=== PATIENT | male | born 1940 | race Caucasian/White ===

== ENCOUNTER → 2023-08-28 13:14 | Outpatient (REF) | payer MEDICARE, BC, SELFPAY ==
[2023-08-28 15:33] LABS: % Basophils 0.3 % (0-2); % Immature Granulocytes 0.6 % (0-0.5); % Lymphocytes 9.2 % (20.5-51.1); % Monocytes 13.9 % (1.7-9.3); Absolute Immature Granulocytes 0.1 10^3/uL (0-0.05); Absolute Lymphocytes 0.9 10^3/uL (1.2-3.4); Absolute Monocytes 1.4 10^3/uL (0.1-0.6); Absolute Neutrophils 7.7 10^3/uL (1.4-6.5); Hematocrit 25.3 % (39.0-52.0); Hemoglobin 8.5 g/dL (13.0-18.0); Mean Corp Hgb Conc. 33.6 g/dL (33.0-37.0); Mean Corpuscular Volume 101.2 fL (80.0-94.0); Mean Platelet Volume 12.9 fL (7.4-10.4); Nucleated Red Blood Cells % 0 % (-); Platelet Count 260 10^3/uL (130-400); Red Cell Dist. Width 16.2 % (11.5-14.5); White Blood Cell Count 10.1 10^3/uL (4.8-10.8)
== END ==
LOC: HWLAB 13:14
PROVIDERS: ATTENDING PHYSICIAN Internal Medicine Hematology & Oncology; FAMILY PHYSICIAN Family Medicine
DX: D46.9 Myelodysplastic syndrome, unspecified (principal); D46.1 Refractory anemia with ring sideroblasts
CPT/HCPCS: 36415; 85025

== ENCOUNTER → 2023-09-15 13:26 | Outpatient (REF) | payer MEDICARE, BC, SELFPAY ==
[2023-09-15 15:24] LABS: Hematocrit 25.8 % (39.0-52.0); Hemoglobin 8.8 g/dL (13.0-18.0); Mean Corp Hgb Conc. 34.1 g/dL (33.0-37.0); Mean Corpuscular Hgb 33.6 pg (27.0-31.0); Mean Corpuscular Volume 98.5 fL (80.0-94.0); Mean Platelet Volume 12.2 fL (7.4-10.4); Platelet Count 275 10^3/uL (130-400); Red Blood Cell Count 2.62 10^6/uL (4.70-6.10); Red Cell Dist. Width 15.5 % (11.5-14.5); White Blood Cell Count 7.9 10^3/uL (4.8-10.8)
[2023-09-15 15:25] LABS: ALT (SGPT) 34 U/L (0-50); AST (SGOT) 39 U/L (17-59); Albumin 4.3 g/dl (3.5-5.0); Alkaline Phosphatase 81 U/L (38-126); Blood Urea Nitrogen 63 mg/dl (9-20); Calcium 9.6 mg/dl (8.4-10.2); Carbon Dioxide 23 mmol/L (22-30); Chloride 103 mmol/L (98-107); Glucose 124 mg/dl (70-99); Potassium 3.9 mmol/L (3.5-5.1); Sodium 138 mmol/L (135-145); Total Protein 7.1 g/dl (6.3-8.2); eGFR 46.19
[2023-09-16 09:31] LABS: Glycohemoglobin (HgbA1c) 7.3 % (4.0-5.6)
== END ==
LOC: HWLAB 13:26
PROVIDERS: ATTENDING PHYSICIAN Physician Assistant; FAMILY PHYSICIAN Family Medicine
DX: E11.65 Type 2 diabetes mellitus with hyperglycemia (principal); J44.9 Chronic obstructive pulmonary disease, unspecified
CPT/HCPCS: 36415; 80053; 83036; 85027

== ENCOUNTER → 2024-02-19 10:56 | Outpatient (REF) | payer MEDICARE, BC, SELFPAY | LOC: RAD 10:56 | PROVIDERS: ATTENDING PHYSICIAN Surgery Vascular Surgery | DX: I73.9 Peripheral vascular disease, unspecified (principal) | CPT/HCPCS: 93922; 93925 ==

== ENCOUNTER → 2024-04-15 10:52 | Outpatient (REF) | payer MEDICARE, BC, SELFPAY ==
[2024-04-15 15:49] LABS: ALT (SGPT) 29 U/L (0-50); AST (SGOT) 35 U/L (17-59); Albumin 4.3 g/dl (3.5-5.0); Alkaline Phosphatase 90 U/L (38-126); Blood Urea Nitrogen 53 mg/dl (9-20); Calcium 9.7 mg/dl (8.4-10.2); Carbon Dioxide 22 mmol/L (22-30); Chloride 101 mmol/L (98-107); Glucose 216 mg/dl (70-99); Hematocrit 24.6 % (39.0-52.0); Hemoglobin 8.2 g/dL (13.0-18.0); Mean Corp Hgb Conc. 33.3 g/dL (33.0-37.0); Mean Corpuscular Hgb 33.3 pg (27.0-31.0); Platelet Count 258 10^3/uL (130-400); Potassium 4.6 mmol/L (3.5-5.1); Red Blood Cell Count 2.46 10^6/uL (4.70-6.10); Red Cell Dist. Width 15.9 % (11.5-14.5); Sodium 139 mmol/L (135-145); Total Bilirubin 1.1 mg/dl (0.2-1.3); Total Protein 6.8 g/dl (6.3-8.2); White Blood Cell Count 7.9 10^3/uL (4.8-10.8); eGFR 42.75
[2024-04-15 16:02] LABS: NT-proBNP 1980 pg/ml
[2024-04-16 09:34] LABS: Glycohemoglobin (HgbA1c) 7.5 % (4.0-5.6)
== END ==
LOC: HWLAB 10:52
PROVIDERS: ATTENDING PHYSICIAN Physician Assistant Medical; FAMILY PHYSICIAN Family Medicine; REFERRING PHYSICIAN Physician Assistant
DX: I50.32 Chronic diastolic (congestive) heart failure (principal); I48.21 Permanent atrial fibrillation; E11.65 Type 2 diabetes mellitus with hyperglycemia
CPT/HCPCS: 36415; 80053; 83036; 83880; 84443; 85027

== ENCOUNTER → 2024-06-14 11:33 | Outpatient (REF) | payer MEDICARE, BC, SELFPAY ==
[2024-06-14 16:07] LABS: Digoxin 0.9 ng/ml (0.8-2.0)
[2024-06-14 16:27] LABS: INR 1.78; PT 20.9 Sec (11.4-14.6)
== END ==
LOC: HWLAB 11:33
PROVIDERS: ATTENDING PHYSICIAN Internal Medicine Cardiovascular Disease; FAMILY PHYSICIAN Family Medicine
DX: Z95.2 Presence of prosthetic heart valve (principal); Z79.01 Long term (current) use of anticoagulants; I50.32 Chronic diastolic (congestive) heart failure
CPT/HCPCS: 36415; 80162; 85610

== ENCOUNTER → 2025-02-17 13:28 | Outpatient (REF) | payer OTHER, SELFPAY | LOC: HWRCS 13:28 | PROVIDERS: ATTENDING PHYSICIAN Internal Medicine Cardiovascular Disease; FAMILY PHYSICIAN Family Medicine | DX: I50.32 Chronic diastolic (congestive) heart failure (principal); I48.21 Permanent atrial fibrillation | CPT/HCPCS: 93306 ==

== ENCOUNTER → 2025-02-21 12:58 | Outpatient (REF) | payer OTHER, SELFPAY | LOC: RAD 12:58 | PROVIDERS: ATTENDING PHYSICIAN Registered Nurse; FAMILY PHYSICIAN Family Medicine | DX: I73.9 Peripheral vascular disease, unspecified (principal) | CPT/HCPCS: 93922; 93925 ==

== ENCOUNTER 2025-03-04 19:23 | Inpatient (IN) | payer OTHER, SELFPAY ==
[2025-03-04] VITALS (12 sets, daily range): BP systolic 123–160; BP diastolic 46–97; BMI 25.2; BMI 28.0
--- NOTE | 2025-03-04 12:09 | ED.GENMED ---
History of Present Illness
General
Chief Complaint: Generalized Pain
Source: patient
Exam Limitations: none
Time Seen by Provider: 03/04/25 11:43
History of Present Illness
History of Present Illness:
84-year-old male presents with onset of rigors chills myalgias since yesterday and slightly the day before. He denies significant chest pain shortness of breath but does note a cough. He denies abdominal pain but does note difficulty urinating and
pain over his flanks where his kidneys live. He denies any hematuria. He is anticoagulated. He has a history of insulin-dependent diabetes, asthma. He also notes nausea with his symptoms
Past History
Past History
ED Past Medical History: Arrthythmia (afib), COPD, HTN, Hypercholesterolemia, IDDM and Other (, BPH, renal stones)
ED Past Surgical History: Cardiac (AVR)
Social History
Tobacco: Former smoker
Alcohol: None
Drug: None
Personal:
Living: with family
Employment: Retired
Phy Exam
Physical Exam
Physical Exam:
General: Well-appearing male no acute respiratory distress HEENT: Normocephalic atraumatic
Heart: Regular rate and rhythm
Lungs: Clear no wheeze
Abdomen is distended but soft and nontender
Extremities: Mild edema bilateral lower extremities
Skin: Warm to the touch no rash
Course
Orders/Labs/Results
Orders:
Orders
03/04/25 12:06
CR Chest - 2 Views Urgent
Comment:
Reason For Exam: rigors, cough
03/04/25 12:19
COVID-19 Antigen Urgent
Source: Nasal Swab
Complete Blood Count/With Diff Urgent
Comprehensive Metabolic Panel Urgent
Lactic Acid Q4H
Comment: CANCEL 2nd LACTIC ACID IF 1st LACTIC ACID IS LESS THAN 2
NT-proBNP Urgent
Comment: ADD ON
Prothrombin Time Urgent
Blood Culture Q30M
MICHELLE Source: Blood/Venous
Specimen Description:
Influenza A+B Rapid Molecular Urgent
MICHELLE Source: Nasal Swab
Specimen Description:
03/04/25 12:24
Acetaminophen [Tylenol] 650 mg .ROUTE .STK-MED ONE
03/04/25 12:27
Acetaminophen [Tylenol] 650 mg PO NOW STA
03/04/25 12:33
CT Abd/pelvis W Iv Cont Urgent
Comment:
Reason For Exam: vomiting, fever, distention
Ondansetron Injectable [Zofran] 4 mg IV NOW STA
03/04/25 12:59
Blood Culture Q30M
MICHELLE Source: Blood/Venous
Specimen Description:
03/04/25 13:00
Dextrose 5%/0.45%Sodchl 500 ml [D5/0.45%NaCl] 500 ml IV 200 mls/hr
03/04/25 13:52
Add On- LAB Urgent
Tests Added?: bnp
03/04/25 15:50
Urinalysis Reflex To Culture Urgent
Date Specimen was Collected: 03/04/25
Time Specimen was Collected: 15:44
Urine Microscopic Reflex Cult Urgent
03/04/25 16:06
0.9% Sodium Chloride 1000 ml [Nss] 1,000 ml IV BOLUS
Piperacillin/Tazo 3.375 Gram [Zosyn] 3.375 gram in 50 ml IV NOW
03/04/25 16:15
Lactic Acid Q4H
Comment: CANCEL 2nd LACTIC ACID IF 1st LACTIC ACID IS LESS THAN 2
03/04/25 16:17
Vancomycin [Vancocin] 2,000 mg 0.9% Sodium Chloride 500 ml [Nss] 500 ml IV NOW
Abnormal Lab Results
03/04/25 03/04/25
12:19 15:50
WBC 30.6 H 10^3/uL
(4.8-10.8)
RBC 2.99 L 10^6/uL
(4.70-6.10)
Hgb 10.1 L g/dL
(13.0-18.0)
Hct 29.5 L %
(39.0-52.0)
MCV 98.7 H fL
(80.0-94.0)
MCH 33.8 H pg
(27.0-31.0)
RDW 17.2 H %
(11.5-14.5)
MPV 12.0 H fL
(7.4-10.4)
Abs Immat Gran (auto) 0.3 H 10^3/uL
(0-0.05)
Absolute Neuts (auto) 27.0 H 10^3/uL
(1.4-6.5)
Absolute Lymphs (auto) 0.5 L 10^3/uL
(1.2-3.4)
Absolute Monos (auto) 2.7 H 10^3/uL
(0.1-0.6)
Immature Gran % 1.1 H %
(0-0.5)
Neutrophils % 88.2 H %
(42.2-75.2)
Lymphocytes % 1.7 L %
(20.5-51.1)
PT 27.4 H Sec
(11.4-14.6)
BUN 49 H mg/dl
(9-20)
Creatinine 1.4 H mg/dL
(0.7-1.3)
Glucose 128 H mg/dl
(70-99)
Lactic Acid 2.3 H mmol/L
(0.7-2.0)
Total Bilirubin 2.1 H mg/dl
(0.2-1.3)
Urine Bacteria (Reflex) Few A
(Negative)
Urine Albumin (Reflex) 3+ A
(Neg - Trace)
09/02/25 12:19
03/04/25 12:19
Vital Signs
Initial and Last Documented VS:
Initial Vital Signs
Temp Pulse Resp BP Pulse Ox
98.3 F 66 18 123/72 96
03/04/25 10:54 03/04/25 10:54 03/04/25 10:54 03/04/25 10:54 03/04/25 10:54
Last Documented Vital Signs
Temp Pulse Resp BP Pulse Ox
98.3 F 61 15 137/53 98
03/04/25 10:54 03/04/25 15:30 03/04/25 15:30 03/04/25 15:03 03/04/25 15:30
MDM/Problems Addressed
Differential Diagnosis Includes:
Patient presents with shaking chills fatigue myalgias. Consider underlying infectious source. Will check for COVID flu pneumonia ordered blood cultures lactic acid and urinalysis. Bedside bladder scan demonstrated about 150 mL of urine in his
bladder. If he cannot provide a urine sample on his own we will consider straight cath.
Vital signs are stable
*Pulse Oximetry
SaO2: 96
Oxygen Mode of Delivery: Room air
Patient hypoxic: yes
*Critical Care Note
Total Time (30-74mins, 75-104mins- exclusive of procedures): Not Applicable
Update Note
Update Note:
Chest x-ray shows consolidation right upper lobe consistent with pneumonia. White blood cell count 30,000. CT of abdomen without acute findings. Patient now on 2 L of nasal cannula oxygen. Fluids ordered vancomycin Zosyn ordered. Will admit for
pneumonia
ED Attending Note
-
Portions of this chart may have been created with voice recognition software.� Occasional wrong word or��sound alike� substitutions may have occurred due to the inherent limitations of voice recognition software.
Discharge Plan
Departure
Patient Disposition: Admit
Date of Disposition: 03/04/25
Time of Disposition: 16:41
Presentation/result/management discussed w/ accepting /DO: Hospitalist
Discharge Problem:
Pneumonia
Prescriptions:
No Action
montelukast 10 MG tablet
10 mg PO QPM
cholecalciferol (vitamin D3) [Vitamin D3] 1,000 UNIT tablet
1,000 unit PO QPM
mynmzclx-pfdvm-ief 149-hyal ac 1 EACH tablet
1 ea PO BID
atorvastatin 80 MG tablet
80 mg PO QPM
finasteride 5 MG tablet
5 mg PO DAILY
tamsulosin 0.4 MG capsule
0.4 mg PO QPM
ypfrauvu-pfh-ymzn fum-folic ac 1 EACH tablet
1 ea PO DAILY
levalbuterol tartrate [Xopenex HFA] 45 mcg/actuation Hfa Aerosol Inhaler
2 inh INHALATION R Q4HPRN PRN (Reason: sob/wheezing) Qty: 0
Trelegy Ellipta 1 EACH blister with device
1 puff inhalation R DAILY
insulin lispro [Humalog KwikPen Insulin] 100 unit/mL Insulin Pen
0 - 26 unit SC AC
omeprazole 40 mg Capsule,Delayed Release(Dr/Ec)
40 mg PO DAILY
Fasenra 30 mg/mL Syringe
30 mg SC Q4W
hydralazine 50 mg tablet
50 mg PO BID Qty: 60 5RF
diltiazem HCl 360 mg capsule,extended release 24hr
360 mg PO DAILY Qty: 1 0RF
furosemide 80 mg tablet
60 mg PO DAILY
warfarin 1 mg tablet
3.5 mg PO QPM
insulin glargine [Lantus U-100 Insulin] 100 UNIT/ML solution
13 unit SC HS Qty: 0 0RF
Referrals:
Martine Duron DO [Family Provider, Family Practice]
Interventions
Interventions:
*Risk Screen - Suicide Last Done: 03/04/25 10:54
*General Assessment Last Done: 03/04/25 13:40
*Neglect/Abuse Screening Last Done: 03/04/25 10:54
*ED- Fall Risk Assessment Last Done: 03/04/25 13:40
*ED COVID-19 Vaccine History Last Done: 03/04/25 13:40
Discharge Date and Time
Print Language: BOTSWANAN
[2025-03-04] MEDS: TYLENOL 650 MG PO ×3 (12:27→22:40)
[2025-03-04] MEDS: ZOFRAN 4 MG IV ×2 (12:35→18:15)
[2025-03-04 12:42] LABS: Hematocrit 29.5 % (39.0-52.0); Hemoglobin 10.1 g/dL (13.0-18.0); Mean Corp Hgb Conc. 34.2 g/dL (33.0-37.0); Mean Corpuscular Volume 98.7 fL (80.0-94.0); Platelet Count 308 10^3/uL (130-400); Red Cell Dist. Width 17.2 % (11.5-14.5)
[2025-03-04 12:46] LABS: INR 2.54; PT 27.4 Sec (11.4-14.6)
[2025-03-04 12:53] LABS: ALT (SGPT) 25 U/L (0-50); AST (SGOT) 37 U/L (17-59); Albumin 4.3 g/dl (3.5-5.0); Alkaline Phosphatase 76 U/L (38-126); Blood Urea Nitrogen 49 mg/dl (9-20); COVID-19 Antigen Negative (Negative); Calcium 9.6 mg/dl (8.4-10.2); Carbon Dioxide 23 mmol/L (22-30); Chloride 104 mmol/L (98-107); Glucose 128 mg/dl (70-99); Potassium 4.8 mmol/L (3.5-5.1); Sodium 136 mmol/L (135-145); Total Protein 6.9 g/dl (6.3-8.2); eGFR 49.87
[2025-03-04] MEDS: D5/0.45%NACL 500 IV ×2 (12:54→15:41)
[2025-03-04 12:59] LABS: Nucleated Red Blood Cells % 0.1 % (-)
[2025-03-04 15:57] LABS: Urine Character Clear (Clear)
[2025-03-04 16:05] LABS: Urine Red Blood Cell 0-2 /HPF (0-2); Urine White Cell 0-2 /HPF (0-5)
[2025-03-04] MEDS: NSS 1000 IV (16:10)
[2025-03-04] MEDS: ZOSYN 50 IV (16:13)
[2025-03-04] MEDS: VANCOCIN 540 MG IV (17:11)
--- NOTE | 2025-03-04 18:08 | HPS.HSE ---
Family Physician
-
Family Physician: Martine Duron
Chief Complaint
-
general myalgias
History of Present Illness
Patient 84-year-old male with past medical history of paroxysmal atrial fibrillation, hypertension, hyperlipidemia, ASCVD, chronic kidney disease III, HFpEF, BPH, MDS, PAD and DM - II who presented to [facility] ED for evaluation of general myalgias.
Patient states that for last 24-hours he has had significant body aches and nausea. He denies any cough although observed cough in assessment that he states he got some mucus up earlier. Patient denies home O2 use and currently requiring 2 L vis NC
to maintain SpO2 >93%. He denies any fever, chills, cough, shortness of breath, chest pain, nausea, vomiting, consitpation or diarrhea. He does admit he feels he has not been emptying his bladder completely when urinating.
Medical History
Past Medical History
Past Medical History: Reports Other
Additional Past Medical History:
paroxysmal atrial fibrillation
hypertension
hyperlipidemia
ASCVD
chronic kidney disease III
HFpEF
BPH
MDS
PAD
DM - II
Past Surgical History: Reports Other
Additional Past Surgical History:
Aortic valve replacement with revision(x2)
Retinal Repair
R Knee Surgery
Deviated Septum Repair
Appendectomy
09/04/2017 right lower extremity arteriogram
03/23/2018 RLE arteriogram
LT LE arteriogram with third order catheterization (Dr Kaur) 10/22/2018
bone marrow biopsy 07/[address] Dickson Faye 2020
Social History
Tobacco: Non-smoker
Alcohol: None
Drug: None
Personal:
Living: With Family
Family History
Family History: Not pertinent
Allergies / Home Medications
Allergies reflects when Allergies were last updated in [employer].
Home Medications with original date entered in [employer]
Allergy/Medication List:
Allergies
Allergy/AdvReac Type Severity Reaction Status Date / Time
gabapentin Allergy hallucinati Verified 03/04/25 10:56
ons
mold Allergy wheezing Verified 03/04/25 10:56
oxycodone Allergy hallucinati Verified 03/04/25 10:56
ons
pantoprazole Allergy Itching Verified 03/04/25 10:56
Penicillins Allergy Hives Verified 03/04/25 10:56
Home Medications
cholecalciferol (vitamin D3) 25 mcg (1,000 unit) tablet (Vitamin D3) 1,000 unit PO QPM Supplement 02/23/11
jvoqingnmsr-ofbpyphwq-ynqr853-hyal 750 mg-100 mg-125 mg-1.65 mg tablet 1 ea PO BID Supplement 02/23/11
montelukast 10 mg tablet 10 mg PO QPM Allergies 02/23/11
atorvastatin 80 mg tablet 80 mg PO QPM High cholesterol 05/04/15
finasteride 5 mg tablet 5 mg PO DAILY Urinary issue 05/04/15
zjslhqiohtgq-vjpqzsgl-zazr fumarate 7.5 mg-folic acid 400 mcg tablet 1 ea PO DAILY Supplement 06/05/15
tamsulosin 0.4 mg capsule 0.4 mg PO BID Urinary issue 06/05/15
insulin lispro 100 unit/mL subcutaneous pen (Humalog KwikPen (U-100) Insulin) 17 - 32 unit SC AC Diabetes 04/18/22
benralizumab 30 mg/mL subcutaneous syringe (Fasenra) 30 mg SC Q8W Lung/breathing issues 05/23/22
omeprazole 40 mg capsule,delayed release 40 mg PO DAILY Gastrointestinal issue 05/23/22
warfarin 1 mg tablet 3.5 mg PO QPM Blood clot prevention/tx 05/26/23
aspirin 81 mg chewable tablet 81 mg PO DAILY 03/04/25
digoxin 125 mcg (0.125 mg) tablet 125 mcg PO MOWEFR 03/04/25
diltiazem HCl 240 mg capsule,extended release 24 hr 240 mg PO DAILY 03/04/25
fluticasone fur. 100 mcg-umeclid 62.5 mcg-vilant 25 mcg inhalat.powder (Trelegy Ellipta) 1 ea inhalation DAILY 03/04/25
furosemide 20 mg tablet 20 mg PO MOWEFR 03/04/25
furosemide 80 mg tablet 80 mg PO DAILY 03/04/25
hydralazine 25 mg tablet 25 mg PO BID 03/04/25
insulin glargine 100 unit/mL subcutaneous solution (Lantus U-100 Insulin) 0 - 11 unit SC HS Diabetes 03/04/25
levalbuterol tartrate 45 mcg/actuation aerosol inhaler 2 puff inhalation Q6HPRN PRN sob 03/04/25
sitagliptin phosphate 25 mg tablet (Januvia) 25 mg PO DAILY 03/04/25
Review of Systems
-
History Source: Patient
Constitutional: Denies Fever or Chills
EENT: Denies Sore Throat
Respiratory: Denies Cough or Trouble Breathing
Cardiac: Denies Chest Pain, Diaphoresis, Palpitations or Syncope
Abdomen/GI: Reports Nausea and Constipated; Denies Abdominal Pain, Vomiting or Diarrhea
: Reports Difficulty Voiding; Denies Dysuria, Frequency, Flank Pain or Urgency
Musculoskeletal: Reports No Symptoms
Skin: Denies Rash
Neurological: Denies Dizzy, Headache, Weakness or Numbness
Endocrine: Denies Polyuria or Polydipsia
Hematologic/Lymphatic: Reports No Symptoms
Psych: Reports Calm
Physical Exam
Vital Signs
Vital Signs
Temp Pulse Resp BP Pulse Ox
98.3 F 61 15 137/53 98
03/04/25 10:54 03/04/25 15:30 03/04/25 15:30 03/04/25 15:03 03/04/25 15:30
Physical Exam
General: Comfortable and Conversant
HEENT: NormoCephalic and Atraumatic
Respiratory: Clear; No Wheezes, Rales, Rhonchi or Crackles
Cardiac: S1/S2 and Regular Rhythm; No Murmur, Rub or Gallop
Breast: Deferred by me
GI: Soft, Non Tender, Non Distended and Normal Bowel Sounds; No Organomegaly
Rectal: Deferred by Provider
Genito-urinary: Deferred by me
Musculoskeletal: No Clubbing, No Cyanosis and No Edema
Skin: Warm and IV/Catheter Site; No Rash
Neuro: Awake, AO x 3 and Nonfocal/grossly intact
Hematologic/Lymphatic: No Lymphadenopathy
Psych: Calm and Intact Judgment/Insight
Laboratory Results
-
03/04/25 12:19
03/04/25 12:19
Laboratory Results
PT 27.4 Sec (11.4-14.6) H 03/04/25 12:19
INR 2.54 03/04/25 12:19
Lactic Acid 2.3 mmol/L (0.7-2.0) H 03/04/25 12:19
Total Bilirubin 2.1 mg/dl (0.2-1.3) H 03/04/25 12:19
AST 37 U/L (17-59) 03/04/25 12:19
ALT 25 U/L (0-50) 03/04/25 12:19
Alkaline Phosphatase 76 U/L (38-126) 03/04/25 12:19
Data Reviewed
-
Diagnostic Radiology: Report Reviewed by me (CXR: Focal opacity in the posterior aspect of the right upper midlung, best seen on the lateral view. See above discussion. Cardiomegaly. Diffusely increased reticulonodular markings. Correlating with
prior examinations, this could represent chronic changes of congestive heart failure. No evidence )
Lab Data: Labs Reviewed by me (WBC 30.6, Neut 88.2, BUN 49, Creat 1.4, eGFR 49.87, Lactic 2.3, pBNP 2580)
Impression/Plan
-
IMPRESSION/PLAN:
#pneumonia
WBC 30.6, Neut 88.2, Lactic 2.3
Blood cx: pending
CXR: Focal opacity in the posterior aspect of the right upper midlung, best seen on the lateral view. See above discussion.
Cardiomegaly. Diffusely increased reticulonodular markings. Correlating with prior examinations, this could represent chronic changes of congestive heart failure. No evidence for significant pleural
effusion on today's exam.
Abd/Pel CT: Colonic diverticula with no CT evidence for diverticulitis.
History of appendectomy. No evidence for bowel obstruction or free intraperitoneal air.
Moderate to severe vascular calcification. No evidence for abdominal aortic aneurysm.
Small umbilical hernia containing fat, with no evidence for significant inflammation.
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 Bony degenerative changes as described.
- Admit to telemetry
- IV Cefepime
- supportive care
#acute on chronic HFpEF
pBNP 2580
- daily weights
- I & Os
- Consult Cardiology
- IV Lasix daily
#chronic kidney disease III
BUN 49, Creat 1.4, eGFR 49.87
appears to be baseline
- monitor BMP
#paroxysmal atrial fibrillation
- continue Coumadin 3mg daily
- daily INR
- continue diltiazem
#hypertension
- hold PO furosemide
- IV furosemide for acute CHF
- continue hydralazine
#hyperlipidemia
#ASCVD
- continue aspirin and atorvastatin
#BPH
- continue tamsulosin
#DM - II
- AccuCheck AC & HS
- SSI
- continue Lantus
#Pulmonary HTN
- continue Coumadin
- daily INR
#MDS
#PAD
Code status: Full code
DVT prophylaxis: Coumadin
[2025-03-04] MEDS: D5/0.45%NACL IV ×2 (18:14→21:41)
--- NOTE | 2025-03-04 18:28 | W.PN.UPDATE ---
Update Note
Progress Note Update
This note serves as an addendum to the H&P by group sales manager MARINE�
Kira Morris
HPI�
84M pw onset of rigors chills myalgias since yesterday and slightly the day before.
- denies significant CO oe SoB
- does note a cough.
ROS
denies abdominal pain but does note difficulty urinating and pain over his flanks where his kidneys live.
denies any hematuria.
anticoagulated. He has a history of insulin-dependent diabetes, asthma. He also notes nausea with his symptoms
PHX
HTN, permanent A-fib, chronic anemia with GI bleed in 2021, chronic systolic CHF with preserved EF 65%, PVCs, COPD,
CKD 3B, BPH, mechanical AVR 2010 revision of leak on 07/22/2014, CAD/CABG DUNCAN to LAD 2010, pulmonary HTN, HLD, DM 2, PVD S/P right posterior tibial angioplasty 2018, BPH
Reviewed VS:
PE
GENERAL: mild resp distress, SOB with pursed lip breathing
HEENT: NC/AT--no O2 +JVD
HEART: regular rate and rhythm, +S1, +S2 murmur
LUNGS: rales bilaterally
ABDOM: soft, nontender, nondistended, + bowel sounds
EXT: 3+ LE edema pitting bilaterally
NEUROLOGIC: grossly intact
Relevant Data�
06/16/22 03/04/25
15:48 12:19
Fix-V-Kjfayadovlw Pept 1450 2580
04/15/24 03/04/25
11:05 12:19
BUN 53 H 49 H
Creatinine 1.6 H 1.4 H
eGFR 42.75 49.87
Xfn-O-Bbarmzxzssx Pept 1979
BCx sent
LA pending
CXR
Focal opacity in the posterior aspect of the right upper midlung, best seen on the lateral view. See above discussion.
Cardiomegaly. Diffusely increased reticulonodular markings. Correlating with prior examinations, this could represent chronic changes of congestive heart failure. No evidence for significant pleural effusion on today's exam.
CT Abd/pelvis W Iv Cont
Colonic diverticula with no CT evidence for diverticulitis.
History of appendectomy. No evidence for bowel obstruction or free intraperitoneal air.
Moderate to severe vascular calcification. No evidence for abdominal aortic aneurysm.
Small umbilical hernia containing fat, with no evidence for significant inflammation.
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 Bony degenerative changes as described.
03/31/2023 TTE
LVEF 65%.
Normal RV
Mild to moderate MS with mean gradient 3 mmHg.
Moderate to severe MR with 2 jets noted.
Mechanical [place] valve is in place. Leaflets appear to be opening appropriately with mild thickening. Turbulent flow going through the LVOT. Mild paravalvular leak.
Last hospitalist admission: Date of Admission: 05/26/23 - Date of Discharge: 06/02/23
Principal Diagnosis:
Acute on chronic diastolic heart failure
Acute kidney injury on chronic kidney disease stage III, due to cardiorenal syndrome
Watery diarrhea due to C. difficile colitis, first episode
Hypoglycemia in setting of insulin-dependent diabetes on insulin
ASSESSMENT & PLAN
Pending Rx reconciliation
Presumed multi focal PNA
Cough
Leucocytosis but afebrile
- NEG MRSA screen before - Hold off further
- IV Cefepime in place of Zosyn
- f/u BCx
- Trend T Curve , WCC
HX chr HFpEF with suspect acute component
- Transition to IV Lasix [address] of PO asix
- Daily Wt
- DCA card consult
JULIAN ? cardio renal syndrome
HX CKD 3b/4
- follow BMP, if not improved with diuresis, consult renal
Anemia of chronic diseas
HGB 1.1 and stable
Permanent AF
PPM implant
- rate controlled with Cardizem
- on chr Coumadin
- follow INR daily
Mechanical AVR 2010 with valve leak repair 2014--Continue Coumadin--Follow INR
HX CAD/CABG DUNCAN to LAD 2010/Type II AK due to demand ischemia 2021
chronic troponin elevation
- No active chest pain
- on chr Coumadin
- follow INR daily
- c/w statin
T2DM
- low SSI,
- c/w Lantus HS
Essential HTN
- on hydralazine and Cardizem daily
Pul HTN with severe persistent asthma
- on Trelegy, Xopenex, Fasenra
BPH
- on finasteride 5 mg daily
PVD
S/P right posterior tibial angioplasty 2018
- on chr Warfarin
- daily INR
DVT Px: on Coumadin
Full code
IP TLM
[2025-03-04] MEDS: LASIX 60 MG IV (20:03)
[2025-03-04] MEDS: APRESOLINE 25 MG PO (20:55)
[2025-03-04] MEDS: FLOMAX 0.4 MG PO (20:56)
[2025-03-04 21:16] LABS: Glucose - Point of Care 206 mg/dl (70-99)
[2025-03-04] MEDS: D5/0.45%NACL 1000 IV (21:33)
[2025-03-04] MEDS: LANTUS 0.05 UNITS SC (21:34)
[2025-03-05] VITALS (7 sets, daily range): BP systolic 104–143; BP diastolic 35–88; BMI 28.0
[2025-03-05] MEDS: STERILE WATER FOR INJECTION 10 ML IV ×3 (00:17→20:42)
[2025-03-05] MEDS: MAXIPIME 1000 MG IV ×3 (00:17→20:42)
[2025-03-05] MEDS: D5/0.45%NACL IV ×2 (03:50→04:20)
--- NOTE | 2025-03-05 04:30 | PTCARENOTE ---
Patient received 1000mls of IV fluid with 150mls output. He does report decreased bladder emptying. Bladder scans have been 215 or less. Most recently 120mls at 0345. Patient complaining of more difficulty breathing. He thinks it's bc the
'breathright' nose strip came off. He's sating at 98% on 2L. Lungs are diminished on R with coarse crackles on L base. Messaged [employer] via TT. IVF dc'd. Repositioned patient in bed. He reported feeling a bit more comfortable.
--- NOTE | 2025-03-05 05:12 | W.PN.UPDATE ---
Update Note
Progress Note Update
Per RN, updated patient's med list. Patient no longer takes aspirin, vitamin D and Digoxin. Also, patient's stated that Warfarin was not working, so medication changed to Jantoven 3 mg. RN updated home medication list. Medications to be
reviewed by primary provider.
--- NOTE | 2025-03-05 07:23 | CON.CAR ---
Addendum entered and electronically signed by Campbell Hurd, 03/05/25 14:48:
.
Hold further lasix today with rising cr.
Addendum entered and electronically signed by Campbell Hurd, DO 03/05/25 13:44:
I saw and examined the patient.
The [facility] Worker's note was reviewed and I agree with the note.
Comment:
Plan:
Patient with multifactorial dyspnea including community-acquired pneumonia.
Continue IV antibiotics as per primary service.
Evidence of volume overload. His weight is up 10 pounds from last office visit and over 20 pounds from last heart failure admission May 2023.
Continue IV diuresis.
He had been taking Lasix 80 mg in the a.m. with additional 20 mg Monday evenings.
Follow creatinine closely. He has a history of chronic renal insufficiency.
Recent echo reviewed from January 2025. No need to repeat at this time.
Primary dev technical mgr was evaluating him for potential cardiac amyloid, blood work ordered.
GDMT limited by his renal insufficiency.
History of atrial flutter. Continue Cardizem for rate control and Coumadin for stroke prophylaxis.
INR 3.2 on March 05, 2025.
HPI:-Patient came to the ER yesterday for acute on chronic cough and new chills and was admitted with PNA and cardiology is consulted for acute HF in addition. He has a complicated history.� Patient had mechanical AVR in 2010 followed by revision of
the pre-existing mechanical aortic valve for perivalvular leak leak and that was performed on 07/22/2014 with stitch repair. Then during admission in 2022 there was concern for worsening aortic valve insufficiency so he underwent full assessment of
mechanical aortic valve; TIAN with�LVOT increased gradient, valve itself looked stable, mitral valve with moderate to severe MR noted. Fluoroscopy was also stable without obvious abnormality in valve leaflets.�Plan was for conservative management and
overall his valves look stable by the most recent TTE 02/17/2025.� He is being followed by hematology (Dr. Jeffery) for anemia and MDS with intermittent treatment using luspatercept. Patient says that he feels he has the same cough he has have for the
last year, but within the last 2 days he started with arthralgias and chills prompting him to go to the ER where CXR revealed multifocal PNA. He also had leukocytosis and elevated lactic acid level. Patient admitted and started on IV antibiotics.
Cardiology is consulted due to elevation in his proBNP level, the last proBNP was 1800 and it is now almost 2600. Patient denies any increase in LE edema. His weight is up 26 lbs compared to last admission which is almost 2 years ago.
-Patient is s/p CABG with DUNCAN to LAD in 2010 and he had stable CAD by cath in 2014 prior to stitch repair. No complaints of chest pain at this time
-INR 3.21 on 03/05/2025. INR goal is 2.5-3. INRs managed by [facility] office using home monitor. Patient was switched from generic warfarin to Jantoven in the last year and takes 3 mg daily as an outpatient.
-Patient is s/p mechanical AVR in 2010 and then he had redo sternotomy with stitch repair in 2014 to help with paravalvular leak. By echo 03/23/23 he had mild paravalvular aortic regurgitation and then on TIAN 03/31/23 he had turbulent flow through the
LVOT and mild paravalvular leak. Then he had valve fluoroscopy 03/31/23 that was not optimal for opening and closing angles, but the leaflets appeared to be mobile and free of significant obstruction.
-Patient also with known moderate to severe MR and mild to mod MS.
-Known permanent Afib and HRs controlled with Cardizem CD 240 mg daily. Of note the patient was previously on digoxin as well, but this was stopped at office visit 04/18/23 due to bradycardia and then eventually he had left bundle pacer placed
05/11/23
Original Note:
Consultation
Consultation Request
Date/Time Consultation Requested: 03/04/25 at 2010
Date/Time Consultation Performed: 03/05/25 at 0738
Requesting Provider: Dr. Hussein
Performing Provider: Dr. Hurd
Reason for Consultation: Acute HF, PNA
Medical History
-
History of Present Illness:
Patient came to the ER yesterday for acute on chronic cough and new chills and was admitted with PNA and cardiology is consulted for acute HF in addition. He has a complicated history.� Patient had mechanical AVR in 2010 followed by revision of the
pre-existing mechanical aortic valve for perivalvular leak leak and that was performed on 07/22/2014 with stitch repair. Then during admission in 2022 there was concern for worsening aortic valve insufficiency so he underwent full assessment of
mechanical aortic valve; TIAN with�LVOT increased gradient, valve itself looked stable, mitral valve with moderate to severe MR noted. Fluoroscopy was also stable without obvious abnormality in valve leaflets.�Plan was for conservative management and
overall his valves look stable by the most recent TTE 02/17/2025.� He is being followed by hematology (Dr. Jeffery) for anemia and MDS with intermittent treatment using luspatercept. Patient says that he feels he has the same cough he has have for the
last year, but within the last 2 days he started with arthralgias and chills prompting him to go to the ER where CXR revealed multifocal PNA. He also had leukocytosis and elevated lactic acid level. Patient admitted and started on IV antibiotics.
Cardiology is consulted due to elevation in his proBNP level, the last proBNP was 1800 and it is now almost 2600. Patient denies any increase in LE edema. His weight is up 26 lbs compared to last admission which is almost 2 years ago.
PMH:
Chronic HFpEF
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
MR, moderate to severe by TIAN 03/31/23, moderate by TTE 02/17/25
Mild MR with mean gradient 4 mmHg by TTE 02/17/25
Mechanical aortic valve replacement in 2010, followed by revision of pre-existing mechanical aortic valve for perivalvular leak 07/22/2014
LVOT gradient turbulence with mild paravalvular aortic leak by TIAN 03/31/2023 and mild paravalvular regurgitation by TIAN 02/17/25
CAD s/p CABG with DUNCAN to LAD in 2010
HTN
Moderate to severe concentric LVH by echo 02/17/25
Permanent atrial fibrillation
Chronic Jantoven (brand name warfarin) OAC managed by [facility]
Asymptomatic PVCs
Anemia with h/o GI bleed in 2021.
Anemia and MDS
Secondary pulmonary hypertension.
Hyperlipidemia.
Diabetes mellitus type 2
Peripheral vascular disease, status post right posterior tibial angioplasty in 2019.
Premature ventricular contractions.
Asthma.
CKD 3b
Chronic obstructive pulmonary disease.
Nail-patella syndrome
Past Medical History
Past Medical History: Arrhythmias (Permanent atrial fibrillation, asymptomatic PVCs), Asthma, CAD (Coronary artery bypass surgery), CHF (Heart failure with preserved ejection fraction), COPD, HTN, Hypercholesterolemia, NIDDM, Renal Failure (Renal
insufficiency), Valvular Disease (Mechanical aortic valve replacement and redo surgery for paravalvular leak ) and Other (Peripheral vascular disease status post intervention)
Past Surgical History: Appendectomy, Cardiac (CABG), Orthopedic (Right knee surgery) and Other (Retinal repair)
Social History
Tobacco: Non-Smoker
Alcohol: None
Personal:
Living: With Family
Family History
Family History: Other (Father with heart failure)
Allergies / Home Medications
Allergy/AdvReac Type Severity Reaction Status Date / Time
gabapentin Allergy hallucinati Verified 03/04/25 10:56
ons
mold Allergy wheezing Verified 03/04/25 10:56
oxycodone Allergy hallucinati Verified 03/04/25 10:56
ons
pantoprazole Allergy itching Verified 03/04/25 20:29
but
patient
tolerates
omeprazole
Penicillins Allergy Hives Verified 03/04/25 10:56
�Medication �Instructions �Recorded �Confirmed �Type
cholecalciferol (vitamin D3) 25 1,000 unit PO QPM Supplement 02/23/11 03/04/25 History
mcg (1,000 unit) tablet (Vitamin
D3)
swnwfabophb-ubbxkftkw-[id number]-hyal 1 ea PO BID Supplement 02/23/11 03/04/25 History
750 mg-100 mg-125 mg-1.65 mg tablet
montelukast 10 mg tablet 10 mg PO QPM Allergies 02/23/11 03/04/25 History
atorvastatin 80 mg tablet 80 mg PO QPM High cholesterol 05/04/15 03/04/25 History
finasteride 5 mg tablet 5 mg PO DAILY Urinary issue 05/04/15 03/04/25 History
vmdcyncjptko-aszsigzr-ofhr 1 ea PO DAILY Supplement 06/05/15 03/04/25 History
fumarate 7.5 mg-folic acid 400 mcg
tablet
tamsulosin 0.4 mg capsule 0.4 mg PO BID Urinary issue 06/05/15 03/04/25 History
insulin lispro 100 unit/mL 17 - 32 unit SC AC Diabetes 04/18/22 03/04/25 History
subcutaneous pen (Humalog KwikPen
(U-100) Insulin)
benralizumab 30 mg/mL subcutaneous 30 mg SC Q8W Lung/breathing issues 05/23/22 03/04/25 History
syringe (Fasenra)
omeprazole 40 mg capsule,delayed 40 mg PO DAILY Gastrointestinal 05/23/22 03/04/25 History
release issue
diltiazem HCl 240 mg 240 mg PO DAILY 03/04/25 03/04/25 History
capsule,extended release 24 hr
fluticasone fur. 100 mcg-umeclid 1 ea inhalation DAILY 03/04/25 03/04/25 History
62.5 mcg-vilant 25 mcg
inhalat.powder (Trelegy Ellipta)
furosemide 20 mg tablet 20 mg PO MOWEFR 03/04/25 03/04/25 History
furosemide 80 mg tablet 80 mg PO DAILY 03/04/25 03/04/25 History
hydralazine 25 mg tablet 25 mg PO BID 03/04/25 03/04/25 History
insulin glargine 100 unit/mL 0 - 11 unit SC HS Diabetes 03/04/25 03/04/25 History
subcutaneous solution (Lantus
U-100 Insulin)
levalbuterol tartrate 45 2 puff inhalation Q6HPRN PRN sob 03/04/25 03/04/25 History
mcg/actuation aerosol inhaler
sitagliptin phosphate 25 mg tablet 25 mg PO DAILY 03/04/25 03/04/25 History
(Januvia)
Jantoven 3 mg PO QPM 03/05/25 03/05/25 History
latanoprost 0.005 RIGHT EYE QPM 03/05/25 History
Review of Systems
-
History Source: Patient
All other systems: Negative unless noted
Physical Exam
Vital Signs
Temp Pulse Resp BP Pulse Ox
97.7 F 66 18 127/61 97
03/05/25 03:35 03/05/25 03:49 03/05/25 03:35 03/05/25 03:49 03/05/25 03:35
General: NAD, AAO x3
HEENT: EOMI, MMM
Skin: Warm, dry and pink. No rash
CV: V paced with underlying atrial flutter. Reg, 2/6 ASM
Lungs: RA. Productive cough. Coarse with rhonchi. No wheeze
Abdomen: +BS, soft
Extremities: No clubbing, cyanosis, lesions or edema B/L
Neuro: Grossly nonfocal
Lab Results
Kat-X-Lnpbafxnlsn Pept 2580 pg/ml 03/04/25 12:19
Impression / Plan
-
PCP: Dr. Duron
[facility] [employer] Staff: Dr. Molly Faye
Impression:
Admitted with multifactorial SOB 03/04/25
CAP
Acute on chronic HFpEF
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
MR, moderate to severe by TIAN 03/31/23, moderate by TTE 02/17/25
Mild MR with mean gradient 4 mmHg by TTE 02/17/25
Mechanical aortic valve replacement in 2010, followed by revision of pre-existing mechanical aortic valve for perivalvular leak 07/22/2014
LVOT gradient turbulence with mild paravalvular aortic leak by TIAN 03/31/2023 and mild paravalvular regurgitation by TIAN 02/17/25
CAD s/p CABG with DUNCAN to LAD in 2010
HTN
Moderate to severe concentric LVH by echo 02/17/25
Permanent atrial fibrillation
Chronic Jantoven (brand name warfarin) OAC managed by [facility]
Asymptomatic PVCs
Anemia with h/o GI bleed in 2021.
Anemia and MDS
Secondary pulmonary hypertension.
Hyperlipidemia.
Diabetes mellitus type 2
Peripheral vascular disease, status post right posterior tibial angioplasty in 2018.
Premature ventricular contractions.
Asthma.
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
Chronic obstructive pulmonary disease.
Nail-patella syndrome
Echo 03/23/23: Moderate LVH. Normal LV size with EF 73%. Normal right ventricular size and function. Mild to moderate mitral stenosis with peak/mean gradients of 25/7 mmHg. Moderate to severe eccentric mitral regurgitation. #23 [facility] mechanical
aortic valve replacement with peak/mean gradients of 81/42 mmHg. Mild paravalvular aortic regurgitation. Moderate tricuspid regurgitation. Estimated PA pressure of 72 mmHg assuming a right atrial pressure of 15.
TIAN 03/31/23: Normal LV size and function with ejection fraction 65%. Moderate LVH. Blood pressure was 179/80. Normal right ventricle. Mild to moderate mitral stenosis with mean gradient 3 mmHg. Moderate to severe mitral regurgitation with 2 jets
noted. Mechanical [place] valve is in place. Leaflets appear to be opening appropriately with mild thickening. Turbulent flow going through the LVOT. Mild paravalvular leak.
Valve fluoroscopy 03/31/23: Study was not optimal for opening and closing angles however leaflets appear to be mobile and free of significant obstruction.
Echo 02/17/2025: EF 60 to 65%, moderate to severe concentric LVH, mechanical [place] AVR peak/mean 36/15 mmHg with mild perivalvular regurgitation, mild MS with mean gradient 4 mmHg, moderate MR, moderate TR with PAP 38 mmHg
Plan:
-Patient came to the ER yesterday for acute on chronic cough and new chills and was admitted with PNA and cardiology is consulted for acute HF in addition. He has a complicated history.� Patient had mechanical AVR in 2010 followed by revision of the
pre-existing mechanical aortic valve for perivalvular leak leak and that was performed on 07/22/2014 with stitch repair. Then during admission in 2022 there was concern for worsening aortic valve insufficiency so he underwent full assessment of
mechanical aortic valve; TIAN with�LVOT increased gradient, valve itself looked stable, mitral valve with moderate to severe MR noted. Fluoroscopy was also stable without obvious abnormality in valve leaflets.�Plan was for conservative management and
overall his valves look stable by the most recent TTE 02/17/2025.� He is being followed by hematology (Dr. Jeffery) for anemia and MDS with intermittent treatment using luspatercept. Patient says that he feels he has the same cough he has have for the
last year, but within the last 2 days he started with arthralgias and chills prompting him to go to the ER where CXR revealed multifocal PNA. He also had leukocytosis and elevated lactic acid level. Patient admitted and started on IV antibiotics.
Cardiology is consulted due to elevation in his proBNP level, the last proBNP was 1800 and it is now almost 2600. Patient denies any increase in LE edema. His weight is up 26 lbs compared to last admission which is almost 2 years ago.
-ECG reviewed by me is V paced with underlying atrial fibrillation
-Community-acquired pneumonia being managed with cefepime 1 g IV every 8 hours
-Suspect the bulk of the patient's symptoms including chills, arthralgias and abnormal labs are due to PNA, but his proBNP is elevated and weight is up so we will also manage as acute HFpEF.
-Weight is up 26 lbs compared to last HF admission 05/2023. Patient was given Lasix 60 mg IV x 1 last night. Patient was taking Lasix 80 mg every morning plus additional 20 mg MWF evenings only.
-Cre was 1.4 on admission which seems falsely low for him and is increased to 2.3 on my review of labs 03/05/2025. This was after the dose of Lasix 60 mg IV on 03/04/2025 PM. Patient was ordered Lasix 60 mg PO daily to start on 03/05/2025 AM, but I have
placed this order on hold and will reassess Cre in AM.
-EF was 60 to 65% by echo 02/17/2025, no need to repeat.
-Patient is not chronically on BB, but instead is on Cardizem CD with history of atrial flutter
-Patient is not chronically on DEREK/ARB/ARNI/aldosterone antagonist due to CKD 3B
-Patient is not chronically on SGLT2 inhibitor with GFR 27 on my review of labs 03/05/2025
-Patient is s/p CABG with DUNCAN to LAD in 2010 and he had stable CAD by cath in 2014 prior to stitch repair. No complaints of chest pain at this time
-INR 3.21 on 03/05/2025. INR goal is 2.5-3. INRs managed by [facility] office using home monitor. Patient was switched from generic warfarin to Jantoven in the last year and takes 3 mg daily as an outpatient.
-Patient is s/p mechanical AVR in 2010 and then he had redo sternotomy with stitch repair in 2014 to help with paravalvular leak. By echo 03/23/23 he had mild paravalvular aortic regurgitation and then on TIAN 03/31/23 he had turbulent flow through the
LVOT and mild paravalvular leak. Then he had valve fluoroscopy 03/31/23 that was not optimal for opening and closing angles, but the leaflets appeared to be mobile and free of significant obstruction.
-Patient also with known moderate to severe MR and mild to mod MS.
-Known permanent Afib and HRs controlled with Cardizem CD 240 mg daily. Of note the patient was previously on digoxin as well, but this was stopped at office visit 04/18/23 due to bradycardia and then eventually he had left bundle pacer placed
05/11/23
[2025-03-05] MEDS: SYMBICORT 80/4.5 MCG INHALER 2 PUFF INH ×2 (08:02→19:27)
[2025-03-05] MEDS: SPIRIVA RESPIMAT 2.5 MCG 2 PUFF INH (08:02)
[2025-03-05 08:04] LABS: Glucose - Point of Care 184 mg/dl (70-99)
[2025-03-05] MEDS: NOVOLOG FLEXPEN-LOW RESISTANCE 1 UNITS SC ×2 (08:09→16:16)
[2025-03-05] MEDS: CARDIZEM CD 240 MG PO (08:10)
[2025-03-05] MEDS: PROSCAR 5 MG PO (08:11)
[2025-03-05] MEDS: JANUVIA 25 MG PO (08:11)
[2025-03-05] MEDS: APRESOLINE 25 MG PO ×2 (08:11→20:40)
[2025-03-05] MEDS: THERAGRAN 1 TABLET PO (08:11)
[2025-03-05] MEDS: FLOMAX 0.4 MG PO ×2 (08:11→20:40)
[2025-03-05] MEDS: LASIX 60 MG PO (08:12)
[2025-03-05 08:14] LABS: Hematocrit 26.8 % (39.0-52.0); Hemoglobin 8.9 g/dL (13.0-18.0); Mean Corp Hgb Conc. 33.2 g/dL (33.0-37.0); Mean Corpuscular Volume 101.1 fL (80.0-94.0); Platelet Count 248 10^3/uL (130-400); Red Cell Dist. Width 17.4 % (11.5-14.5)
[2025-03-05 08:22] LABS: INR 3.21; PT 33.1 Sec (11.4-14.6)
[2025-03-05 08:32] LABS: Blood Urea Nitrogen 54 mg/dl (9-20); Calcium 8.1 mg/dl (8.4-10.2); Carbon Dioxide 21 mmol/L (22-30); Chloride 104 mmol/L (98-107); Estimated Creatinine Clearance 20 ml/min; Glucose 167 mg/dl (70-99); Potassium 4.6 mmol/L (3.5-5.1); Sodium 133 mmol/L (135-145); eGFR 27.49
--- NOTE | 2025-03-05 10:17 | W.PN.HOSP.TC ---
Addendum entered and electronically signed by Yoshi Parrish MD, Resident 03/06/25 10:49:
No pressure ulcers noted. Preventative padding placed on both heels.
Original Note:
Today's Communication/Plan
-
Consult oncology
Hold IV lasix
CT chest w/o contrast
Add Doxycycline
HbA1C
Assessment / Plan
Assessment / Plan
#Community Aquired Pneumonia
-Elevated WBC- 41.8
Blood cx: No growth in 24hrs- pending
CXR: Focal opacity in the posterior aspect of the right upper midlung
Cardiomegaly. Diffusely increased reticulonodular markings. Correlating with prior examinations, this could represent chronic changes of congestive heart failure.
Abd/Pel CT: Colonic diverticula with no CT evidence for diverticulitis.
No evidence for bowel obstruction or free intraperitoneal air.
Moderate to severe vascular calcification. No evidence for abdominal aortic aneurysm.
Small umbilical hernia containing fat, with no evidence for significant inflammation.
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 Bony degenerative changes as described.
- Admit to telemetry
- IV Cefepime 1000mg Q12h + Doxycycline 100mg PO Q12h
- supportive care
#acute on chronic HFpEF
pBNP- 2580
- daily weights
- I/Os
- Consult Cardiology
- Hold IV lasix
Primary mainframe developer eval for- potential cardiac Amyloid?
#chronic kidney disease III
BUN 54, Creat 2.3, eGFR 27.49
- monitor BMP
#paroxysmal atrial fibrillation
- continue Coumadin 3mg daily- for stroke prophylaxis
- daily INR
- PT 33.1
- continue Cardizem for rate control
##MDS
-elevated WBC, chest xray- pneumonia/ neoplasia?
-Chest CT w/o contrast
-consult oncology
#hypertension
- hold PO furosemide
- IV furosemide for acute CHF
- continue hydralazine 25mg PO BID
#hyperlipidemia
#ASCVD
- continue atorvastatin
- Creatinine kinase- 130
#DM - II
- AccuCheck AC & HS
- Insulin aspart per protocol
- continue Insulin Glargine 5U SQ
#Pulmonary HTN
- continue Coumadin
- daily INR
#BPH
- continue tamsulosin
#PAD
Anticipated Discharge: > 48 hours
Subjective/Interval History
-
Date of Service: March 05, 2025
He has nausea and dry cough. Denies abd pain, SOB, chills. He has bm every 5 days. Last one was 2 days ago. Difficulty voiding without any pain pain. Myalgia improved.
Objective Data
-
Labs:
Laboratory Results
03/05/25
06:46
WBC 41.1 H*
Hgb 8.9 L
Hct 26.8 L
Plt Count 248
PT 33.1 H
INR 3.21
Sodium 133 L
Potassium 4.6
Chloride 104
Carbon Dioxide 21 L
BUN 54 H
Creatinine 2.3 H
Glucose 167 H
Calcium 8.1 L D
Vital Signs:
Vital Signs
Temp Pulse Resp BP Pulse Ox
98.6 F 85 18 131/88 98
03/05/25 07:50 03/05/25 08:00 03/05/25 08:00 03/05/25 07:50 03/05/25 08:00
I&O
03/04/25 03/05/25 03/06/25
06:59 06:59 06:59
Intake Total 1480 / 1480
Output Total 400 / 400
Balance 1080 / 1080
Review of Systems
-
History Source: Patient
Constitutional: Reports No Symptoms
EENT: Reports No Symptoms Reported
Respiratory: Reports Cough
Cardiac: Reports No Symptoms
Abdomen/GI: Reports Constipated
Breast: Reports No Symptoms
Genitourinary: Reports Difficulty Voiding
Musculoskeletal: Reports No Symptoms
Skin: Reports No Symptoms
Neuro: Reports No Symptoms
Endocrine: Reports No Symptoms
Physical Exam
-
General: Well Developed and Well Nourished
HEENT: Normocephalic, Atraumatic and Oxygen
Respiratory: Clear to Auscultation
Cardiac: Regular Rhythm and S1/S2
Breast: Deferred by me
GI: Soft, Nontender and Nondistended
Rectal: Deferred by Provider
Genito-urinary: No Costovertebral Tender
Musculoskeletal: No Edema
Skin: Warm
Neuro: AO x 3
Psych: Calm
[2025-03-05 10:25] LABS: Glycohemoglobin (HgbA1c) 7.9 % (4.0-5.6)
[2025-03-05 11:04] LABS: Glucose - Point of Care 200 mg/dl (70-99)
[2025-03-05] MEDS: NOVOLOG FLEXPEN-LOW RESISTANCE 2 UNITS SC (11:55)
[2025-03-05 12:44] LABS: CKMB 3.2 ng/ml (0.0-3.4)
--- NOTE | 2025-03-05 12:50 | CM ---
CM reviewed chart, patient seen bedside, initial assessment completed. Patient resides with his in a ranch style home, 2-3 steps to enter. Patient reports having a walker at home, currently on O2, does not wear home O2. Patient reports VN in
past, reports typically gets set up with VN once he discharges from hospital. Patient may benefit from PT/OT evals. PCP Martine Duron, [facility], confirms prescription coverage. Patient denies insecurities at home. CM will continue to
follow for all discharge planning needs.
Plan; home with , watch for O2 needs, may benefit from PT/OT evals
[2025-03-05] MEDS: PREVACID 30 MG PO (14:06)
[2025-03-05] MEDS: VIBRAMYCIN 100 MG PO ×2 (14:06→22:16)
[2025-03-05 16:06] LABS: Glucose - Point of Care 198 mg/dl (70-99)
[2025-03-05] MEDS: SINGULAIR 10 MG PO (16:17)
[2025-03-05] MEDS: LIPITOR 80 MG PO (16:17)
[2025-03-05] MEDS: ZOFRAN 4 MG IV (18:23)
[2025-03-05] MEDS: COLACE 100 MG PO (20:40)
[2025-03-05 21:18] LABS: Glucose - Point of Care 146 mg/dl (70-99)
[2025-03-05] MEDS: LANTUS 0.05 UNITS SC (22:17)
[2025-03-06 03:48] VITALS: BP 132/50
[2025-03-06 06:00] VITALS: BMI 29.6
--- NOTE | 2025-03-06 07:18 | W.PN.HOSP.TC ---
Today's Communication/Plan
-
60mg IV Lasix
tomorrow right heart cath
Increased Lantus 10 U
Check postvoidal bladder scan, accurate I's and O's and daily weight
Assessment / Plan
Assessment / Plan
#Community Aquired Pneumonia
-Elevated WBC- 41.8
Blood cx: No growth in 24hrs- pending
CXR: Focal opacity in the posterior aspect of the right upper midlung
Cardiomegaly. Diffusely increased reticulonodular markings. Correlating with prior examinations, this could represent chronic changes of congestive heart failure.
Abd/Pel CT: Colonic diverticula with no CT evidence for diverticulitis.
No evidence for bowel obstruction or free intraperitoneal air.
Moderate to severe vascular calcification. No evidence for abdominal aortic aneurysm.
Small umbilical hernia containing fat, with no evidence for significant inflammation.
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 Bony degenerative changes as described.
- Admit to telemetry
- IV Cefepime 1000mg Q12h + Doxycycline 100mg PO Q12h
- supportive care
#acute on chronic HFpEF
pBNP- 2580
- daily weights
- I/Os
- Consult Cardiology
- Continue IV lasix--follow Cr closely
Primary living manager eval for- potential cardiac Amyloid? - immunology work-up pending
#JULIAN on chronic kidney disease III
BUN 71, Creat 4.2, eGFR 13.34
- monitor BMP
-JULIAN likely from due to contrast mediated nephropathy from CT scan of abdomen and pelvis with IV contrast
-60 mg IV Lasix with follow-up right heart cath
-Bladder scan
#paroxysmal atrial fibrillation
- continue Coumadin 3mg daily- for stroke prophylaxis
- daily INR
- PT 33.1
- continue Cardizem for rate control
##MDS
-elevated WBC, chest xray- pneumonia/ neoplasia?
-Chest CT w/o contrast:
---The right upper lobe airspace opacity is favored to represent lobar pneumonia. Imaging follow-up to resolution is recommended after treatment as an underlying pulmonary neoplasm would be difficult to completely exclude
---Trace right pleural effusion.
---Partially imaged right upper pole renal cyst measuring 3.7 cm.
-consult oncology
-immunology work-up pending
#hypertension
- hold PO furosemide
- IV furosemide for acute CHF
- continue hydralazine 25mg PO BID
#hyperlipidemia
#ASCVD
- continue atorvastatin
- myalgia secondary to statin?--Creatinine kinase- 130 N
#DM - II
- AccuCheck AC & HS
- Insulin aspart per protocol
- continue Insulin Glargine 10U SQ
#Pulmonary HTN
- continue Coumadin
- daily INR
#BPH
- continue tamsulosin
#PAD
Anticipated Discharge: > 48 hours
Subjective/Interval History
-
Date of Service: March 06, 2025
Overnight he had SOB, now he feels better. Coughing improved, no chills, no myalgia. Feels lightheaded, dizzy when ge gets up. He urinated 3 times since yesterday. He feels like he can't empty his bladder. No bm yet.
Objective Data
-
Labs:
Laboratory Results
03/06/25
06:00
WBC Pending
Hgb Pending
Hct Pending
Plt Count Pending
PT Pending
INR Pending
Sodium Pending
Potassium Pending
Chloride Pending
Carbon Dioxide Pending
BUN Pending
Creatinine Pending
Glucose Pending
Calcium Pending
Vital Signs:
Vital Signs
Temp Pulse Resp BP Pulse Ox
98.2 F 67 18 132/50 94
03/06/25 03:48 03/06/25 04:40 03/06/25 04:40 03/06/25 03:48 03/06/25 04:40
I&O
03/05/25 03/06/25 03/07/25
06:59 06:59 06:59
Intake Total 1480 / 1480 800 / 800
Output Total 400 / 400 1100 / 1100
Balance 1080 / 1080 -300 / -300
Review of Systems
-
History Source: Patient
Constitutional: Reports Weight Gain
EENT: Reports No Symptoms Reported
Respiratory: Reports Cough and Trouble Breathing
Cardiac: Reports No Symptoms
Abdomen/GI: Reports Constipated
Breast: Reports No Symptoms
Genitourinary: Reports Difficulty Voiding
Musculoskeletal: Reports No Symptoms
Skin: Reports No Symptoms
Neuro: Reports No Symptoms
Endocrine: Reports No Symptoms
Physical Exam
-
General: Well Developed and Well Nourished
HEENT: Normocephalic, Atraumatic and Oxygen
Respiratory: Clear to Auscultation
Cardiac: Regular Rhythm and S1/S2
Breast: Deferred by me
GI: Soft, Nontender and Nondistended
Rectal: Deferred by Provider
Genito-urinary: No Costovertebral Tender
Musculoskeletal: No Edema
Skin: Warm and Dry
Neuro: AO x 3
Psych: Calm
[2025-03-06] MEDS: SYMBICORT 80/4.5 MCG INHALER 2 PUFF INH ×2 (08:09→19:54)
[2025-03-06] MEDS: SPIRIVA RESPIMAT 2.5 MCG 2 PUFF INH (08:09)
[2025-03-06 08:13] LABS: Glucose - Point of Care 229 mg/dl (70-99)
--- NOTE | 2025-03-06 08:34 | PN.CDI ---
CDI
- -
CDI:
Physician Documentation Request
Admit Date: 03/04/25 19:23
Dear Doctor Shivani,
Patient admitted for heart failure.
Nursing documentation clinical panel wound care
03/04/25
22:00
Pressure injury appearance (Stage 1) [Present on admission Bilateral Heel] Soft on
palpation (
boggy)
Pressure injury stage [Present on admission Bilateral Heel] Stage 1
Surrounding Skin - [Present on admission Bilateral Heel] Dry and intact
Local erythema
Wound treatment comments [Present on admission Bilateral Heel] B/L heel foams
applied
Physician documentation of the type and location of wounds is required for compliant documentation. Based on the above clinical findings and your assessment, please provide the following in your progress note:
1. Location of the ulcer/wound, including laterality.
2. Type (etiology) of ulcer/wound:
- Diabetic ulcer
- Arterial (ischemic) ulcer
- Traumatic wound
- Venous stasis ulcer
- Pressure (decubitus) ulcer
- Non-healing surgical wound
- Other
- Unable to determine
3. For a non-pressure ulcer, please indicate the depth/severity:
- Limited to the breakdown of skin
- With fat layer exposed
- With necrosis of muscle
- With necrosis of bone
- Other
- Unable to determine
4. If a pressure ulcer, please also include the stage* of the ulcer:
- Stage 1 - Skin intact, non-blanchable redness
- Stage 2 - Partial thickness loss of dermis, includes intact or open blister
- Stage 3 - Full thickness tissue not including bone, tendon or muscle
- Stage 4 - Full thickness tissue loss, including exposed bone, tendon or muscle
- Unstageable - Full thickness loss in which the base of the ulcer is covered by slough (yellow, gan, lewis, green or brown) and/or eschar (gan, brown or black) in the wound bed.
- Unable to determine
Use of terms such as suspected, likely, concern for, or probable (associated with a specific diagnosis that is being evaluated, monitored, or treated as if it exists) are acceptable and can be coded in the inpatient setting, when documented at the
time of discharge.
Thank you,
Tanya Reynolds RN, BSN
CDI Specialist
Available via [place] text
Please use your independent medical judgment in providing your response.
*Source: National Pressure Ulcer Advisory Panel (NPUAP)
[2025-03-06] MEDS: NOVOLOG FLEXPEN-LOW RESISTANCE 2 UNITS SC ×2 (08:39→17:28)
[2025-03-06] MEDS: STERILE WATER FOR INJECTION 10 ML IV ×2 (08:40→21:20)
[2025-03-06] MEDS: COLACE 100 MG PO ×2 (08:41→21:19)
[2025-03-06] MEDS: VIBRAMYCIN 100 MG PO ×2 (08:41→21:19)
[2025-03-06] MEDS: CARDIZEM CD 240 MG PO (08:41)
[2025-03-06] MEDS: MAXIPIME 1000 MG IV ×2 (08:41→21:20)
[2025-03-06] MEDS: PREVACID 30 MG PO (08:41)
[2025-03-06] MEDS: MIRALAX 17 GRAMS PO (08:41)
[2025-03-06] MEDS: PROSCAR 5 MG PO (08:41)
[2025-03-06] MEDS: THERAGRAN 1 TABLET PO (08:42)
[2025-03-06] MEDS: FLOMAX 0.4 MG PO ×2 (08:42→21:19)
[2025-03-06] MEDS: APRESOLINE 25 MG PO ×2 (08:42→21:19)
[2025-03-06 08:45] VITALS: BP 148/58
[2025-03-06 08:47] LABS: Hematocrit 24.6 % (39.0-52.0); Hemoglobin 8.4 g/dL (13.0-18.0); Mean Corp Hgb Conc. 34.1 g/dL (33.0-37.0); Mean Corpuscular Volume 99.6 fL (80.0-94.0); Platelet Count 248 10^3/uL (130-400); Red Cell Dist. Width 17.1 % (11.5-14.5)
[2025-03-06 08:50] LABS: INR 2.89; PT 30.6 Sec (11.4-14.6)
--- NOTE | 2025-03-06 09:15 | CON.ONC ---
Documented by User: Gladis Jensen DO, Resident 03/06/25 11:03
Consultation
-
Date Consultation Requested: 03/05/25
Date Consultation Performed: 03/06/25
Requesting Provider: Yoshi Parrish MD, Resident
Performing Provider: Dr. Mina
Reason for Consultation: MDS
Impression
Impression
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
Lobar Pneumonia
Chronic diastolic CHF
COPD
Essential Hypertension
Plan
Plan
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
-WBC peaked at 41.8, now 17.0
-Hemoglobin 8.4 today
-Continue to follow CBC
-Continue treatment for pneumonia per primary care team
-Continue to follow up outpatient for MDS
Thank you for the consult. Patient will need continued outpatient management with his outpatient product designer/oncologist. No further inpatient hematology recommendations at this time. If any questions arise, please contact the hematology/oncology
team. Signing off.
Patient History
History of Present Illness
This is an 84 y/o male with pmhx of myelodysplastic syndrome diagnosed in 2021 after a hospitalization for rectal bleeding, dark stools hemoglobin of 4.7. He was found to have telangiectasis and AVM on colonoscopy at that time. His anemia
persisted, and on he had a bone marrow biopsy which revealed myelodysplastic syndrome with 50-60% cellularity, increased ample iron with increased ring sideroblasts, no increase in blasts and a SF3B1 mutation. He was previously treated
with Aranesp without improvement. He was started on Luspatercept on 06/11/2024 with improvement in hemoglobin and overall goal to keep hemoglobin >11.
He presented to the ED on 03/04/2025 with general myalgias ongoing for the last 24 hours along with nausea. His WBCs on admission were 30.6 with neutrophils of 88.2 and a lactic acid of 2.3. His hemoglobin was 10.1 with a RDW of 17.2. Chest X-ray
revealed a focal opacity int he posterior aspect of the right upper midlung, cardiomegaly, diffusely increased reticulonodular markings. He was started on cefepime and admitted to the hospital for further evaluation.
On 03/05/2025, he was started on doxycycline as well. His WBCs increased to 41.8, and his hemoglobin decreased to 8.9. CT of the chest showed a right upper lobe airspace opacity that is favored to represent lobar pneumonia with recommendation to
follow up with repeated imaging after treatment.
Patient reports he is doing well today. He feels much better than he did when he first came to the hospital, and is free from fevers, chills, and night sweats that brought him in. He does still have shortness of breath and a nonproductive cough at
baseline. He reports he was supposed to have a follow up appointment with his outpatient product designer/oncologist today. He has no concerns at this time.
Past-Medical/Surgical History
Permanent atrial fibrillation
CAD status post CABG 2010
Chronic diastolic CHF
COPD
GERD
Essential Hypertension
Hypercholesterolemia
Mechanical aortic valve replacement in 2010 with redo in 2014 for paravalvular leak
Peripheral Vascular Disease
PVCs
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
Patient Medication
�Medication �Instructions �Recorded �Confirmed �Last Taken �Type
cholecalciferol (vitamin D3) 25 1,000 unit PO QPM Supplement 02/23/11 03/04/25 06/28/23 History
mcg (1,000 unit) tablet (Vitamin
D3)
[id number] 1 ea PO BID Supplement 02/23/11 03/04/25 06/28/23 History
750 mg-100 mg-125 mg-1.65 mg tablet
montelukast 10 mg tablet 10 mg PO QPM Allergies 02/23/11 03/04/2523 History
atorvastatin 80 mg tablet 80 mg PO QPM High cholesterol 05/04/15 03/04/25 06/28/23 History
finasteride 5 mg tablet 5 mg PO DAILY Urinary issue 05/04/15 03/04/25 06/29/23 History
vdetwliibhuj-khbnghvx-ekul 1 ea PO DAILY Supplement 06/05/15 03/04/25 06/29/23 History
fumarate 7.5 mg-folic acid 400 mcg
tablet
tamsulosin 0.4 mg capsule 0.4 mg PO BID Urinary issue 06/05/15 03/04/25 05/26/23 History
insulin lispro 100 unit/mL 17 - 32 unit SC AC Diabetes 04/18/22 03/04/25 06/29/23 History
subcutaneous pen (Humalog KwikPen
(U-100) Insulin)
benralizumab 30 mg/mL subcutaneous 30 mg SC Q8W Lung/breathing issues 05/23/22 03/04/25 2 Weeks Ago History
syringe (Fasenra) ~03/17/23
omeprazole 40 mg capsule,delayed 40 mg PO DAILY Gastrointestinal 05/23/22 03/04/25 06/29/23 History
release issue
diltiazem HCl 240 mg 240 mg PO DAILY Blood Pressure 03/04/25 03/04/25 Unknown History
capsule,extended release 24 hr
fluticasone fur. 100 mcg-umeclid 1 ea inhalation DAILY 03/04/25 03/04/25 Unknown History
62.5 mcg-vilant 25 mcg Lung/Breathing Issues
inhalat.powder (Trelegy Ellipta)
furosemide 20 mg tablet 20 mg PO MOWEFR Fluid 03/04/25 03/04/25 Unknown History
Retention/Swelling
furosemide 80 mg tablet 80 mg PO DAILY Fluid 03/04/25 03/04/25 Unknown History
Retention/Swelling
hydralazine 25 mg tablet 25 mg PO BID Heart 03/04/25 03/04/25 Unknown History
Disease/Condition
insulin glargine 100 unit/mL 0 - 11 unit SC HS Diabetes 03/04/25 03/04/25 Unknown History
subcutaneous solution (Lantus
U-100 Insulin)
levalbuterol tartrate 45 2 puff inhalation Q6HPRN PRN sob 03/04/25 03/04/25 Unknown History
mcg/actuation aerosol inhaler
sitagliptin phosphate 25 mg tablet 25 mg PO DAILY Diabetes 03/04/25 03/04/25 Unknown History
(Januvia)
Jantoven 3 mg PO QPM Blood Clot 03/05/25 03/05/25 Unknown History
Prevention/Tx
latanoprost 0.005 RIGHT EYE QPM Eye Condition 03/05/25 Unknown History
Active Medications
Generic Name Dose Route Start Last Admin
Trade Name Freq PRN Reason Stop Dose Admin
Acetaminophen 650 mg 03/04/25 20:11 03/04/25 22:40
Acetaminophen 325 Mg Tablet PO 04/01/25 20:10 650 mg
Q4HPRN PRN Administration
mild pain/STOUT/temp> 100.4F
Albuterol 2 puff 03/04/25 20:44 03/06/25 04:37
Albuterol Hfa [90 Mcg/Dose] Inhaler INH 2 puff
R Q6HPRN PRN Administration
sob
Protocol
Atorvastatin Calcium 80 mg 03/05/25 18:00 03/05/25 16:17
Atorvastatin (Lipitor) 80 Mg Tablet PO 04/02/25 17:59 80 mg
QPM ALINE Administration
Bisacodyl 10 mg 03/05/25 18:19
Bisacodyl 10 Mg Rectal Suppository RECTAL 04/02/25 18:18
DAILYPRN PRN
constipation
Budesonide/Formoterol Fumarate 2 puff 03/05/25 08:00 03/06/25 08:09
Symbicort Inhaler 80/4.5 INH 04/02/25 07:59 2 puff
R BID ALINE Administration
Protocol
Cefepime HCl 1,000 mg 03/05/25 20:00 03/06/25 08:41
Cefepime Hcl 1,000 Mg/11.3 Ml Vial IV 1,000 mg
Q12H ALINE Administration
Dextrose 12.5 grams 03/04/25 20:11
Dextrose 50% (0.5 Grams/Ml) 50 Ml Syringe IV 04/01/25 20:10
[id number] PRN
hypoglycemia
Protocol
Diltiazem HCl 240 mg 03/05/25 08:00 03/06/25 08:41
Diltiazem 240 Mg Extended Release (24 H) Capsule PO 04/02/25 07:59 240 mg
DAILY ALINE Administration
Docusate Sodium 100 mg 03/05/25 20:00 03/06/25 08:41
Docusate Sodium 100 Mg Capsule PO 04/02/25 19:59 100 mg
BID ALINE Administration
Doxycycline Hyclate 100 mg 03/05/25 13:00 03/06/25 08:41
Doxycycline 100 Mg Capsule PO 100 mg
Q12 ALINE Administration
Finasteride 5 mg 03/05/25 08:00 03/06/25 08:41
Finasteride 5 Mg Tablet PO 04/02/25 07:59 5 mg
DAILY ALINE Administration
Glucagon 1 mg 03/04/25 20:11
Glucagon 1 Mg Vial IM 04/01/25 20:10
PRN PRN
hypoglycemia
Protocol
Hydralazine HCl 25 mg 03/04/25 20:11 03/06/25 08:42
Hydralazine 25 Mg Tablet PO 04/01/25 20:10 25 mg
BID ALINE Administration
Insulin Glargine 5 units/ 0.05 mls @ 0 mls/hr 03/04/25 22:00 03/05/25 22:17
Device SC 04/01/25 21:59 0.05 mls
HS ALINE Administration
As Directed
Insulin Aspart 0 units 03/05/25 07:30 03/06/25 08:39
Insulin Aspart Low Resistance 300 Units/3 Ml Pen.Injctr SC 04/02/25 07:29 2 units
AC ALINE Administration
Protocol
Lansoprazole 30 mg 03/05/25 14:00 03/06/25 08:41
Lansoprazole 30 Mg Solutab PO 04/02/25 13:59 30 mg
DAILY ALINE Administration
Montelukast Sodium 10 mg 03/05/25 18:00 03/05/25 16:17
Montelukast Sodium 10 Mg Tablet PO 04/02/25 17:59 10 mg
QPM ALINE Administration
Multivitamins Therapeutic 1 tablet 03/05/25 08:00 03/06/25 08:42
Multivitamin Tablet PO 04/02/25 07:59 1 tablet
DAILY ALINE Administration
Ondansetron HCl 4 mg 03/05/25 18:00 03/05/25 18:23
Ondansetron 4 Mg/2 Ml Vial IV 04/02/25 17:59 4 mg
Q6HPRN PRN Administration
NAUSEA/VOMITING
Polyethylene Glycol 17 grams 03/06/25 08:00 03/06/25 08:41
Polyethylene Glycol Powder 17 Grams Packet PO 04/03/25 07:59 17 grams
DAILY ALINE Administration
Sodium Chloride 0 flush 03/04/25 21:00
Sodium Chloride 0.9% (Flush) Syringe IV 04/01/25 20:59
PER PROTOCOL ALINE
Sterile Water 10 ml 03/05/25 20:00 03/06/25 08:40
Sterile Water For Injection 10 Ml Vial IV 04/02/25 19:59 10 ml
Q12H ALINE Administration
Tamsulosin HCl 0.4 mg 03/04/25 20:11 03/06/25 08:42
Tamsulosin 0.4 Mg Capsule PO 04/01/25 20:10 0.4 mg
BID ALINE Administration
Tiotropium [place] 2 puff 03/05/25 08:00 03/06/25 08:09
Tiotropium (Spiriva Respimat) 2.5 Mcg Inhaler INH 04/02/25 07:59 2 puff
R DAILY ALINE Administration
Protocol
Review of Systems
-
History Source: Patient
Constitutional: Reports Weight Gain; Denies Fever, Fatigue, Night Sweats or Chills
Respiratory: Reports Cough and Trouble Breathing
Cardiac: Denies Chest Pain or Palpitations
GI: Reports Constipated; Denies Abdominal Pain, Nausea, Vomiting or Diarrhea
: Reports Difficulty Voiding and Hesitancy
Physical Exam
-
General: Well Developed, Well Nourished, No Apparent Distress and Comfortable
Cardiology: Normal Sinus Rhythm, S1 and S2
Pulmonary: Clear
Musculoskeletal: No Edema
Skin: Warm and Dry
Psych: Calm
Labs
Lab Results
WBC 17.0 10^3/uL (4.8-10.8) H 03/06/25 08:
RBC 2.47 10^6/uL (4.70-6.10) L 03/06/25 08:
Hgb 8.4 g/dL (13.0-18.0) L 03/06/25 08:
Hct 24.6 % (39.0-52.0) L 03/06/25 08:
MCV 99.6 fL (80.0-94.0) H 03/06/25 08:
MCH 34.0 pg (27.0-31.0) H 03/06/25 08:26
MCHC 34.1 g/dL (33.0-37.0) 03/06/25 08:
RDW 17.1 % (11.5-14.5) H 03/06/25 08:
Plt Count 248 10^3/uL (130-400) 03/06/25 08:26
MPV 12.1 fL (7.4-10.4) H 03/06/25 08:
Abs Immat Gran (auto) 0.3 10^3/uL (0-0.05) H 03/04/25 12:19
Absolute Neuts (auto) 27.0 10^3/uL (1.4-6.5) H 03/04/25 12:19
Absolute Lymphs (auto) 0.5 10^3/uL (1.2-3.4) L 03/04/25 12:19
Absolute Monos (auto) 2.7 10^3/uL (0.1-0.6) H 03/04/25 12:19
Absolute Eos (auto) 0.0 10^3/uL (0-0.7) 03/04/25 12:19
Absolute Basos (auto) 0.1 10^3/uL (0-0.2) 03/04/25 12:19
Immature Gran % 1.1 % (0-0.5) H 03/04/25 12:19
Neutrophils % 88.2 % (42.2-75.2) H 03/04/25 12:19
Lymphocytes % 1.7 % (20.5-51.1) L 03/04/25 12:19
Monocytes % 8.7 % (1.7-9.3) 03/04/25 12:19
Eosinophils % 0.0 % (0-6) 03/04/25 12:19
Basophils % 0.3 % (0-2) 03/04/25 12:19
Creatinine 2.3 mg/dL (0.7-1.3) H 03/05/25 06:46
Vital Signs
Vital Signs
Temp Pulse Resp BP Pulse Ox
98.2 F 69 18 148/58 95
03/06/25 08:45 03/06/25 08:45 03/06/25 08:45 03/06/25 08:45 03/06/25 08:45

Documented by User: Tomas Mina MD 03/06/25 12:04
Impression
Impression
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
Lobar Pneumonia
Chronic diastolic CHF
COPD
Essential Hypertension
Plan
Plan
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
-WBC peaked at 41.8, now 17.0
-Hemoglobin 8.4 today
-Continue to follow CBC
-Continue treatment for pneumonia per primary care team
-Continue to follow up outpatient for MDS
Thank you for the consult. Patient will need continued outpatient management with his outpatient product designer/oncologist. No further inpatient hematology recommendations at this time. If any questions arise, please contact the hematology/oncology
team. Signing off.
Hematology Addendum:
Patient seen and evaluated w/ resident and agree w/ note and plan as outlined.
-MDS w/ ringed sideroblasts on reblozyl as an outpt under the care of Dr. Sanchez at [facility]
-now admit w/ pneumonia
-WBC improved
-hemoglobin holding 8.4g/dl
-follow CBC
-f/u Dr. Sanchez on d/c
[2025-03-06 09:39] LABS: Blood Urea Nitrogen 71 mg/dl (9-20); Calcium 8.3 mg/dl (8.4-10.2); Carbon Dioxide 18 mmol/L (22-30); Chloride 103 mmol/L (98-107); Estimated Creatinine Clearance 13 ml/min; Glucose 171 mg/dl (70-99); Magnesium 1.9 mg/dl (1.6-2.3); Potassium 4.8 mmol/L (3.5-5.1); Sodium 130 mmol/L (135-145); eGFR 13.34
--- NOTE | 2025-03-06 09:52 | W.CON.NEPH ---
Consultation
-
Date/Time Consultation Requested: 03/06/2025 945 AM
Date/Time Consultation Performed: 03/06/2025 9:45 AM
Requesting Provider: Dr. Hussein
Performing Provider: Dr. Bassett
Reason for Consultation: Acute kidney injury
Medical History
-
Chief Complaint: Acute kidney injury
History of Present Illness:
Patient is an 84-year-old male with a past medical history of hypertension maintained on diltiazem. He has a history of diabetes and is maintained on insulin therapy. Per review of his records he has a history of chronic kidney disease stage III
contains a baseline creatinine of 1.4 he presented to the emergency room on 03/04/2025 with general myalgias. He had also reported some nausea. He was suspected to have acute on chronic congestive heart failure and/or pneumonia on presentation to
the emergency room and was diuresed. Over the course of his admission he is now in acute renal failure with his creatinine rising from 1.4-4.2 and nephrology was consulted for acute kidney injury.
Past Medical History
paroxysmal atrial fibrillation
hypertension
hyperlipidemia
ASCVD
chronic kidney disease III (1.4)
HFpEF
BPH
MDS
PAD
DM - II
Past Surgical History: Reports Other
Additional Past Surgical History:
Aortic valve replacement with revision(x2)
Retinal Repair
R Knee Surgery
Deviated Septum Repair
Appendectomy
09/04/2017 right lower extremity arteriogram
03/23/2018 RLE arteriogram
LT LE arteriogram with third order catheterization (Dr Kaur) 10/22/2018
bone marrow biopsy 07/[address] Dickson Faye 2020
Social History
Tobacco: Non-Smoker
Alcohol: None
Drug: None
Family History
Family History: Not Pertinent
Allergies / Home Medications
Allergy/AdvReac Type Severity Reaction Status Date / Time
gabapentin Allergy hallucinati Verified 03/04/25 10:56
ons
mold Allergy wheezing Verified 03/04/25 10:56
oxycodone Allergy hallucinati Verified 03/04/25 10:56
ons
pantoprazole Allergy itching Verified 03/04/25 20:29
but
patient
tolerates
omeprazole
Penicillins Allergy Hives Verified 03/04/25 10:56
�Medication �Instructions �Recorded �Confirmed �Type
cholecalciferol (vitamin D3) 25 1,000 unit PO QPM Supplement 02/23/11 03/04/25 History
mcg (1,000 unit) tablet (Vitamin
D3)
rqxxzlzfmpf-ogdhhynts-fomf271-hyal 1 ea PO BID Supplement 02/23/11 03/04/25 History
750 mg-100 mg-125 mg-1.65 mg tablet
montelukast 10 mg tablet 10 mg PO QPM Allergies 02/23/11 03/04/25 History
atorvastatin 80 mg tablet 80 mg PO QPM High cholesterol 05/04/15 03/04/25 History
finasteride 5 mg tablet 5 mg PO DAILY Urinary issue 05/04/15 03/04/25 History
tvmcjebxrysp-cqcmqdqv-ezxc 1 ea PO DAILY Supplement 06/05/15 03/04/25 History
fumarate 7.5 mg-folic acid 400 mcg
tablet
tamsulosin 0.4 mg capsule 0.4 mg PO BID Urinary issue 06/05/15 03/04/25 History
insulin lispro 100 unit/mL 17 - 32 unit SC AC Diabetes 04/18/22 03/04/25 History
subcutaneous pen (Humalog KwikPen
(U-100) Insulin)
benralizumab 30 mg/mL subcutaneous 30 mg SC Q8W Lung/breathing issues 05/23/22 03/04/25 History
syringe (Fasenra)
omeprazole 40 mg capsule,delayed 40 mg PO DAILY Gastrointestinal 05/23/22 03/04/25 History
release issue
diltiazem HCl 240 mg 240 mg PO DAILY Blood Pressure 03/04/25 03/04/25 History
capsule,extended release 24 hr
fluticasone fur. 100 mcg-umeclid 1 ea inhalation DAILY 03/04/25 03/04/25 History
62.5 mcg-vilant 25 mcg Lung/Breathing Issues
inhalat.powder (Trelegy Ellipta)
furosemide 20 mg tablet 20 mg PO MOWEFR Fluid 03/04/25 03/04/25 History
Retention/Swelling
furosemide 80 mg tablet 80 mg PO DAILY Fluid 03/04/25 03/04/25 History
Retention/Swelling
hydralazine 25 mg tablet 25 mg PO BID Heart 03/04/25 03/04/25 History
Disease/Condition
insulin glargine 100 unit/mL 0 - 11 unit SC HS Diabetes 03/04/25 03/04/25 History
subcutaneous solution (Lantus
U-100 Insulin)
levalbuterol tartrate 45 2 puff inhalation Q6HPRN PRN sob 03/04/25 03/04/25 History
mcg/actuation aerosol inhaler
sitagliptin phosphate 25 mg tablet 25 mg PO DAILY Diabetes 03/04/25 03/04/25 History
(Januvia)
Jantoven 3 mg PO QPM Blood Clot 03/05/25 03/05/25 History
Prevention/Tx
latanoprost 0.005 RIGHT EYE QPM Eye Condition 03/05/25 History
Review of Systems
-
History Source: Patient
All other systems: Negative unless noted
Constitutional: Weight Gain
Respiratory: Trouble Breathing
Cardiac: No Symptoms
Abdomen/GI: Constipated
: Other (Decreased urine output)
Musculoskeletal: Muscle Pain
Physical Exam
Vital Signs
Vital Signs
Temp Pulse Resp BP Pulse Ox
98.2 F 69 18 148/58 95
03/06/25 08:45 03/06/25 08:45 03/06/25 08:45 03/06/25 08:45 03/06/25 08:45
Lab Results
03/06/25 08:26
03/06/25 08:
WBC 17.0 10^3/uL (4.8-10.8) H 03/06/25 08:26
RBC 2.47 10^6/uL (4.70-6.10) L 03/06/25 08:26
Hgb 8.4 g/dL (13.0-18.0) L 03/06/25 08:
Hct 24.6 % (39.0-52.0) L 03/06/25 08:
Plt Count 248 10^3/uL (130-400) 03/06/25 08:26
Sodium 130 mmol/L (135-145) L 03/06/25 08:
Potassium 4.8 mmol/L (3.5-5.1) 03/06/25 08:
Chloride 103 mmol/L (98-107) 03/06/25 08:
Carbon Dioxide 18 mmol/L (22-30) L 03/06/25 08:
BUN 71 mg/dl (9-20) H 03/06/25 08:26
Creatinine 4.2 mg/dL (0.7-1.3) H* 03/06/25 08:26
eGFR 13.34 03/06/25 08:
Glucose 171 mg/dl (70-99) H 03/06/25 08:26
Calcium 8.3 mg/dl (8.4-10.2) L 03/06/25 08:26
Aov-Y-Zsntgztehwz Pept 2580 pg/ml 03/04/25 12:19
Albumin 4.3 g/dl (3.5-5.0) 03/04/25 12:19
Physical Exam
General: AOx3, Nontoxic , NAD
HEENT: PERRL, EOMI, Anicteric, Conjunctivae Clear, Ear/Nose Intact, Hearing Normal, Oropharynx Clear/Moist, Dentition Intact, Facial Symmetry, Neck Supple, Neck: Trachea Midline, No JVD and No Thyromegaly, no Bruits
Respiratory: Crackles bilaterally with normal lung excursion
Cardiac: S1/S2 and Regular Rate/Rhythm
Breast: Deferred by me
Abdomen: Soft, Nontender, distended, Normal Bowel Sounds and No Hepatosplenomegaly
Rectal: Deferred by Provider
Genito-urinary: No Costovertebral Tenderness
Extremities: No Clubbing, No Cyanosis and No Edema
Skin: No Rash or open lesions
Neuro: Nonfocal/Grossly Intact, CN II-XII (Intact) and Strength (Musculoskeletal exam 5 out of 5 both upper and lower extremities)
Hematologic/Lymphatic: No Cervical Lymphadenopathy, No Submandibular Lymphadenopathy and No Supraclavicular Lymphadenopathy
Psych: Mood/afflect pleasant, Insight/judgement good and Appropriate
Vascular: plus 1 pedal and radial pulses
Data Reviewed
-
Radiology: Image Personally Visualized and interpreted (Chest x-ray personally reviewed by myself shows the presence of an aortic valve replacement cardiac device in the left anterior chest wall and bilateral interstitial changes)
CT Scan: Report Reviewed by me (Chest CT without IV contrast noted mild mediastinal lymphadenopathy dense airspace consolidation in posterior right upper lobe with air bronchogram consistent with pneumonia)
Labs: Labs Reviewed by me (BMP CBC, UA (3plus albumin))
Old Records: Reviewed (Creatinine reviewed from 04/15/2024 1.6 per review of EMR record)
Assessment/Plan
-
Impression:
PNA
Suspected CHF decompensation
Valvular heart disease with history of mechanical aortic valve replacement
History of coronary artery disease with CABG
Hypertension
Anemia with history of MDS
Secondary pulmonary hypertension
Peripheral vascular disease
COPD
Acute kidney injury (4.2)
CKD stage III (1.4)
History of congestive heart Failure
Diabetes
Plan:
JULIAN:
- Urinalysis notes 3+ albuminuria likely consistent with diabetic nephropathy
-Holding diuretic, check postvoid bladder scan, accurate I's and O's and daily weight
-Patient has remained hemodynamically stable
-CT of abdomen and pelvis with IV contrast reviewed from 03/04/2025 (no hydronephrosis)
- Acute kidney injury likely due to contrast mediated nephropathy from CT scan of abdomen and pelvis with IV contrast
-Discussed with cardiology and I agree he is likely hypervolemic and 60 mg IV Lasix to be provided with follow-up right heart cath
--- NOTE | 2025-03-06 09:54 | PTCARENOTE ---
Critical lab was called for this pt of a creat of 4.2. The resident and MD were in his room and told them the results in person.
[2025-03-06] MEDS: DULCOLAX 10 MG RECTAL (10:31)
[2025-03-06] MEDS: LR 1000 IV (10:31)
[2025-03-06] MEDS: LASIX 40 MG IV (11:20)
[2025-03-06 11:54] VITALS: BP 141/62
[2025-03-06 12:14] LABS: Glucose - Point of Care 285 mg/dl (70-99)
[2025-03-06] MEDS: NOVOLOG FLEXPEN-LOW RESISTANCE 3 UNITS SC (12:28)
[2025-03-06] MEDS: LASIX 20 MG IV (12:57)
--- NOTE | 2025-03-06 14:27 | W.PN.CARDCBS ---
Addendum entered and electronically signed by Bello Nick MD 03/06/25 15:52:
I saw and examined the patient.
The Warehouse Shipping Supervisor's note was reviewed and I agree with the note.
Comment: Briefly, 84-year-old man past medical history of heart failure with preserved ejection fraction, mechanical aortic valve, permanent atrial fibrillation and permanent pacemaker who presents with fatigue and malaise and diagnosed with hypoxia
secondary to pneumonia as well as acute decompensated heart failure.
With concern for acute heart failure patient was given IV diuretics earlier this admission but with rising creatinine subsequent doses were placed on hold
Creatinine up to 4.2 today from baseline 1.4�appreciate nephrology input
At this point would continue to monitor renal function and consider resuming IV diuretics if creatinine is improved
In the event that creatinine worsens we can consider right heart catheterization
Continue warfarin, INR today of 2.9 is at goal range 2.5�3.0
IV antibiotics and treatment of pneumonia per primary service
Original Note:
Today's Communication / Plan
-
Called and talked to his for 13:01 min
If Cre is worse tomorrow then planning on RHC and if Cre is better then cont to IV diurese
Impression / Plan
-
PCP: Dr. Duron
Asbestos Abatement Worker: Dr. Molly Faye
Impression:
Admitted with multifactorial SOB 03/04/25
CAP
Acute on chronic HFpEF
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
MR, moderate to severe by TIAN 03/31/23, moderate by TTE 02/17/25
Mild MR with mean gradient 4 mmHg by TTE 02/17/25
Mechanical aortic valve replacement in 2010, followed by revision of pre-existing mechanical aortic valve for perivalvular leak 07/22/2014
LVOT gradient turbulence with mild paravalvular aortic leak by TIAN 03/31/2023 and mild paravalvular regurgitation by TIAN 02/17/25
CAD s/p CABG with DUNCAN to LAD in 2010
HTN
Moderate to severe concentric LVH by echo 02/17/25
Permanent atrial fibrillation
Chronic Jantoven (brand name warfarin) OAC managed by [facility]
Asymptomatic PVCs
Anemia with h/o GI bleed in 2021.
Anemia and MDS
Secondary pulmonary hypertension.
Hyperlipidemia.
Diabetes mellitus type 2
Peripheral vascular disease, status post right posterior tibial angioplasty in 2019.
Premature ventricular contractions.
Asthma.
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
Chronic obstructive pulmonary disease.
Nail-patella syndrome
Echo 03/23/23: Moderate LVH. Normal LV size with EF 73%. Normal right ventricular size and function. Mild to moderate mitral stenosis with peak/mean gradients of 25/7 mmHg. Moderate to severe eccentric mitral regurgitation. #[address] [facility] [place] mechanical
aortic valve replacement with peak/mean gradients of 81/42 mmHg. Mild paravalvular aortic regurgitation. Moderate tricuspid regurgitation. Estimated PA pressure of 72 mmHg assuming a right atrial pressure of 15.
TIAN 03/31/23: Normal LV size and function with ejection fraction 65%. Moderate LVH. Blood pressure was 179/80. Normal right ventricle. Mild to moderate mitral stenosis with mean gradient 3 mmHg. Moderate to severe mitral regurgitation with 2 jets
noted. Mechanical [place] valve is in place. Leaflets appear to be opening appropriately with mild thickening. Turbulent flow going through the LVOT. Mild paravalvular leak.
Valve fluoroscopy 03/31/23: Study was not optimal for opening and closing angles however leaflets appear to be mobile and free of significant obstruction.
Echo 02/17/2025: EF 60 to 65%, moderate to severe concentric LVH, mechanical [place] AVR peak/mean 36/15 mmHg with mild perivalvular regurgitation, mild MS with mean gradient 4 mmHg, moderate MR, moderate TR with PAP 38 mmHg
Plan:
-Weight on bed scale was 163 lbs on 03/05/2025 and increase to 172 lbs on standing scale 03/06/2025, VS reviewed by me. I called and talked to the patient's and she pulled up his log of daily weights at home and says that in January his dry weight
was 150 lbs.
-Patient remains hypoxic despite antibiotic IV treatment for presumed PNA. Suspect acute HFpEF is also contributing.
-Patient was given Lasix 60 mg IV x 1 on 03/04/2025 and Cre increased from 1.4 up to 2.3. Labs reviewed by me 03/06/2025 and Cre is up again to 4.2.
-Nephrology consulted for JULIAN and they suspect contrast-induced nephropathy following CT scan of chest abdomen and pelvis on admission.
-Lasix 60 mg IV x 1 on 03/06/2025, ordered by me. I talked with patient and then with by phone for 13 minutes and 1 second on 03/06/2025 and made a plan that if renal function is improved then we will continue with IV diuresis, but if Cre is worse
then we will proceed with RHC.
-Telemetry reviewed by me is V-paced with underlying A-fib
-EF was 60 to 65% by echo 02/17/2025, no need to repeat.
-Patient is not chronically on BB, but instead is on Cardizem CD with history of atrial flutter
-Patient is not chronically on DEREK/ARB/ARNI/aldosterone antagonist due to CKD 3B
-Patient is not chronically on SGLT2 inhibitor with GFR 13 on my review of labs 03/06/2025
-Patient is s/p CABG with DUNCAN to LAD in 2010 and he had stable CAD by cath in 2014 prior to stitch repair. No complaints of chest pain at this time
-INR 3.21 on 03/05/2025. INR goal is 2.5-3. INRs managed by [facility] office using home monitor. Patient was switched from generic warfarin to Jantoven in the last year and takes 3 mg daily as an outpatient.
-Patient is s/p mechanical AVR in 2010 and then he had redo sternotomy with stitch repair in 2014 to help with paravalvular leak. By echo 03/23/23 he had mild paravalvular aortic regurgitation and then on TIAN 03/31/23 he had turbulent flow through the
LVOT and mild paravalvular leak. Then he had valve fluoroscopy 03/31/23 that was not optimal for opening and closing angles, but the leaflets appeared to be mobile and free of significant obstruction.
-Patient also with known moderate to severe MR and mild to mod MS.
-Known permanent Afib and HRs controlled with Cardizem CD 240 mg daily. Of note the patient was previously on digoxin as well, but this was stopped at office visit 04/18/23 due to bradycardia and then eventually he had left bundle pacer placed
05/11/23
-Community-acquired pneumonia being managed with cefepime 1 g IV every 8 hours
HPI: Patient came to the ER yesterday for acute on chronic cough and new chills and was admitted with PNA and cardiology is consulted for acute HF in addition. He has a complicated history.� Patient had mechanical AVR in 2010 followed by revision of
the pre-existing mechanical aortic valve for perivalvular leak leak and that was performed on 07/22/2014 with stitch repair. Then during admission in 2022 there was concern for worsening aortic valve insufficiency so he underwent full assessment of
mechanical aortic valve; TIAN with�LVOT increased gradient, valve itself looked stable, mitral valve with moderate to severe MR noted. Fluoroscopy was also stable without obvious abnormality in valve leaflets.�Plan was for conservative management and
overall his valves look stable by the most recent TTE 02/17/2025.� He is being followed by hematology (Dr. Jeffery) for anemia and MDS with intermittent treatment using luspatercept. Patient says that he feels he has the same cough he has have for the
last year, but within the last 2 days he started with arthralgias and chills prompting him to go to the ER where CXR revealed multifocal PNA. He also had leukocytosis and elevated lactic acid level. Patient admitted and started on IV antibiotics.
Cardiology is consulted due to elevation in his proBNP level, the last proBNP was 1800 and it is now almost 2600. Patient denies any increase in LE edema. His weight is up 26 lbs compared to last admission which is almost 2 years ago.
Progress Note - Asbestos Abatement Worker
Subjective
Date of Service: March 06, 2025
He is more SOB, but arthralgias better
Objective
Labs:
03/06/25 08:26
03/06/25 08:26
Labs
Hgb 8.4 g/dL (13.0-18.0) L 03/06/25 08:26
Hct 24.6 % (39.0-52.0) L 03/06/25 08:26
Plt Count 248 10^3/uL (130-400) 03/06/25 08:26
PT 30.6 Sec (11.4-14.6) H 03/06/25 08:26
INR 2.89 03/06/25 08:26
Sodium 130 mmol/L (135-145) L 03/06/25 08:26
Potassium 4.8 mmol/L (3.5-5.1) 03/06/25 08:
BUN 71 mg/dl (9-20) H 03/06/25 08:26
Creatinine 4.2 mg/dL (0.7-1.3) H* 03/06/25 08:26
Glucose 171 mg/dl (70-99) H 03/06/25 08:26
Vital Signs and I&O:
Vital Signs
Temp Pulse Resp BP Pulse Ox
97.8 F 61 18 141/62 96
03/06/25 11:54 03/06/25 11:54 03/06/25 11:54 03/06/25 12:57 03/06/25 11:54
Vital Signs
Temp Pulse Resp BP Pulse Ox
97.8 F 61 18 141/62 96
03/06/25 11:54 03/06/25 11:54 03/06/25 11:54 03/06/25 12:57 03/06/25 11:54
Intake & Output
03/04/25 03/05/25 03/06/25 03/07/25
06:59 06:59 06:59 06:59
Intake Total 1480 / 1480 800 / 800
Output Total 400 / 400 1100 / 1100
Balance 1080 / 1080 -300 / -300
Physical Exam
Physical Exam
General: NAD, AAO x3
CV: V paced with underlying atrial flutter. Reg, 08/08 ASM
Lungs: 2 L NC. Coarse with rhonchi. No wheeze
Abdomen: +BS, soft
Extremities: No edema B/L
Neuro: Grossly nonfocal
[2025-03-06 16:14] VITALS: BP 158/67
[2025-03-06 17:08] LABS: Glucose - Point of Care 236 mg/dl (70-99)
[2025-03-06] MEDS: LIPITOR 80 MG PO (17:28)
[2025-03-06] MEDS: COUMADIN 3 MG PO (17:29)
[2025-03-06] MEDS: SINGULAIR 10 MG PO (17:29)
[2025-03-06 19:00] VITALS: BP 156/69
[2025-03-06 22:53] LABS: Glucose - Point of Care 217 mg/dl (70-99)
[2025-03-06 23:00] VITALS: BP 169/59
[2025-03-06] MEDS: LANTUS 0.1 UNITS SC (23:15)
[2025-03-07 03:00] VITALS: BP 162/96
[2025-03-07 05:55] VITALS: BMI 27.9
--- NOTE | 2025-03-07 07:18 | W.PN.HOSP.TC ---
Addendum entered and electronically signed by Yoshi Parrish MD, Resident 03/07/25 16:02:
#Hyponatremia
-likely from hypervolemia
#Pressure injury
-stage 1
-new heel foams applied bl
Original Note:
Today's Communication/Plan
-
Follow O2 sat- if worse move IMU
Continue IV lasix 80mg-- if no improvement dialysis?
Assessment / Plan
Assessment / Plan
#Community Aquired Pneumonia
Elevated WBC-- improving
Blood cx: No growth in 24hrs- pending
CXR: Focal opacity in the posterior aspect of the right upper midlung
Cardiomegaly. Diffusely increased reticulonodular markings. Correlating with prior examinations, this could represent chronic changes of congestive heart failure.
Abd/Pel CT: Colonic diverticula with no CT evidence for diverticulitis.
No evidence for bowel obstruction or free intraperitoneal air.
Moderate to severe vascular calcification. No evidence for abdominal aortic aneurysm.
Small umbilical hernia containing fat, with no evidence for significant inflammation.
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 Bony degenerative changes as described.
- Admit to telemetry
- IV Cefepime 1000mg Q12h #D4 + Doxycycline 100mg PO Q12h #D4
- supportive care
#acute on chronic HFpEF
pBNP- 2580
- daily weights
- I/Os
- Consult Cardiology
- Continue IV lasix--follow Cr closely
Primary drafter automotive design eval for- potential cardiac Amyloid? - immunology work-up pending
#JULIAN on chronic kidney disease III
BUN 71, Creat 4.2 (baseline 1.4), eGFR 13.34
- monitor BMP
-JULIAN likely from due to contrast mediated nephropathy from CT scan of abdomen and pelvis with IV contrast from 03/04/2025
-80 mg IV Lasix with follow-up right heart cath-- pt unable to lie flat for heart cath
-Bladder scan- PVR low
-may need dialysis?
#paroxysmal atrial fibrillation
- continue Coumadin 3mg daily- for stroke prophylaxis
- daily INR
- continue Cardizem for rate control
##MDS
-elevated WBC, chest xray- pneumonia/ neoplasia?
-Chest CT w/o contrast:
---The right upper lobe airspace opacity is favored to represent lobar pneumonia. Imaging follow-up to resolution is recommended after treatment as an underlying pulmonary neoplasm would be difficult to completely exclude
---Trace right pleural effusion.
---Partially imaged right upper pole renal cyst measuring 3.7 cm.
-consult oncology
-immunology work-up pending
#Constipation
- continue aggressive bowel regimen
#hypertension
- hold PO furosemide
- IV furosemide for acute CHF
- continue hydralazine 25mg PO BID
#hyperlipidemia
#ASCVD
- continue atorvastatin
- myalgia secondary to statin?--Creatinine kinase- 130 N--resolved
#DM - II
- AccuCheck AC & HS
- Insulin aspart per protocol
- continue Insulin Glargine 10U SQ
#Pulmonary HTN
- continue Coumadin
- daily INR
#BPH
- continue tamsulosin
#PAD
Anticipated Discharge: > 48 hours
Subjective/Interval History
-
Date of Service: March 07, 2025
He looks in apparent distress. He has SOB on 3L O2 NC. He reports not being able to catch his breath. He was not able to urinate since yesterday only small amount of dribbling. He was not able to pass any bm for 4 days.
Objective Data
-
Labs:
Laboratory Results
03/07/25
06:00
WBC Pending
Hgb Pending
Hct Pending
Plt Count Pending
PT Pending
INR Pending
Sodium Pending
Potassium Pending
Chloride Pending
Carbon Dioxide Pending
BUN Pending
Creatinine Pending
Glucose Pending
Calcium Pending
Vital Signs:
Vital Signs
Temp Pulse Resp BP Pulse Ox
97.6 F 71 22 162/96 97
03/07/25 03:00 03/07/25 03:00 03/07/25 03:00 03/07/25 03:00 03/07/25 03:00
I&O
03/06/25 03/07/25 03/08/25
06:59 06:59 06:59
Intake Total 800 / 800 440 / 440
Output Total 1100 / 1100 90 / 90
Balance -300 / -300 350 / 350
Review of Systems
-
History Source: Patient
Constitutional: Reports Weight Gain
EENT: Reports No Symptoms Reported
Respiratory: Reports Cough and Trouble Breathing
Cardiac: Reports No Symptoms
Abdomen/GI: Reports Constipated
Breast: Reports No Symptoms
Genitourinary: Reports Difficulty Voiding
Musculoskeletal: Reports No Symptoms
Skin: Reports No Symptoms
Neuro: Reports No Symptoms
Endocrine: Reports No Symptoms
Physical Exam
-
General: Well Developed, Well Nourished, Respiratory Distress and Appears in Distress
HEENT: Normocephalic, Atraumatic and Oxygen
Respiratory: Clear to Auscultation
Cardiac: Regular Rhythm and S1/S2
Breast: Deferred by me
GI: Soft, Nontender and Nondistended
Rectal: Deferred by Provider
Genito-urinary: No Costovertebral Tender
Musculoskeletal: No Edema
Skin: Warm and Dry
Neuro: AO x 3
Psych: Agitated
--- NOTE | 2025-03-07 07:24 | PTCARENOTE ---
Pt voided 90mls during the night. Oral intake approx 240mls. Patient's abdomen is large and round, appearing more full and distended. Patient complaining of more SOB at times, but has improvement with repositioning. He is on 2L O2 and sating between
94-97%. Occasional moist non-productive cough. He attempted to have a BM twice, but only had a few small pebble sized BMs. Offered Dulcolax rectal suppository, but he declined. Post voide bladder scan performed at 2200. Bladder scan at 0630, 88mls.
[2025-03-07 07:33] VITALS: BP 139/49
[2025-03-07 08:12] LABS: Glucose - Point of Care 197 mg/dl (70-99)
[2025-03-07] MEDS: SYMBICORT 80/4.5 MCG INHALER 2 PUFF INH ×2 (08:12→19:29)
[2025-03-07] MEDS: SPIRIVA RESPIMAT 2.5 MCG 2 PUFF INH (08:12)
[2025-03-07 08:17] LABS: Hematocrit 24.1 % (39.0-52.0); Hemoglobin 8.4 g/dL (13.0-18.0); Mean Corp Hgb Conc. 34.9 g/dL (33.0-37.0); Mean Corpuscular Volume 98.8 fL (80.0-94.0); Platelet Count 253 10^3/uL (130-400); Red Cell Dist. Width 16.9 % (11.5-14.5)
[2025-03-07 08:36] LABS: INR 2.84; PT 29.8 Sec (11.4-14.6)
[2025-03-07 09:09] LABS: Blood Urea Nitrogen 82 mg/dl (9-20); Calcium 7.9 mg/dl (8.4-10.2); Carbon Dioxide 16 mmol/L (22-30); Chloride 102 mmol/L (98-107); Estimated Creatinine Clearance 8 ml/min; Glucose 158 mg/dl (70-99); Potassium 5.4 mmol/L (3.5-5.1); Sodium 130 mmol/L (135-145); eGFR 9.06
[2025-03-07] MEDS: NOVOLOG FLEXPEN-LOW RESISTANCE 1 UNITS SC ×2 (10:32→12:49)
[2025-03-07] MEDS: FLOMAX 0.4 MG PO ×2 (10:33→19:35)
[2025-03-07] MEDS: COLACE 100 MG PO ×2 (10:33→19:34)
[2025-03-07] MEDS: VIBRAMYCIN 100 MG PO ×2 (10:33→19:35)
[2025-03-07] MEDS: PREVACID 30 MG PO (10:33)
[2025-03-07] MEDS: APRESOLINE 25 MG PO ×2 (10:34→19:36)
[2025-03-07] MEDS: CARDIZEM CD 240 MG PO (10:34)
[2025-03-07] MEDS: PROSCAR 5 MG PO (10:34)
[2025-03-07] MEDS: THERAGRAN 1 TABLET PO (10:34)
[2025-03-07] MEDS: STERILE WATER FOR INJECTION 10 ML IV (10:35)
[2025-03-07] MEDS: MIRALAX 17 GRAMS PO (10:38)
[2025-03-07] MEDS: MAXIPIME 1000 MG IV (10:39)
[2025-03-07] MEDS: LOKELMA 5 GRAM PO (10:39)
--- NOTE | 2025-03-07 10:39 | W.PN.NEPH.PH ---
Today's Communication / Plan
-
see plan
Assessment/Plan
-
Impression:
PNA
Suspected CHF decompensation
Valvular heart disease with history of mechanical aortic valve replacement
History of coronary artery disease with CABG
Hypertension
Anemia with history of MDS
Secondary pulmonary hypertension
Peripheral vascular disease
COPD
Acute kidney injury (4.2)
CKD stage III (1.4)
History of congestive heart Failure
Diabetes
Plan:
JULIAN: cr cont to increase to 5.8 and decreasing UOP -oliguric
likely this is ATN from contrast with underlying cardiorenal
Urinalysis notes 3+ albuminuria likely consistent with diabetic nephropathy, no hydro on CT
PVR only 88cc, given resp symp will try lasix
repeat labs ater and if worsening renal function likely need HD iin 24hrs
Lokelma prn
strict renal diet and FR
no need RHC today
BP stable on meds
avoid nephrotoxins, adjust meds renally
follow h/h, check fe panel
treat constipation
long d/w pt and staff
-
-
Date of Service: March 07, 2025
CC / HPI / ROS
-
Chief Complaint:
JULIAN with CKD
History of Present Illness:
cr up at 5.8, k 5.4, bicarb 16
sodium low 130-no cahnge
uop decreased
Bp stable
hb stable at 8.4
WBC improving to 11.3
Review of Systems:
mild sob at rest on O2-NC 3lit
no fever
Labs
-
Labs:
WBC 11.3 10^3/uL (4.8-10.8) H 03/07/25 07:19
RBC 2.44 10^6/uL (4.70-6.10) L 03/07/25 07:19
Hgb 8.4 g/dL (13.0-18.0) L 03/07/25 07:19
Hct 24.1 % (39.0-52.0) L 03/07/25 07:19
Plt Count 253 10^3/uL (130-400) 03/07/25 07:19
Sodium 130 mmol/L (135-145) L 03/07/25 07:19
Potassium 5.4 mmol/L (3.5-5.1) H 03/07/25 07:19
Chloride 102 mmol/L (98-107) 03/07/25 07:19
Carbon Dioxide 16 mmol/L (22-30) L 03/07/25 07:19
BUN 82 mg/dl (9-20) H 03/07/25 07:19
Creatinine 5.8 mg/dL (0.7-1.3) H* 03/07/25 07:19
eGFR 9.06 03/07/25 07:19
Glucose 158 mg/dl (70-99) H 03/07/25 07:19
Calcium 7.9 mg/dl (8.4-10.2) L 03/07/25 07:19
Cqr-P-Ztkfcgsxsbw Pept 2580 pg/ml 03/04/25 12:19
Albumin 4.3 g/dl (3.5-5.0) 03/04/25 12:19
Physical Exam
-
Vital Signs:
Vital Signs
Temp Pulse Resp BP Pulse Ox
97.6 F 75 16 139/49 93
03/07/25 07:33 03/07/25 08:17 03/07/25 08:17 03/07/25 07:33 03/07/25 08:17
Cardiovascular:: Regular rate and rhythm
Respiratory:: Left: CTA (decreased) and Right: Rales (?chronic)
Lung Excursion:: Normal
Abdomen:: Nontender and Soft
Extremity Edema:: +1: Bilateral: (trace)
Little Catheter: No
--- NOTE | 2025-03-07 10:56 | W.PN.CARDCBS ---
Addendum entered and electronically signed by Sabra Black DO 03/07/25 16:28:
The Clerical Coordinator's note was reviewed and I agree with the note.
Comment: Patient down having dialysis catheter placed for dialysis later today�2 attempts to see patient unsuccessful
Heart failure with preserved ejection fraction and valvular heart disease with worsening renal insufficiency and poor urine output and minimal response to Lasix. Agree with nephrology's plan for placement of HD cath and dialysis. Will defer
diuretics to nephrology. No plan for right heart catheterization today. Will follow with you.
Original Note:
Today's Communication / Plan
-
JULIAN with nephrology following and managing diuresis; ongoing discussion may need dialysis if creat does not improve
Continue antibiotics per primary service
Patient unable to lie flat for right heart catheterization
Impression / Plan
-
PCP: Dr. Duron
Slug Press Operator: Dr. Molly Faye
Impression:
Admitted with multifactorial SOB 03/04/25
CAP
Acute on chronic HFpEF, probnp 1800
JULIAN
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
MR, moderate to severe by TIAN 03/31/23, moderate by TTE 02/17/25
Mild MR with mean gradient 4 mmHg by TTE 02/17/25
Mechanical aortic valve replacement in 2010, followed by revision of pre-existing mechanical aortic valve for perivalvular leak 07/22/2014
LVOT gradient turbulence with mild paravalvular aortic leak by TIAN 03/31/2023 and mild paravalvular regurgitation by TIAN 02/17/25
CAD s/p CABG with DUNCAN to LAD in 2010
HTN
Moderate to severe concentric LVH by echo 02/17/25
Permanent atrial fibrillation
Chronic Jantoven (brand name warfarin) OAC managed by [facility]
Asymptomatic PVCs
Anemia with h/o GI bleed in 2021.
Anemia and MDS
Secondary pulmonary hypertension.
Hyperlipidemia.
Diabetes mellitus type 2
Peripheral vascular disease, status post right posterior tibial angioplasty in 2019.
Premature ventricular contractions.
Asthma.
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
Chronic obstructive pulmonary disease.
Nail-patella syndrome
Echo 03/23/23: Moderate LVH. Normal LV size with EF 73%. Normal right ventricular size and function. Mild to moderate mitral stenosis with peak/mean gradients of 25/7 mmHg. Moderate to severe eccentric mitral regurgitation. #23 [facility] [place] mechanical
aortic valve replacement with peak/mean gradients of 81/42 mmHg. Mild paravalvular aortic regurgitation. Moderate tricuspid regurgitation. Estimated PA pressure of 72 mmHg assuming a right atrial pressure of 15.
TIAN 03/31/23: Normal LV size and function with ejection fraction 65%. Moderate LVH. Blood pressure was 179/80. Normal right ventricle. Mild to moderate mitral stenosis with mean gradient 3 mmHg. Moderate to severe mitral regurgitation with 2 jets
noted. Mechanical [place] valve is in place. Leaflets appear to be opening appropriately with mild thickening. Turbulent flow going through the LVOT. Mild paravalvular leak.
Valve fluoroscopy 03/31/23: Study was not optimal for opening and closing angles however leaflets appear to be mobile and free of significant obstruction.
Echo 02/17/2025: EF 60 to 65%, moderate to severe concentric LVH, mechanical [place] AVR peak/mean 36/15 mmHg with mild perivalvular regurgitation, mild MS with mean gradient 4 mmHg, moderate MR, moderate TR with PAP 38 mmHg
Plan:
-Presented 03/04/2025 with multifactorial dyspnea including community-acquired pneumonia and heart failure with preserved ejection fraction.
- Ongoing treatment for pneumonia currently getting doxycycline and Cefepime. Still has very coarse breath sounds. Remains on oxygen 2-3 L oxygen via nasal cannula
-Heart failure with preserved ejection fraction. proBNP 1800 on admission. Patient was given Lasix 60 mg IV daily except Nephrology gave 80 mg IV 03/07.
-JULIAN with Cre increased from 1.4 up to 2.3, Cre 4.2 (03/06) now 5.8 (03/07). Being followed by nephrology. There is concern for contrast mediated nephropathy after patient had CT of abdomen and pelvis (03/04) and CT chest 03/05.
-Patient making little urine. If does not improve may require dialysis
-Ongoing discussion regarding RHC to assess volume status. However patient unable to lay flat at this time.
-EF was 60 to 65% by echo 02/17/2025, no need to repeat.
-Patient is not chronically on BB, but instead is on Cardizem CD with history of atrial flutter
-Patient is not chronically on DEREK/ARB/ARNI/aldosterone antagonist due to CKD 3B
-Patient is not chronically on SGLT2 inhibitor due to CKD, decreased GFR
-Known CAD s/p CABG with DUNCAN to LAD in 2010 and he had stable CAD by cath in 2014 prior to stitch repair. No complaints of chest pain at this time
-Patient is s/p mechanical AVR in 2010 and then he had redo sternotomy with stitch repair in 2014 to help with paravalvular leak. By echo 03/23/23 he had mild paravalvular aortic regurgitation and then on TIAN 03/31/23 he had turbulent flow through the
LVOT and mild paravalvular leak. Then he had valve fluoroscopy 03/31/23 that was not optimal for opening and closing angles, but the leaflets appeared to be mobile and free of significant obstruction.
-INR 2.84 on 03/07/2025. INR goal is 2.5-3. INRs managed by [facility] office using home monitor. Patient was switched from generic warfarin to Jantoven in the last year and takes 3 mg daily as an outpatient.
-Patient also with known moderate to severe MR and mild to mod MS. Continue conservative management
-Known permanent Afib and HRs controlled with Cardizem CD 240 mg daily. Of note the patient was previously on digoxin as well, but this was stopped at office visit 04/18/23 due to bradycardia and then eventually he had left bundle pacer placed
05/11/23
HPI: Patient came to the ER yesterday for acute on chronic cough and new chills and was admitted with PNA and cardiology is consulted for acute HF in addition. He has a complicated history.� Patient had mechanical AVR in 2010 followed by revision of
the pre-existing mechanical aortic valve for perivalvular leak leak and that was performed on 07/22/2014 with stitch repair. Then during admission in 2022 there was concern for worsening aortic valve insufficiency so he underwent full assessment of
mechanical aortic valve; TIAN with�LVOT increased gradient, valve itself looked stable, mitral valve with moderate to severe MR noted. Fluoroscopy was also stable without obvious abnormality in valve leaflets.�Plan was for conservative management and
overall his valves look stable by the most recent TTE 02/17/2025.� He is being followed by hematology (Dr. Jeffery) for anemia and MDS with intermittent treatment using luspatercept. Patient says that he feels he has the same cough he has have for the
last year, but within the last 2 days he started with arthralgias and chills prompting him to go to the ER where CXR revealed multifocal PNA. He also had leukocytosis and elevated lactic acid level. Patient admitted and started on IV antibiotics.
Cardiology is consulted due to elevation in his proBNP level, the last proBNP was 1800 and it is now almost 2600. Patient denies any increase in LE edema. His weight is up 26 lbs compared to last admission which is almost 2 years ago.
Progress Note - Slug Press Operator
Subjective
Date of Service: March 07, 2025
Patient seen and examined patient sitting on edge of bed reporting he still feels short of breath and has some mild nausea.
Objective
Labs:
03/07/25 07:19
Labs
Hgb 8.4 g/dL (13.0-18.0) L 03/07/25 07:19
Hct 24.1 % (39.0-52.0) L 03/07/25 07:19
Plt Count 253 10^3/uL (130-400) 03/07/25 07:19
PT 29.8 Sec (11.4-14.6) H 03/07/25 07:19
INR 2.84 03/07/25 07:19
Sodium 130 mmol/L (135-145) L 03/07/25 07:19
Potassium 5.4 mmol/L (3.5-5.1) H 03/07/25 07:19
BUN 82 mg/dl (9-20) H 03/07/25 07:19
Creatinine 5.8 mg/dL (0.7-1.3) H* 03/07/25 07:19
Glucose 158 mg/dl (70-99) H 03/07/25 07:19
Vital Signs and I&O:
Vital Signs
Temp Pulse Resp BP Pulse Ox
97.6 F 67 16 139/49 93
03/07/25 07:33 03/07/25 10:34 03/07/25 08:17 03/07/25 10:34 03/07/25 08:17
Vital Signs
Temp Pulse Resp BP Pulse Ox
97.6 F 67 16 139/49 93
03/07/25 07:33 03/07/25 10:34 03/07/25 08:17 03/07/25 10:34 03/07/25 08:17
Intake & Output
03/05/25 03/06/25 03/07/25 03/08/25
06:59 06:59 06:59 06:59
Intake Total 1480 / 1480 800 / 800 440 / 440
Output Total 400 / 400 1100 / 1100 90 / 90
Balance 1080 / 1080 -300 / -300 350 / 350
Physical Exam
Physical Exam
GEN: Sitting on edge of bed leaning on bedside table, awake, Ox3
HEENT: supple, anicteric, mmm
LUNGS: Coarse breath sounds with rhonchi bilaterally; on 3 L of oxygen via nasal cannula
CV: Reg, S1/S2, 2/6 sys murmur, audible click of mechanical valve
ABD: soft, BS+, NT/ND
EXT: No edema, clubbing or cyanosis
NEURO: Gross non-focal
SKIN: No rash, warm, dry, pink
[2025-03-07] MEDS: LASIX 80 MG IV (10:59)
[2025-03-07 11:30] VITALS: BP 143/55
[2025-03-07 12:23] LABS: Glucose - Point of Care 180 mg/dl (70-99)
[2025-03-07] MEDS: FLEET MINERAL OIL ENEMA 133 ML RECTAL (14:23)
--- NOTE | 2025-03-07 14:46 | CM ---
CM reviewed chart, patient remains on IV lasix, may require dialysis if no improvement. Remains on IV antibiotics, 3L O2. CM will continue to follow for discharge plans pending medical workup.
Plan; TBD, follow for needs closer to d/c
[2025-03-07 14:50] VITALS: BP 162/76; BP_SYST 69
--- NOTE | 2025-03-07 15:14 | W.PN.UPDATE ---
Update Note
Progress Note Update
Pt has no urine out put since lasix
awaiting repeat labs
remains SOB, orthopnea per family
HD catheter to be palced by IR
likely plan HD today
long d/w family-daughter and
d/w nursing
[2025-03-07 15:22] LABS: Blood Urea Nitrogen 86 mg/dl (9-20); Calcium 8.6 mg/dl (8.4-10.2); Carbon Dioxide 16 mmol/L (22-30); Chloride 102 mmol/L (98-107); Estimated Creatinine Clearance 8 ml/min; Glucose 144 mg/dl (70-99); Potassium 5.2 mmol/L (3.5-5.1); Sodium 129 mmol/L (135-145); eGFR 8.53
--- NOTE | 2025-03-07 15:42 | PN.CDI ---
CDI
- -
CDI:
Physician Documentation Request
Admit Date: 03/04/25 19:23
Dear Doctor Shivani,
Patient admitted for pneumonia.
Laboratory Tests
03/05/25 03/06/25 03/07/25
06:46 08:26 07:19
Sodium 133 L 130 L 130 L
03/07/25
13:43
Sodium 129 L
Based on the above, could you clarify in the progress notes, the appropriate diagnosis, if significant, that supports the above abnormalities and additional evaluation, monitoring and/or treatment rendered:
Hyponatremia
Abnormal lab value insignificant
Other
Use of terms such as suspected, likely, concern for, or probable (associated with a specific diagnosis that is being evaluated, monitored, or treated as if it exists) are acceptable and can be coded in the inpatient setting, when documented at the
time of discharge.
Thank you,
Tanya Reynolds RN, BSN
CDI Specialist
Available via [place] text
Please use your independent medical judgment in providing your response.
[2025-03-07 15:45] VITALS: BP 150/65; BP_SYST 67
[2025-03-07 16:13] LABS: Hepatitis B Surface Antigen Negative (Negative)
[2025-03-07 16:32] LABS: Hepatitis C Antibody Negative (Negative)
[2025-03-07] MEDS: ZOFRAN 4 MG IV ×2 (16:36→22:36)
[2025-03-07 17:00] LABS: Glucose - Point of Care 151 mg/dl (70-99)
[2025-03-07] MEDS: MANNITOL 25% 12.5 GRAMS IV ×2 (17:42→18:39)
--- NOTE | 2025-03-07 17:54 | W.PN.NEPH.HD ---
Assessment
-
pt evaluated during HD
vitals stable
Temp catheter placed by IR-appt help
UF as tolerated
family at bedside , discussed case again
HD tomorrow
Progress Note - Hemodialysis
-
Date of Service: March 07, 2025
Duration: 2 hours
Potassium Bath: 2
Calcium Bath: 2.5
Opti-Dialyzer: 160
Ultrafiltration: Other (1-1.5kg)
Blood Flow: 200
Dialysate Flow: Other (500)
Heparin: no
EPO: [id number]
[2025-03-07] MEDS: RETACRIT 10000 UNITS IV (18:14)
[2025-03-07] MEDS: HEPARIN 2200 UNITS INTRACATH (18:36)
[2025-03-07 19:31] LABS: Glucose - Point of Care 112 mg/dl (70-99)
[2025-03-07] MEDS: NOVOLOG FLEXPEN-LOW RESISTANCE SC (19:31)
[2025-03-07] MEDS: COUMADIN 3 MG PO (19:33)
[2025-03-07] MEDS: SINGULAIR 10 MG PO (19:34)
[2025-03-07] MEDS: LIPITOR 80 MG PO (19:34)
[2025-03-07 19:51] VITALS: BP 137/108
[2025-03-07 21:17] LABS: Glucose - Point of Care 118 mg/dl (70-99)
[2025-03-07] MEDS: LANTUS 0.1 UNITS SC (21:20)
[2025-03-08] VITALS: BP 146/83
--- NOTE | 2025-03-08 02:35 | PTCARENOTE ---
Pt. received prn breathing treatment and zofran for c/o SOB and nausea. Later Pt. c/o of SOB stating 'I can't breathe' VSS PO 95 @3L. BALANCE WHEEL FACER notified. BALANCE WHEEL FACER came to the floor to see pt. Educated pt on excess fluid and needing dialysis. no new orders
at this time. pt. care ongoing.
[2025-03-08 02:45] VITALS: BP 149/54
[2025-03-08] MEDS: ZOFRAN 4 MG IV ×3 (04:36→20:24)
[2025-03-08 07:00] VITALS: BP 116/82
--- NOTE | 2025-03-08 07:08 | PTCARENOTE ---
Pt. refused weight despite many attempts. Day shift made aware and will attempt.
[2025-03-08 07:24] LABS: Glucose - Point of Care 65 mg/dl (70-99)
[2025-03-08] MEDS: NOVOLOG FLEXPEN-LOW RESISTANCE SC ×3 (07:29→15:37)
[2025-03-08 07:48] LABS: Glucose - Point of Care 136 mg/dl (70-99)
[2025-03-08] MEDS: SYMBICORT 80/4.5 MCG INHALER 2 PUFF INH ×2 (07:56→20:11)
[2025-03-08] MEDS: SPIRIVA RESPIMAT 2.5 MCG 2 PUFF INH (07:56)
[2025-03-08] MEDS: VIBRAMYCIN PO ×2 (08:16→09:42)
[2025-03-08] MEDS: THERAGRAN PO ×2 (08:16→09:42)
[2025-03-08] MEDS: CARDIZEM CD PO ×2 (08:16→09:39)
[2025-03-08] MEDS: FLOMAX PO ×2 (08:16→09:40)
[2025-03-08] MEDS: MIRALAX PO ×2 (08:17→09:40)
[2025-03-08] MEDS: MAXIPIME IV ×2 (08:17→09:40)
[2025-03-08] MEDS: APRESOLINE PO ×2 (08:17→09:37)
[2025-03-08] MEDS: PREVACID PO ×2 (08:17→09:40)
[2025-03-08] MEDS: PROSCAR PO ×2 (08:17→09:41)
[2025-03-08] MEDS: COLACE PO ×2 (08:17→09:39)
--- NOTE | 2025-03-08 08:30 | PTCARENOTE ---
Pt refused lab work this morning. The Audio Visual Project Manager came around a second time to obtain his blood work and he stated, 'get out of my room.' He had stated that he didn't want anything done to him until his came.
[2025-03-08 09:30] LABS: Glucose - Point of Care 104 mg/dl (70-99)
--- NOTE | 2025-03-08 09:30 | PTCARENOTE ---
While preparing the pt's medication this morning, the pt refused to take his morning medication. The pt was also stating that, 'The nurses are not nice to me,' and that when he was getting his dialysis cath down stairs, that the nurse down there was
upset because he had touched [contaminated] the field and that they would have to start over. I did give his a call to explain what was going on to her and that he is refusing to take his morning medications. The was concerned with his
confusion and asked if he was getting dialysis this morning. I told her that he was most likely going to receive his dialysis in the afternoon.
[2025-03-08] MEDS: STERILE WATER FOR INJECTION IV (09:36)
--- NOTE | 2025-03-08 09:55 | W.PN.HOSP.TC ---
Today's Communication/Plan
-
Hemodialysis today
Continue antibiotics
Continue monitoring oxygen status
Assessment / Plan
Assessment / Plan
Assessment:
84-year-old male with a past medical history of paroxysmal A-fib, hypertension, hyperlipidemia, ASCVD, chronic kidney disease 3, HFpEF, BPH, MDS, peripheral artery disease and diabetes mellitus type 2 came to the ED due to evaluation of general
myalgias. He was found to have possible pneumonia versus mass seen on chest x-ray and CT scan. His breathing worsened, and was found to be volume overloaded and started on diuretic therapy. However he developed worsening kidney function possibly
due to contrast nephropathy. Underwent hemodialysis yesterday, and plan for further hemodialysis today to improve his kidney function for possible right heart cath in the future.
Plan:
# Multifocal pneumonia
- Leukocytosis, chest x-ray showed consolidation, evidence of possible pneumonia versus mass
- CXR: Focal opacity in the posterior aspect of the right upper midlung
Cardiomegaly. Diffusely increased reticulonodular markings. Correlating with prior examinations, this could represent chronic changes of congestive heart failure.
- Chest CT w/o contrast: The right upper lobe airspace opacity is favored to represent lobar pneumonia. Imaging follow-up to resolution is recommended after treatment as an underlying pulmonary neoplasm would be difficult to completely exclude.
- Blood cx have showed no growth
- IV Cefepime 1000mg Q24h #D5 (Renal dosing) + Doxycycline 100mg PO Q12h #D5
- Continue respiratory supportive care
- Trend CBC and temperature curve, continue oxygen levels above 90%
#JULIAN on chronic kidney disease III
- monitor BMP
- Suspect it might be due to contrast mediated nephropathy from CT scan of abdomen and pelvis with IV contrast from 03/04/2025
- nephrology on board, input appreciated
- Patient underwent hemodialysis yesterday, scheduled to go through hemodialysis today as well
- Right heart cath once kidneys are stable
#acute on chronic HFpEF
- pBNP- 2580
- daily weights
- I/Os
- Consult Cardiology, input appreciated
- Hemodialysis yesterday and, today
- Currently discussing possible right heart cath
- Primary court operations clerk eval for- potential cardiac Amyloid? - immunology work-up pending
#paroxysmal atrial fibrillation
- continue Coumadin 3mg daily- for stroke prophylaxis
- daily INR
- continue Cardizem for rate control
#MDS
- consult oncology, input appreciated
- Leukocytosis is resolving, patient would follow-up with outpatient setting
- immunology work-up pending
#Constipation
- Enema ordered yesterday, disimpaction if needed
#hypertension
- Holding Lasix, blood pressure has been stable
- Hydralazine as needed
#hyperlipidemia
#ASCVD
- continue atorvastatin
- myalgia secondary to statin?--Creatinine kinase- 130 N--resolved
#DM - II
- AccuCheck AC & HS
- Insulin aspart per protocol
- continue Insulin Glargine 10U SQ
#Pulmonary HTN
- continue Coumadin
- daily INR
#BPH
- continue tamsulosin
#Pressure injury
- stage 1
- new heel foams applied bl
#Hyponatremia
- likely from hypervolemia
#PAD
DVT prophylaxis: Warfarin
Full code
Anticipated Discharge: > 48 hours
Subjective/Interval History
-
Date of Service: March 08, 2025
Spoke with patient this morning, was not happy. Had some trouble breathing but had respiratory support at that time. Was on 3 L of oxygen when seen. Belly was a bit distended. Reported no chest pain, nausea or vomiting at this time.
Objective Data
-
Labs:
Laboratory Results
03/08/25
06:00
WBC Pending
Hgb Pending
Hct Pending
Plt Count Pending
Sodium Pending
Potassium Pending
Chloride Pending
Carbon Dioxide Pending
BUN Pending
Creatinine Pending
Glucose Pending
Calcium Pending
Total Bilirubin Pending
AST Pending
ALT Pending
Alkaline Phosphatase Pending
Vital Signs:
Vital Signs
Temp Pulse Resp BP Pulse Ox
97.6 F 82 14 116/82 96
03/08/25 07:00 03/08/25 07:58 03/08/25 07:58 03/08/25 07:00 03/08/25 07:00
I&O
03/07/25 03/08/25 03/09/25
06:59 06:59 06:59
Intake Total 440 / 440
Output Total 90 / 90 150 / 150
Balance 350 / 350 -150 / -150
Review of Systems
-
History Source: Patient
Constitutional: Reports Weight Gain
EENT: Reports No Symptoms Reported
Respiratory: Reports Cough and Trouble Breathing
Cardiac: Reports No Symptoms
Abdomen/GI: Reports Constipated
Breast: Reports No Symptoms
Genitourinary: Reports Difficulty Voiding
Musculoskeletal: Reports No Symptoms
Skin: Reports No Symptoms
Neuro: Reports No Symptoms
Endocrine: Reports No Symptoms
Physical Exam
-
General: Respiratory Distress, Appears in Distress, Conversant, Appears Chronically Ill and Other (Hemodialysis port on the right)
HEENT: Normocephalic, Atraumatic and Oxygen (3 L)
Respiratory: Rhonchi, Crackles and Decreased Breath Sounds
Cardiac: Regular Rhythm and S1/S2
Breast: Deferred by me
GI: Nontender and Distended (Markedly distended)
Rectal: Deferred by Provider
Genito-urinary: No Costovertebral Tender
Musculoskeletal: No Clubbing, No Cyanosis and No Edema
Skin: Warm and Dry
Neuro: AO x 3
Psych: Agitated and Anxious
Data Reviewed
-
Labs: Labs Reviewed by me, Discussed with Physician and Discussed with Patient
--- NOTE | 2025-03-08 11:38 | PTCARENOTE ---
Pt is refusing to have vital signs taken, his blood sugar checked, and his telemetry on. I notified the resident and he stated that it was okay to DC the telemetry at this time. Will try again to take his blood sugar since he was low this morning.
Call placed to , but no answer.
--- NOTE | 2025-03-08 12:04 | W.PN.CARDCBS ---
Today's Communication / Plan
-
Dialysis if agreeable
Currently refusing his IV and oral medications
? Goals of care
Prognosis guarded
Impression / Plan
-
PCP: Dr. Duron
Chainstitch Hemmer: Dr. Molly Faye
Impression:
Admitted with multifactorial SOB 03/04/25
CAP
Acute on chronic HFpEF, probnp 1800
JULIAN
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
MR, moderate to severe by TIAN 03/31/23, moderate by TTE 02/17/25
Mild MR with mean gradient 4 mmHg by TTE 02/17/25
Mechanical aortic valve replacement in 2010, followed by revision of pre-existing mechanical aortic valve for perivalvular leak 07/22/2014
LVOT gradient turbulence with mild paravalvular aortic leak by TIAN 03/31/2023 and mild paravalvular regurgitation by TIAN 02/17/25
CAD s/p CABG with DUNCAN to LAD in 2010
HTN
Moderate to severe concentric LVH by echo 02/17/25
Permanent atrial fibrillation
Chronic Jantoven (brand name warfarin) OAC managed by [facility]
Asymptomatic PVCs
Anemia with h/o GI bleed in 2021.
Anemia and MDS
Secondary pulmonary hypertension.
Hyperlipidemia.
Diabetes mellitus type 2
Peripheral vascular disease, status post right posterior tibial angioplasty in 2019.
Premature ventricular contractions.
Asthma.
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
Chronic obstructive pulmonary disease.
Nail-patella syndrome
Echo 03/23/23: Moderate LVH. Normal LV size with EF 73%. Normal right ventricular size and function. Mild to moderate mitral stenosis with peak/mean gradients of 25/7 mmHg. Moderate to severe eccentric mitral regurgitation. #23 [facility] mechanical
aortic valve replacement with peak/mean gradients of 81/42 mmHg. Mild paravalvular aortic regurgitation. Moderate tricuspid regurgitation. Estimated PA pressure of 72 mmHg assuming a right atrial pressure of 15.
TIAN 03/31/23: Normal LV size and function with ejection fraction 65%. Moderate LVH. Blood pressure was 179/80. Normal right ventricle. Mild to moderate mitral stenosis with mean gradient 3 mmHg. Moderate to severe mitral regurgitation with 2 jets
noted. Mechanical [place] valve is in place. Leaflets appear to be opening appropriately with mild thickening. Turbulent flow going through the LVOT. Mild paravalvular leak.
Valve fluoroscopy 03/31/23: Study was not optimal for opening and closing angles however leaflets appear to be mobile and free of significant obstruction.
Echo 02/17/2025: EF 60 to 65%, moderate to severe concentric LVH, mechanical [place] AVR peak/mean 36/15 mmHg with mild perivalvular regurgitation, mild MS with mean gradient 4 mmHg, moderate MR, moderate TR with PAP 38 mmHg
Plan:
-Presented 03/04/2025 with multifactorial dyspnea including community-acquired pneumonia and heart failure with preserved ejection fraction.
- Ongoing treatment for pneumonia currently getting doxycycline and Cefepime. Still has very coarse breath sounds. Remains on oxygen 2-3 L oxygen via nasal cannula
-Heart failure with preserved ejection fraction. proBNP 1800 on admission. Patient was given Lasix 60 mg IV daily except Nephrology gave 80 mg IV 03/07.
-JULIAN with Cre increased from 1.4 up to 2.3, Cre 4.2 (03/06) now 5.8 (03/07). Being followed by nephrology. There is concern for contrast mediated nephropathy after patient had CT of abdomen and pelvis (03/04) and CT chest 03/05.
-Patient making little urine. Now status post temporary dialysis catheter. As he has a rising BUN/creatinine and evidence for uremia I have no objection to initiating dialysis but would defer to our nephrology colleagues. He is making little
urine and will be difficult to manage his volume status with Lasix. He is also refusing IV�oral medications
-Ongoing discussion regarding RHC to assess volume status. However patient unable to lay flat at this time. He would have to be able to lie flat for right heart catheterization
-EF was 60 to 65% by echo 02/17/2025, no need to repeat.
-Patient is not chronically on BB, but instead is on Cardizem CD with history of atrial flutter
-Patient is not chronically on DEREK/ARB/ARNI/aldosterone antagonist due to CKD 3B
-Patient is not chronically on SGLT2 inhibitor due to CKD, decreased GFR
-Known CAD s/p CABG with DUNCAN to LAD in 2010 and he had stable CAD by cath in 2014 prior to stitch repair. No complaints of chest pain at this time
-Patient is s/p mechanical AVR in 2010 and then he had redo sternotomy with stitch repair in 2014 to help with paravalvular leak. By echo 03/23/23 he had mild paravalvular aortic regurgitation and then on TIAN 03/31/23 he had turbulent flow through the
LVOT and mild paravalvular leak. Then he had valve fluoroscopy 03/31/23 that was not optimal for opening and closing angles, but the leaflets appeared to be mobile and free of significant obstruction.
- INR goal is 2.5-3. INRs managed by [facility] office using home monitor. Patient was switched from generic warfarin to Jantoven in the last year and takes 3 mg daily as an outpatient.
-Patient also with known moderate to severe MR and mild to mod MS. Continue conservative management
-Known permanent Afib and HRs controlled with Cardizem CD 240 mg daily. Of note the patient was previously on digoxin as well, but this was stopped at office visit 04/18/23 due to bradycardia and then eventually he had left bundle pacer placed
05/11/23
- His prognosis is guarded
HPI: Patient came to the ER yesterday for acute on chronic cough and new chills and was admitted with PNA and cardiology is consulted for acute HF in addition. He has a complicated history.� Patient had mechanical AVR in 2010 followed by revision of
the pre-existing mechanical aortic valve for perivalvular leak leak and that was performed on 07/22/2014 with stitch repair. Then during admission in 2022 there was concern for worsening aortic valve insufficiency so he underwent full assessment of
mechanical aortic valve; TIAN with�LVOT increased gradient, valve itself looked stable, mitral valve with moderate to severe MR noted. Fluoroscopy was also stable without obvious abnormality in valve leaflets.�Plan was for conservative management and
overall his valves look stable by the most recent TTE 02/17/2025.� He is being followed by hematology (Dr. Jeffery) for anemia and MDS with intermittent treatment using luspatercept. Patient says that he feels he has the same cough he has have for the
last year, but within the last 2 days he started with arthralgias and chills prompting him to go to the ER where CXR revealed multifocal PNA. He also had leukocytosis and elevated lactic acid level. Patient admitted and started on IV antibiotics.
Cardiology is consulted due to elevation in his proBNP level, the last proBNP was 1800 and it is now almost 2600. Patient denies any increase in LE edema. His weight is up 26 lbs compared to last admission which is almost 2 years ago.
Progress Note - Chainstitch Hemmer
Subjective
Date of Service: March 08, 2025
Upright and nauseous
Objective
Labs:
Labs
Hgb 8.4 g/dL (13.0-18.0) L 03/07/25 07:19
Hct 24.1 % (39.0-52.0) L 03/07/25 07:19
Plt Count 253 10^3/uL (130-400) 03/07/25 07:19
PT 29.8 Sec (11.4-14.6) H 03/07/25 07:19
INR 2.84 03/07/25 07:19
Sodium 129 mmol/L (135-145) L 03/07/25 13:43
Potassium 5.2 mmol/L (3.5-5.1) H 03/07/25 13:43
BUN 86 mg/dl (9-20) H 03/07/25 13:43
Creatinine 6.1 mg/dL (0.7-1.3) H* 03/07/25 13:43
Glucose 144 mg/dl (70-99) H 03/07/25 13:43
Vital Signs and I&O:
Vital Signs
Temp Pulse Resp BP Pulse Ox
97.6 F 82 14 116/82 96
09/06/25 07:00 03/08/25 07:58 03/08/25 07:58 03/08/25 07:00 03/08/25 07:00
Vital Signs
Temp Pulse Resp BP Pulse Ox
97.6 F 82 14 116/82 96
03/08/25 07:00 03/08/25 07:58 03/08/25 07:58 03/08/25 07:00 03/08/25 07:00
Intake & Output
03/06/25 03/07/25 03/08/25 03/09/25
06:59 06:59 06:59 06:59
Intake Total 800 / 800 440 / 440
Output Total 1100 / 1100 90 / 90 150 / 150
Balance -300 / -300 350 / 350 -150 / -150
Physical Exam
Physical Exam
����Physical Exam
���������������������General:��no apparent distress, not acutely ill
Right sided temporary dialysis catheter
���������������������������Neck:��supple. no meningeal signs. normal psoterior pharynx
������������������������
���������������������������Heart:��s1/s2 regular rate and rhythm, no murmur. equal radial pulses. He is paced
��������������������������Lungs: ��no acute respiratory distress. clear bilaterally
����������������������Abdomen:�normal bowel sounds. not tender. no CVAT
��������������������������Neuro:��alert and oriented. no focal neurological deficits
������������������������������Skin: ��no rash
�����������������������Psychiatric:�well kept. interactive and cooperative
�����������������������Extremities:��no edema. no calf tenderness. negative homans. good distal pulses
��
�
[2025-03-08] MEDS: MANNITOL 25% 12.5 GRAMS IV ×2 (14:14→15:33)
--- NOTE | 2025-03-08 14:16 | W.PN.NEPH.HD ---
Assessment
-
pt evaluated during HD
vitals stable
more confused today, delusional
refusing meds and lab checks
finally agreed to be on HD-aixa labs, pending report
d/w at bedside in detail
monitor for renal recovery if any
Progress Note - Hemodialysis
-
Date of Service: March 08, 2025
Duration: 45 minutes and 2 hours
Potassium Bath: 2
Calcium Bath: 2.5
Opti-Dialyzer: 160
Ultrafiltration: Other (1-1.5kg)
Blood Flow: 300
Dialysate Flow: 600
Heparin: no
EPO: 4000
[2025-03-08 14:27] LABS: Hematocrit 23.5 % (39.0-52.0); Hemoglobin 8.2 g/dL (13.0-18.0); Mean Corp Hgb Conc. 34.9 g/dL (33.0-37.0); Mean Corpuscular Volume 97.1 fL (80.0-94.0); Nucleated Red Blood Cells % 0.2 % (-); Platelet Count 290 10^3/uL (130-400); Red Cell Dist. Width 16.8 % (11.5-14.5)
[2025-03-08 14:56] LABS: ALT (SGPT) 34 U/L (0-50); AST (SGOT) 68 U/L (17-59); Albumin 3.8 g/dl (3.5-5.0); Alkaline Phosphatase 87 U/L (38-126); Blood Urea Nitrogen 61 mg/dl (9-20); Calcium 8.4 mg/dl (8.4-10.2); Carbon Dioxide 21 mmol/L (22-30); Chloride 103 mmol/L (98-107); Estimated Creatinine Clearance 9 ml/min; Glucose 53 mg/dl (70-99); Magnesium 2.0 mg/dl (1.6-2.3); Potassium 4.3 mmol/L (3.5-5.1); Sodium 136 mmol/L (135-145); Total Protein 6.8 g/dl (6.3-8.2); eGFR 10.83
[2025-03-08 15:00] VITALS: BP 125/71
[2025-03-08 15:26] LABS: Glucose - Point of Care 103 mg/dl (70-99)
[2025-03-08] MEDS: RETACRIT 4000 UNITS IV (15:33)
[2025-03-08] MEDS: HEPARIN 2200 UNITS INTRACATH (16:52)
[2025-03-08] MEDS: FLEET MINERAL OIL ENEMA 133 ML RECTAL (17:11)
[2025-03-08] MEDS: COUMADIN 3 MG PO (17:11)
[2025-03-08] MEDS: SINGULAIR 10 MG PO (17:12)
[2025-03-08] MEDS: LIPITOR 80 MG PO (17:12)
[2025-03-08 17:27] LABS: Glucose - Point of Care 115 mg/dl (70-99)
--- NOTE | 2025-03-08 18:20 | PTCARENOTE ---
'So this pt's daughter, Antonette Payne, would like to talk to a janitorial services supervisor about a situation that happened in the ER. I guess that she had told multiple people that this pt should not have contrast because the pt's kidneys can't tolerate it, but the pt
was given it anyway. She is very upset and would like to talk to someone about it. She is not very happy about the situation, especially because the pt's creatinine and BUN are dangerously high, thus the pt needing dialysis. '
This message was sent to the nursing janitorial services supervisor
[2025-03-08 19:51] VITALS: BP 160/61
[2025-03-08] MEDS: VIBRAMYCIN 100 MG PO (20:23)
[2025-03-08] MEDS: APRESOLINE 25 MG PO (20:23)
[2025-03-08] MEDS: COLACE 100 MG PO (20:23)
[2025-03-08] MEDS: FLOMAX 0.4 MG PO (20:24)
[2025-03-08] MEDS: ATIVAN 0.5 MG PO (20:24)
[2025-03-08 21:41] LABS: Glucose - Point of Care 103 mg/dl (70-99)
[2025-03-08] MEDS: LANTUS SC (23:10)
[2025-03-08 23:41] VITALS: BP 148/53
--- NOTE | 2025-03-09 05:26 | PTCARENOTE ---
late entry 03/08 2300 BG 103 at 2140. pt ordered 10units of Lantus. discussed with [employer] d/t pt being hypoglycemic during the day. [employer] placed Lantus 10units insulin on hold.
[2025-03-09 05:33] VITALS: BMI 27.2
[2025-03-09 05:53] LABS: Hematocrit 27.4 % (39.0-52.0); Hemoglobin 9.2 g/dL (13.0-18.0); Mean Corp Hgb Conc. 33.6 g/dL (33.0-37.0); Mean Corpuscular Volume 98.6 fL (80.0-94.0); Nucleated Red Blood Cells % 0.2 % (-); Platelet Count 304 10^3/uL (130-400); Red Cell Dist. Width 16.6 % (11.5-14.5)
[2025-03-09 06:02] LABS: INR 4.57; PT 42.7 Sec (11.4-14.6)
[2025-03-09 06:26] LABS: ALT (SGPT) 40 U/L (0-50); AST (SGOT) 73 U/L (17-59); Albumin 3.8 g/dl (3.5-5.0); Alkaline Phosphatase 95 U/L (38-126); Blood Urea Nitrogen 34 mg/dl (9-20); Calcium 8.8 mg/dl (8.4-10.2); Carbon Dioxide 22 mmol/L (22-30); Chloride 101 mmol/L (98-107); Estimated Creatinine Clearance 15 ml/min; Glucose 87 mg/dl (70-99); Magnesium 2.1 mg/dl (1.6-2.3); Potassium 4.3 mmol/L (3.5-5.1); Sodium 137 mmol/L (135-145); Total Protein 6.3 g/dl (6.3-8.2); eGFR 18.49
[2025-03-09] MEDS: SYMBICORT 80/4.5 MCG INHALER 2 PUFF INH (07:24)
[2025-03-09] MEDS: SPIRIVA RESPIMAT 2.5 MCG 2 PUFF INH (07:24)
[2025-03-09 07:58] VITALS: BP 158/67
[2025-03-09 08:20] LABS: Glucose - Point of Care 100 mg/dl (70-99)
--- NOTE | 2025-03-09 08:49 | W.PN.HOSP.TC ---
Addendum entered and electronically signed by Tomas Hussein DO 03/09/25 13:32:
INR back at 4.57. Will hold warfarin and continue to trend daily INR, goal 2.5-3
Original Note:
Today's Communication/Plan
-
Fecal disimpaction today
Hemodialysis
Follow-up for any improvement in breathing status
Continue antibiotics
Assessment / Plan
Assessment / Plan
Assessment:
84-year-old male with a past medical history of paroxysmal A-fib, hypertension, hyperlipidemia, ASCVD, chronic kidney disease 3, HFpEF, BPH, MDS, peripheral artery disease and diabetes mellitus type 2 came to the ED due to evaluation of general
myalgias. He was found to have possible pneumonia versus mass seen on chest x-ray and CT scan. His breathing worsened, and was found to be volume overloaded and started on diuretic therapy. However he developed worsening kidney function possibly
due to contrast nephropathy. Underwent hemodialysis yesterday, and plan for further hemodialysis today to improve his kidney function for possible right heart cath in the future.
Plan:
# Multifocal pneumonia
- Leukocytosis, chest x-ray showed consolidation, evidence of possible pneumonia versus mass
- CXR: Focal opacity in the posterior aspect of the right upper midlung. Cardiomegaly. Diffusely increased reticulonodular markings. Correlating with prior examinations, this could represent chronic changes of congestive heart failure.
- Chest CT w/o contrast: The right upper lobe airspace opacity is favored to represent lobar pneumonia. Imaging follow-up to resolution is recommended after treatment as an underlying pulmonary neoplasm would be difficult to completely exclude.
- Blood cx have showed no growth
- IV Cefepime 1000mg Q24h Day 6 (Renal dosing) + Doxycycline 100mg PO Q12h #Day 6
- Continue respiratory supportive care
- Trend CBC and temperature curve, continue oxygen levels above 90%
#JULIAN on chronic kidney disease III
- monitor BMP
- Suspect it might be due to contrast mediated nephropathy from CT scan of abdomen and pelvis with IV contrast from 03/04/2025
- nephrology on board, input appreciated
- Patient undergoing day 3 of hemodialysis today, creatinine is much improving from before following dialysis
- Right heart cath once kidneys are stable
# Acute hypoxemic respiratory failure due to decompensated HFpEF, type III cardiorenal state
- pBNP- 2580
- daily weights
- I/Os
- Consult Cardiology, input appreciated
- Undergoing hemodialysis
- Currently discussing possible right heart cath
- Primary home performance laborer eval for- potential cardiac Amyloid? - immunology work-up pending
- Follow-up plasma cell workup, can consider technetium scan if negative
# Altered mental status
- Had a conversation with patient's yesterday, regarding goals of care
- She said that patient is usually much better at his baseline and he is very different from what he usually is at at home
- She states that patient would still want all treatments available for him
- Patient was started on Ativan as needed for his agitation
#paroxysmal atrial fibrillation
- continue Coumadin 3mg daily- for stroke prophylaxis
- daily INR
- continue Cardizem for rate control
#MDS
- consulted oncology, input appreciated
- Leukocytosis is resolving, patient would follow-up with outpatient setting
- immunology work-up pending
#Constipation
- Received second enema yesterday, most likely will require disimpaction
#hypertension
- Holding Lasix, blood pressure has been stable
- Hydralazine as needed
#hyperlipidemia
#ASCVD
- continue atorvastatin
- myalgia secondary to statin?--Creatinine kinase- 130 N--resolved
#DM - II
- AccuCheck AC & HS
- Insulin aspart per protocol
- continue Insulin Glargine 10U SQ
#Pulmonary HTN
- continue Coumadin
- daily INR
#BPH
- continue tamsulosin
#Pressure injury
- stage 1
- new heel foams applied bl
#Hyponatremia
- likely from hypervolemia
#PAD
DVT prophylaxis: Warfarin
Full code
Anticipated Discharge: 24 - 48 hours
Subjective/Interval History
-
Date of Service: March 09, 2025
Patient seen this morning, was undergoing dialysis treatment at that time. Was calling for his again. Seemed a little bit more aware of what was going on however was still little bit mentally altered. Still having some difficulty breathing
had required respiratory support this morning and was still on supplemental oxygen, 2 L.
Objective Data
-
Labs:
Laboratory Results
03/09/25
04:25
WBC 8.8
Hgb 9.2 L
Hct 27.4 L
Plt Count 304
PT 42.7 H
INR 4.57
Sodium 137
Potassium 4.3
Chloride 101
Carbon Dioxide 22
BUN 34 H
Creatinine 3.2 H
Glucose 87
Calcium 8.8
Total Bilirubin 1.1
AST 73 H
ALT 40
Alkaline Phosphatase 95
Vital Signs:
Vital Signs
Temp Pulse Resp BP Pulse Ox
98.7 F 61 20 158/67 100
03/09/25 07:58 03/09/25 07:58 03/09/25 07:58 03/09/25 07:58 03/09/25 07:58
I&O
03/08/25 03/09/25 03/10/25
06:59 06:59 06:59
Intake Total 270 / 270
Output Total 150 / 150 400 / 400 150 / 150
Balance -150 / -150 -130 / -130 -150 / -150
Review of Systems
-
History Source: Patient
Constitutional: Reports Fatigue and Weakness
EENT: Reports No Symptoms Reported
Respiratory: Reports Cough and Trouble Breathing
Cardiac: Reports No Symptoms
Abdomen/GI: Reports Constipated
Breast: Reports No Symptoms
Genitourinary: Reports Difficulty Voiding
Musculoskeletal: Reports No Symptoms
Skin: Reports No Symptoms
Neuro: Reports No Symptoms
Endocrine: Reports No Symptoms
Physical Exam
-
General: Respiratory Distress, Appears in Distress, Conversant, Appears Chronically Ill and Other (Undergoing hemodialysis)
HEENT: Normocephalic, Atraumatic and Oxygen (2 L)
Respiratory: Rhonchi, Crackles and Decreased Breath Sounds
Cardiac: Regular Rhythm and S1/S2
Breast: Deferred by me
GI: Nontender and Distended (Markedly distended)
Rectal: Deferred by Provider
Genito-urinary: No Costovertebral Tender
Musculoskeletal: No Clubbing, No Cyanosis and No Edema
Skin: Warm and Dry
Neuro: Awake and Alert
Psych: Agitated and Anxious
Data Reviewed
-
Labs: Labs Reviewed by me, Discussed with Physician, Discussed with Nurse and Discussed with Patient
[2025-03-09] MEDS: NOVOLOG FLEXPEN-LOW RESISTANCE SC ×2 (09:30→12:35)
[2025-03-09] MEDS: MAXIPIME 1000 MG IV (09:31)
[2025-03-09] MEDS: STERILE WATER FOR INJECTION 10 ML IV (09:33)
[2025-03-09] MEDS: HEPARIN 500 UNITS IV (09:41)
[2025-03-09] MEDS: RETACRIT 4000 UNITS IV (09:42)
[2025-03-09] MEDS: HEPARIN 4000 UNITS INTRACATH (11:16)
--- NOTE | 2025-03-09 11:29 | W.PN.NEPH.HD ---
Assessment
-
pt seen during HD
vitals stable
UF as tolerates
SOB this morning better with inhalers
with losing wt suspect vol status has stabilized-unlikely vol is contributing to his resp symp
He is now making urine-monitor for renal recovery
d/w pt
temp HD catheter function well
Progress Note - Hemodialysis
-
Date of Service: March 09, 2025
Duration: 30 minutes and 3 hours
Potassium Bath: 3
Calcium Bath: 2.5
Opti-Dialyzer: 160
Ultrafiltration: Other (1-1.5kg)
Blood Flow: 400
Dialysate Flow: 600
Heparin: no
EPO: 4000
--- NOTE | 2025-03-09 11:35 | W.PN.CARDCBS ---
Today's Communication / Plan
-
HD
Goals of care
Impression / Plan
-
PCP: Dr. Duron
Footwear Sales Leader: Dr. Molly Faye
Impression:
Admitted with multifactorial SOB 03/04/25
CAP
Acute on chronic HFpEF, probnp 1800
JULIAN
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
MR, moderate to severe by TIAN 03/31/23, moderate by TTE 02/17/25
Mild MR with mean gradient 4 mmHg by TTE 02/17/25
Mechanical aortic valve replacement in 2010, followed by revision of pre-existing mechanical aortic valve for perivalvular leak 07/22/2014
LVOT gradient turbulence with mild paravalvular aortic leak by ITAN 03/31/2023 and mild paravalvular regurgitation by TIAN 02/17/25
CAD s/p CABG with DUNCAN to LAD in 2010
HTN
Moderate to severe concentric LVH by echo 02/17/25
Permanent atrial fibrillation
Chronic Jantoven (brand name warfarin) OAC managed by [facility]
Asymptomatic PVCs
Anemia with h/o GI bleed in 2021.
Anemia and MDS
Secondary pulmonary hypertension.
Hyperlipidemia.
Diabetes mellitus type 2
Peripheral vascular disease, status post right posterior tibial angioplasty in 2019.
Premature ventricular contractions.
Asthma.
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
Chronic obstructive pulmonary disease.
Nail-patella syndrome
Echo 03/23/23: Moderate LVH. Normal LV size with EF 73%. Normal right ventricular size and function. Mild to moderate mitral stenosis with peak/mean gradients of 25/7 mmHg. Moderate to severe eccentric mitral regurgitation. #23 [facility] [place] mechanical
aortic valve replacement with peak/mean gradients of 81/42 mmHg. Mild paravalvular aortic regurgitation. Moderate tricuspid regurgitation. Estimated PA pressure of 72 mmHg assuming a right atrial pressure of 15.
TIAN 03/31/23: Normal LV size and function with ejection fraction 65%. Moderate LVH. Blood pressure was 179/80. Normal right ventricle. Mild to moderate mitral stenosis with mean gradient 3 mmHg. Moderate to severe mitral regurgitation with 2 jets
noted. Mechanical [place] valve is in place. Leaflets appear to be opening appropriately with mild thickening. Turbulent flow going through the LVOT. Mild paravalvular leak.
Valve fluoroscopy 03/31/23: Study was not optimal for opening and closing angles however leaflets appear to be mobile and free of significant obstruction.
Echo 02/17/2025: EF 60 to 65%, moderate to severe concentric LVH, mechanical [place] AVR peak/mean 36/15 mmHg with mild perivalvular regurgitation, mild MS with mean gradient 4 mmHg, moderate MR, moderate TR with PAP 38 mmHg
Plan:
-Presented 03/04/2025 with multifactorial dyspnea including community-acquired pneumonia and heart failure with preserved ejection fraction.
- Ongoing treatment for pneumonia currently getting doxycycline and Cefepime. Still has very coarse breath sounds. Remains on oxygen 2-3 L oxygen via nasal cannula
-Heart failure with preserved ejection fraction. proBNP 1800 on admission. Patient was given Lasix 60 mg IV daily except Nephrology gave 80 mg IV 03/07.
-JULIAN with Cre increased from 1.4 up to 2.3, Cre 4.2 (03/06) now 5.8 (03/07). Being followed by nephrology. There is concern for contrast mediated nephropathy after patient had CT of abdomen and pelvis (03/04) and CT chest 03/05.
-Patient making little urine. Now status post temporary dialysis catheter. As he has a rising BUN/creatinine and evidence for uremia I have no objection to initiating dialysis but would defer to our nephrology colleagues. He is making little
urine and will be difficult to manage his volume status with Lasix. He is also refusing IV�oral medications. Thankfully he was agreeable to dialysis and appears better this morning without active nausea and near vomiting
-Ongoing discussion regarding RHC to assess volume status. However patient unable to lay flat at this time. He would have to be able to lie flat for right heart catheterization. Would continue with hemodialysis and we can readdress this this week
-EF was 60 to 65% by echo 02/17/2025, no need to repeat.
-Patient is not chronically on BB, but instead is on Cardizem CD with history of atrial flutter
-Patient is not chronically on DEREK/ARB/ARNI/aldosterone antagonist due to CKD 3B
-Patient is not chronically on SGLT2 inhibitor due to CKD, decreased GFR
-Known CAD s/p CABG with DUNCAN to LAD in 2010 and he had stable CAD by cath in 2014 prior to stitch repair. No complaints of chest pain at this time
-Patient is s/p mechanical AVR in 2010 and then he had redo sternotomy with stitch repair in 2014 to help with paravalvular leak. By echo 03/23/23 he had mild paravalvular aortic regurgitation and then on TIAN 03/31/23 he had turbulent flow through the
LVOT and mild paravalvular leak. Then he had valve fluoroscopy 03/31/23 that was not optimal for opening and closing angles, but the leaflets appeared to be mobile and free of significant obstruction.
- INR goal is 2.5-3. INRs managed by [facility] office using home monitor. Patient was switched from generic warfarin to Jantoven in the last year and takes 3 mg daily as an outpatient.
-Patient also with known moderate to severe MR and mild to mod MS. Continue conservative management
-Known permanent Afib and HRs controlled with Cardizem CD 240 mg daily. Of note the patient was previously on digoxin as well, but this was stopped at office visit 04/18/23 due to bradycardia and then eventually he had left bundle pacer placed
05/11/23
- His prognosis is guarded
HPI: Patient came to the ER yesterday for acute on chronic cough and new chills and was admitted with PNA and cardiology is consulted for acute HF in addition. He has a complicated history.� Patient had mechanical AVR in 2010 followed by revision of
the pre-existing mechanical aortic valve for perivalvular leak leak and that was performed on 07/22/2014 with stitch repair. Then during admission in 2022 there was concern for worsening aortic valve insufficiency so he underwent full assessment of
mechanical aortic valve; TIAN with�LVOT increased gradient, valve itself looked stable, mitral valve with moderate to severe MR noted. Fluoroscopy was also stable without obvious abnormality in valve leaflets.�Plan was for conservative management and
overall his valves look stable by the most recent TTE 02/17/2025.� He is being followed by hematology (Dr. Jeffery) for anemia and MDS with intermittent treatment using luspatercept. Patient says that he feels he has the same cough he has have for the
last year, but within the last 2 days he started with arthralgias and chills prompting him to go to the ER where CXR revealed multifocal PNA. He also had leukocytosis and elevated lactic acid level. Patient admitted and started on IV antibiotics.
Cardiology is consulted due to elevation in his proBNP level, the last proBNP was 1800 and it is now almost 2600. Patient denies any increase in LE edema. His weight is up 26 lbs compared to last admission which is almost 2 years ago.
Progress Note - Footwear Sales Leader
Subjective
Date of Service: March 09, 2025
Agreed to HD yesterday
Appears better today
Objective
Labs:
03/09/25 04:25
03/09/25 04:25
Labs
Hgb 9.2 g/dL (13.0-18.0) L 03/09/25 04:25
Hct 27.4 % (39.0-52.0) L 03/09/25 04:25
Plt Count 304 10^3/uL (130-400) 03/09/25 04:25
PT 42.7 Sec (11.4-14.6) H 03/09/25 04:25
INR 4.57 03/09/25 04:25
Sodium 137 mmol/L (135-145) 03/09/25 04:25
Potassium 4.3 mmol/L (3.5-5.1) 03/09/25 04:25
BUN 34 mg/dl (9-20) H 03/09/25 04:25
Creatinine 3.2 mg/dL (0.7-1.3) H 03/09/25 04:25
Glucose 87 mg/dl (70-99) 03/09/25 04:25
Vital Signs and I&O:
Vital Signs
Temp Pulse Resp BP Pulse Ox
98.7 F 61 20 158/67 100
03/09/25 07:58 03/09/25 07:58 03/09/25 07:58 03/09/25 07:58 03/09/25 07:58
Vital Signs
Temp Pulse Resp BP Pulse Ox
98.7 F 61 20 158/67 100
03/09/25 07:58 03/09/25 07:58 03/09/25 07:58 03/09/25 07:58 03/09/25 07:58
Intake & Output
03/07/25 03/08/25 03/09/25 03/10/25
06:59 06:59 06:59 06:59
Intake Total 440 / 440 270 / 270
Output Total 90 / 90 150 / 150 400 / 400 150 / 150
Balance 350 / 350 -150 / -150 -130 / -130 -150 / -150
Physical Exam
Physical Exam
����Physical Exam
Temporary hemodialysis catheter noted
���������������������General:��no apparent distress, not acutely ill
���������������������������Neck:��supple. no meningeal signs. normal psoterior pharynx
������������������������
���������������������������Heart:��s1/s2 regular rate and rhythm, no murmur. equal radial pulses.
��������������������������Lungs: ��no acute respiratory distress. clear bilaterally
����������������������Abdomen:�normal bowel sounds. not tender. no CVAT
��������������������������Neuro:��alert and oriented. no focal neurological deficits
������������������������������Skin: ��no rash
�����������������������Psychiatric:�well kept. interactive and cooperative
�����������������������Extremities:��no edema. no calf tenderness. negative homans. good distal pulses
��
�
[2025-03-09 11:42] LABS: Glucose - Point of Care 86 mg/dl (70-99)
[2025-03-09 11:50] VITALS: BP 136/61
[2025-03-09] MEDS: VIBRAMYCIN 100 MG PO ×2 (12:05→20:00)
[2025-03-09] MEDS: APRESOLINE 25 MG PO ×2 (12:08→20:00)
[2025-03-09] MEDS: PROSCAR 5 MG PO (12:09)
[2025-03-09] MEDS: THERAGRAN 1 TABLET PO (12:09)
[2025-03-09] MEDS: CARDIZEM CD 240 MG PO (12:09)
[2025-03-09] MEDS: FLOMAX 0.4 MG PO ×2 (12:09→20:00)
[2025-03-09] MEDS: PREVACID 30 MG PO (12:10)
[2025-03-09] MEDS: COLACE 100 MG PO ×2 (12:10→20:00)
[2025-03-09] MEDS: MIRALAX 17 GRAMS PO (12:19)
[2025-03-09 15:50] VITALS: BP 113/50
[2025-03-09 16:58] LABS: Glucose - Point of Care 267 mg/dl (70-99)
[2025-03-09] MEDS: LIPITOR 80 MG PO (17:57)
[2025-03-09] MEDS: NOVOLOG FLEXPEN-LOW RESISTANCE 3 UNITS SC (17:57)
[2025-03-09] MEDS: SINGULAIR 10 MG PO (17:57)
[2025-03-09] MEDS: ROBITUSSIN DM 10 ML PO (18:04)
[2025-03-09] MEDS: DULCOLAX 10 MG RECTAL (20:00)
[2025-03-09] MEDS: SYMBICORT 80/4.5 MCG INHALER INH (20:21)
[2025-03-09 21:23] LABS: Glucose - Point of Care 177 mg/dl (70-99)
[2025-03-09 23:54] VITALS: BP 149/60
[2025-03-10 01:41] LABS: Albumin 2.93 g/dL (3.75-5.01); Free Kappa Light Chains,Quant 83.58 mg/L (3.30-19.40); Free Lambda Light Chains,Quant 68.36 mg/L (5.71-26.30); Immunofixation Electrophoresis IFE Done; Kappa/Lambda Fr Light Ratio 1.22 (0.26-1.65); Total Protein-Electrophoresis 5.7 g/dL (6.3-8.2)
[2025-03-10] MEDS: ANESTHETIC LOZENGE 1 LOZENGE PO ×2 (04:53→21:20)
[2025-03-10 05:49] VITALS: BMI 25.8
--- NOTE | 2025-03-10 07:16 | W.PN.HOSP.TC ---
Addendum entered and electronically signed by Stephen Rogers MD 03/12/25 17:12:
hold coumaidn
ent consult
soeech eval
throat lozengers/chlorseptic spray
continue hd per neph
will need to eventually transition temp line to perm cath
Original Note:
Today's Communication/Plan
-
Benzocaine spray
ENT consult
Daily INR
Hold warfarin
Assessment / Plan
Assessment / Plan
Assessment:
84-year-old male with a past medical history of paroxysmal A-fib, hypertension, hyperlipidemia, ASCVD, chronic kidney disease 3, HFpEF, BPH, MDS, peripheral artery disease and diabetes mellitus type 2 came to the ED due to evaluation of general
myalgias. He was found to have possible pneumonia versus mass seen on chest x-ray and CT scan. His breathing worsened, and was found to be volume overloaded and started on diuretic therapy. However he developed worsening kidney function possibly
due to contrast nephropathy. Underwent hemodialysis yesterday, and plan for further hemodialysis tomorrow to improve his kidney function for possible right heart cath in the future.
Plan:
# Multifocal pneumonia
- Leukocytosis, chest x-ray showed consolidation, evidence of possible pneumonia versus mass
- CXR: Focal opacity in the posterior aspect of the right upper midlung. Cardiomegaly. Diffusely increased reticulonodular markings. Correlating with prior examinations, this could represent chronic changes of congestive heart failure.
- Chest CT w/o contrast: The right upper lobe airspace opacity is favored to represent lobar pneumonia. Imaging follow-up to resolution is recommended after treatment as an underlying pulmonary neoplasm would be difficult to completely exclude.
- Blood cx have showed no growth
- IV Cefepime 1000mg Q24h Day 7 (Renal dosing) + Doxycycline 100mg PO Q12h #Day 7
- Continue respiratory supportive care
- Trend CBC and temperature curve, continue oxygen levels above 90%
#JULIAN on chronic kidney disease III
- monitor BMP
- Suspect it might be due to contrast mediated nephropathy from CT scan of abdomen and pelvis with IV contrast from 03/04/2025
- nephrology on board, input appreciated
- Patient underwent D3 HD yesterday- another one tomorrow
- Creatinine is improving
- Right heart cath once kidneys are stable
- Follow UOP
- IF no indication of renal recovery in next 48-72 hrs, will need OP HD unit and tunnelled CVC
# Acute hypoxemic respiratory failure due to decompensated HFpEF, type III cardiorenal state
- pBNP- 2580
- daily weights
- I/Os
- Consult Cardiology, input appreciated
- No RHC until he can lay flat
- Undergoing hemodialysis
- Primary computer tester eval for- potential cardiac Amyloid? - immunology work-up pending
- Follow-up plasma cell workup, can consider technetium scan if negative
#Dyshagia
-Difficulty with swallowing, constantly spitting
-He is on Doxycycline 100mg PO Q12- pill induced esophagitis?
-Consult ENT
-Benzocaine 20% [place]
# Altered mental status
- conversation with patient's on 03/08/2025, regarding GOC- patient's baseline is usually much better, he is very different from what he usually is at at home
- She stated that patient would still want all treatments available for him
- Patient was started on Ativan as needed for his agitation
- Today he is improved, Ax3
#paroxysmal atrial fibrillation
- Discontinue Coumadin 3mg INR 6.49
- Follow daily INR
- continue Cardizem for rate control
#MDS
- consulted oncology, input appreciated
- Leukocytosis, patient would follow-up with outpatient setting
- immunology work-up pending
#Constipation
- Received second enema yesterday, most likely will require disimpaction
#hypertension
- Holding Lasix, blood pressure has been stable
- Hydralazine as needed
#hyperlipidemia
#ASCVD
- continue atorvastatin
- myalgia secondary to statin?--Creatinine kinase- 130 N--resolved
#DM - II
- AccuCheck AC & HS
- Insulin aspart per protocol
- continue Insulin Glargine 10U SQ
#Pulmonary HTN
- hold Coumadin
- daily INR
#BPH
- continue tamsulosin
#Pressure injury
- stage 1
- new heel foams applied bl
#Hyponatremia
- likely from hypervolemia
#PAD
DVT prophylaxis: Warfarin on hold
Full code
Anticipated Discharge: > 48 hours
Subjective/Interval History
-
Date of Service: March 10, 2025
He is lying in his bed and looks uncomfortable. He complains about sore throat from swallowing pill to wrong direction. He is spitting because he can not swallow. No vomiting. He has SOB especially starting at night 3 am. He can not have bm and he
urinated very small amount. Denies heartburn, chest pain.
Objective Data
-
Labs:
Laboratory Results
03/10/25
06:00
WBC Pending
Hgb Pending
Hct Pending
Plt Count Pending
PT Pending
INR Pending
Sodium Pending
Potassium Pending
Chloride Pending
Carbon Dioxide Pending
BUN Pending
Creatinine Pending
Glucose Pending
Calcium Pending
Total Bilirubin Pending
AST Pending
ALT Pending
Alkaline Phosphatase Pending
Vital Signs:
Vital Signs
Temp Pulse Resp BP Pulse Ox
98.2 F 62 18 149/60 98
03/09/25 23:54 03/09/25 23:54 03/09/25 23:54 03/09/25 23:54 03/09/25 23:54
I&O
03/09/25 03/10/25 03/11/25
06:59 06:59 06:59
Intake Total 270 / 270 850 / 850
Output Total 400 / 400 150 / 150
Balance -130 / -130 700 / 700
Review of Systems
-
History Source: Patient
Constitutional: Reports No Symptoms
EENT: Reports No Symptoms Reported
Respiratory: Reports Trouble Breathing
Cardiac: Reports No Symptoms
Abdomen/GI: Reports Constipated
Breast: Reports No Symptoms
Genitourinary: Reports Difficulty Voiding
Musculoskeletal: Reports No Symptoms
Skin: Reports No Symptoms
Neuro: Reports No Symptoms
Endocrine: Reports No Symptoms
Psych: Reports Anxious
Physical Exam
-
General: Respiratory Distress, Conversant, Appears Chronically Ill and Other (Undergoing hemodialysis)
HEENT: Normocephalic, Atraumatic and Oxygen (2 L)
Respiratory: Clear to Auscultation and Decreased Breath Sounds
Cardiac: Regular Rhythm and S1/S2
Breast: Deferred by me
GI: Nontender and Distended (Markedly distended)
Rectal: Deferred by Provider
Genito-urinary: No Costovertebral Tender
Musculoskeletal: No Clubbing, No Cyanosis and No Edema
Skin: Warm and Dry
Neuro: Awake and Alert
Psych: Agitated and Anxious
[2025-03-10 07:57] VITALS: BP 173/67
[2025-03-10 08:03] LABS: Hematocrit 26.3 % (39.0-52.0); Hemoglobin 8.8 g/dL (13.0-18.0); Mean Corp Hgb Conc. 33.5 g/dL (33.0-37.0); Mean Corpuscular Volume 98.1 fL (80.0-94.0); Nucleated Red Blood Cells % 0.3 % (-); Platelet Count 323 10^3/uL (130-400); Red Cell Dist. Width 16.4 % (11.5-14.5)
[2025-03-10 08:05] LABS: Glucose - Point of Care 157 mg/dl (70-99)
[2025-03-10 08:08] LABS: PT 55.7 Sec (11.4-14.6)
[2025-03-10 08:16] LABS: INR 6.49
[2025-03-10 08:19] LABS: ALT (SGPT) 40 U/L (0-50); AST (SGOT) 58 U/L (17-59); Albumin 3.6 g/dl (3.5-5.0); Alkaline Phosphatase 93 U/L (38-126); Blood Urea Nitrogen 30 mg/dl (9-20); Calcium 8.6 mg/dl (8.4-10.2); Carbon Dioxide 24 mmol/L (22-30); Chloride 99 mmol/L (98-107); Estimated Creatinine Clearance 16 ml/min; Glucose 153 mg/dl (70-99); Potassium 3.7 mmol/L (3.5-5.1); Sodium 135 mmol/L (135-145); Total Protein 6.2 g/dl (6.3-8.2); eGFR 19.98
[2025-03-10] MEDS: SPIRIVA RESPIMAT 2.5 MCG 2 PUFF INH (08:23)
[2025-03-10] MEDS: SYMBICORT 80/4.5 MCG INHALER 2 PUFF INH ×2 (08:23→19:44)
[2025-03-10] MEDS: FLOMAX 0.4 MG PO ×2 (08:37→21:05)
[2025-03-10] MEDS: THERAGRAN 1 TABLET PO (08:38)
[2025-03-10] MEDS: PREVACID 30 MG PO (08:40)
[2025-03-10] MEDS: APRESOLINE 25 MG PO ×2 (08:40→21:05)
[2025-03-10] MEDS: PROSCAR 5 MG PO (08:41)
[2025-03-10] MEDS: CARDIZEM CD 240 MG PO (08:42)
[2025-03-10] MEDS: COLACE 100 MG PO ×2 (08:42→21:04)
[2025-03-10] MEDS: VIBRAMYCIN 100 MG PO ×2 (08:43→21:05)
[2025-03-10] MEDS: MAXIPIME 1000 MG IV (08:45)
[2025-03-10] MEDS: STERILE WATER FOR INJECTION 10 ML IV (08:45)
[2025-03-10] MEDS: MIRALAX 17 GRAMS PO (08:46)
[2025-03-10] MEDS: NOVOLOG FLEXPEN-LOW RESISTANCE 1 UNITS SC (10:05)
[2025-03-10 11:37] LABS: Glucose - Point of Care 319 mg/dl (70-99)
--- NOTE | 2025-03-10 12:02 | W.PN.CARDCBS ---
Addendum entered and electronically signed by Campbell Hurd DO 03/10/25 14:09:
I saw and examined the patient.
The Orchestrator's note was reviewed and I agree with the note.
Comment:
Plan:
Cr continues to improve with HD
Cont HD for volume control
RHC deferred for now
Coumadin held, INR continues to rise, 6.4
Continue Cardizem for rate control for permanent atrial fibrillation.
Cont pulm toilet including antibiotics.
Wean O2 as able.
Discussed with nephrology.
Original Note:
Today's Communication / Plan
-
Improving creat with dialysis, continue per nephrology
Continue to hold Coumadin (last dose 03/08)
Wean O2 as able
Impression / Plan
-
PCP: Dr. Duron
Logistical Engineer: Dr. Molly Faye
Impression:
Admitted with multifactorial SOB 03/04/25
CAP
Acute on chronic HFpEF, probnp 1800
JULIAN
Temporary dialysis catheter 03/07/2025, initiated on dialysis 03/07/2025
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
MR, moderate to severe by TIAN 03/31/23, moderate by TTE 02/17/25
Mild MR with mean gradient 4 mmHg by TTE 02/17/25
Mechanical aortic valve replacement in 2010, followed by revision of pre-existing mechanical aortic valve for perivalvular leak 07/22/2014
LVOT gradient turbulence with mild paravalvular aortic leak by TIAN 03/31/2023 and mild paravalvular regurgitation by TIAN 02/17/25
CAD s/p CABG with DUNCAN to LAD in 2010
HTN
Moderate to severe concentric LVH by echo 02/17/25
Permanent atrial fibrillation
Chronic Jantoven (brand name warfarin) OAC managed by [facility] for CAF and mechanical AVR
Asymptomatic PVCs
Anemia with h/o GI bleed in 2021.
Anemia and MDS
Secondary pulmonary hypertension.
Hyperlipidemia.
Diabetes mellitus type 2
Peripheral vascular disease, status post right posterior tibial angioplasty in 2019.
Premature ventricular contractions.
Asthma.
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
Chronic obstructive pulmonary disease.
Nail-patella syndrome
Echo 03/23/23: Moderate LVH. Normal LV size with EF 73%. Normal right ventricular size and function. Mild to moderate mitral stenosis with peak/mean gradients of 25/7 mmHg. Moderate to severe eccentric mitral regurgitation. #23 [facility] [place] mechanical
aortic valve replacement with peak/mean gradients of 81/42 mmHg. Mild paravalvular aortic regurgitation. Moderate tricuspid regurgitation. Estimated PA pressure of 72 mmHg assuming a right atrial pressure of 15.
TIAN 03/31/23: Normal LV size and function with ejection fraction 65%. Moderate LVH. Blood pressure was 179/80. Normal right ventricle. Mild to moderate mitral stenosis with mean gradient 3 mmHg. Moderate to severe mitral regurgitation with 2 jets
noted. Mechanical [place] valve is in place. Leaflets appear to be opening appropriately with mild thickening. Turbulent flow going through the LVOT. Mild paravalvular leak.
Valve fluoroscopy 03/31/23: Study was not optimal for opening and closing angles however leaflets appear to be mobile and free of significant obstruction.
Echo 02/17/2025: EF 60 to 65%, moderate to severe concentric LVH, mechanical [place] AVR peak/mean 36/15 mmHg with mild perivalvular regurgitation, mild MS with mean gradient 4 mmHg, moderate MR, moderate TR with PAP 38 mmHg
Plan:
-Presented 03/04/2025 with multifactorial dyspnea including community-acquired pneumonia and heart failure with preserved ejection fraction.
- Ongoing treatment for pneumonia currently getting doxycycline and Cefepime. Still has very coarse breath sounds. Remains on oxygen 2-3 L oxygen via nasal cannula
-Heart failure with preserved ejection fraction. proBNP 1800 on admission. Weight down 10 pounds since admission with initiation of dialysis.
-JULIAN with baseline Cre 1.4-1.6 on prior admissions. Peaked at 6.1 (03/07) with poor response to IV diuresis. There was concern for contrast mediated nephropathy after patient had CT of abdomen and pelvis (03/04) and CT chest 03/05.
-Now status post temporary dialysis catheter 03/07/2025 and dialysis initiated 03/07. Has gotten sessions 03/07, 03/08, 03/09 with improving creat (3.0) and making some urine 'making a little more each day'
-Hold on RHC at this time. Continue with hemodialysis and we can readdress this later week
-EF was 60 to 65% by echo 02/17/2025, no need to repeat.
-Wean O2 as able
-Patient is not chronically on BB, but instead is on Cardizem CD with history of atrial flutter
-Patient is not chronically on DEREK/ARB/ARNI/aldosterone antagonist due to CKD 3B/JULIAN
-Patient is not chronically on SGLT2 inhibitor due to CKD, decreased GFR
-Known CAD s/p CABG with DUNCAN to LAD in 2010 and he had stable CAD by cath in 2014 prior to stitch repair. No complaints of chest pain at this time
-Patient is s/p mechanical AVR in 2010 and then he had redo sternotomy with stitch repair in 2014 to help with paravalvular leak. By echo 03/23/23 he had mild paravalvular aortic regurgitation and then on TIAN 03/31/23 he had turbulent flow through the
LVOT and mild paravalvular leak. Then he had valve fluoroscopy 03/31/23 that was not optimal for opening and closing angles, but the leaflets appeared to be mobile and free of significant obstruction.
-INR trending upwards (2.84->4.57->6.49) despite not having Coumadin since 03/08. Continue to hold. Would not give vitamin K+ unless there are bleeding issues. INR goal is 2.5-3. INRs managed by [facility] office using home monitor. Patient was switched
from generic warfarin to Jantoven in the last year and takes 3 mg daily as an outpatient.
-Patient also with known moderate to severe MR and mild to mod MS. Continue conservative management
-Known permanent Afib and HRs controlled with Cardizem CD 240 mg daily. Of note the patient was previously on digoxin as well, but this was stopped at office visit 04/18/23 due to bradycardia and then eventually he had left bundle pacer placed
05/11/23
- His prognosis is guarded
HPI: Patient came to the ER yesterday for acute on chronic cough and new chills and was admitted with PNA and cardiology is consulted for acute HF in addition. He has a complicated history.� Patient had mechanical AVR in 2010 followed by revision of
the pre-existing mechanical aortic valve for perivalvular leak leak and that was performed on 07/22/2014 with stitch repair. Then during admission in 2022 there was concern for worsening aortic valve insufficiency so he underwent full assessment of
mechanical aortic valve; TIAN with�LVOT increased gradient, valve itself looked stable, mitral valve with moderate to severe MR noted. Fluoroscopy was also stable without obvious abnormality in valve leaflets.�Plan was for conservative management and
overall his valves look stable by the most recent TTE 02/17/2025.� He is being followed by hematology (Dr. Jeffery) for anemia and MDS with intermittent treatment using luspatercept. Patient says that he feels he has the same cough he has have for the
last year, but within the last 2 days he started with arthralgias and chills prompting him to go to the ER where CXR revealed multifocal PNA. He also had leukocytosis and elevated lactic acid level. Patient admitted and started on IV antibiotics.
Cardiology is consulted due to elevation in his proBNP level, the last proBNP was 1800 and it is now almost 2600. Patient denies any increase in LE edema. His weight is up 26 lbs compared to last admission which is almost 2 years ago.
Progress Note - Logistical Engineer
Subjective
Date of Service: March 10, 2025
Patient seen and examined. Patient sitting up in bed on oxygen. Reports making 'a little more urine each day'. Still feels short of breath and has abdominal bloating with poor appetite and nausea
Objective
Labs:
03/10/25 07:28
03/10/25 07:28
Labs
Hgb 8.8 g/dL (13.0-18.0) L 03/10/25 07:28
Hct 26.3 % (39.0-52.0) L 03/10/25 07:28
Plt Count 323 10^3/uL (130-400) 03/10/25 07:28
PT 55.7 Sec (11.4-14.6) H 03/10/25 07:27
INR 6.49 H* 03/10/25 07:27
Sodium 135 mmol/L (135-145) 03/10/25 07:28
Potassium 3.7 mmol/L (3.5-5.1) 03/10/25 07:28
BUN 30 mg/dl (9-20) H 03/10/25 07:28
Creatinine 3.0 mg/dL (0.7-1.3) H 03/10/25 07:28
Glucose 153 mg/dl (70-99) H 03/10/25 07:28
Vital Signs and I&O:
Vital Signs
Temp Pulse Resp BP Pulse Ox
99.4 F 62 18 173/67 98
03/10/25 07:57 03/10/25 08:42 03/10/25 08:33 03/10/25 08:42 03/10/25 08:33
Vital Signs
Temp Pulse Resp BP Pulse Ox
99.4 F 62 18 173/67 98
03/10/25 07:57 03/10/25 08:42 03/10/25 08:33 03/10/25 08:42 03/10/25 08:33
Intake & Output
03/08/25 03/09/25 03/10/25 03/11/25
06:59 06:59 06:59 06:59
Intake Total 270 / 270 850 / 850
Output Total 150 / 150 400 / 400 150 / 150
Balance -150 / -150 -130 / -130 700 / 700
Physical Exam
Physical Exam
GEN: Alert, awake, Ox3, sitting in bed on oxygen
HEENT: supple, anicteric, mmm
LUNGS: Coarse breath sounds with rhonchi bilaterally; on 3 L of oxygen via nasal cannula
CV: Reg, S1/S2, 2/6 sys murmur, audible click of mechanical valve
ABD: Mild distention, BS+, NT
EXT: No edema, clubbing or cyanosis
NEURO: Gross non-focal
SKIN: No rash, warm, dry, pink
--- NOTE | 2025-03-10 12:26 | W.PN.NEPH.PH ---
Today's Communication / Plan
-
HD tomorrow
Assessment/Plan
-
Impression:
PNA
Suspected CHF decompensation
Valvular heart disease with history of mechanical aortic valve replacement
History of coronary artery disease with CABG
Hypertension
Anemia with history of MDS
Secondary pulmonary hypertension
Peripheral vascular disease
COPD
Acute kidney injury (4.2)
CKD stage III (1.4)
History of congestive heart Failure
Diabetes
Plan:
follow BMP, cr trend
HD tomorrow
follow UOP
IF no indication of renal recovery in next 48-72 hrs, will need OP HD unit and tunnelled CVC
no RHC until he can lay flat
-
-
Date of Service: March 10, 2025
CC / HPI / ROS
-
Chief Complaint:
JULIAN with CKD
History of Present Illness:
tolerated HD yesterday
BP stable
Hgb low stable 8.8
Review of Systems:
no CP/OB
some UOP
Labs
-
Labs:
WBC 11.5 10^3/uL (4.8-10.8) H 03/10/25 07:28
RBC 2.68 10^6/uL (4.70-6.10) L 03/10/25 07:28
Hgb 8.8 g/dL (13.0-18.0) L 03/10/25 07:28
Hct 26.3 % (39.0-52.0) L 03/10/25 07:28
Plt Count 323 10^3/uL (130-400) 03/10/25 07:28
Sodium 135 mmol/L (135-145) 03/10/25 07:28
Potassium 3.7 mmol/L (3.5-5.1) 03/10/25 07:28
Chloride 99 mmol/L (98-107) 03/10/25 07:28
Carbon Dioxide 24 mmol/L (22-30) 03/10/25 07:28
BUN 30 mg/dl (9-20) H 03/10/25 07:28
Creatinine 3.0 mg/dL (0.7-1.3) H 03/10/25 07:28
eGFR 19.98 03/10/25 07:28
Glucose 153 mg/dl (70-99) H 03/10/25 07:28
Calcium 8.6 mg/dl (8.4-10.2) 03/10/25 07:28
Phosphorus 4.6 mg/dl (2.5-4.5) H 03/09/25 04:25
Rdd-U-Yrqaedtfpof Pept 2580 pg/ml 03/04/25 12:19
Albumin 3.6 g/dl (3.5-5.0) 03/10/25 07:28
Physical Exam
-
Vital Signs:
Vital Signs
Temp Pulse Resp BP Pulse Ox
99.4 F 62 18 173/67 98
03/10/25 07:57 03/10/25 08:42 03/10/25 08:33 03/10/25 08:42 03/10/25 08:33
Cardiovascular:: Regular rate and rhythm
Respiratory:: Bilateral: Coarse
Lung Excursion:: Normal
Abdomen:: Nontender and Soft
Bowel Sounds:: Normal
Extremity Edema:: None: Bilateral:
[2025-03-10] MEDS: NOVOLOG FLEXPEN-LOW RESISTANCE 4 UNITS SC (13:10)
--- NOTE | 2025-03-10 13:28 | CM ---
Pt on new oxygen 3 liters NC Pox 98%.
Spoke with patient in room
Pt schedules for HD tomorrow . HD is as needed depending on his labs.
Requested PT OT evals from .
PLAN On going dc planning. Will need PT OT eval to assist with dc plan
[2025-03-10 15:10] VITALS: BP 137/57
[2025-03-10 16:56] LABS: Glucose - Point of Care 227 mg/dl (70-99)
[2025-03-10] MEDS: SINGULAIR 10 MG PO (17:22)
[2025-03-10] MEDS: LIPITOR 80 MG PO (17:22)
[2025-03-10] MEDS: NOVOLOG FLEXPEN-LOW RESISTANCE 2 UNITS SC (17:25)
--- NOTE | 2025-03-10 17:59 | PTCARENOTE ---
Assumed care of pt from previous nurse. Pt with some discomfort to throat, soothed with ice chips. Pt call rosa is within reach, pt rings lindsay. will cont to monitor
--- NOTE | 2025-03-10 18:00 | W.CON.OTO ---
Otolaryngology Consult
Chief Complaint
Dysphagia
History of Present Illness
Patient is an 84-year-old male who was admitted to the [facility] on March 04, 2025 with a diagnosis of pneumonia. Yesterday, while taking oral doxycycline he felt the pill get stuck in his throat. Since that time he has had some
burning and discomfort in his throat. He also has some coughing with phlegm, though this is believed to be due to the pneumonia. The patient states that he has had some difficulty swallowing prior to this incident and occasionally things would get
stuck. The problem has been getting worse as he gets older. He is currently tolerating his secretions without any difficulty. He is able to tolerate some p.o. intake, though it is uncomfortable at times. He denies any acute shortness of breath.
He does have some mild hoarseness and raspiness.
Medical History
Additional Past Medical History:
Arrhythmias (Permanent atrial fibrillation, asymptomatic PVCs), Asthma, CAD (Coronary artery bypass surgery), CHF (Heart failure with preserved ejection fraction), COPD, HTN, Hypercholesterolemia, NIDDM, Renal Failure (Renal insufficiency), Valvular
Disease and Other (Peripheral vascular disease status post intervention)
Additional Past Surgical History:
Appendectomy, aortic valve replacement with revision, septoplasty, bone marrow biopsy,Pacemaker, Orthopedic (Right knee surgery) and Other (Retinal repair)
Patient Allergies:
Allergies
Allergy/AdvReac Type Severity Reaction Status Date / Time
Iodinated Contrast Media Allergy Severe Unknown Verified 03/10/25 07:11
gabapentin Allergy hallucinati Verified 03/04/25 10:56
ons
mold Allergy wheezing Verified 03/04/25 10:56
oxycodone Allergy hallucinati Verified 03/04/25 10:56
ons
pantoprazole Allergy itching Verified 03/04/25 20:29
but
patient
tolerates
omeprazole
Penicillins Allergy Hives Verified 03/04/25 10:56
Home Medications / Current Medications:
�Medication �Instructions �Recorded
diltiazem HCl 240 mg 240 mg PO DAILY Blood Pressure 03/04/25
capsule,extended release 24 hr
fluticasone fur. 100 mcg-umeclid 1 ea inhalation DAILY 03/04/25
62.5 mcg-vilant 25 mcg Lung/Breathing Issues
inhalat.powder (Trelegy Ellipta)
furosemide 20 mg tablet 20 mg PO MOWEFR Fluid 03/04/25
Retention/Swelling
furosemide 80 mg tablet 80 mg PO DAILY Fluid 03/04/25
Retention/Swelling
hydralazine 25 mg tablet 25 mg PO BID Heart 03/04/25
Disease/Condition
insulin glargine 100 unit/mL 0 - 11 unit SC HS Diabetes 03/04/25
subcutaneous solution (Lantus
U-100 Insulin)
levalbuterol tartrate 45 2 puff inhalation Q6HPRN PRN sob 03/04/25
mcg/actuation aerosol inhaler
sitagliptin phosphate 25 mg tablet 25 mg PO DAILY Diabetes 03/04/25
(Januvia)
Jantoven 3 mg PO QPM Blood Clot 03/05/25
Prevention/Tx
latanoprost 0.005 RIGHT EYE QPM Eye Condition 03/05/25
Physical Exam
Vitals / Labs:
Vital Signs
Temp 98.4 F 03/10/25 15:10
Temp route: Oral 03/10/25 15:10
Pulse 63 03/10/25 15:10
Rhythm: V paced (venticular) 03/08/25 08:00
With- Atrial fibrillation 03/08/25 08:00
Resp Rate 20 03/10/25 15:10
Blood pressure 137/57 03/10/25 15:10
Blood pressure extremity used: Left upper arm 03/10/25 15:10
Position: Lying 03/10/25 15:10
MAP (cuff-Tony Monitor) 72 03/04/25 20:00
SaO2 97 03/10/25 15:10
Nasal Cannula flow liters per minute 2 03/10/25 15:10
Oxygen Mode of Delivery Room air 03/10/25 15:08
Can the patient verbally communicate their pain? Yes 03/09/25 20:00
Pain scale rating: Asleep 03/04/25 23:40
Actual Weight 68.22 kg 03/10/25 05:49
Body Mass Index (BMI) 25.8 03/10/25 05:49
Lab Results
03/10/25 07:28
03/10/25 07:28
PT 55.7 Sec (11.4-14.6) H 03/10/25 07:27
INR 6.49 H* 03/10/25 07:27
Exam:
Patient is awake, alert, oriented, in no acute distress.
Head normocephalic and atraumatic.
Ears clear bilaterally.
Nasal cavity with deviated septum to the left side anteriorly, mucosa dry with mild crusting present anteriorly.
Oral cavity and oropharynx unremarkable. No mass or neoplasm noted. No exudate or erythema present. Mucosal surfaces pink and moist.
Neck soft and supple, no mass palpable, no crepitus.
Flexible fiberoptic laryngoscopy was performed at the bedside. Topical lidocaine jelly was used. The scope was easily passed to the right side of the nasal cavity. The nasopharynx was unremarkable. The oropharynx was also unremarkable. The base
of tongue, vallecula, epiglottis, aryepiglottic folds, arytenoid, piriform sinuses, and postcricoid area were clear bilaterally. There was no evidence of any mucosal injury. No mass or neoplasm was visualized. Examination of the true and false
vocal folds did reveal some mild erythema with some thick mucus present. The vocal folds were within normal limits and mobile bilaterally. There did appear to be some thick mucus within the subglottis. The patient tolerated the procedure well and
there were no complications.
Assessment / Plan
Mr. Mercer is an 84-year-old male with dysphagia, exacerbated by a pill getting stuck yesterday, doxycycline. He has some throat discomfort now. There is no evidence of obstruction or acute injury. I would recommend increasing oral fluids,
including ice water. The patient can start on Maalox 30 milliliters twice daily to help coat his throat and esophagus and allow any mucosal injuries to heal. He may benefit from speech and swallow evaluation of his overall swallowing function
while he is an inpatient. If his symptoms persist and he has increased difficulty he may require Barium swallow or GI evaluation to scope his esophagus.
Data Reviewed
CT Scan: Image Personally Visualized and interpreted
Lab Data: Labs Reviewed by me
[2025-03-10] MEDS: ROBITUSSIN DM 10 ML PO (18:31)
[2025-03-10] MEDS: TYLENOL 650 MG PO (21:04)
[2025-03-10] MEDS: ANESTHETIC LOZENGE PO (21:05)
[2025-03-10] MEDS: MAALOX PO (21:07)
[2025-03-10 21:39] LABS: Glucose - Point of Care 257 mg/dl (70-99)
[2025-03-10 23:38] VITALS: BP 138/58
[2025-03-10] MEDS: TYLENOL 325 MG PO (23:38)
[2025-03-10] MEDS: LIDOCAINE 4% PATCH 1 PATCH TOPICAL (23:39)
[2025-03-11] MEDS: TYLENOL 650 MG PO ×2 (05:06→21:10)
[2025-03-11 06:00] VITALS: BMI 25.9
--- NOTE | 2025-03-11 07:18 | W.PN.HOSP.TC ---
Addendum entered and electronically signed by Stephen Rogers MD 03/12/25 17:13:
hold coumadin
repeat inr in the AM
consult IR once inr close to 3 for temp line to perm line
conitnue hd per neph recs
Original Note:
Today's Communication/Plan
-
Discontinue Doxycycline, cefepime
Start Metronidazole and Cefdinir
Nasal Saline spray for nasal irritation
Speech eval
Assessment / Plan
Assessment / Plan
Assessment:
84-year-old male with a past medical history of paroxysmal A-fib, hypertension, hyperlipidemia, ASCVD, chronic kidney disease 3, HFpEF, BPH, MDS, peripheral artery disease and diabetes mellitus type 2 came to the ED due to evaluation of general
myalgias. He was found to have possible pneumonia versus mass seen on chest x-ray and CT scan. His breathing worsened, and was found to be volume overloaded and started on diuretic therapy. However he developed worsening kidney function possibly
due to contrast nephropathy. Underwent hemodialysis yesterday, and plan for further hemodialysis tomorrow to improve his kidney function for possible right heart cath in the future.
Plan:
# Multifocal pneumonia
- Leukocytosis, chest x-ray showed consolidation, evidence of possible pneumonia versus mass
- CXR: Focal opacity in the posterior aspect of the right upper midlung. Cardiomegaly. Diffusely increased reticulonodular markings. Correlating with prior examinations, this could represent chronic changes of congestive heart failure.
- Chest CT w/o contrast: The right upper lobe airspace opacity is favored to represent lobar pneumonia. Imaging follow-up to resolution is recommended after treatment as an underlying pulmonary neoplasm would be difficult to completely exclude.
- Blood cx have showed no growth
- Discontinue Cefepime/ doxycycline
- For possible aspiration Pneumonia- start Cefdinir 300mg QD for 5days + Metronidazole 500mg PO Q8h for 7days
- Continue respiratory supportive care
- Trend CBC and temperature curve, continue oxygen levels above 90%
#JULIAN on chronic kidney disease III
- monitor BMP
- Suspect it might be due to contrast mediated nephropathy from CT scan of abdomen and pelvis with IV contrast from 03/04/2025
- nephrology on board, input appreciated
- Patient underwent #D3 HD on monday and will have another HD today
- Creatinine trending
- Right heart cath once kidneys are stable
- Follow UOP
- IF no indication of renal recovery in next 48-72 hrs, will need OP HD unit and tunnelled CVC
# Acute hypoxemic respiratory failure due to decompensated HFpEF, type III cardiorenal state
- pBNP- 2580
- daily weights
- I/Os
- Consult Cardiology, input appreciated
- No RHC until he can lay flat
- Undergoing hemodialysis
- Primary ergonomics technician eval for- potential cardiac Amyloid? - immunology work-up pending
- Follow-up plasma cell workup, can consider technetium scan if negative
#Dyshagia
Difficulty with swallowing- improving
He is on Doxycycline 100mg PO Q12- pill induced esophagitis?
Consult ENT, input appreciated
---recs increasing oral fluids, including ice water
---Start Maalox 30ml Q12h- helps coating his throat and esophagus. Allows any mucosal injuries to heal.
Benzocaine 20% Sarona
Speech and swallow eval- pending
Start Saline Sarona for nasal irritation
If symptoms persist with increased difficulty swallowing-- Barium swallow or GI evaluation for endoscopy?
# Altered mental status unable to determine
- could be from toxic metabolic encephalopathy or hospital acquired delirium
- conversation with patient's on 03/08/2025, regarding GOC- patient's baseline is usually much better, he is very different from what he usually is at at home
- Patient was started on Ativan as needed for his agitation
- Today he is improved, Ax3
#paroxysmal atrial fibrillation
- Discontinue Coumadin 3mg INR 6.29
- Follow daily INR
- continue Cardizem for rate control
#MDS
- consulted oncology, input appreciated
- Leukocytosis, patient would follow-up with outpatient setting
- immunology work-up:
#Constipation
- Received second enema yesterday, most likely will require disimpaction
#hypertension
- Holding Lasix, blood pressure has been stable
- Hydralazine as needed
#hypokalemia
- Replete K prn
#hyperlipidemia
#ASCVD
- continue atorvastatin
- myalgia secondary to statin?--Creatinine kinase- 130 N--resolved
#DM - II
- AccuCheck AC & HS
- Insulin aspart per protocol
- continue Insulin Glargine 10U SQ
#Pulmonary HTN
- hold Coumadin
- daily INR
#BPH
- continue tamsulosin
#Pressure injury
- stage 1
- new heel foams applied bl
#Hyponatremia
- likely from hypervolemia
#PAD
DVT prophylaxis: Warfarin on hold
Full code
Anticipated Discharge: > 48 hours
Subjective/Interval History
-
Date of Service: March 11, 2025
He is on HD lying in his bed. His mental status improved. He reports feeling better overall. He was able to sleep last night. He had 2 bm.
Objective Data
-
Labs:
Laboratory Results
03/11/25 03/11/25
06:00 07:00
WBC Pending
Hgb Pending
Hct Pending
Plt Count Pending
PT Pending
INR Pending
Sodium Cancelled Pending
Potassium Cancelled Pending
Chloride Cancelled Pending
Carbon Dioxide Cancelled Pending
BUN Cancelled Pending
Creatinine Cancelled Pending
Glucose Cancelled Pending
Calcium Cancelled Pending
Vital Signs:
Vital Signs
Temp Pulse Resp BP Pulse Ox
98.0 F 62 18 138/58 100
03/10/25 23:38 03/10/25 23:38 03/10/25 23:38 03/10/25 23:38 03/10/25 23:38
I&O
03/10/25 03/11/25 03/12/25
06:59 06:59 06:59
Intake Total 850 / 850 750 / 750
Output Total 150 / 150
Balance 700 / 700 750 / 750
Review of Systems
-
History Source: Patient
Constitutional: Reports No Symptoms
EENT: Reports No Symptoms Reported
Respiratory: Reports No Symptoms
Cardiac: Reports No Symptoms
Abdomen/GI: Reports No Symptoms
Breast: Reports No Symptoms
Genitourinary: Reports Difficulty Voiding
Musculoskeletal: Reports No Symptoms
Skin: Reports No Symptoms
Neuro: Reports No Symptoms
Endocrine: Reports No Symptoms
Physical Exam
-
General: Well Developed, Well Nourished, Conversant and Other (Undergoing hemodialysis)
HEENT: Normocephalic, Atraumatic and Oxygen (2 L)
Respiratory: Clear to Auscultation and Decreased Breath Sounds
Cardiac: Regular Rhythm and S1/S2
Breast: Deferred by me
GI: Soft, Nontender and Nondistended
Rectal: Deferred by Provider
Genito-urinary: No Costovertebral Tender
Musculoskeletal: No Clubbing, No Cyanosis and No Edema
Skin: Warm
Neuro: AO x 3 and No Motor Deficits
Psych: Calm
[2025-03-11] MEDS: SYMBICORT 80/4.5 MCG INHALER 2 PUFF INH ×2 (07:40→19:25)
[2025-03-11] MEDS: SPIRIVA RESPIMAT 2.5 MCG 2 PUFF INH (07:40)
[2025-03-11 07:58] VITALS: BP 158/71
[2025-03-11 08:00] LABS: Glucose - Point of Care 200 mg/dl (70-99)
[2025-03-11] MEDS: NOVOLOG FLEXPEN-LOW RESISTANCE 2 UNITS SC (08:32)
[2025-03-11] MEDS: HEPARIN 500 UNITS IV ×2 (08:35→09:35)
[2025-03-11 08:54] LABS: Hematocrit 25.0 % (39.0-52.0); Hemoglobin 8.3 g/dL (13.0-18.0); Mean Corp Hgb Conc. 33.2 g/dL (33.0-37.0); Mean Corpuscular Volume 99.2 fL (80.0-94.0); Platelet Count 305 10^3/uL (130-400); Red Cell Dist. Width 16.3 % (11.5-14.5)
[2025-03-11 09:13] LABS: PT 54.4 Sec (11.4-14.6)
[2025-03-11 09:23] LABS: INR 6.29
[2025-03-11] MEDS: RETACRIT 4000 UNITS IV (09:30)
[2025-03-11 10:12] LABS: Blood Urea Nitrogen 40 mg/dl (9-20); Calcium 8.5 mg/dl (8.4-10.2); Carbon Dioxide 27 mmol/L (22-30); Chloride 98 mmol/L (98-107); Estimated Creatinine Clearance 13 ml/min; Glucose 273 mg/dl (70-99); Potassium 3.4 mmol/L (3.5-5.1); Sodium 134 mmol/L (135-145); eGFR 16.06
[2025-03-11] MEDS: STERILE WATER FOR INJECTION IV (10:27)
[2025-03-11] MEDS: MAXIPIME IV (10:28)
[2025-03-11] MEDS: MANNITOL 25% 12.5 GRAMS IV (11:11)
--- NOTE | 2025-03-11 11:51 | W.PN.CARDCBS ---
Addendum entered and electronically signed by Tomas Boss MD 03/11/25 12:30:
I saw and examined the patient.
The CLINICAL APPEALS RN or PA's note was reviewed and I agree with the note.
Comment: General: Well developed, well nourished in NAD.
Neck: Supple, no JVD, HJR, carotids +2 B/L, no bruits bilaterally.
Heart: Non displaced PMI, RRR, no murmurs, No S3, S4, no rubs.
Lungs: Scattered rhonchi
Extremities: No clubbing, cyanosis or edema bilaterally.
Neuro: Grossly nonfocal, awake, alert and oriented x3.
Stable cardiology status. Nephrology determining volume status with dialysis. Continue to hold Coumadin. No indication for right heart catheterization
Original Note:
Today's Communication / Plan
-
Hemodialysis today with ongoing assessment of renal function and need for dialysis long-term by nephrology
Continue to hold Coumadin, repeat INR in a.m.
Wean oxygen as able
Impression / Plan
-
PCP: Dr. Duron
French Drawer: Dr. Molly Faye
Impression:
Admitted with multifactorial SOB 03/04/25
CAP
Acute on chronic HFpEF, probnp 1800
JULIAN
Temporary dialysis catheter 03/07/2025, initiated on dialysis 03/07/2025
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
MR, moderate to severe by TIAN 03/31/23, moderate by TTE 02/17/25
Mild MR with mean gradient 4 mmHg by TTE 02/17/25
Mechanical aortic valve replacement in 2010, followed by revision of pre-existing mechanical aortic valve for perivalvular leak 07/22/2014
LVOT gradient turbulence with mild paravalvular aortic leak by TIAN 03/31/2023 and mild paravalvular regurgitation by TIAN 02/17/25
CAD s/p CABG with DUNCAN to LAD in 2010
HTN
Moderate to severe concentric LVH by echo 02/17/25
Permanent atrial fibrillation
Chronic Jantoven (brand name warfarin) OAC managed by [facility] for CAF and mechanical AVR
Asymptomatic PVCs
Anemia with h/o GI bleed in 2021.
Anemia and MDS
Secondary pulmonary hypertension.
Hyperlipidemia.
Diabetes mellitus type 2
Peripheral vascular disease, status post right posterior tibial angioplasty in 2019.
Premature ventricular contractions.
Asthma.
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
Chronic obstructive pulmonary disease.
Nail-patella syndrome
Echo 03/23/23: Moderate LVH. Normal LV size with EF 73%. Normal right ventricular size and function. Mild to moderate mitral stenosis with peak/mean gradients of 25/7 mmHg. Moderate to severe eccentric mitral regurgitation. #23 [facility] mechanical
aortic valve replacement with peak/mean gradients of 81/42 mmHg. Mild paravalvular aortic regurgitation. Moderate tricuspid regurgitation. Estimated PA pressure of 72 mmHg assuming a right atrial pressure of 15.
TIAN 03/31/23: Normal LV size and function with ejection fraction 65%. Moderate LVH. Blood pressure was 179/80. Normal right ventricle. Mild to moderate mitral stenosis with mean gradient 3 mmHg. Moderate to severe mitral regurgitation with 2 jets
noted. Mechanical [place] valve is in place. Leaflets appear to be opening appropriately with mild thickening. Turbulent flow going through the LVOT. Mild paravalvular leak.
Valve fluoroscopy 03/31/23: Study was not optimal for opening and closing angles however leaflets appear to be mobile and free of significant obstruction.
Echo 02/17/2025: EF 60 to 65%, moderate to severe concentric LVH, mechanical [place] AVR peak/mean 36/15 mmHg with mild perivalvular regurgitation, mild MS with mean gradient 4 mmHg, moderate MR, moderate TR with PAP 38 mmHg
Plan:
-Presented 03/04/2025 with multifactorial dyspnea including community-acquired pneumonia and heart failure with preserved ejection fraction.
- Ongoing treatment for pneumonia currently getting doxycycline and Cefepime. Still has very coarse breath sounds. Remains on oxygen 2-3 L oxygen via nasal cannula
-Heart failure with preserved ejection fraction. proBNP 1800 on admission. Weight down 10 pounds since admission with initiation of dialysis.
-JULIAN with baseline Cre 1.4-1.6 on prior admissions. Peaked at 6.1 (03/07) with poor response to IV diuresis. Initially there was concern for contrast mediated nephropathy after patient had CT of abdomen and pelvis (03/04) and CT chest 03/05.
-Status post temporary dialysis catheter 03/07/2025 and dialysis initiated 03/07. Has gotten sessions 03/07, 03/08, 03/09, 03/11 with improving creat (3.0-3.6) and making some urine 'making a little more each day'. Per notation from nephrology if renal
function does not improve within the next 48 to 72 hours will need outpatient dialysis and tunneled CVC
-Hold on RHC at this time. Continue with hemodialysis and we can readdress this later week
-EF was 60 to 65% by echo 02/17/2025, no need to repeat.
-Wean O2 as able
-Patient is not chronically on BB, but instead is on Cardizem CD with history of atrial flutter
-Patient is not chronically on DEREK/ARB/ARNI/aldosterone antagonist due to CKD 3B/JULIAN
-Patient is not chronically on SGLT2 inhibitor due to CKD, decreased GFR
-Known CAD s/p CABG with DUNCAN to LAD in 2010 and he had stable CAD by cath in 2014 prior to stitch repair. No complaints of chest pain at this time
-Patient is s/p mechanical AVR in 2010 and then he had redo sternotomy with stitch repair in 2014 to help with paravalvular leak. By echo 03/23/23 he had mild paravalvular aortic regurgitation and then on TIAN 03/31/23 he had turbulent flow through the
LVOT and mild paravalvular leak. Then he had valve fluoroscopy 03/31/23 that was not optimal for opening and closing angles, but the leaflets appeared to be mobile and free of significant obstruction.
-INR trending upwards (2.84->4.57->6.49). Currently 6.29. Last dose of Coumadin 03/08. Continue to hold. Would not give vitamin K+ unless there are bleeding issues. INR goal is 2.5-3. INRs managed by [facility] office using home monitor. Patient was
switched from generic warfarin to Jantoven in the last year and takes 3 mg daily as an outpatient.
-Patient also with known moderate to severe MR and mild to mod MS. Continue conservative management
-Known permanent Afib and HRs controlled with Cardizem CD 240 mg daily. Of note the patient was previously on digoxin as well, but this was stopped at office visit 04/18/23 due to bradycardia and then eventually he had left bundle pacer placed
05/11/23
- His prognosis is guarded
HPI: Patient came to the ER yesterday for acute on chronic cough and new chills and was admitted with PNA and cardiology is consulted for acute HF in addition. He has a complicated history.� Patient had mechanical AVR in 2010 followed by revision of
the pre-existing mechanical aortic valve for perivalvular leak leak and that was performed on 07/22/2014 with stitch repair. Then during admission in 2022 there was concern for worsening aortic valve insufficiency so he underwent full assessment of
mechanical aortic valve; TIAN with�LVOT increased gradient, valve itself looked stable, mitral valve with moderate to severe MR noted. Fluoroscopy was also stable without obvious abnormality in valve leaflets.�Plan was for conservative management and
overall his valves look stable by the most recent TTE 02/17/2025.� He is being followed by hematology (Dr. Jeffery) for anemia and MDS with intermittent treatment using luspatercept. Patient says that he feels he has the same cough he has have for the
last year, but within the last 2 days he started with arthralgias and chills prompting him to go to the ER where CXR revealed multifocal PNA. He also had leukocytosis and elevated lactic acid level. Patient admitted and started on IV antibiotics.
Cardiology is consulted due to elevation in his proBNP level, the last proBNP was 1800 and it is now almost 2600. Patient denies any increase in LE edema. His weight is up 26 lbs compared to last admission which is almost 2 years ago.
Progress Note - French Drawer
Subjective
Date of Service: March 11, 2025
Patient seen and examined. Patient currently on dialysis. Symptomatically reports he is feeling better, less short of breath
Objective
Labs:
03/11/25 08:35
03/11/25 08:35
Labs
Hgb 8.3 g/dL (13.0-18.0) L 03/11/25 08:35
Hct 25.0 % (39.0-52.0) L 03/11/25 08:35
Plt Count 305 10^3/uL (130-400) 03/11/25 08:35
PT 54.4 Sec (11.4-14.6) H 03/11/25 08:35
INR 6.29 H* 03/11/25 08:35
Sodium 134 mmol/L (135-145) L 03/11/25 08:35
Potassium 3.4 mmol/L (3.5-5.1) L 03/11/25 08:35
BUN 40 mg/dl (9-20) H 03/11/25 08:35
Creatinine 3.6 mg/dL (0.7-1.3) H 03/11/25 08:35
Glucose 273 mg/dl (70-99) H 03/11/25 08:35
Vital Signs and I&O:
Vital Signs
Temp Pulse Resp BP Pulse Ox
98.6 F 59 16 158/71 96
03/11/25 07:58 03/11/25 07:58 03/11/25 07:58 03/11/25 07:58 03/11/25 08:00
Vital Signs
Temp Pulse Resp BP Pulse Ox
98.6 F 59 16 158/71 96
03/11/25 07:58 03/11/25 07:58 03/11/25 07:58 03/11/25 07:58 03/11/25 08:00
Intake & Output
03/09/25 03/10/25 03/11/25 03/12/25
06:59 06:59 06:59 06:59
Intake Total 270 / 270 850 / 850 750 / 750
Output Total 400 / 400 150 / 150
Balance -130 / -130 700 / 700 750 / 750
Physical Exam
Physical Exam
GEN: Alert, awake, Ox3, lying in bed on dialysis
HEENT: supple, anicteric, mmm
LUNGS: Coarse breath sounds with rhonchi bilaterally; on 2 L of oxygen via nasal cannula
CV: Reg, S1/S2, 2/6 sys murmur, audible click of mechanical valve
ABD: Mild distention, BS+, NT
EXT: No edema, clubbing or cyanosis
NEURO: Gross non-focal
SKIN: No rash, warm, dry, pink
[2025-03-11] MEDS: HEPARIN 1500 UNITS INTRACATH (11:56)
--- NOTE | 2025-03-11 12:00 | W.PN.NEPH.HD ---
Assessment
-
Seen on HD. no complaints. VSS, access temp HD CVC
oliguric. Cr up to 3.6 off HD 1 day
INR high 6.29
will likely need tunnelled HD CVC as no sign of recovery yet
Progress Note - Hemodialysis
-
Date of Service: March 11, 2025
Duration: 30 minutes and 3 hours
Potassium Bath: 3
Calcium Bath: 2.5
Opti-Dialyzer: 160
Ultrafiltration: Other (2kg)
Blood Flow: 350
Dialysate Flow: 600
Heparin: 500x2
EPO: 4000 units
[2025-03-11 12:07] LABS: Glucose - Point of Care 113 mg/dl (70-99)
[2025-03-11] MEDS: NOVOLOG FLEXPEN-LOW RESISTANCE SC (12:14)
[2025-03-11] MEDS: MIRALAX 17 GRAMS PO (12:16)
[2025-03-11] MEDS: PREVACID 30 MG PO (12:17)
[2025-03-11] MEDS: KCL ELIXIR 40 MEQ PO (12:17)
[2025-03-11] MEDS: MAALOX 30 ML PO (12:17)
[2025-03-11] MEDS: CARDIZEM CD 240 MG PO (12:17)
[2025-03-11] MEDS: VIBRAMYCIN 100 MG PO (12:17)
[2025-03-11] MEDS: OMNICEF 300 MG PO (12:18)
[2025-03-11] MEDS: COLACE 100 MG PO ×2 (12:19→21:09)
[2025-03-11] MEDS: FLOMAX 0.4 MG PO ×2 (12:19→21:10)
[2025-03-11] MEDS: THERAGRAN 1 TABLET PO (12:19)
[2025-03-11] MEDS: PROSCAR 5 MG PO (12:19)
[2025-03-11] MEDS: APRESOLINE 25 MG PO ×2 (12:20→21:10)
--- NOTE | 2025-03-11 14:23 | PN.CDI ---
CDI
- -
CDI:
Physician Documentation Request
Admit Date: 03/04/25 19:23
Dear Doctor Shivani,
Patient admitted for pneumonia.
03/09 Hospitalist PN: 'Altered mental status. Some confusion today, possibly hospital delirium versus acute metabolic encephalopathy.'
03/11 Hospitalist PN: '- conversation with patient's on 03/08/2025, regarding GOC- patient's baseline is usually much better, he is very different from what he usually is at at home - Patient was started on Ativan as needed for his agitation'
Based on the above, could you clarify in the progress notes, the appropriate diagnosis, if significant, that supports the above abnormalities and additional evaluation, monitoring and/or treatment rendered:
Hospital acquired delirium
Toxic metabolic encephalopathy
Other
Unable to determine
Use of terms such as suspected, likely, concern for, or probable (associated with a specific diagnosis that is being evaluated, monitored, or treated as if it exists) are acceptable and can be coded in the inpatient setting, when documented at the
time of discharge.
Thank you,
Tanya Reynolds RN, BSN
CDI Specialist
Available via [place] text
Please use your independent medical judgment in providing your response.
[2025-03-11 15:56] VITALS: BP 141/60
[2025-03-11 17:05] LABS: Glucose - Point of Care 285 mg/dl (70-99)
[2025-03-11] MEDS: FLAGYL 500 MG PO ×2 (17:05→23:27)
[2025-03-11] MEDS: LIPITOR 80 MG PO (17:05)
[2025-03-11] MEDS: SINGULAIR 10 MG PO (17:05)
[2025-03-11] MEDS: NOVOLOG FLEXPEN-LOW RESISTANCE 3 UNITS SC (17:06)
[2025-03-11] MEDS: ATIVAN 0.5 MG PO (21:11)
[2025-03-11 21:12] LABS: Glucose - Point of Care 224 mg/dl (70-99)
[2025-03-11] MEDS: MAALOX PO (21:19)
[2025-03-11] MEDS: LIDOCAINE 4% PATCH 1 PATCH TOPICAL (22:04)
[2025-03-11 23:00] VITALS: BP 141/60
[2025-03-12] MEDS: TYLENOL 650 MG PO ×2 (02:10→19:54)
[2025-03-12 06:00] VITALS: BMI 25.5
--- NOTE | 2025-03-12 07:23 | W.PN.HOSP.TC ---
Addendum entered and electronically signed by Stephen Rogers MD 03/12/25 17:16:
inr remains high
coumadin remains held
repeat inr in the AM
IR consult
cards following
neph continues to follow
today stating does not want perm HD line, does not want residential HD. he states 'F*!$ that.
GoC discussions to commence
Original Note:
Today's Communication/Plan
-
Consult nephrology- pt doesnt want to have HD
Discuss GOC with pt and
Monitor Glucose
Watch INR daily
Assessment / Plan
Assessment / Plan
Assessment:
84-year-old male with a past medical history of paroxysmal A-fib, hypertension, hyperlipidemia, ASCVD, chronic kidney disease 3, HFpEF, BPH, MDS, peripheral artery disease and diabetes mellitus type 2 came to the ED due to evaluation of general
myalgias. He was found to have possible pneumonia versus mass seen on chest x-ray and CT scan. His breathing worsened, and was found to be volume overloaded and started on diuretic therapy. However he developed worsening kidney function possibly
due to contrast nephropathy. Underwent hemodialysis yesterday to improve his kidney function for possible right heart cath in the future.
Plan:
# Multifocal pneumonia
- Leukocytosis, chest x-ray showed consolidation, evidence of possible pneumonia versus mass
- CXR: Focal opacity in the posterior aspect of the right upper midlung. Cardiomegaly. Diffusely increased reticulonodular markings. Correlating with prior examinations, this could represent chronic changes of congestive heart failure.
- Chest CT w/o contrast: The right upper lobe airspace opacity is favored to represent lobar pneumonia. Imaging follow-up to resolution is recommended after treatment as an underlying pulmonary neoplasm would be difficult to completely exclude.
- Blood cx have showed no growth
- Discontinue Cefepime/ doxycycline
- For possible aspiration Pneumonia- start Cefdinir 300mg QD for 5days #D2 + Metronidazole 500mg PO Q8h for 7days #D2
- On 1 L O2- Wean Oxygen as able
- Trend CBC and temperature curve
#JULIAN on chronic kidney disease III
- monitor BMP
- Suspect it might be due to contrast mediated nephropathy from CT scan of abdomen and pelvis with IV contrast from 03/04/2025
- nephrology on board, input appreciated
- Patient underwent HD yesterday
- Creatinine 2.8 improving
- Right heart cath once kidneys are stable
- Follow UOP- oliguric
- Once INR< 3 likely need tunnelled HD CVC
# Acute hypoxemic respiratory failure due to decompensated HFpEF, type III cardiorenal state
- pBNP- 2580
- daily weights
- I/Os
- Consult Cardiology, input appreciated
- No RHC until he can lay flat
- Undergoing hemodialysis
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
#Dyshagia
Difficulty with swallowing- improving
Discontinued Doxycycline
Consult ENT, input appreciated
---recs increasing oral fluids, including ice water
---Start Maalox 30ml Q12h- helps coating his throat and esophagus. Allows any mucosal injuries to heal.
Benzocaine 20% [place]
Speech and swallow eval- continue regular solids, thin liquids and pills whole
Start Saline [place] for nasal irritation
# Altered mental status unable to determine
- could be from toxic metabolic encephalopathy or hospital acquired delirium
- conversation with patient's on 03/08/2025, regarding GOC- patient's baseline is usually much better, he is very different from what he usually is at at home
- Patient was started on Ativan as needed for his agitation
- Resolved- He is improved, Ax3
#Goals of Care
- Pt does not want to go though HD, looks for other options at home
- Consult Nephrology
- Will discuss further with regarding GOC
#paroxysmal atrial fibrillation
- Discontinue Coumadin 3mg
- INR 4.41- improving
- Follow daily INR
- continue Cardizem for rate control
#MDS
- consulted oncology, input appreciated
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
- immunology work-up
#Constipation
- Received second enema yesterday, most likely will require disimpaction
#hypertension
- Holding Lasix, blood pressure has been stable
- Hydralazine as needed
#hyperlipidemia
#ASCVD
- continue atorvastatin
- myalgia secondary to statin?--Creatinine kinase- 130 N--resolved
#DM - II
- AccuCheck AC & HS
- Insulin aspart per protocol
- Insulin Aspart 1U SQ AC
- continue Insulin Glargine 5U SQ
#Pulmonary HTN
- hold Coumadin
- daily INR
#BPH
- continue tamsulosin
#Pressure injury
- stage 1
- new heel foams applied bl
#Hyponatremia
- likely from hypervolemia
#PAD
DVT prophylaxis: Warfarin on hold
Full code
Anticipated Discharge: > 48 hours
Subjective/Interval History
-
Date of Service: March 12, 2025
He was eating his food. His difficulty with swallowing improved. He had 2 bms, still not urinating. He denies SOB, chest pain. He looks for other options than Hemodialysis and wants to discontinue it.
Objective Data
-
Labs:
Laboratory Results
03/12/25
06:00
WBC Pending
Hgb Pending
Hct Pending
Plt Count Pending
PT Pending
INR Pending
Sodium Pending
Potassium Pending
Chloride Pending
Carbon Dioxide Pending
BUN Pending
Creatinine Pending
Glucose Pending
Calcium Pending
Vital Signs:
Vital Signs
Temp Pulse Resp BP Pulse Ox
98.1 F 63 22 141/60 93
03/11/25 23:00 03/11/25 23:00 03/11/25 23:00 03/11/25 23:00 03/11/25 23:00
I&O
03/11/25 03/12/25 03/13/25
06:59 06:59 06:59
Intake Total 750 / 750 500 / 500
Output Total 200 / 200
Balance 750 / 750 300 / 300
Review of Systems
-
History Source: Patient
Constitutional: Reports No Symptoms
EENT: Reports No Symptoms Reported
Respiratory: Reports No Symptoms
Cardiac: Reports No Symptoms
Abdomen/GI: Reports No Symptoms and Other (Difficulty swallowing)
Breast: Reports No Symptoms
Genitourinary: Reports Difficulty Voiding
Musculoskeletal: Reports No Symptoms
Skin: Reports No Symptoms
Neuro: Reports No Symptoms
Endocrine: Reports No Symptoms
Physical Exam
-
General: Well Developed, Well Nourished and Conversant
HEENT: Normocephalic, Atraumatic and Oxygen (1 L)
Respiratory: Clear to Auscultation, Crackles and Decreased Breath Sounds
Cardiac: Regular Rhythm and S1/S2
Breast: Deferred by me
GI: Soft, Nontender and Nondistended
Rectal: Deferred by Provider
Genito-urinary: Deferred by me
Musculoskeletal: No Clubbing, No Cyanosis and No Edema
Skin: Warm
Neuro: AO x 3 and No Motor Deficits
Psych: Calm
[2025-03-12 07:24] LABS: Glucose - Point of Care 221 mg/dl (70-99)
[2025-03-12 07:25] VITALS: BP 152/66
[2025-03-12] MEDS: FLOMAX 0.4 MG PO ×2 (07:57→19:55)
[2025-03-12] MEDS: NOVOLOG FLEXPEN-LOW RESISTANCE 2 UNITS SC (07:57)
[2025-03-12] MEDS: PREVACID 30 MG PO (07:57)
[2025-03-12] MEDS: FLAGYL 500 MG PO ×2 (07:57→16:57)
[2025-03-12] MEDS: MIRALAX 17 GRAMS PO (07:57)
[2025-03-12] MEDS: MAALOX 30 ML PO ×2 (07:57→19:54)
[2025-03-12] MEDS: PROSCAR 5 MG PO (07:58)
[2025-03-12] MEDS: CARDIZEM CD 240 MG PO (07:58)
[2025-03-12] MEDS: COLACE 100 MG PO ×2 (07:58→19:55)
[2025-03-12] MEDS: THERAGRAN 1 TABLET PO (07:58)
[2025-03-12] MEDS: APRESOLINE 25 MG PO ×2 (07:58→19:55)
[2025-03-12] MEDS: SYMBICORT 80/4.5 MCG INHALER 2 PUFF INH ×2 (08:04→19:13)
[2025-03-12] MEDS: SPIRIVA RESPIMAT 2.5 MCG 2 PUFF INH (08:05)
[2025-03-12 09:06] LABS: Hematocrit 24.6 % (39.0-52.0); Hemoglobin 8.5 g/dL (13.0-18.0); Mean Corp Hgb Conc. 34.6 g/dL (33.0-37.0); Mean Corpuscular Volume 98.0 fL (80.0-94.0); Platelet Count 336 10^3/uL (130-400); Red Cell Dist. Width 16.5 % (11.5-14.5)
--- NOTE | 2025-03-12 09:07 | W.PN.CARDCBS ---
Today's Communication / Plan
-
HD as per nephrology
Hold coumadin and resume once INR improved
Will follow peripherally
Impression / Plan
-
.
PCP: Dr. Duron
Centrifuge Operator: Dr. Molly Faye
Impression:
Admitted with multifactorial SOB 03/04/25
CAP
Acute on chronic HFpEF, probnp 1800
JULIAN on CKD
Temporary dialysis catheter 03/07/2025, initiated on dialysis 03/07/2025
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
MR, moderate to severe by TIAN 03/31/23, moderate by TTE 02/17/25
Mechanical AVR in 2010, followed by revision of pre-existing mechanical aortic valve for perivalvular leak 07/22/2014
LVOT gradient turbulence with mild paravalvular aortic leak by TIAN 03/31/2023 and mild paravalvular regurgitation by TIAN 02/17/25
CAD s/p CABG with DUNCAN to LAD in 2010
HTN with Moderate to severe concentric LVH by echo 02/17/25
Permanent atrial fibrillation on chronic Jantoven (brand name warfarin) OAC managed by [facility] for CAF and mechanical AVR
Anemia with h/o GI bleed in 2021 and MDS
Secondary pulmonary hypertension.
Hyperlipidemia.
Diabetes mellitus type 2
Peripheral vascular disease, status post right posterior tibial angioplasty in 2019.
Chronic obstructive pulmonary disease/ asthma
Nail-patella syndrome
Echo 03/23/23: Moderate LVH. Normal LV size with EF 73%. Normal right ventricular size and function. Mild to moderate mitral stenosis with peak/mean gradients of 25/7 mmHg. Moderate to severe eccentric mitral regurgitation. #23 [facility] mechanical
aortic valve replacement with peak/mean gradients of 81/42 mmHg. Mild paravalvular aortic regurgitation. Moderate tricuspid regurgitation. Estimated PA pressure of 72 mmHg assuming a right atrial pressure of 15.
TIAN 03/31/23: Normal LV size and function with ejection fraction 65%. Moderate LVH. Blood pressure was 179/80. Normal right ventricle. Mild to moderate mitral stenosis with mean gradient 3 mmHg. Moderate to severe mitral regurgitation with 2 jets
noted. Mechanical [place] valve is in place. Leaflets appear to be opening appropriately with mild thickening. Turbulent flow going through the LVOT. Mild paravalvular leak.
Valve fluoroscopy 03/31/23: Study was not optimal for opening and closing angles however leaflets appear to be mobile and free of significant obstruction.
Echo 02/17/2025: EF 60 to 65%, moderate to severe concentric LVH, mechanical [place] AVR peak/mean 36/15 mmHg with mild perivalvular regurgitation, mild MS with mean gradient 4 mmHg, moderate MR, moderate TR with PAP 38 mmHg
Plan:
-Presented 03/04/2025 with multifactorial dyspnea including community-acquired pneumonia and heart failure with preserved ejection fraction.
Continue pulm toilet including abx.
Cont HD for volume control.
Cr worse Mar 11. Pending on Mar 12.
Volume control as per nephrology.
Coumadin held, INR remains elevated.
Resume Coumadin once INR improved.
-INR goal is 2.5-3. INRs managed by [facility] office using home monitor. Patient was switched from generic warfarin to Jantoven in the last year and takes 3 mg daily as an outpatient.
Continue Cardizem for rate control for permanent atrial fibrillation.
EF was 60 to 65% by echo 02/17/2025, no need to repeat.
-Patient is not chronically on BB, but instead is on Cardizem CD with history of atrial flutter
-Patient is not chronically on DEREK/ARB/ARNI/aldosterone antagonist due to CKD 3B/JULIAN
-Patient is not chronically on SGLT2 inhibitor due to CKD, decreased GFR
-Known CAD s/p CABG with DUNCAN to LAD in 2010 and he had stable CAD by cath in 2014 prior to stitch repair.
-Patient is s/p mechanical AVR in 2010 and then he had redo sternotomy with stitch repair in 2014 to help with paravalvular leak. By echo 03/23/23 he had mild paravalvular aortic regurgitation and then on TIAN 03/31/23 he had turbulent flow through the
LVOT and mild paravalvular leak. Then he had valve fluoroscopy 03/31/23 that was not optimal for opening and closing angles, but the leaflets appeared to be mobile and free of significant obstruction.
Will follow peripherally
HPI: Patient came to the ER yesterday for acute on chronic cough and new chills and was admitted with PNA and cardiology is consulted for acute HF in addition. He has a complicated history.� Patient had mechanical AVR in 2010 followed by revision of
the pre-existing mechanical aortic valve for perivalvular leak leak and that was performed on 07/22/2014 with stitch repair. Then during admission in 2022 there was concern for worsening aortic valve insufficiency so he underwent full assessment of
mechanical aortic valve; TIAN with�LVOT increased gradient, valve itself looked stable, mitral valve with moderate to severe MR noted. Fluoroscopy was also stable without obvious abnormality in valve leaflets.�Plan was for conservative management and
overall his valves look stable by the most recent TTE 02/17/2025.� He is being followed by hematology (Dr. Jeffery) for anemia and MDS with intermittent treatment using luspatercept. Patient says that he feels he has the same cough he has have for the
last year, but within the last 2 days he started with arthralgias and chills prompting him to go to the ER where CXR revealed multifocal PNA. He also had leukocytosis and elevated lactic acid level. Patient admitted and started on IV antibiotics.
Cardiology is consulted due to elevation in his proBNP level, the last proBNP was 1800 and it is now almost 2600. Patient denies any increase in LE edema. His weight is up 26 lbs compared to last admission which is almost 2 years ago.
Progress Note - Centrifuge Operator
Subjective
Date of Service: March 12, 2025
Pt seen and examined. No complaints. No chest pain or shortness of breath.
Objective
Labs:
03/12/25 08:15
Labs
Hgb 8.5 g/dL (13.0-18.0) L 03/12/25 08:15
Hct 24.6 % (39.0-52.0) L 03/12/25 08:15
Plt Count 336 10^3/uL (130-400) 03/12/25 08:15
PT 54.4 Sec (11.4-14.6) H 03/11/25 08:35
INR 6.29 H* 03/11/25 08:35
Sodium 134 mmol/L (135-145) L 03/11/25 08:35
Potassium 3.4 mmol/L (3.5-5.1) L 03/11/25 08:35
BUN 40 mg/dl (9-20) H 03/11/25 08:35
Creatinine 3.6 mg/dL (0.7-1.3) H 03/11/25 08:35
Glucose 273 mg/dl (70-99) H 03/11/25 08:35
Vital Signs and I&O:
Vital Signs
Temp Pulse Resp BP Pulse Ox
99.1 F 63 18 152/66 97
03/12/25 07:25 03/12/25 07:25 03/12/25 08:10 03/12/25 07:25 03/12/25 08:10
Vital Signs
Temp Pulse Resp BP Pulse Ox
99.1 F 63 18 152/66 97
03/12/25 07:25 03/12/25 07:25 03/12/25 08:10 03/12/25 07:25 03/12/25 08:10
Intake & Output
03/10/25 03/11/25 03/12/25 03/13/25
06:59 06:59 06:59 06:59
Intake Total 850 / 850 750 / 750 500 / 500
Output Total 150 / 150 200 / 200
Balance 700 / 700 750 / 750 300 / 300
Physical Exam
Physical Exam
General: No acute distress, AAOX3
Neck: Negative JVD
Heart: Irregularly irregular, Negative S3 positive S1/S2, Negative S4, No murmur
Lungs: CTA b/l, negative wheezes/rales/rhonchi
Abd: Positive BS, NT/ND, neg rebound/rigidity/guarding
Ext: Negative cyanosis/clubbing/edema
Neuro: nonfocal
[2025-03-12 09:11] LABS: INR 4.41; PT 42.2 Sec (11.4-14.6)
--- NOTE | 2025-03-12 09:21 | PTOTSP ---
Speech Therapy Swallowing Assessment
Oral pharyngeal swallow deemed within functional limits, however, risk factors for dysphagia present and include COPD, CHF, current pna/deconditioning.
Recommend
1. Continue current diet of regular solids and thin liquids.
2. Meds one at a time, whole in applesauce.
3. Aspiration precautions.
4. Diligent oral care.
ST will follow briefly to ensure diet tolerance.
[2025-03-12 10:15] VITALS: BP 133/56; PULSE 69; O2SAT 97
[2025-03-12 10:18] LABS: Blood Urea Nitrogen 25 mg/dl (9-20); Calcium 8.5 mg/dl (8.4-10.2); Carbon Dioxide 28 mmol/L (22-30); Chloride 100 mmol/L (98-107); Estimated Creatinine Clearance 17 ml/min; Glucose 205 mg/dl (70-99); Potassium 4.3 mmol/L (3.5-5.1); Sodium 133 mmol/L (135-145); eGFR 21.71
[2025-03-12 10:52] VITALS: BP 133/56; PULSE 69; O2SAT 97
[2025-03-12 11:20] LABS: Glucose - Point of Care 328 mg/dl (70-99)
[2025-03-12] MEDS: NOVOLOG FLEXPEN-LOW RESISTANCE 4 UNITS SC (11:56)
[2025-03-12] MEDS: NOVOLOG FLEXPEN 1 UNITS SC ×2 (12:05→16:58)
--- NOTE | 2025-03-12 14:05 | PN.CDI ---
CDI
- -
CDI:
Physician Documentation Request
Admit Date: 03/04/25 19:23
Dear Doctor Shivani,
Patient admitted with pneumonia.
03/11 Potassium level: 3.4
03/11 Potassium chloride 40 meq PO administered
Based on the above, could you clarify in the progress notes, the appropriate diagnosis, if significant, that supports the above abnormalities and additional evaluation, monitoring and/or treatment rendered:
Hypokalemia
Abnormal lab value insignificant
Other
Use of terms such as suspected, likely, concern for, or probable (associated with a specific diagnosis that is being evaluated, monitored, or treated as if it exists) are acceptable and can be coded in the inpatient setting, when documented at the
time of discharge.
Thank you,
Tanya Reynolds RN, BSN
CDI Specialist
Available via [place] text
Please use your independent medical judgment in providing your response.
[2025-03-12 15:00] VITALS: BP 138/57
--- NOTE | 2025-03-12 15:14 | CM ---
CM following re: discharge planning.
Reviewed pt's chart.
Per Nephrology, pt does not want HD treatment, GOC discussion with the family, continue supportive care.
D/c plan: uncertain at this time and will depend on pt's plan of care, goals of care discussion.
CM will follow with discharge plan updates as hospitalization progresses
[2025-03-12 16:41] LABS: Glucose - Point of Care 177 mg/dl (70-99)
[2025-03-12] MEDS: NOVOLOG FLEXPEN-LOW RESISTANCE 1 UNITS SC (16:57)
[2025-03-12] MEDS: LIPITOR 80 MG PO (16:57)
[2025-03-12] MEDS: SINGULAIR 10 MG PO (16:57)
--- NOTE | 2025-03-12 17:32 | W.PN.UPDATE ---
Update Note
Progress Note Update
Visited patient, he seems depressed and hopeless about his condition. He was not able to sleep at night because he was worried. He wants to see a psychiatrist.
We discussed about goals of care and he wanted to continue with HD as long as there is a small chance of being off HD in the future. Shoe Lining Fitter is aware about continuing HD.
--- NOTE | 2025-03-12 17:41 | W.PN.NEPH.PH ---
Today's Communication / Plan
-
follow labs, likely HD tomorrow
Assessment/Plan
-
Impression:
PNA
Suspected CHF decompensation
Valvular heart disease with history of mechanical aortic valve replacement
History of coronary artery disease with CABG
Hypertension
Anemia with history of MDS
Secondary pulmonary hypertension
Peripheral vascular disease
COPD
Acute kidney injury (4.2)
CKD stage III (1.4)
History of congestive heart Failure
Diabetes
Plan:
cr is low but post HD on 03/11
reports improving UOP, measure accurately
I am hoping for renal recovery, follow BMP, cr trend
HD tomorrow based on labs
IF no indication of renal recovery in next 48 hrs, will need OP HD unit and tunnelled CVC
d/w pt and he is agreeable
abx for multifocal PNA, WBC increasing
-
-
Date of Service: March 12, 2025
CC / HPI / ROS
-
Chief Complaint:
JULIAN with CKD
History of Present Illness:
tolerated HD yesterday, cr down to 2.8
BP stable
Hgb low stable 8.5
Review of Systems:
no CP/sOB at rest, on 1lit O2
cough+
some UOP, not measured
Labs
-
Labs:
WBC 19.3 10^3/uL (4.8-10.8) H 03/12/25 08:15
RBC 2.51 10^6/uL (4.70-6.10) L 03/12/25 08:15
Hgb 8.5 g/dL (13.0-18.0) L 03/12/25 08:15
Hct 24.6 % (39.0-52.0) L 03/12/25 08:15
Plt Count 336 10^3/uL (130-400) 03/12/25 08:15
Sodium 133 mmol/L (135-145) L 03/12/25 08:15
Potassium 4.3 mmol/L (3.5-5.1) D 03/12/25 08:15
Chloride 100 mmol/L (98-107) 03/12/25 08:15
Carbon Dioxide 28 mmol/L (22-30) 03/12/25 08:15
BUN 25 mg/dl (9-20) H 03/12/25 08:15
Creatinine 2.8 mg/dL (0.7-1.3) H 03/12/25 08:15
eGFR 21.71 03/12/25 08:15
Glucose 205 mg/dl (70-99) H 03/12/25 08:15
Calcium 8.5 mg/dl (8.4-10.2) 03/12/25 08:15
Phosphorus 4.6 mg/dl (2.5-4.5) H 03/09/25 04:25
Ryf-X-Ewkdvlismdu Pept 2580 pg/ml 03/04/25 12:19
Albumin 3.6 g/dl (3.5-5.0) 03/10/25 07:28
Physical Exam
-
Vital Signs:
Vital Signs
Temp Pulse Resp BP Pulse Ox
98.8 F 61 18 138/57 97
03/12/25 15:00 03/12/25 15:00 03/12/25 15:00 03/12/25 15:00 03/12/25 15:00
Cardiovascular:: Regular rate and rhythm
Respiratory:: Bilateral: Coarse
Lung Excursion:: Normal
Abdomen:: Nontender and Soft
Bowel Sounds:: Normal
Extremity Edema:: None: Bilateral:
Little Catheter: No
[2025-03-12 19:54] VITALS: BP 139/60
[2025-03-12 21:10] LABS: Glucose - Point of Care 314 mg/dl (70-99)
[2025-03-12] MEDS: LIDOCAINE 4% PATCH TOPICAL ×2 (21:50→21:57)
[2025-03-12] MEDS: NOVOLOG FLEXPEN 4 UNITS SC (21:51)
[2025-03-12] MEDS: LANTUS 0.05 UNITS SC (21:51)
[2025-03-12 23:07] VITALS: BP 140/48
[2025-03-13 00:14] LABS: Glucose - Point of Care 237 mg/dl (70-99)
[2025-03-13] MEDS: FLAGYL 500 MG PO ×3 (00:26→15:06)
[2025-03-13] MEDS: TYLENOL 650 MG PO ×2 (00:28→17:59)
[2025-03-13 03:41] VITALS: BMI 25.9
[2025-03-13 07:00] VITALS: BP 164/67
--- NOTE | 2025-03-13 07:10 | W.PN.HOSP.TC ---
Addendum entered and electronically signed by Stephen Rogers MD 03/13/25 12:53:
In better spirits
INR slightly improved to 3 point
Nephrology has some hope that he may be in renal recovery and may not require prolonged/long-term dialysis
Continue temp line for now
May require reinitiation of Coumadin in the next 48 hours
Original Note:
Today's Communication/Plan
-
Hemodialysis today
Daily INR
Assessment / Plan
Assessment / Plan
Assessment:
84-year-old male with a past medical history of paroxysmal A-fib, hypertension, hyperlipidemia, ASCVD, chronic kidney disease 3, HFpEF, BPH, MDS, peripheral artery disease and diabetes mellitus type 2 came to the ED due to evaluation of general
myalgias. He was found to have possible pneumonia versus mass seen on chest x-ray and CT scan. His breathing worsened, and was found to be volume overloaded and started on diuretic therapy. However he developed worsening kidney function possibly
due to contrast nephropathy. Underwent hemodialysis yesterday, and plan for further hemodialysis tomorrow to improve his kidney function for possible right heart cath in the future.
Plan:
# Multifocal pneumonia
- Leukocytosis, chest x-ray showed consolidation, evidence of possible pneumonia versus mass
- CXR: Focal opacity in the posterior aspect of the right upper midlung. Cardiomegaly. Diffusely increased reticulonodular markings. Correlating with prior examinations, this could represent chronic changes of congestive heart failure.
- Chest CT w/o contrast: The right upper lobe airspace opacity is favored to represent lobar pneumonia. Imaging follow-up to resolution is recommended after treatment as an underlying pulmonary neoplasm would be difficult to completely exclude.
- Blood cx have showed no growth
- Discontinue Cefepime/ doxycycline
- For possible aspiration Pneumonia- start Cefdinir 300mg QD for 5days + Metronidazole 500mg PO Q8h for 7days
- Continue respiratory supportive care
- Trend CBC and temperature curve, continue oxygen levels above 90%
- HD today
#JULIAN on chronic kidney disease III
- monitor BMP
- Suspect it might be due to contrast mediated nephropathy from CT scan of abdomen and pelvis with IV contrast from 03/04/2025
- nephrology on board, input appreciated
- Patient underwent #D3 HD on monday and will have another HD today
- Creatinine trending
- Right heart cath once kidneys are stable
- Follow UOP
- INR improving 3.04- INR goal <3-- IR HD unit and tunnelled CVC
# Acute hypoxemic respiratory failure due to decompensated HFpEF, type III cardiorenal state
- pBNP- 2580
- daily weights
- I/Os
- Consult Cardiology, input appreciated
- No RHC until he can lay flat
- Undergoing hemodialysis
- Primary colleter eval for- potential cardiac Amyloid? - immunology work-up pending
#Dyshagia
Difficulty with swallowing- improving
He is on Doxycycline 100mg PO Q12- pill induced esophagitis?
Consult ENT, input appreciated
---recs increasing oral fluids, including ice water
---Start Maalox 30ml Q12h- helps coating his throat and esophagus. Allows any mucosal injuries to heal.
Benzocaine 20% [place]
Speech and swallow eval
Start Saline [place] for nasal irritation
Swallows pills- improved
# Altered mental status unable to determine
- could be from toxic metabolic encephalopathy or hospital acquired delirium
- conversation with patient's on 03/08/2025, regarding GOC- patient's baseline is usually much better, he is very different from what he usually is at at home
- Patient was started on Ativan as needed for his agitation
- Today he is improved, Ax3
#paroxysmal atrial fibrillation
- Discontinue Coumadin 3mg INR 6.29
- Follow daily INR
- continue Cardizem for rate control
#MDS
- consulted oncology, input appreciated
- Leukocytosis, patient would follow-up with outpatient setting
- immunology work-up
#Constipation
- Received second enema yesterday, most likely will require disimpaction
#hypertension
- Holding Lasix, blood pressure has been stable
- Hydralazine as needed
#hypokalemia
- Replete K prn
#hyperlipidemia
#ASCVD
- continue atorvastatin
- myalgia secondary to statin?--Creatinine kinase- 130 N--resolved
#DM - II
- AccuCheck AC & HS
- Insulin aspart per protocol
- continue Insulin Glargine 10U SQ
#Pulmonary HTN
- hold Coumadin
- daily INR
#BPH
- continue tamsulosin
#Pressure injury
- stage 1
- new heel foams applied bl
#Hyponatremia
- likely from hypervolemia
#PAD
DVT prophylaxis: Warfarin on hold
Full code
Anticipated Discharge: > 48 hours
Subjective/Interval History
-
Date of Service: March 13, 2025
He is sitting on his bed on room air. Overnight he had difficulty falling a sleep. He woke up 4 times all sweaty. He has been urinating a full cup, reports being so much better than his usual. He has a new RLQ pain only with deep pressure since
yesterday. He says it might be gas related.
Objective Data
-
Labs:
Laboratory Results
03/13/25 03/13/25
06:00 06:10
WBC Pending
Hgb Pending
Hct Pending
Plt Count Pending
PT Pending
INR Pending
Sodium Pending
Potassium Pending
Chloride Pending
Carbon Dioxide Pending
BUN Pending
Creatinine Pending
Glucose Pending
Calcium Pending
Vital Signs:
Vital Signs
Temp Pulse Resp BP Pulse Ox
99.2 F 61 18 140/48 97
03/12/25 23:07 03/12/25 23:07 03/12/25 23:07 03/12/25 23:07 03/12/25 23:07
I&O
03/12/25 03/13/25 03/14/25
06:59 06:59 06:59
Intake Total 500 / 500 960 / 960
Output Total 200 / 200
Balance 300 / 300 960 / 960
Review of Systems
-
History Source: Patient
Constitutional: Reports No Symptoms
EENT: Reports No Symptoms Reported
Respiratory: Reports Other (Feeling fluid in his lungs, says crackles)
Cardiac: Reports No Symptoms
Abdomen/GI: Reports Abdominal Pain (RLQ pain with deep pressure)
Breast: Reports No Symptoms
Genitourinary: Reports Difficulty Voiding (improving)
Musculoskeletal: Reports No Symptoms
Skin: Reports No Symptoms
Neuro: Reports No Symptoms
Endocrine: Reports No Symptoms
Physical Exam
-
General: Well Developed, Well Nourished and Conversant
HEENT: Normocephalic and Atraumatic
Respiratory: Crackles and Decreased Breath Sounds
Cardiac: Regular Rhythm and S1/S2
Breast: Deferred by me
GI: Soft, Nontender and Distended
Rectal: Deferred by Provider
Genito-urinary: Deferred by me
Musculoskeletal: No Clubbing, No Cyanosis and No Edema
Skin: Warm
Neuro: AO x 3 and No Motor Deficits
Psych: Calm
[2025-03-13 07:18] LABS: Glucose - Point of Care 175 mg/dl (70-99)
[2025-03-13] MEDS: SPIRIVA RESPIMAT 2.5 MCG 2 PUFF INH (07:30)
[2025-03-13] MEDS: SYMBICORT 80/4.5 MCG INHALER 2 PUFF INH ×2 (07:30→20:38)
[2025-03-13] MEDS: NOVOLOG FLEXPEN-LOW RESISTANCE 1 UNITS SC (07:54)
[2025-03-13] MEDS: CARDIZEM CD 240 MG PO (07:55)
[2025-03-13] MEDS: NOVOLOG FLEXPEN 1 UNITS SC ×2 (07:55→11:30)
[2025-03-13] MEDS: APRESOLINE 25 MG PO ×2 (07:55→20:58)
[2025-03-13] MEDS: COLACE 100 MG PO ×2 (07:55→20:58)
[2025-03-13] MEDS: MAALOX 30 ML PO ×2 (07:56→20:58)
[2025-03-13] MEDS: PROSCAR 5 MG PO (07:56)
[2025-03-13] MEDS: THERAGRAN 1 TABLET PO (07:56)
[2025-03-13] MEDS: FLOMAX 0.4 MG PO ×2 (07:56→20:58)
[2025-03-13] MEDS: MIRALAX 17 GRAMS PO (07:56)
[2025-03-13] MEDS: PREVACID 30 MG PO (07:56)
[2025-03-13 08:42] VITALS: BP 164/67
[2025-03-13 08:54] LABS: INR 3.04; PT 31.8 Sec (11.4-14.6)
[2025-03-13 08:57] LABS: Hematocrit 25.3 % (39.0-52.0); Hemoglobin 8.8 g/dL (13.0-18.0); Mean Corp Hgb Conc. 34.8 g/dL (33.0-37.0); Mean Corpuscular Volume 98.4 fL (80.0-94.0); Platelet Count 352 10^3/uL (130-400); Red Cell Dist. Width 16.5 % (11.5-14.5)
[2025-03-13 09:58] LABS: Blood Urea Nitrogen 38 mg/dl (9-20); Calcium 8.5 mg/dl (8.4-10.2); Carbon Dioxide 25 mmol/L (22-30); Chloride 99 mmol/L (98-107); Estimated Creatinine Clearance 15 ml/min; Glucose 203 mg/dl (70-99); Potassium 4.5 mmol/L (3.5-5.1); Sodium 133 mmol/L (135-145); eGFR 19.21
[2025-03-13 10:46] LABS: Nucleated Red Blood Cells % 0.2 % (-)
[2025-03-13 11:28] LABS: Glucose - Point of Care 309 mg/dl (70-99)
[2025-03-13] MEDS: NOVOLOG FLEXPEN-LOW RESISTANCE 4 UNITS SC (11:30)
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
--- NOTE | 2025-03-13 12:57 | CM ---
CM following re: discharge planning.
Reviewed pt's chart, met with pt and had a long conversation/discussion including and not limited to philosophy of life, health, treatment plan especially needs for HD. pt went back and fourth in a very polite manner stating 'I am 84 and how long I
have to live. HD 3 times per week will change my life completely.. I do not feel I will like it but my who is my boss feels i should do it and because y wants me to be around her a little bit longer... I will do HD if that a plan'.
Emotional support and reassurance and support to pt's plan offered and provided. Again, pt did not express any frustration or depressive feelings, just honestly described his feelings regarding life routine situation.
Per nephrology, iF no indication of renal recovery in next 48 hrs, will need OP HD unit and tunnelled CVC
PT and OT evaluations noted - SNF level of care recommended. Pt is aware and he stated he will discuss it with his .
D/C plan: SNF with possible HD treatment onsite vs home with VN and possible outpatient HD treatment. Awaiting confirmation from nephrology
CM will follow with discharge plan updates as hospitalization progresses
[2025-03-13] MEDS: RETACRIT 10000 UNITS IV (13:15)
[2025-03-13] MEDS: ROBITUSSIN DM 10 ML PO (15:07)
--- NOTE | 2025-03-13 15:10 | W.PN.NEPH.HD ---
Assessment
-
pt seen during HD
vitals stable
Cr slow increase and also wt gain suggesting no sig renal recovery yet
would cont HD and likely change to tunneled catheter
need HD unit placement
d/w pt
Progress Note - Hemodialysis
-
Date of Service: March 13, 2025
Duration: 30 minutes and 3 hours
Potassium Bath: 3
Calcium Bath: 2.5
Opti-Dialyzer: 160
Ultrafiltration: Other (1-1.5kg)
Blood Flow: 400
Dialysate Flow: 600
Heparin: no
EPO: [id number]
[2025-03-13 15:55] VITALS: BP 136/54
[2025-03-13 16:03] LABS: Glucose - Point of Care 227 mg/dl (70-99)
[2025-03-13] MEDS: NOVOLOG FLEXPEN-LOW RESISTANCE 2 UNITS SC (16:25)
[2025-03-13] MEDS: NOVOLOG FLEXPEN 3 UNITS SC (16:27)
[2025-03-13] MEDS: LIPITOR 80 MG PO (16:28)
[2025-03-13] MEDS: SINGULAIR 10 MG PO (16:28)
[2025-03-13] MEDS: OMNICEF 300 MG PO (16:28)
[2025-03-13] MEDS: ZOFRAN 4 MG IV (16:56)
[2025-03-13 20:52] VITALS: BP 117/53
[2025-03-13 21:31] LABS: Glucose - Point of Care 327 mg/dl (70-99)
[2025-03-13] MEDS: LIDOCAINE 4% PATCH TOPICAL (21:36)
[2025-03-13] MEDS: LANTUS 0.08 UNITS SC (21:40)
[2025-03-13 23:00] VITALS: BP 122/46
[2025-03-14] VITALS (8 sets, daily range): BP systolic 58–165; BP diastolic 49–65; PULSE 56; O2SAT 93; BMI 25.6
[2025-03-14] MEDS: FLAGYL 500 MG PO ×2 (00:59→15:36)
[2025-03-14] MEDS: TYLENOL 650 MG PO ×2 (03:00→21:19)
[2025-03-14 05:27] LABS: Glucose - Point of Care 175 mg/dl (70-99)
[2025-03-14] MEDS: NOVOLOG FLEXPEN-LOW RESISTANCE 1 UNITS SC ×3 (05:33→17:46)
--- NOTE | 2025-03-14 07:20 | W.PN.HOSP.TC ---
Addendum entered and electronically signed by Stephen Rogers MD 03/14/25 14:14:
n better spirits
INR slightly improved to 3 point
Nephrology has some hope that he may be in renal recovery and may not require prolonged/long-term dialysis
IR to place tunneled catheter today
Resume Coumadin 1.5 mg daily
Original Note:
Today's Communication/Plan
-
Tunelled CVC will be placed today
Start Coumadin 1.5mg at 6pm
INR daily
Assessment / Plan
Assessment / Plan
Assessment:
84-year-old male with a past medical history of paroxysmal A-fib, hypertension, hyperlipidemia, ASCVD, chronic kidney disease 3, HFpEF, BPH, MDS, peripheral artery disease and diabetes mellitus type 2 came to the ED due to evaluation of general
myalgias. He was found to have possible pneumonia versus mass seen on chest x-ray and CT scan. His breathing worsened, and was found to be volume overloaded and started on diuretic therapy. However he developed worsening kidney function possibly
due to contrast nephropathy. Underwent hemodialysis yesterday, and plan for further hemodialysis tomorrow to improve his kidney function for possible right heart cath in the future.
Plan:
# Multifocal pneumonia
- Leukocytosis, chest x-ray showed consolidation, evidence of possible pneumonia versus mass
- CXR: Focal opacity in the posterior aspect of the right upper midlung. Cardiomegaly. Diffusely increased reticulonodular markings. Correlating with prior examinations, this could represent chronic changes of congestive heart failure.
- Chest CT w/o contrast: The right upper lobe airspace opacity is favored to represent lobar pneumonia. Imaging follow-up to resolution is recommended after treatment as an underlying pulmonary neoplasm would be difficult to completely exclude.
- Blood cx have showed no growth
- Discontinue Cefepime/ doxycycline
- For possible aspiration Pneumonia- start Cefdinir 300mg QD for 5days + Metronidazole 500mg PO Q8h for 7days
- Continue respiratory supportive care
- Trend CBC and temperature curve, continue oxygen levels above 90%
#JULIAN on chronic kidney disease III
- monitor BMP
- Suspect it might be due to contrast mediated nephropathy from CT scan of abdomen and pelvis with IV contrast from 03/04/2025
- nephrology on board, input appreciated
- Patient underwent #D3 HD on monday and will have another HD today
- Creatinine trending
- Right heart cath once kidneys are stable
- Follow UOP
- INR 2.4-INR goal <3
- IR will place tunnelled CVC today
# Acute hypoxemic respiratory failure due to decompensated HFpEF, type III cardiorenal state
- pBNP- 2580
- daily weights
- I/Os
- Consult Cardiology, input appreciated
- No RHC until he can lay flat
- Undergoing hemodialysis
- Primary construction equipment technician eval for- potential cardiac Amyloid? - immunology work-up pending
#Abdominal Pain
-Pain with deep pressure on RLQ
-Wants to wait on Abd Xray for today
-will follow
#Dyshagia
Difficulty with swallowing- improving
He is on Doxycycline 100mg PO Q12- pill induced esophagitis?
Consult ENT, input appreciated
---recs increasing oral fluids, including ice water
---Start Maalox 30ml Q12h- helps coating his throat and esophagus. Allows any mucosal injuries to heal.
Benzocaine 20% [place]
Speech and swallow eval
Start Saline [place] for nasal irritation
Swallows pills- resolved
# Altered mental status unable to determine
- could be from toxic metabolic encephalopathy or hospital acquired delirium
- conversation with patient's on 03/08/2025, regarding GOC- patient's baseline is usually much better, he is very different from what he usually is at at home
- Patient was started on Ativan as needed for his agitation
- Today he is improved, Ax3
#paroxysmal atrial fibrillation
- Discontinue Coumadin 3mg INR 6.29
- Follow daily INR
- continue Cardizem for rate control
#MDS
- consulted oncology, input appreciated
- Leukocytosis, patient would follow-up with outpatient setting
- immunology work-up
#Constipation
- Received second enema yesterday, most likely will require disimpaction
#hypertension
- Holding Lasix, blood pressure has been stable
- Hydralazine as needed
#hypokalemia
- Replete K prn
#hyperlipidemia
#ASCVD
- continue atorvastatin
- myalgia secondary to statin?--Creatinine kinase- 130 N--resolved
#DM - II
- AccuCheck AC & HS
- Insulin aspart per protocol
- continue Insulin Glargine 10U SQ
#Pulmonary HTN
- Will resume Coumadin 1.5 mg at 6pm
- daily INR
#BPH
- continue tamsulosin
#Pressure injury
- stage 1
- new heel foams applied bl
#Hyponatremia
- likely from hypervolemia
#PAD
DVT prophylaxis: Warfarin on hold
Full code
Anticipated Discharge: > 48 hours
Subjective/Interval History
-
Date of Service: March 14, 2025
He is comfortable on room air. Overnight he was able to sleep better. He woke up because of sweating and he had a feeling of being chocked at night. He denies PRANAV history. He did not urinate since last night. He still has right lower abdominal pain
with pressure but he is not worried about it for now. He wants to get catheter placed today.
Objective Data
-
Labs:
Laboratory Results
03/14/25 03/14/25
06:00 06:10
WBC Pending
Hgb Pending
Hct Pending
Plt Count Pending
PT Pending
INR Pending
Sodium Pending
Potassium Pending
Chloride Pending
Carbon Dioxide Pending
BUN Pending
Creatinine Pending
Glucose Pending
Calcium Pending
Vital Signs:
Vital Signs
Temp Pulse Resp BP Pulse Ox
98.7 F 61 16 122/46 91
03/13/25 23:00 03/13/25 23:00 03/13/25 23:00 03/13/25 23:00 03/13/25 23:00
I&O
03/13/25 03/14/25 03/15/25
06:59 06:59 06:59
Intake Total 960 / 960 850 / 850
Output Total 200 / 200
Balance 960 / 960 650 / 650
Review of Systems
-
History Source: Patient
Constitutional: Reports Sleep Disturbance and Night Sweats
EENT: Reports No Symptoms Reported
Respiratory: Reports No Symptoms
Cardiac: Reports No Symptoms
Abdomen/GI: Reports Abdominal Pain (RLQ pain with deep pressure)
Breast: Reports No Symptoms
Genitourinary: Reports Difficulty Voiding (improving)
Musculoskeletal: Reports No Symptoms
Skin: Reports No Symptoms
Neuro: Reports No Symptoms
Endocrine: Reports No Symptoms
Physical Exam
-
General: Well Developed, Well Nourished, Comfortable and Conversant
HEENT: Normocephalic and Atraumatic
Respiratory: Clear to Auscultation
Cardiac: Regular Rhythm and S1/S2
Breast: Deferred by me
GI: Soft, Nontender and Nondistended
Rectal: Deferred by Provider
Genito-urinary: Deferred by me
Musculoskeletal: No Clubbing, No Cyanosis and No Edema
Skin: Warm
Neuro: AO x 3, No Motor Deficits and No Sensory Deficits
Psych: Calm
[2025-03-14 07:23] LABS: Glucose - Point of Care 194 mg/dl (70-99)
[2025-03-14] MEDS: PREVACID 30 MG PO (07:28)
[2025-03-14] MEDS: ZOFRAN 4 MG IV (07:28)
[2025-03-14] MEDS: SPIRIVA RESPIMAT 2.5 MCG 2 PUFF INH (07:47)
[2025-03-14] MEDS: SYMBICORT 80/4.5 MCG INHALER 2 PUFF INH ×2 (07:47→19:49)
[2025-03-14] MEDS: NOVOLOG FLEXPEN SC (07:51)
[2025-03-14] MEDS: FLAGYL PO (08:00)
[2025-03-14] MEDS: FLOMAX PO (08:00)
[2025-03-14] MEDS: APRESOLINE PO (08:00)
[2025-03-14] MEDS: COLACE PO (08:00)
[2025-03-14 08:51] LABS: Hematocrit 24.2 % (39.0-52.0); Hemoglobin 8.2 g/dL (13.0-18.0); Mean Corp Hgb Conc. 33.9 g/dL (33.0-37.0); Mean Corpuscular Volume 97.2 fL (80.0-94.0); Platelet Count 358 10^3/uL (130-400); Red Cell Dist. Width 16.8 % (11.5-14.5)
[2025-03-14 09:01] LABS: INR 2.40; PT 26.2 Sec (11.4-14.6)
[2025-03-14 09:24] LABS: Blood Urea Nitrogen 21 mg/dl (9-20); Calcium 8.1 mg/dl (8.4-10.2); Carbon Dioxide 30 mmol/L (22-30); Chloride 99 mmol/L (98-107); Estimated Creatinine Clearance 22 ml/min; Glucose 177 mg/dl (70-99); Potassium 4.2 mmol/L (3.5-5.1); Sodium 132 mmol/L (135-145); eGFR 30.66
--- NOTE | 2025-03-14 12:27 | PTCARENOTE ---
No pre-procedure antibiotic per Dr. Leonardo; patient currently on Flagyl.
[2025-03-14 13:25] LABS: Glucose - Point of Care 188 mg/dl (70-99)
[2025-03-14] MEDS: MIRALAX PO (13:50)
[2025-03-14] MEDS: CARDIZEM CD 240 MG PO (13:51)
[2025-03-14] MEDS: THERAGRAN 1 TABLET PO (13:51)
[2025-03-14] MEDS: MAALOX 30 ML PO ×2 (13:51→19:49)
[2025-03-14] MEDS: PROSCAR 5 MG PO (13:51)
[2025-03-14] MEDS: NOVOLOG FLEXPEN 3 UNITS SC ×2 (14:34→17:47)
--- NOTE | 2025-03-14 14:59 | W.PN.UPDATE ---
Update Note
Progress Note Update
patient seen chart reviewed. discussed with nursing at bedside. mr paniagua was much better today. his spirits seemed buoyed by the presence of his . both were lively conversationalists as they watched the news. he barely mentioned the trauma
of his kidney failure until i brought it up. was encouraging him to take each day as it comes and realize that there is still a lot he can do in his life. i did support the fact that it is very natural to feel angry, sad, scared given this new
challenge to his health. he does seem to benefit from talking even if it is just chatting. will have psych look in on him tomorrow.
--- NOTE | 2025-03-14 15:35 | CM ---
CM reviewed chart, care ongoing. 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 If outpatient HD needed, will need SNF with HD. Patient seen bedside, did not want to discuss SNF at this time. Patient wants to speak with
, reports his is as sick as he is. Patient reports his life is over if he needs dialysis, will have time for nothing else. CM acknowledged patients feelings, discussed patients family and support with patient who shared he has two
grandchildren. Patient reports his daughter is hopefully coming to visit him today. Patient will consider SNF, CM discussed patient would receive dialysis while in rehab. CM will continue to follow for all discharge planning needs.
Plan; SNF recommendation, watch for dialysis needs
--- NOTE | 2025-03-14 15:42 | PTCARENOTE ---
Pt's RT HD cath site noted to have drainage covering the folded 4x4 and also some oozing noted as well. IR notified and will be up to see pt.
[2025-03-14 16:29] LABS: Glucose - Point of Care 186 mg/dl (70-99)
--- NOTE | 2025-03-14 17:27 | W.PN.NEPH.PH ---
Today's Communication / Plan
-
HD tomorrow
Assessment/Plan
-
Impression:
PNA
Suspected CHF decompensation
Valvular heart disease with history of mechanical aortic valve replacement
History of coronary artery disease with CABG
Hypertension
Anemia with history of MDS
Secondary pulmonary hypertension
Peripheral vascular disease
COPD
Acute kidney injury (4.2)
CKD stage III (1.4)
History of congestive heart Failure
Diabetes
Plan:
HD tomorrow
has tunnelled HD CVC
OP HD arrangements for JULIAN/HD
I still he will recover in the fpc
-
-
Date of Service: March 14, 2025
CC / HPI / ROS
-
Chief Complaint:
JULIAN with CKD
History of Present Illness:
tolerated HD yesterday, cr down to 2.1
BP stable
Hgb low stable
Review of Systems:
no CP/SOB at rest, on 1lit O2
some UOP, not measured
Labs
-
Labs:
WBC 13.2 10^3/uL (4.8-10.8) H 03/14/25 08:
RBC 2.49 10^6/uL (4.70-6.10) L 03/14/25 08:29
Hgb 8.2 g/dL (13.0-18.0) L 03/14/25 08:29
Hct 24.2 % (39.0-52.0) L 03/14/25 08:29
Plt Count 358 10^3/uL (130-400) 03/14/25 08:29
Sodium 132 mmol/L (135-145) L 03/14/25 08:
Potassium 4.2 mmol/L (3.5-5.1) 03/14/25 08:29
Chloride 99 mmol/L (98-107) 03/14/25 08:29
Carbon Dioxide 30 mmol/L (22-30) 03/14/25 08:29
BUN 21 mg/dl (9-20) H 03/14/25 08:29
Creatinine 2.1 mg/dL (0.7-1.3) H 03/14/25 08:29
eGFR 30.66 03/14/25 08:29
Glucose 177 mg/dl (70-99) H 03/14/25 08:29
Calcium 8.1 mg/dl (8.4-10.2) L 03/14/25 08:29
Phosphorus 4.6 mg/dl (2.5-4.5) H 03/09/25 04:25
Jfa-Y-Oltivvavrmn Pept 2580 pg/ml 03/04/25 12:19
Albumin 3.6 g/dl (3.5-5.0) 03/10/25 07:28
Physical Exam
-
Vital Signs:
Vital Signs
Temp Pulse Resp BP Pulse Ox
98.0 F 67 20 124/51 93
03/14/25 15:00 03/14/25 15:00 03/14/25 15:00 03/14/25 15:00 03/14/25 15:00
Cardiovascular:: Regular rate and rhythm
Respiratory:: Bilateral: Coarse
Lung Excursion:: Normal
Abdomen:: Nontender and Soft
Bowel Sounds:: Normal
Extremity Edema:: None: Bilateral:
[2025-03-14] MEDS: COUMADIN 1 MG PO (18:23)
[2025-03-14] MEDS: LIPITOR 80 MG PO (18:23)
[2025-03-14] MEDS: COUMADIN 0.5 MG PO (18:23)
[2025-03-14] MEDS: SINGULAIR 10 MG PO (18:23)
[2025-03-14] MEDS: FLOMAX 0.4 MG PO (19:45)
[2025-03-14] MEDS: COLACE 100 MG PO (19:45)
[2025-03-14] MEDS: APRESOLINE 25 MG PO (19:50)
[2025-03-14 20:54] LABS: Glucose - Point of Care 263 mg/dl (70-99)
[2025-03-14] MEDS: LIDOCAINE 4% PATCH TOPICAL (21:08)
[2025-03-14] MEDS: LANTUS 0.08 UNITS SC (21:19)
[2025-03-15 06:00] VITALS: BMI 25.8
[2025-03-15] MEDS: SYMBICORT 80/4.5 MCG INHALER 2 PUFF INH ×2 (07:24→20:02)
[2025-03-15] MEDS: SPIRIVA RESPIMAT 2.5 MCG 2 PUFF INH (07:24)
[2025-03-15 07:45] VITALS: BP 146/56
[2025-03-15 07:58] LABS: Glucose - Point of Care 190 mg/dl (70-99)
[2025-03-15] MEDS: MIRALAX 17 GRAMS PO (08:20)
[2025-03-15] MEDS: MAALOX 30 ML PO ×2 (08:20→20:13)
[2025-03-15] MEDS: PREVACID 30 MG PO (08:20)
[2025-03-15] MEDS: FLOMAX 0.4 MG PO ×2 (08:20→20:13)
[2025-03-15] MEDS: COLACE 100 MG PO ×2 (08:21→20:12)
[2025-03-15] MEDS: THERAGRAN 1 TABLET PO (08:21)
[2025-03-15] MEDS: PROSCAR 5 MG PO (08:21)
[2025-03-15] MEDS: FLAGYL 500 MG PO ×4 (08:21→23:40)
[2025-03-15] MEDS: NOVOLOG FLEXPEN 3 UNITS SC ×3 (08:22→17:43)
[2025-03-15] MEDS: NOVOLOG FLEXPEN-LOW RESISTANCE 1 UNITS SC (08:22)
[2025-03-15 08:38] LABS: Hematocrit 25.8 % (39.0-52.0); Hemoglobin 8.7 g/dL (13.0-18.0); Mean Corp Hgb Conc. 33.7 g/dL (33.0-37.0); Mean Corpuscular Volume 98.5 fL (80.0-94.0); Platelet Count 397 10^3/uL (130-400); Red Cell Dist. Width 16.8 % (11.5-14.5)
[2025-03-15 08:53] LABS: INR 2.08; PT 23.5 Sec (11.4-14.6)
[2025-03-15 09:02] LABS: Blood Urea Nitrogen 30 mg/dl (9-20); Calcium 8.5 mg/dl (8.4-10.2); Carbon Dioxide 29 mmol/L (22-30); Chloride 99 mmol/L (98-107); Estimated Creatinine Clearance 19 ml/min; Glucose 171 mg/dl (70-99); Potassium 4.5 mmol/L (3.5-5.1); Sodium 133 mmol/L (135-145); eGFR 24.87
[2025-03-15] MEDS: APRESOLINE 25 MG PO ×2 (09:16→20:13)
[2025-03-15] MEDS: CARDIZEM CD 240 MG PO (09:16)
--- NOTE | 2025-03-15 09:51 | W.PN.HOSP.TC ---
Addendum entered and electronically signed by Stephen Rogers MD 03/15/25 12:14:
INR 2.0
Continue coumadin 1.5mg daily
Nephrology has some hope that he may be in renal recovery and may not require prolonged/long-term dialysis
Now with tunneled catheter
-Urinating same amout as previous
Dysphagia improving, enjoying food again
Dispo planning
Original Note:
Today's Communication/Plan
-
Hemodialysis today
Continue 1.5mg Coumadine
Follow INR
Assessment / Plan
Assessment / Plan
Assessment:
84-year-old male with a past medical history of paroxysmal A-fib, hypertension, hyperlipidemia, ASCVD, chronic kidney disease 3, HFpEF, BPH, MDS, peripheral artery disease and diabetes mellitus type 2 came to the ED due to evaluation of general
myalgias. He was found to have possible pneumonia versus mass seen on chest x-ray and CT scan. His breathing worsened, and was found to be volume overloaded and started on diuretic therapy. However he developed worsening kidney function possibly
due to contrast nephropathy. Underwent 3 hemodialysis , and plan for further hemodialysis today to improve his kidney function for possible right heart cath in the future.
Plan:
# Multifocal pneumonia
- Leukocytosis, chest x-ray showed consolidation, evidence of possible pneumonia versus mass
- CXR: Focal opacity in the posterior aspect of the right upper midlung. Cardiomegaly. Diffusely increased reticulonodular markings. Correlating with prior examinations, this could represent chronic changes of congestive heart failure.
- Chest CT w/o contrast: The right upper lobe airspace opacity is favored to represent lobar pneumonia. Imaging follow-up to resolution is recommended after treatment as an underlying pulmonary neoplasm would be difficult to completely exclude.
- Blood cx have showed no growth
- Discontinue Cefepime/ doxycycline
- For possible aspiration Pneumonia- start Cefdinir 300mg QD for 5days + Metronidazole 500mg PO Q8h for 7days
- Wean off from Oxygen support-- comfortable on room air
- Trend CBC and temperature curve
#JULIAN on chronic kidney disease III
- monitor BMP
- Suspect it might be due to contrast mediated nephropathy from CT scan of abdomen and pelvis with IV contrast from 03/04/2025
- nephrology on board, input appreciated
- Patient underwent #D3 HD on monday and will have another HD today
- Creatinine trending
- Right heart cath once kidneys are stable
- Follow UOP
- INR 2.08-INR goal 2-3
- IR placed tunnelled CVC 03/14/2025
- Continue receiving HD
-follow nephrology recs
# Acute hypoxemic respiratory failure due to decompensated HFpEF, type III cardiorenal state
- pBNP- 2580
- daily weights
- I/Os
- Consult Cardiology, input appreciated
- No RHC until he can lay flat
- Undergoing hemodialysis
- Primary elevator repairer apprentice eval for- potential cardiac Amyloid? - immunology work-up pending
#Abdominal Pain
-Pain with deep pressure on RLQ
-Does not want any work up regarding it
-It is improving
#Dyshagia
Difficulty with swallowing- improved
He is on Doxycycline 100mg PO Q12- pill induced esophagitis?-- discontinued
Consult ENT, input appreciated
---recs increasing oral fluids, including ice water
---Start Maalox 30ml Q12h- helps coating his throat and esophagus. Allows any mucosal injuries to heal.
Benzocaine 20% [place]
Speech and swallow eval
Start Saline [place] for nasal irritation
Swallows pills- resolved
# Altered mental status unable to determine
- could be from toxic metabolic encephalopathy or hospital acquired delirium
- conversation with patient's on 03/08/2025, regarding GOC- patient's baseline is usually much better, he is very different from what he usually is at at home
- Patient was started on Ativan as needed for his agitation
- Ax3 normal mental status
#paroxysmal atrial fibrillation
- Continue Coumadin 1.5 mg
- Follow daily INR
- continue Cardizem for rate control
#MDS
- consulted oncology, input appreciated
- Leukocytosis, patient would follow-up with outpatient setting
- immunology work-up
#Constipation
- continue bowel regimen
- Improved
#hypertension
- Holding Lasix, blood pressure has been stable
- Hydralazine as needed
#hypokalemia
- Replete K prn
#hyperlipidemia
#ASCVD
- continue atorvastatin
- myalgia secondary to statin?--Creatinine kinase- 130 N--resolved
#DM - II
- AccuCheck AC & HS
- Insulin aspart per protocol
- continue Insulin Glargine 10U SQ
#Pulmonary HTN
- Continue Coumadin 1.5 mg
- daily INR
#BPH
- continue tamsulosin
#Pressure injury
- stage 1
- new heel foams applied bl
#Hyponatremia
- likely from hypervolemia
#PAD
DVT prophylaxis: Warfarin
Full code
Anticipated Discharge: 24 - 48 hours
Subjective/Interval History
-
Date of Service: March 15, 2025
He was eating his breakfast. He had some pain on his new catheter area last night now improved. He reports his swallowing is almost 100%. He had some bm and he was able to urinate. His abdominal pain is improving he believes it might have been a
bruise. He does not want any work up regarding it.
Objective Data
-
Labs:
Laboratory Results
03/15/25
07:50
WBC 12.8 H
Hgb 8.7 L
Hct 25.8 L
Plt Count 397
PT 23.5 H
INR 2.08
Sodium 133 L
Potassium 4.5
Chloride 99
Carbon Dioxide 29
BUN 30 H
Creatinine 2.5 H
Glucose 171 H
Calcium 8.5
Vital Signs:
Vital Signs
Temp Pulse Resp BP Pulse Ox
98.2 F 61 16 146/56 92
03/15/25 07:45 03/15/25 09:16 03/15/25 07:45 03/15/25 09:16 03/15/25 07:45
I&O
03/14/25 03/15/25 03/16/25
06:59 06:59 06:59
Intake Total 850 / 850 240 / 240
Output Total 200 / 200
Balance 650 / 650 240 / 240
Review of Systems
-
History Source: Patient
Constitutional: Reports No Symptoms
EENT: Reports No Symptoms Reported
Respiratory: Reports No Symptoms
Cardiac: Reports No Symptoms
Abdomen/GI: Reports Abdominal Pain (RLQ pain with deep pressure)
Breast: Reports No Symptoms
Genitourinary: Reports No Symptoms
Musculoskeletal: Reports No Symptoms
Skin: Reports No Symptoms
Neuro: Reports No Symptoms
Endocrine: Reports No Symptoms
Physical Exam
-
General: Well Developed, Well Nourished, Comfortable and Conversant
HEENT: Normocephalic and Atraumatic
Respiratory: Clear to Auscultation
Cardiac: Regular Rhythm and S1/S2
Breast: Deferred by me
GI: Soft, Nontender and Nondistended
Rectal: Deferred by Provider
Genito-urinary: Deferred by me
Musculoskeletal: No Clubbing, No Cyanosis and No Edema
Skin: Warm
Neuro: AO x 3, No Motor Deficits and No Sensory Deficits
Psych: Calm
[2025-03-15 12:09] LABS: Glucose - Point of Care 249 mg/dl (70-99)
[2025-03-15] MEDS: NOVOLOG FLEXPEN-LOW RESISTANCE 2 UNITS SC ×2 (12:54→17:42)
--- NOTE | 2025-03-15 13:19 | W.PN.NEPH.HD ---
Assessment
-
Seen on HD. no complaints. VSS, access ok
Cr 2.5 between tx
Progress Note - Hemodialysis
-
Date of Service: March 15, 2025
Duration: 45 minutes and 2 hours
Potassium Bath: 3
Calcium Bath: 2.5
Opti-Dialyzer: 160
Ultrafiltration: Other (1kg)
Blood Flow: 400
Dialysate Flow: 600
Heparin: 0
EPO: 0
[2025-03-15] MEDS: FLEXBUMIN 25% FOR HEMODIALYSIS 12.5 GRAMS IV (13:40)
[2025-03-15] MEDS: MANNITOL 25% 12.5 GRAMS IV (13:40)
[2025-03-15] MEDS: HEPARIN 3900 UNITS INTRACATH (14:52)
[2025-03-15 15:50] VITALS: BP 133/55
[2025-03-15 16:21] LABS: Glucose - Point of Care 209 mg/dl (70-99)
[2025-03-15] MEDS: LIPITOR 80 MG PO (17:40)
[2025-03-15] MEDS: COUMADIN 0.5 MG PO (17:41)
[2025-03-15] MEDS: SINGULAIR 10 MG PO (17:42)
[2025-03-15] MEDS: COUMADIN 1 MG PO (17:42)
[2025-03-15] MEDS: TYLENOL PO (18:40)
[2025-03-15] MEDS: ROBITUSSIN DM PO (18:42)
[2025-03-15] MEDS: ROBITUSSIN DM 10 ML PO (18:42)
[2025-03-15] MEDS: TYLENOL 650 MG PO (20:12)
[2025-03-15] MEDS: LIDOCAINE 4% PATCH TOPICAL (20:13)
[2025-03-15 21:28] LABS: Glucose - Point of Care 221 mg/dl (70-99)
[2025-03-15] MEDS: LANTUS 0.08 UNITS SC (21:57)
[2025-03-15] MEDS: ATIVAN 0.5 MG PO (23:39)
[2025-03-15 23:43] VITALS: BP 132/60
[2025-03-16] MEDS: ZOFRAN 4 MG IV ×2 (05:41→12:34)
[2025-03-16 06:00] VITALS: BMI 25.8
[2025-03-16] MEDS: SYMBICORT 80/4.5 MCG INHALER INH (07:39)
[2025-03-16] MEDS: SPIRIVA RESPIMAT 2.5 MCG INH (07:39)
[2025-03-16 08:00] VITALS: BP 132/57
[2025-03-16] MEDS: FLAGYL PO ×2 (08:30→09:23)
--- NOTE | 2025-03-16 08:51 | W.PN.HOSP.TC ---
Addendum entered and electronically signed by Stephen Rogers MD 03/16/25 12:20:
INR 1.7
Make coumadin 2
Daily INR
Nephrology has some hope that he may be in renal recovery and may not require prolonged/long-term dialysis
Now with tunneled catheter
-Urinating same amout as previous
Dysphagia improving, enjoying food again
Right sided hearing difficulty, nasal saline ent consult.
Dispo planning
Original Note:
Today's Communication/Plan
-
Consult ENT for new hearing loss on right ear
Increase coumadin to 2mg
INR daily
Assessment / Plan
Assessment / Plan
Assessment:
84-year-old male with a past medical history of paroxysmal A-fib, hypertension, hyperlipidemia, ASCVD, chronic kidney disease 3, HFpEF, BPH, MDS, peripheral artery disease and diabetes mellitus type 2 came to the ED due to evaluation of general
myalgias. He was found to have possible pneumonia versus mass seen on chest x-ray and CT scan. His breathing worsened, and was found to be volume overloaded and started on diuretic therapy. However he developed worsening kidney function possibly
due to contrast nephropathy. Underwent 3 hemodialysis , and plan for further hemodialysis today to improve his kidney function for possible right heart cath in the future.
Plan:
# Multifocal pneumonia
- Leukocytosis, chest x-ray showed consolidation, evidence of possible pneumonia versus mass
- CXR: Focal opacity in the posterior aspect of the right upper midlung. Cardiomegaly. Diffusely increased reticulonodular markings. Correlating with prior examinations, this could represent chronic changes of congestive heart failure.
- Chest CT w/o contrast: The right upper lobe airspace opacity is favored to represent lobar pneumonia. Imaging follow-up to resolution is recommended after treatment as an underlying pulmonary neoplasm would be difficult to completely exclude.
- Blood cx have showed no growth
- Discontinue Cefepime/ doxycycline
- For possible aspiration Pneumonia- start Cefdinir 300mg QD for 5days + Metronidazole 500mg PO Q8h for 7days
- Wean off from Oxygen support-- comfortable on room air
- Trend CBC and temperature curve
#JULIAN on chronic kidney disease III
- monitor BMP
- Suspect it might be due to contrast mediated nephropathy from CT scan of abdomen and pelvis with IV contrast from 03/04/2025
- nephrology on board, input appreciated
- Patient underwent #D3 HD on monday and will have another HD today
- Creatinine trending
- Right heart cath once kidneys are stable
- Follow UOP
- INR 1.71 -INR goal 2-3
- IR placed tunnelled CVC 03/14/2025
- Continue receiving HD
-follow nephrology recs
# Acute hypoxemic respiratory failure due to decompensated HFpEF, type III cardiorenal state
- pBNP- 2580
- daily weights
- I/Os
- Consult Cardiology, input appreciated
- No RHC until he can lay flat
- Undergoing hemodialysis
- Primary corporate counsel eval for- potential cardiac Amyloid? - immunology work-up pending
#Hearing loss on right ear
-Sudden hearing difficulty started at 4 am, no pain
-Consult ENT
#Abdominal Pain
-Pain with deep pressure on RLQ
-Does not want any work up regarding it
-It is improving
#Dyshagia
Difficulty with swallowing- improved
He is on Doxycycline 100mg PO Q12- pill induced esophagitis?-- discontinued
Consult ENT, input appreciated
---recs increasing oral fluids, including ice water
---Start Maalox 30ml Q12h- helps coating his throat and esophagus. Allows any mucosal injuries to heal.
Benzocaine 20% [place]
Speech and swallow eval
Start Saline [place] for nasal irritation
Swallows pills- resolved
# Altered mental status unable to determine
- could be from toxic metabolic encephalopathy or hospital acquired delirium
- conversation with patient's on 03/08/2025, regarding GOC- patient's baseline is usually much better, he is very different from what he usually is at at home
- Patient was started on Ativan as needed for his agitation
- Ax3 normal mental status
#paroxysmal atrial fibrillation
- Increase Coumadin to 2 mg
- Follow daily INR
- continue Cardizem for rate control
#MDS
- consulted oncology, input appreciated
- Leukocytosis, patient would follow-up with outpatient setting
- immunology work-up
#Constipation
- continue bowel regimen
- Improved
#hypertension
- Holding Lasix, blood pressure has been stable
- Hydralazine as needed
#hypokalemia
- Replete K prn
#hyperlipidemia
#ASCVD
- continue atorvastatin
- myalgia secondary to statin?--Creatinine kinase- 130 N--resolved
#DM - II
- AccuCheck AC & HS
- Insulin aspart per protocol
- continue Insulin Glargine 10U SQ
#Pulmonary HTN
- Start Coumadin 2 mg
- daily INR
#BPH
- continue tamsulosin
#Pressure injury
- stage 1
- new heel foams applied bl
#Hyponatremia
- likely from hypervolemia
#PAD
DVT prophylaxis: Warfarin
Full code
Anticipated Discharge: 24 - 48 hours
Subjective/Interval History
-
Date of Service: March 16, 2025
He is sleeping and doesn't want to be bothered because he could not get enough sleep last night. He is irritated. He does not want to take his oral meds or insulin. He complaints about hearing loss since 4 am on his right ear. Denies ear pain. He
feels sick to his stomach. He vomited x? yesterday. He was able to have bm but denies urinating.
Objective Data
-
Labs:
Laboratory Results
03/16/25
08:33
WBC Pending
Hgb Pending
Hct Pending
Plt Count Pending
PT Pending
INR Pending
Sodium Pending
Potassium Pending
Chloride Pending
Carbon Dioxide Pending
BUN Pending
Creatinine Pending
Glucose Pending
Calcium Pending
Vital Signs:
Vital Signs
Temp Pulse Resp BP Pulse Ox
97.4 F 62 18 132/37 94
03/16/25 08:00 03/16/25 08:00 03/16/25 08:00 03/16/25 08:00 03/16/25 08:00
I&O
03/15/25 03/16/25 03/17/25
06:59 06:59 06:59
Intake Total 240 / 240 420 / 420
Output Total 150 / 150
Balance 240 / 240 270 / 270
Review of Systems
-
History Source: Patient
Constitutional: Reports No Appetite, Fatigue and Sleep Disturbance
EENT: Reports Hearing Loss (right ear)
Respiratory: Reports No Symptoms
Cardiac: Reports No Symptoms
Abdomen/GI: Reports Nausea and Vomiting
Breast: Reports No Symptoms
Genitourinary: Reports Difficulty Voiding
Musculoskeletal: Reports No Symptoms
Skin: Reports No Symptoms
Neuro: Reports No Symptoms
Endocrine: Reports No Symptoms
Physical Exam
-
General: Well Developed and Appears in Distress
HEENT: Normocephalic, Atraumatic and Hearing Impaired
Respiratory: Clear to Auscultation
Cardiac: Regular Rhythm and S1/S2
Breast: Deferred by me
GI: Soft, Nontender and Nondistended
Rectal: Deferred by Provider
Genito-urinary: Deferred by me
Musculoskeletal: No Clubbing, No Cyanosis and No Edema
Skin: Warm
Neuro: AO x 3, No Motor Deficits and No Sensory Deficits
Psych: Agitated
[2025-03-16 08:56] LABS: Hematocrit 23.9 % (39.0-52.0); Hemoglobin 8.5 g/dL (13.0-18.0); Mean Corp Hgb Conc. 35.6 g/dL (33.0-37.0); Mean Corpuscular Volume 97.6 fL (80.0-94.0); Platelet Count 369 10^3/uL (130-400); Red Cell Dist. Width 16.2 % (11.5-14.5)
[2025-03-16 08:59] LABS: INR 1.79; PT 21.0 Sec (11.4-14.6)
[2025-03-16 09:20] LABS: Blood Urea Nitrogen 20 mg/dl (9-20); Calcium 8.4 mg/dl (8.4-10.2); Carbon Dioxide 28 mmol/L (22-30); Chloride 96 mmol/L (98-107); Estimated Creatinine Clearance 26 ml/min; Glucose 243 mg/dl (70-99); Potassium 4.3 mmol/L (3.5-5.1); Sodium 132 mmol/L (135-145); eGFR 36.89
[2025-03-16 09:23] LABS: Glucose - Point of Care 262 mg/dl (70-99)
[2025-03-16] MEDS: APRESOLINE PO ×2 (09:23→09:30)
[2025-03-16] MEDS: PREVACID PO (09:23)
[2025-03-16] MEDS: FLOMAX PO ×2 (09:23→10:00)
[2025-03-16] MEDS: THERAGRAN PO (09:23)
[2025-03-16] MEDS: PROSCAR PO (09:23)
[2025-03-16 09:24] VITALS: BP 150/52
[2025-03-16] MEDS: CARDIZEM CD PO (09:24)
[2025-03-16] MEDS: MAALOX PO ×2 (09:27→09:58)
[2025-03-16] MEDS: COLACE PO (09:27)
[2025-03-16] MEDS: MIRALAX PO (09:28)
[2025-03-16] MEDS: NOVOLOG FLEXPEN-LOW RESISTANCE SC (09:44)
[2025-03-16] MEDS: NOVOLOG FLEXPEN SC (09:44)
[2025-03-16] MEDS: OCEAN, SALINE MIST 2 SPRAYS NASAL (09:56)
--- NOTE | 2025-03-16 11:10 | W.PN.UPDATE ---
Update Note
Progress Note Update
INR 1.7
Make coumadin 2
Daily INR
Nephrology has some hope that he may be in renal recovery and may not require prolonged/long-term dialysis
Now with tunneled catheter
-Urinating same amout as previous
Dysphagia improving, enjoying food again
Right sided hearing difficulty, nasal saline ent consult.
Dispo planning
[2025-03-16 11:45] LABS: Glucose - Point of Care 225 mg/dl (70-99)
--- NOTE | 2025-03-16 13:01 | W.PN.NEPH.PH ---
Today's Communication / Plan
-
follow BMP
Assessment/Plan
-
Impression:
PNA
Suspected CHF decompensation
Valvular heart disease with history of mechanical aortic valve replacement
History of coronary artery disease with CABG
Hypertension
Anemia with history of MDS
Secondary pulmonary hypertension
Peripheral vascular disease
COPD
Acute kidney injury (4.2)
CKD stage III (1.4)
History of congestive heart Failure
Diabetes
Plan:
HD monday
has tunnelled HD CVC
OP HD arrangements for JULIAN/HD
I still think he will recover in the retirement
-
-
Date of Service: March 16, 2025
CC / HPI / ROS
-
Chief Complaint:
JULIAN with CKD
History of Present Illness:
tolerated HD yesterday, cr down to 1.8
BP stable
Hgb low stable
Review of Systems:
no CP/SOB at rest, on 1lit O2
some UOP, not measured
Labs
-
Labs:
WBC 18.2 10^3/uL (4.8-10.8) H 03/16/25 08:33
RBC 2.45 10^6/uL (4.70-6.10) L 03/16/25 08:33
Hgb 8.5 g/dL (13.0-18.0) L 03/16/25 08:33
Hct 23.9 % (39.0-52.0) L 03/16/25 08:33
Plt Count 369 10^3/uL (130-400) 03/16/25 08:33
Sodium 132 mmol/L (135-145) L 03/16/25 08:33
Potassium 4.3 mmol/L (3.5-5.1) 03/16/25 08:33
Chloride 96 mmol/L (98-107) L 03/16/25 08:33
Carbon Dioxide 28 mmol/L (22-30) 03/16/25 08:33
BUN 20 mg/dl (9-20) 03/16/25 08:33
Creatinine 1.8 mg/dL (0.7-1.3) H 03/16/25 08:33
eGFR 36.89 03/16/25 08:33
Glucose 243 mg/dl (70-99) H 03/16/25 08:33
Calcium 8.4 mg/dl (8.4-10.2) 03/16/25 08:33
Phosphorus 4.6 mg/dl (2.5-4.5) H 03/09/25 04:25
Fsy-A-Nimyqlbytfu Pept 2580 pg/ml 03/04/25 12:19
Albumin 3.6 g/dl (3.5-5.0) 03/10/25 07:28
Physical Exam
-
Vital Signs:
Vital Signs
Temp Pulse Resp BP Pulse Ox
97.4 F 65 18 150/52 94
03/16/25 08:00 03/16/25 09:24 03/16/25 08:00 03/16/25 09:24 03/16/25 08:00
Cardiovascular:: Regular rate and rhythm
Respiratory:: Bilateral: Coarse
Lung Excursion:: Normal
Abdomen:: Nontender and Soft
Bowel Sounds:: Normal
Extremity Edema:: None: Bilateral:
--- NOTE | 2025-03-16 13:25 | CON.MD ---
Consultation - Medical
-
Chief complaint: Right hearing loss
History of present illness: This is a 84-year-old gentleman, with a history of hypertension, hypercholesterolemia and chronic kidney disease who is receiving hemodialysis, noted right hearing loss at 4:00 this morning. He does not have ear pain or
any vertigo. He is otherwise feeling good. He has not had any drainage from his ears. He has not had problems in the past. He has a history of severe persistent asthma and COPD. I was asked to see the patient regarding his hearing loss on the
right side.
Past medical history:
Medical problems: Pneumonia, enterocolitis due to C. difficile, permanent atrial fibrillation, acute kidney injury, chronic kidney disease, hypertensive heart and chronic kidney disease with heart failure, persistent severe asthma, COPD, chronic
anemia, nonischemic myocardial injury, acute on chronic diastolic congestive heart failure, pulmonary hypertension, nail-patella syndrome, hypertension, coronary artery disease, diabetes mellitus, hyperlipidemia, prostate hypertrophy,
Home medications: 8 atorvastatin 80 mg p.o. every afternoon, cholecalciferol 1000 units p.o. every afternoon, diltiazem hydrochloride 240 mg p.o. daily, Fasenra 30 mg subcu every 8 weeks, finasteride 5 mg p.o. daily, Trelegy Ellipta 1 inhalation
daily, Lasix 80 mg p.o. daily, Lasix 20 mg p.o. Monday, glucosamine/chondroitin, Dralzine 25 mg p.o. twice daily, insulin glargine 0 to 11 units SQ nightly, Jantoven 3 mg p.o. every afternoon, latanoprost 0.005 right eye every
afternoon, leave albuterol tartrate 2 puffs every 6 hours as needed, montelukast 10 mg p.o. every afternoon, multivitamin once a day, omeprazole 40 mg a day, Januvia 25 mg p.o. daily, tamsulosin 0.4 mg p.o. twice daily
Allergies: Gabapentin, iodinated contrast, mold, oxycodone, pantoprazole, penicillins
Hospitalizations: The patient is currently hospitalized with kidney failure
Family history: As stated is noncontributory for current problem
Review of systems: Right hearing loss, left ear okay, denies ear pain, denies vertigo, denies sore throat, denies runny nose,
Physical examination:
Head: Atraumatic and normocephalic
Eyes: Extraocular movements are intact and pupils are equal and reactive to light
Ears: Right ear shows what appears to be serous otitis media without any evidence of infection. Left ear shows cerumen impaction and the eardrum cannot be visualized: This patient is an 84-year-old gentleman with a history of.
Nose: Normal to examination:
Mouth: Normal mucosa
Salivary glands: Normal to examination
Thyroid gland: Normal to examination
Cranial nerves: 2 through 12 are intact
Voice: Normal tone and volume
Impression/plan: This 84-year-old gentleman has a history of chronic kidney disease and is undergoing hemodialysis. He experienced hearing loss in the right ear about 4:00 this morning. The patient appears to have serous otitis media. I will
place him on Flonase 2 sprays each nostril every day. We should see the patient back in a couple of weeks to check his hearing and to remove wax from the left ear. He can follow-up in the office.
Consultation
-
Date/Time Consultation Requested: 03/16/2025
Date/Time Consultation Performed: 03/16/2025
Requesting Provider: Hospital
Performing Provider: Vanesa
Reason for Consultation: right hearing loss
[2025-03-16] MEDS: NOVOLOG FLEXPEN-LOW RESISTANCE 2 UNITS SC (14:24)
[2025-03-16] MEDS: NOVOLOG FLEXPEN 3 UNITS SC ×2 (14:24→17:51)
--- NOTE | 2025-03-16 14:56 | CM ---
Addendum entered by Cornelia Faust 03/16/25 15:41:
Referral made to [facility]
Plan: Home with outpatient dialysis and [facility]
Original Note:
Met with and pt to discuss SNF. Pt and do not want SNF, they have asked for HH. stated they had [facility] in the past and were very happy with the care provided. CM offered choices. Will put in referral for [facility].
Pt and aware that outpatient dialysis needs to be set up. provided information about preferred clinic. said she will be responsible for transportation to and from dialysis
[facility]
[address], [address]
[place] [address]

[facility]
Phone- [phone]

Plan: Home with [facility]
[2025-03-16] MEDS: PROSCAR 5 MG PO (15:28)
[2025-03-16] MEDS: THERAGRAN 1 TABLET PO (15:28)
[2025-03-16] MEDS: CARDIZEM CD 240 MG PO (15:28)
[2025-03-16] MEDS: PREVACID 30 MG PO (15:28)
[2025-03-16] MEDS: FLAGYL 500 MG PO ×2 (15:28→23:30)
[2025-03-16 16:00] VITALS: BP 141/57
[2025-03-16 17:20] LABS: Glucose - Point of Care 296 mg/dl (70-99)
[2025-03-16] MEDS: LIPITOR 80 MG PO (17:52)
[2025-03-16] MEDS: NOVOLOG FLEXPEN-LOW RESISTANCE 3 UNITS SC (17:52)
[2025-03-16] MEDS: COUMADIN 2 MG PO (17:52)
[2025-03-16] MEDS: SINGULAIR 10 MG PO (17:52)
[2025-03-16] MEDS: SYMBICORT 80/4.5 MCG INHALER 2 PUFF INH (19:09)
[2025-03-16] MEDS: COLACE 100 MG PO (20:07)
[2025-03-16] MEDS: TYLENOL 650 MG PO (20:07)
[2025-03-16] MEDS: FLOMAX 0.4 MG PO (20:07)
[2025-03-16] MEDS: APRESOLINE 25 MG PO (20:07)
[2025-03-16] MEDS: MAALOX 30 ML PO (20:08)
[2025-03-16 21:54] LABS: Glucose - Point of Care 289 mg/dl (70-99)
[2025-03-16] MEDS: LANTUS 0.08 UNITS SC (22:05)
[2025-03-16] MEDS: LIDOCAINE 4% PATCH TOPICAL ×2 (22:05→22:07)
[2025-03-16 23:39] VITALS: BP 133/59
[2025-03-17] MEDS: ZOFRAN 4 MG IV (05:44)
[2025-03-17 06:00] VITALS: BMI 25.8
[2025-03-17] MEDS: SYMBICORT 80/4.5 MCG INHALER 2 PUFF INH ×2 (07:06→19:04)
[2025-03-17] MEDS: SPIRIVA RESPIMAT 2.5 MCG 2 PUFF INH (07:06)
[2025-03-17 07:14] VITALS: BP 145/66
[2025-03-17 08:20] LABS: Glucose - Point of Care 206 mg/dl (70-99)
[2025-03-17 08:26] LABS: Hematocrit 24.6 % (39.0-52.0); Hemoglobin 8.4 g/dL (13.0-18.0); Mean Corp Hgb Conc. 34.1 g/dL (33.0-37.0); Mean Corpuscular Volume 97.2 fL (80.0-94.0); Platelet Count 402 10^3/uL (130-400); Red Cell Dist. Width 16.8 % (11.5-14.5)
[2025-03-17 08:36] LABS: INR 2.01; PT 22.9 Sec (11.4-14.6)
[2025-03-17] MEDS: NOVOLOG FLEXPEN 3 UNITS SC (08:37)
[2025-03-17] MEDS: NOVOLOG FLEXPEN-LOW RESISTANCE 2 UNITS SC ×2 (08:37→12:30)
[2025-03-17] MEDS: PREVACID 30 MG PO (08:40)
[2025-03-17] MEDS: PROSCAR 5 MG PO (08:40)
[2025-03-17] MEDS: APRESOLINE 25 MG PO ×2 (08:40→20:21)
[2025-03-17] MEDS: FLOMAX 0.4 MG PO ×2 (08:40→20:19)
[2025-03-17] MEDS: THERAGRAN 1 TABLET PO (08:40)
[2025-03-17] MEDS: COLACE 100 MG PO ×2 (08:40→20:19)
[2025-03-17] MEDS: FLAGYL 500 MG PO ×2 (08:41→17:27)
[2025-03-17] MEDS: CARDIZEM CD 240 MG PO (08:41)
[2025-03-17] MEDS: MAALOX 30 ML PO ×2 (08:42→20:23)
[2025-03-17] MEDS: MIRALAX 17 GRAMS PO (08:42)
[2025-03-17 08:50] VITALS: BP 155/65; PULSE 66; O2SAT 92
[2025-03-17 08:53] VITALS: O2SAT 91
[2025-03-17 09:02] LABS: Blood Urea Nitrogen 26 mg/dl (9-20); Calcium 8.5 mg/dl (8.4-10.2); Carbon Dioxide 30 mmol/L (22-30); Chloride 97 mmol/L (98-107); Estimated Creatinine Clearance 26 ml/min; Glucose 189 mg/dl (70-99); Potassium 4.3 mmol/L (3.5-5.1); Sodium 131 mmol/L (135-145); eGFR 36.89
--- NOTE | 2025-03-17 10:07 | W.PN.HOSP.TC ---
Addendum entered and electronically signed by Tomas Hussein, 03/17/25 13:52:
IDDM 2 with hyperglycemia. Will increase Lantus to 10 units nightly and increase aspart to 5 units with meals in addition to ISS. Continue to monitor Accu-Cheks and uptitrate his insulin as needed
Original Note:
Today's Communication/Plan
-
Increase Insulin Aspart to 5U AC
Increase Lantus to 10 U HS
Monitor glucose levels
manager mass looking for HD outpatient center-- potential discharge
Assessment / Plan
Assessment / Plan
Assessment:
84-year-old male with a past medical history of paroxysmal A-fib, hypertension, hyperlipidemia, ASCVD, chronic kidney disease 3, HFpEF, BPH, MDS, peripheral artery disease and diabetes mellitus type 2 came to the ED due to evaluation of general
myalgias. He was found to have possible pneumonia versus mass seen on chest x-ray and CT scan. His breathing worsened, and was found to be volume overloaded and started on diuretic therapy. However he developed worsening kidney function possibly
due to contrast nephropathy. Underwent 4 hemodialysis , and plan for further hemodialysis today to improve his kidney function for possible right heart cath in the future.
Plan:
# Multifocal pneumonia
- Leukocytosis, chest x-ray showed consolidation, evidence of possible pneumonia versus mass
- CXR: Focal opacity in the posterior aspect of the right upper midlung. Cardiomegaly. Diffusely increased reticulonodular markings. Correlating with prior examinations, this could represent chronic changes of congestive heart failure.
- Chest CT w/o contrast: The right upper lobe airspace opacity is favored to represent lobar pneumonia. Imaging follow-up to resolution is recommended after treatment as an underlying pulmonary neoplasm would be difficult to completely exclude.
- Blood cx have showed no growth
- Discontinue Cefepime/ doxycycline
- For possible aspiration Pneumonia- start Cefdinir 300mg QD for 5days + Metronidazole 500mg PO Q8h for 7days
- Wean off from Oxygen support-- comfortable on room air
- Trend CBC and temperature curve
#JULIAN on chronic kidney disease III
- monitor BMP
- Suspect it might be due to contrast mediated nephropathy from CT scan of abdomen and pelvis with IV contrast from 03/04/2025
- nephrology on board, input appreciated
- Patient underwent #D3 HD on monday and will have another HD today
- Creatinine trending
- Right heart cath once kidneys are stable
- Follow UOP
- INR 2.01 -INR goal 2-3
- IR placed tunnelled CVC 03/14/2025
- Continue receiving HD
- CM- figuring out outpatient HD center - potential discharge
# Acute hypoxemic respiratory failure due to decompensated HFpEF, type III cardiorenal state
- pBNP- 2580
- daily weights
- I/Os
- Consult Cardiology, input appreciated
- No RHC until he can lay flat
- Undergoing hemodialysis
- Primary blocker metal base eval for- potential cardiac Amyloid? - immunology work-up pending
#Hearing loss on right ear
-Sudden hearing difficulty started at 4 am, no pain
-Consult ENT, input appreciated
--serous otitis media-- Flonase spray was recommended but we dont have it at the hospital
#Abdominal Pain
-Pain with deep pressure on RLQ
-Does not want any work up regarding it
-He is not complaining about it anymore- improved
#Dyshagia
Difficulty with swallowing- improved
He is on Doxycycline 100mg PO Q12- pill induced esophagitis?-- discontinued
Consult ENT, input appreciated
---recs increasing oral fluids, including ice water
---Start Maalox 30ml Q12h- helps coating his throat and esophagus. Allows any mucosal injuries to heal.
Benzocaine 20% [place]
Speech and swallow eval
Start Saline [place] for nasal irritation
Swallows pills- resolved
# Altered mental status unable to determine
- could be from toxic metabolic encephalopathy or hospital acquired delirium
- conversation with patient's on 03/08/2025, regarding C- patient's baseline is usually much better, he is very different from what he usually is at at home
- Patient was started on Ativan as needed for his agitation
- Ax3 normal mental status
#paroxysmal atrial fibrillation
- Increase Coumadin to 2 mg
- Follow daily INR
- continue Cardizem for rate control
#MDS
- consulted oncology, input appreciated
- Leukocytosis, patient would follow-up with outpatient setting
- immunology work-up
#Constipation
- continue bowel regimen
- Improved
#hypertension
- Holding Lasix, blood pressure has been stable
- Hydralazine as needed
#hypokalemia
- Replete K prn
#hyperlipidemia
#ASCVD
- continue atorvastatin
- myalgia secondary to statin?--Creatinine kinase- 130 N--resolved
#DM - II
- AccuCheck AC & HS
- Insulin aspart per protocol
- Insulin aspart 5 U AC
- continue Insulin Glargine 10U SQ
#Pulmonary HTN
- Continue Coumadin 2 mg
- daily INR
#BPH
- continue tamsulosin
#Pressure injury
- stage 1
- new heel foams applied bl
#Hyponatremia
- likely from hypervolemia
#PAD
DVT prophylaxis: Warfarin
Full code
Anticipated Discharge: 24 - 48 hours
Subjective/Interval History
-
Date of Service: March 17, 2025
He has nausea since yesterday denies vomiting. He did not have bowel movements. He feels tired from being waken up every night. He still can not hear from his left side of ear. He denies ear pain. He was able to urinate some.
Objective Data
-
Labs:
Laboratory Results
03/17/25
08:03
WBC 12.0 H
Hgb 8.4 L
Hct 24.6 L
Plt Count 402 H
PT 22.9 H
INR 2.01
Sodium 131 L
Potassium 4.3
Chloride 97 L
Carbon Dioxide 30
BUN 26 H
Creatinine 1.8 H
Glucose 189 H
Calcium 8.5
Vital Signs:
Vital Signs
Temp Pulse Resp BP Pulse Ox
97.7 F 62 18 145/66 94
03/17/25 07:14 03/17/25 08:40 03/17/25 07:14 03/17/25 08:40 03/17/25 07:14
I&O
03/16/25 03/17/25 03/18/25
06:59 06:59 06:59
Intake Total 420 / 420 840 / 840
Output Total 150 / 150 625 / 625
Balance 270 / 270 215 / 215
Review of Systems
-
History Source: Patient
Constitutional: Reports No Appetite, Fatigue and Sleep Disturbance
EENT: Reports Hearing Loss (right ear)
Respiratory: Reports No Symptoms
Cardiac: Reports No Symptoms
Abdomen/GI: Reports Nausea and Vomiting
Breast: Reports No Symptoms
Genitourinary: Reports Difficulty Voiding
Musculoskeletal: Reports No Symptoms
Skin: Reports No Symptoms
Neuro: Reports No Symptoms
Endocrine: Reports No Symptoms
Physical Exam
-
General: Well Developed and Appears in Distress
HEENT: Normocephalic, Atraumatic and Hearing Impaired
Respiratory: Clear to Auscultation
Cardiac: Regular Rhythm and S1/S2
Breast: Deferred by me
GI: Soft, Nontender and Nondistended
Rectal: Deferred by Provider
Genito-urinary: Deferred by me
Musculoskeletal: No Clubbing, No Cyanosis and No Edema
Skin: Warm
Neuro: AO x 3, No Motor Deficits and No Sensory Deficits
Psych: Agitated
--- NOTE | 2025-03-17 10:28 | CM ---
Addendum entered by Cris Mercado 03/17/25 15:18:
CM called to patient and updated her about chair at [facility]. Patient requested physician call her to confirm plan. CM sent TT to physician asking for him to call patient .
Addendum entered by Cris Mercado 03/17/25 12:07:
Lyn from [facility] called back asking for the information on the Hep b panel and CM faxed requested information to [phone]. Per Lyn patient tentatively scheduled for afternoon M/W/F 3:40pm and Lyn will call back to confirm as well as
send the confirmation letter when clinic confirms acceptance.
Original Note:
CM called to [facility] and spoke with intake await call back from Dino Yanez who is assigned to case. CM will continue to follow for discharge planning needs.
Plan; outpatient community HD with [facility] to follow
--- NOTE | 2025-03-17 10:59 | VNURNOTE ---
Home Health Liaison met with patient at bedside to discuss [facility] nurse/therapy, visits, schedule and homebound status. Patient is agreeable and understands that visits at home will be 2-3 x per week to assess and teach medical management.
Patient is aware that [facility] will contact them for start of care in 1-2 days after discharge from .
[facility] referral completed in [facility].
[2025-03-17 12:19] LABS: Glucose - Point of Care 211 mg/dl (70-99)
[2025-03-17] MEDS: NOVOLOG FLEXPEN 5 UNITS SC ×2 (12:31→17:28)
--- NOTE | 2025-03-17 12:50 | W.PN.NEPH.PH ---
Today's Communication / Plan
-
Dialysis tomorrow as patient may be in recovery
Assessment/Plan
-
Impression:
PNA
Suspected CHF decompensation
Valvular heart disease with history of mechanical aortic valve replacement
History of coronary artery disease with CABG
Hypertension
Anemia with history of MDS
Secondary pulmonary hypertension
Peripheral vascular disease
COPD
Acute kidney injury (4.2)
CKD stage III (1.4)
History of congestive heart Failure
Diabetes
Plan:
TTS
has tunnelled HD CVC
OP HD arrangements for JULIAN/HD
May be recovering from a clearance standpoint but appears to be oliguric though that may be improving as well =continue to monitor
Creatinine 1.8 which appears to be where he was dating back to 2022
May be able to discharge off dialysis
I will hold dialysis tomorrow and reassess
-
-
Date of Service: March 17, 2025
CC / HPI / ROS
-
Chief Complaint:
JULIAN with CKD
History of Present Illness:
tolerated HD yesterday, cr down to 1.8
BP stable
Hgb low stable
Review of Systems:
no CP/SOB at rest,
Urine output 625 today
Labs
-
Labs:
WBC 12.0 10^3/uL (4.8-10.8) H 03/17/25 08:03
RBC 2.53 10^6/uL (4.70-6.10) L 03/17/25 08:03
Hgb 8.4 g/dL (13.0-18.0) L 03/17/25 08:03
Hct 24.6 % (39.0-52.0) L 03/17/25 08:03
Plt Count 402 10^3/uL (130-400) H 03/17/25 08:03
Sodium 131 mmol/L (135-145) L 03/17/25 08:03
Potassium 4.3 mmol/L (3.5-5.1) 03/17/25 08:03
Chloride 97 mmol/L (98-107) L 03/17/25 08:03
Carbon Dioxide 30 mmol/L (22-30) 03/17/25 08:03
BUN 26 mg/dl (9-20) H 03/17/25 08:03
Creatinine 1.8 mg/dL (0.7-1.3) H 03/17/25 08:03
eGFR 36.89 03/17/25 08:03
Glucose 189 mg/dl (70-99) H 03/17/25 08:03
Calcium 8.5 mg/dl (8.4-10.2) 03/17/25 08:03
Phosphorus 4.6 mg/dl (2.5-4.5) H 03/09/25 04:25
Ryo-Z-Wtkjdahwngj Pept 2580 pg/ml 03/04/25 12:19
Albumin 3.6 g/dl (3.5-5.0) 03/10/25 07:28
Physical Exam
-
Vital Signs:
Vital Signs
Temp Pulse Resp BP Pulse Ox
97.7 F 62 18 145/66 94
03/17/25 07:14 03/17/25 08:40 03/17/25 07:14 03/17/25 08:40 03/17/25 08:25
Cardiovascular:: Regular rate and rhythm
Respiratory:: Bilateral: Coarse
Lung Excursion:: Normal
Abdomen:: Nontender and Soft
Bowel Sounds:: Normal
Extremity Edema:: None: Bilateral:
[2025-03-17 15:08] VITALS: BP 118/57
[2025-03-17 16:56] LABS: Glucose - Point of Care 157 mg/dl (70-99)
[2025-03-17] MEDS: NOVOLOG FLEXPEN-LOW RESISTANCE 1 UNITS SC (17:28)
[2025-03-17] MEDS: LIPITOR 80 MG PO (17:29)
[2025-03-17] MEDS: SINGULAIR 10 MG PO (17:29)
[2025-03-17] MEDS: COUMADIN 2 MG PO (17:29)
[2025-03-17] MEDS: LIDOCAINE 4% PATCH TOPICAL (20:21)
[2025-03-17] MEDS: TYLENOL 650 MG PO (20:21)
[2025-03-17 21:19] LABS: Glucose - Point of Care 159 mg/dl (70-99)
[2025-03-17] MEDS: ATIVAN 0.5 MG PO (21:28)
[2025-03-17] MEDS: LANTUS 0.1 UNITS SC (21:28)
[2025-03-17 23:19] VITALS: BP 127/57
[2025-03-18] MEDS: FLAGYL 500 MG PO ×2 (00:31→09:15)
[2025-03-18 06:00] VITALS: BMI 26.1
[2025-03-18 07:22] LABS: Glucose - Point of Care 189 mg/dl (70-99)
[2025-03-18 07:35] LABS: Hematocrit 24.2 % (39.0-52.0); Hemoglobin 8.1 g/dL (13.0-18.0); Mean Corp Hgb Conc. 33.5 g/dL (33.0-37.0); Mean Corpuscular Volume 97.6 fL (80.0-94.0); Platelet Count 415 10^3/uL (130-400); Red Cell Dist. Width 16.7 % (11.5-14.5)
[2025-03-18] MEDS: SPIRIVA RESPIMAT 2.5 MCG 2 PUFF INH (07:53)
[2025-03-18] MEDS: SYMBICORT 80/4.5 MCG INHALER 2 PUFF INH ×2 (07:53→19:37)
[2025-03-18 07:55] VITALS: BP 158/68
[2025-03-18 07:57] LABS: ALT (SGPT) 33 U/L (0-50); AST (SGOT) 48 U/L (17-59); Albumin 3.2 g/dl (3.5-5.0); Alkaline Phosphatase 73 U/L (38-126); Blood Urea Nitrogen 30 mg/dl (9-20); Calcium 8.2 mg/dl (8.4-10.2); Carbon Dioxide 27 mmol/L (22-30); Chloride 99 mmol/L (98-107); Estimated Creatinine Clearance 25 ml/min; Glucose 162 mg/dl (70-99); Potassium 4.4 mmol/L (3.5-5.1); Sodium 131 mmol/L (135-145); Total Protein 5.9 g/dl (6.3-8.2); eGFR 34.57
[2025-03-18 08:04] LABS: INR 2.54; PT 27.3 Sec (11.4-14.6)
--- NOTE | 2025-03-18 08:10 | W.PN.HOSP.TC ---
Today's Communication/Plan
-
Follow nephro recs
If no HD needed then reach out to IR regarding his tunneled catheter removal
Check INR daily
Assessment / Plan
Assessment / Plan
Assessment:
84-year-old male with a past medical history of paroxysmal A-fib, hypertension, hyperlipidemia, ASCVD, chronic kidney disease 3, HFpEF, BPH, MDS, peripheral artery disease and diabetes mellitus type 2 came to the ED due to evaluation of general
myalgias. He was found to have possible pneumonia versus mass seen on chest x-ray and CT scan. His breathing worsened, and was found to be volume overloaded and started on diuretic therapy. However he developed worsening kidney function possibly
due to contrast nephropathy. Underwent 4 hemodialysis , and plan for further hemodialysis today to improve his kidney function for possible right heart cath in the future.
Plan:
# Multifocal pneumonia
- Leukocytosis, chest x-ray showed consolidation, evidence of possible pneumonia versus mass
- CXR: Focal opacity in the posterior aspect of the right upper midlung. Cardiomegaly. Diffusely increased reticulonodular markings. Correlating with prior examinations, this could represent chronic changes of congestive heart failure.
- Chest CT w/o contrast: The right upper lobe airspace opacity is favored to represent lobar pneumonia. Imaging follow-up to resolution is recommended after treatment as an underlying pulmonary neoplasm would be difficult to completely exclude.
- Blood cx have showed no growth
- Discontinue Cefepime/ doxycycline
- For possible aspiration Pneumonia- start Cefdinir 300mg QD for 5days + Metronidazole 500mg PO Q8h for 7days -- completed course
- Wean off from Oxygen support-- comfortable on room air
- Trend CBC and temperature curve-- no fever, normal wbc
- Resolved
#JULIAN on chronic kidney disease III
- monitor BMP
- Suspect it might be due to contrast mediated nephropathy from CT scan of abdomen and pelvis with IV contrast from 03/04/2025
- nephrology on board, input appreciated
- Creatinine trending
- Right heart cath once kidneys are stable
- Follow UOP
- INR 2.54 -INR goal 2-3
- IR placed tunnelled CVC 03/14/2025
- Total #4 HD. He did not undergo HD yesterday for possible recovery?
- Follow nephro recs regarding HD today-- If no HD then will f/u with IR regarding catheter removal
# Acute hypoxemic respiratory failure due to decompensated HFpEF, type III cardiorenal state
- pBNP- 2580
- daily weights
- I/Os
- Consult Cardiology, input appreciated
- No RHC until he can lay flat
- Undergoing hemodialysis
- Primary supervisor wool shearing eval for- potential cardiac Amyloid?
#Hearing loss on right ear
-Sudden hearing difficulty started at 4 am, no pain
-Consult ENT, input appreciated
--serous otitis media-- Flonase spray was recommended but we dont have it at the hospital- has it at home will give him.
-Continue having hearing difficulty
#Abdominal Pain
-Pain with deep pressure on RLQ
-Does not want any work up regarding it
-He is not complaining about it anymore- improved
#Dyshagia
Difficulty with swallowing- improved
He is on Doxycycline 100mg PO Q12- pill induced esophagitis?-- discontinued
Consult ENT, input appreciated
---recs increasing oral fluids, including ice water
---Start Maalox 30ml Q12h- helps coating his throat and esophagus. Allows any mucosal injuries to heal.
Benzocaine 20% [place]
Speech and swallow eval
Start Saline [place] for nasal irritation
Swallows pills- resolved
# Altered mental status unable to determine
- could be from toxic metabolic encephalopathy or hospital acquired delirium
- conversation with patient's on 03/08/2025, regarding GOC- patient's baseline is usually much better, he is very different from what he usually is at at home
- Patient was started on Ativan as needed for his agitation
- Ax3 normal mental status
#paroxysmal atrial fibrillation
- Increase Coumadin to 2 mg
- Follow daily INR
- continue Cardizem for rate control
#MDS
- consulted oncology, input appreciated
- Leukocytosis, patient would follow-up with outpatient setting
- immunology work-up
#Constipation
- continue bowel regimen
- Improved
#hypertension
- Holding Lasix, blood pressure has been stable
- Hydralazine as needed
#hypokalemia
- Replete K prn
#hyperlipidemia
#ASCVD
- continue atorvastatin
- myalgia secondary to statin?--Creatinine kinase- 130 N--resolved
#DM - II
- AccuCheck AC & HS
- Insulin aspart per protocol
- Insulin aspart 5 U AC
- continue Insulin Glargine 10U SQ
#Pulmonary HTN
- Continue Coumadin 2 mg
- daily INR
#BPH
- continue tamsulosin
#Pressure injury
- stage 1
- new heel foams applied bl
#Hyponatremia
- likely from hypervolemia
#PAD
DVT prophylaxis: Warfarin
Full code
Anticipated Discharge: 24 - 48 hours
Subjective/Interval History
-
Date of Service: March 18, 2025
He is eating his breakfast. He does not have nausea anymore. He had 2 bm yesterday. He was able to urinate today without having any difficulty. He still complains about hearing difficulty on his right ear. He denies SOB, abdominal pain.
Objective Data
-
Labs:
Laboratory Results
03/18/25
07:01
WBC 9.3
Hgb 8.1 L
Hct 24.2 L
Plt Count 415 H
PT 27.3 H
INR 2.54
Sodium 131 L
Potassium 4.4
Chloride 99
Carbon Dioxide 27
BUN 30 H
Creatinine 1.9 H
Glucose 162 H
Calcium 8.2 L
Total Bilirubin 0.7
AST 48
ALT 33
Alkaline Phosphatase 73
Vital Signs:
Vital Signs
Temp Pulse Resp BP Pulse Ox
98.3 F 60 16 127/57 97
03/17/25 23:19 03/18/25 07:56 03/18/25 07:56 03/17/25 23:19 03/18/25 07:56
I&O
03/17/25 03/18/25 03/19/25
06:59 06:59 06:59
Intake Total 840 / 840 960 / 960
Output Total 625 / 625 600 / 600
Balance 215 / 215 360 / 360
Review of Systems
-
History Source: Patient
Constitutional: Reports No Symptoms
EENT: Reports Hearing Loss (right ear)
Respiratory: Reports No Symptoms
Cardiac: Reports No Symptoms
Abdomen/GI: Reports No Symptoms
Breast: Reports No Symptoms
Genitourinary: Reports No Symptoms
Musculoskeletal: Reports No Symptoms
Skin: Reports No Symptoms
Neuro: Reports No Symptoms
Endocrine: Reports No Symptoms
Physical Exam
-
General: Well Developed, Well Nourished, No Apparent Distress and Comfortable
HEENT: Normocephalic, Atraumatic and Hearing Impaired
Respiratory: Clear to Auscultation
Cardiac: Regular Rhythm and S1/S2
Breast: Deferred by me
GI: Soft, Nontender and Nondistended
Rectal: Deferred by Provider
Genito-urinary: Deferred by me
Musculoskeletal: No Clubbing, No Cyanosis and No Edema
Skin: Warm
Neuro: AO x 3, No Motor Deficits and No Sensory Deficits
Psych: Calm
[2025-03-18] MEDS: NOVOLOG FLEXPEN 5 UNITS SC ×3 (09:11→17:47)
[2025-03-18] MEDS: NOVOLOG FLEXPEN-LOW RESISTANCE 1 UNITS SC (09:12)
[2025-03-18] MEDS: PREVACID 30 MG PO (09:13)
[2025-03-18] MEDS: COLACE 100 MG PO ×2 (09:13→20:17)
[2025-03-18] MEDS: FLOMAX 0.4 MG PO ×2 (09:13→20:17)
[2025-03-18] MEDS: THERAGRAN 1 TABLET PO (09:14)
[2025-03-18] MEDS: APRESOLINE 25 MG PO ×2 (09:14→20:17)
[2025-03-18] MEDS: PROSCAR 5 MG PO (09:14)
[2025-03-18] MEDS: MAALOX 30 ML PO ×2 (09:15→20:17)
[2025-03-18] MEDS: CARDIZEM CD 240 MG PO (09:15)
[2025-03-18] MEDS: MIRALAX 17 GRAMS PO (09:15)
[2025-03-18 12:29] LABS: Glucose - Point of Care 265 mg/dl (70-99)
[2025-03-18 12:44] VITALS: BP 141/63
--- NOTE | 2025-03-18 12:47 | CM ---
Chart reviewed and outpatient case manager met with patient this am, patient is anxious to return to home and not have to continue with HD, referral sent to [facility] in [place], patient is not agreeable to skilled placement, patient also does not want
visiting nurses, will follow with patient progress.
Plan; Home with spouse will await final decision on HD.
[2025-03-18] MEDS: NOVOLOG FLEXPEN-LOW RESISTANCE 3 UNITS SC (12:55)
--- NOTE | 2025-03-18 14:29 | VNURNOTE ---
Chart reviewed. Per CM, pt now refusing VN. He had agreed yesterday. Liaison called spouse, she is familiar w/our services. She strongly feels that he would benefit from VN services once DC'ed- whether on HD or not. She plans on talking to him
today about it.
As of now, will leave referral in, accepted in [facility]. Liaison will follow up tomorrow.
--- NOTE | 2025-03-18 14:53 | W.PN.NEPH.PH ---
Today's Communication / Plan
-
Continue holding dialysis
Assessment/Plan
-
Impression:
PNA
Suspected CHF decompensation
Valvular heart disease with history of mechanical aortic valve replacement
History of coronary artery disease with CABG
Hypertension
Anemia with history of MDS
Secondary pulmonary hypertension
Peripheral vascular disease
COPD
Acute kidney injury (4.2)
CKD stage III (1.4)
History of congestive heart Failure
Diabetes
Plan:
New HD start currently on TTS schedule
has tunnelled HD CVC
OP HD arrangements for JULIAN/HD
May be recovering from a clearance standpoint but appears to be oliguric though that may be improving as well =continue to monitor
Creatinine 1.9 which appears to be where he was dating back to 2022
Per records he is oliguric/weights are stable/does not examine volume overload
May be able to discharge off dialysis
Today no acute need for dialysis from a volume electrolyte or uremic standpoint
Will monitor another 24 to 48 hours if deemed no need for dialysis Monday or then we will remove the permacath
Last dialysis treatment was Thursday 03/15
-
-
Date of Service: March 18, 2025
CC / HPI / ROS
-
Chief Complaint:
JULIAN with CKD
History of Present Illness:
tolerated HD yesterday, cr down to 1.8
BP stable
Hgb low stable
Review of Systems:
no CP/SOB at rest,
Urine output 625 recorded over 24 hours
Labs
-
Labs:
WBC 9.3 10^3/uL (4.8-10.8) 03/18/25 07:01
RBC 2.48 10^6/uL (4.70-6.10) L 03/18/25 07:01
Hgb 8.1 g/dL (13.0-18.0) L 03/18/25 07:01
Hct 24.2 % (39.0-52.0) L 03/18/25 07:01
Plt Count 415 10^3/uL (130-400) H 03/18/25 07:01
Sodium 131 mmol/L (135-145) L 03/18/25 07:01
Potassium 4.4 mmol/L (3.5-5.1) 03/18/25 07:01
Chloride 99 mmol/L (98-107) 03/18/25 07:01
Carbon Dioxide 27 mmol/L (22-30) 03/18/25 07:01
BUN 30 mg/dl (9-20) H 03/18/25 07:01
Creatinine 1.9 mg/dL (0.7-1.3) H 03/18/25 07:01
eGFR 34.57 03/18/25 07:01
Glucose 162 mg/dl (70-99) H 03/18/25 07:01
Calcium 8.2 mg/dl (8.4-10.2) L 03/18/25 07:01
Phosphorus 4.6 mg/dl (2.5-4.5) H 03/09/25 04:25
Elk-S-Cyqmebaqghs Pept 2580 pg/ml 03/04/25 12:19
Albumin 3.2 g/dl (3.5-5.0) L 03/18/25 07:01
Physical Exam
-
Vital Signs:
Vital Signs
Temp Pulse Resp BP Pulse Ox
98.6 F 60 18 141/63 96
03/18/25 12:44 03/18/25 12:44 03/18/25 12:44 03/18/25 12:44 03/18/25 12:44
Cardiovascular:: Regular rate and rhythm
Respiratory:: Bilateral: CTA
Lung Excursion:: Normal
Abdomen:: Nontender and Soft
Bowel Sounds:: Normal
Extremity Edema:: None: Bilateral:
[2025-03-18 15:01] VITALS: BP 117/60
[2025-03-18 17:15] LABS: Glucose - Point of Care 131 mg/dl (70-99)
[2025-03-18] MEDS: COUMADIN 2 MG PO (17:48)
[2025-03-18] MEDS: SINGULAIR 10 MG PO (17:48)
[2025-03-18] MEDS: NOVOLOG FLEXPEN-LOW RESISTANCE SC (17:48)
[2025-03-18] MEDS: LIPITOR 80 MG PO (17:48)
[2025-03-18] MEDS: ATIVAN 0.5 MG PO (20:16)
[2025-03-18] MEDS: TYLENOL 650 MG PO (20:16)
[2025-03-18 21:37] LABS: Glucose - Point of Care 189 mg/dl (70-99)
[2025-03-18] MEDS: LIDOCAINE 4% PATCH TOPICAL (21:43)
[2025-03-18] MEDS: LANTUS 0.1 UNITS SC (21:43)
[2025-03-18 23:42] VITALS: BP 167/66
--- NOTE | 2025-03-19 03:45 | DOWNTIME ---
There was a [employer] Client [employer] Officer Downtime on 03/19/2025 from 0100 to 03/19/2025 at 0215. Downtime documentation of patient's care, including medication administrations, has been reconciled in the electronic record per guidelines. Refer to the
patient's paper chart under the miscellaneous tab to see printed paper medication records and downtime forms.
[2025-03-19 03:50] VITALS: BP 147/70
[2025-03-19 06:00] VITALS: BMI 25.7
[2025-03-19 07:11] LABS: Glucose - Point of Care 137 mg/dl (70-99)
--- NOTE | 2025-03-19 07:20 | W.PN.HOSP.TC ---
Today's Communication/Plan
-
Follow stripper printed circuit boards recs
No need for HD today
Assessment / Plan
Assessment / Plan
Assessment:
84-year-old male with a past medical history of paroxysmal A-fib, hypertension, hyperlipidemia, ASCVD, chronic kidney disease 3, HFpEF, BPH, MDS, peripheral artery disease and diabetes mellitus type 2 came to the ED due to evaluation of general
myalgias. He was found to have possible pneumonia versus mass seen on chest x-ray and CT scan. His breathing worsened, and was found to be volume overloaded and started on diuretic therapy. However he developed worsening kidney function possibly
due to contrast nephropathy. Underwent 4 hemodialysis , and plan for further hemodialysis today to improve his kidney function for possible right heart cath in the future.
Plan:
# Multifocal pneumonia
- Leukocytosis, chest x-ray showed consolidation, evidence of possible pneumonia versus mass
- CXR: Focal opacity in the posterior aspect of the right upper midlung. Cardiomegaly. Diffusely increased reticulonodular markings. Correlating with prior examinations, this could represent chronic changes of congestive heart failure.
- Chest CT w/o contrast: The right upper lobe airspace opacity is favored to represent lobar pneumonia. Imaging follow-up to resolution is recommended after treatment as an underlying pulmonary neoplasm would be difficult to completely exclude.
- Blood cx have showed no growth
- Discontinue Cefepime/ doxycycline
- For possible aspiration Pneumonia- start Cefdinir 300mg QD for 5days + Metronidazole 500mg PO Q8h for 7days -- completed course
- Wean off from Oxygen support-- comfortable on room air
- Trend CBC and temperature curve-- no fever, normal wbc
- Resolved
#JULIAN on chronic kidney disease III
- monitor BMP
- Suspect it might be due to contrast mediated nephropathy from CT scan of abdomen and pelvis with IV contrast from 03/04/2025
- nephrology on board, input appreciated
- Creatinine trending
- Right heart cath once kidneys are stable
- Follow UOP
- INR 2.97 -INR goal 2-3
- IR placed tunnelled CVC 03/14/2025
- Total #4 HD. He did not undergo HD yesterday for possible recovery?
- Holding HD - no acute need for dialysis from a volume electrolyte or uremic standpoint
- Monitor 1-2 days If no HD then will f/u with IR regarding permanent catheter removal
# Acute hypoxemic respiratory failure due to decompensated HFpEF, type III cardiorenal state
- pBNP- 2580
- daily weights
- I/Os
- Consult Cardiology, input appreciated
- No RHC until he can lay flat
- Undergoing hemodialysis
- Primary street car mechanic eval for- potential cardiac Amyloid?
#Hearing loss on right ear
-Sudden hearing difficulty started at 4 am, no pain
-Consult ENT, input appreciated
--serous otitis media-- Flonase spray was recommended but we dont have it at the hospital- has it at home will give him.
-Continue having hearing difficulty
#Abdominal Pain
-Pain with deep pressure on RLQ
-Does not want any work up regarding it
-He is not complaining about it anymore- improved
#Dyshagia
Difficulty with swallowing- improved
He is on Doxycycline 100mg PO Q12- pill induced esophagitis?-- discontinued
Consult ENT, input appreciated
---recs increasing oral fluids, including ice water
---Start Maalox 30ml Q12h- helps coating his throat and esophagus. Allows any mucosal injuries to heal.
Benzocaine 20% [place]
Speech and swallow eval
Start Saline [place] for nasal irritation
Swallows pills- resolved
# Altered mental status unable to determine
- could be from toxic metabolic encephalopathy or hospital acquired delirium
- conversation with patient's on 03/08/2025, regarding GOC- patient's baseline is usually much better, he is very different from what he usually is at at home
- Patient was started on Ativan as needed for his agitation
- Ax3 normal mental status
#paroxysmal atrial fibrillation
- Increase Coumadin to 2 mg
- Follow daily INR
- continue Cardizem for rate control
#MDS
- consulted oncology, input appreciated
- Leukocytosis, patient would follow-up with outpatient setting
- immunology work-up
#Constipation
- continue bowel regimen
- Improved
#hypertension
- Holding Lasix, blood pressure has been stable
- Hydralazine as needed
#hypokalemia
- Replete K prn
#hyperlipidemia
#ASCVD
- continue atorvastatin
- myalgia secondary to statin?--Creatinine kinase- 130 N--resolved
#DM - II
- AccuCheck AC & HS
- Insulin aspart per protocol
- Insulin aspart 5 U AC
- continue Insulin Glargine 10U SQ
#Pulmonary HTN
- Continue Coumadin 2 mg
- daily INR
#BPH
- continue tamsulosin
#Pressure injury
- stage 1
- new heel foams applied bl
#Hyponatremia
- likely from hypervolemia
#PAD
DVT prophylaxis: Warfarin
Full code
Anticipated Discharge: 24 - 48 hours
Subjective/Interval History
-
Date of Service: March 19, 2025
His mood seems better overall happy that his kidneys are responding better. He complaints about buzzing sound on his right ear. He reports feeling like water in there. He denies ear pain. He was able to have 2 bms yesterday and urinated a good
amount. He denies SOB, no difficulty with swallowing.
Objective Data
-
Labs:
Laboratory Results
03/19/25
06:00
WBC Pending
Hgb Pending
Hct Pending
Plt Count Pending
PT Pending
INR Pending
Sodium Pending
Potassium Pending
Chloride Pending
Carbon Dioxide Pending
BUN Pending
Creatinine Pending
Glucose Pending
Calcium Pending
Vital Signs:
Vital Signs
Temp Pulse Resp BP Pulse Ox
98.1 F 66 18 147/70 96
03/18/25 23:42 03/19/25 03:50 03/18/25 23:42 03/19/25 03:50 03/18/25 23:42
I&O
03/18/25 03/19/25 03/20/25
06:59 06:59 06:59
Intake Total 960 / 960 940 / 940
Output Total 600 / 600 1670 / 1670
Balance 360 / 360 -730 / -730
Review of Systems
-
History Source: Patient
Constitutional: Reports No Symptoms
EENT: Reports Hearing Loss (right ear)
Respiratory: Reports No Symptoms
Cardiac: Reports No Symptoms
Abdomen/GI: Reports No Symptoms
Breast: Reports No Symptoms
Genitourinary: Reports No Symptoms
Musculoskeletal: Reports No Symptoms
Skin: Reports No Symptoms
Neuro: Reports No Symptoms
Endocrine: Reports No Symptoms
Physical Exam
-
General: Well Developed, Well Nourished, No Apparent Distress and Comfortable
HEENT: Normocephalic, Atraumatic and Hearing Impaired
Respiratory: Clear to Auscultation
Cardiac: Regular Rhythm and S1/S2
Breast: Deferred by me
GI: Soft, Nontender and Nondistended
Rectal: Deferred by Provider
Genito-urinary: Deferred by me
Musculoskeletal: No Clubbing, No Cyanosis and No Edema
Skin: Warm
Neuro: AO x 3, No Motor Deficits and No Sensory Deficits
Psych: Calm
[2025-03-19] MEDS: SPIRIVA RESPIMAT 2.5 MCG 2 PUFF INH (07:52)
[2025-03-19] MEDS: SYMBICORT 80/4.5 MCG INHALER 2 PUFF INH ×2 (07:52→19:45)
[2025-03-19 07:55] VITALS: BP 154/69
[2025-03-19] MEDS: NOVOLOG FLEXPEN-LOW RESISTANCE SC (08:03)
[2025-03-19 08:24] LABS: Hematocrit 24.9 % (39.0-52.0); Hemoglobin 8.5 g/dL (13.0-18.0); Mean Corp Hgb Conc. 34.1 g/dL (33.0-37.0); Mean Corpuscular Volume 98.0 fL (80.0-94.0); Platelet Count 457 10^3/uL (130-400); Red Cell Dist. Width 16.6 % (11.5-14.5)
[2025-03-19 08:37] LABS: INR 2.97; PT 31.2 Sec (11.4-14.6)
[2025-03-19 09:06] LABS: Blood Urea Nitrogen 26 mg/dl (9-20); Calcium 8.6 mg/dl (8.4-10.2); Carbon Dioxide 30 mmol/L (22-30); Chloride 101 mmol/L (98-107); Estimated Creatinine Clearance 28 ml/min; Glucose 131 mg/dl (70-99); Potassium 4.7 mmol/L (3.5-5.1); Sodium 135 mmol/L (135-145); eGFR 39.51
[2025-03-19] MEDS: PREVACID 30 MG PO (09:40)
[2025-03-19] MEDS: MIRALAX 17 GRAMS PO (09:40)
[2025-03-19] MEDS: PROSCAR 5 MG PO (09:40)
[2025-03-19] MEDS: THERAGRAN 1 TABLET PO (09:41)
[2025-03-19] MEDS: FLOMAX 0.4 MG PO ×2 (09:41→19:55)
[2025-03-19] MEDS: COLACE 100 MG PO ×2 (09:41→19:55)
[2025-03-19] MEDS: APRESOLINE 25 MG PO ×2 (09:41→19:56)
[2025-03-19] MEDS: MAALOX 30 ML PO ×2 (09:44→19:55)
[2025-03-19] MEDS: CARDIZEM CD 240 MG PO (09:44)
[2025-03-19] MEDS: NOVOLOG FLEXPEN 5 UNITS SC ×3 (10:08→17:40)
--- NOTE | 2025-03-19 10:18 | CM ---
Chart reviewed and patient may not require HD, will await final decision from nephrology, plan is to home with spouse and [facility].
Plan; Home with spouse and [facility].
[2025-03-19 12:26] VITALS: BP 128/52; O2SAT 96
[2025-03-19 12:41] LABS: Glucose - Point of Care 292 mg/dl (70-99)
[2025-03-19] MEDS: NOVOLOG FLEXPEN-LOW RESISTANCE 3 UNITS SC (13:40)
--- NOTE | 2025-03-19 14:54 | W.PN.NEPH.PH ---
Today's Communication / Plan
-
dc CVC
Assessment/Plan
-
Impression:
PNA
Suspected CHF decompensation
Valvular heart disease with history of mechanical aortic valve replacement
History of coronary artery disease with CABG
Hypertension
Anemia with history of MDS
Secondary pulmonary hypertension
Peripheral vascular disease
COPD
Acute kidney injury (4.2)
CKD stage III (1.4)
History of congestive heart Failure
Diabetes
Plan:
recovered from JULIAN/HD
follow BMP
dc HD CVC
Last dialysis treatment was Thursday 03/15
-
-
Date of Service: March 19, 2025
CC / HPI / ROS
-
Chief Complaint:
JULIAN with CKD
History of Present Illness:
JULIAN/cr down to 1.7
BP stable
Hgb low stable
Review of Systems:
no CP/SOB at rest
Labs
-
Labs:
WBC 7.7 10^3/uL (4.8-10.8) 03/19/25 08:06
RBC 2.54 10^6/uL (4.70-6.10) L 03/19/25 08:06
Hgb 8.5 g/dL (13.0-18.0) L 03/19/25 08:06
Hct 24.9 % (39.0-52.0) L 03/19/25 08:06
Plt Count 457 10^3/uL (130-400) H 03/19/25 08:06
Sodium 135 mmol/L (135-145) 03/19/25 08:06
Potassium 4.7 mmol/L (3.5-5.1) 03/19/25 08:06
Chloride 101 mmol/L (98-107) 03/19/25 08:06
Carbon Dioxide 30 mmol/L (22-30) 03/19/25 08:06
BUN 26 mg/dl (9-20) H 03/19/25 08:06
Creatinine 1.7 mg/dL (0.7-1.3) H 03/19/25 08:06
eGFR 39.51 03/19/25 08:06
Glucose 131 mg/dl (70-99) H 03/19/25 08:06
Calcium 8.6 mg/dl (8.4-10.2) 03/19/25 08:06
Phosphorus 4.6 mg/dl (2.5-4.5) H 03/09/25 04:25
Rqc-V-Ogzbxdrdozl Pept 2580 pg/ml 03/04/25 12:19
Albumin 3.2 g/dl (3.5-5.0) L 03/18/25 07:01
Physical Exam
-
Vital Signs:
Vital Signs
Temp Pulse Resp BP Pulse Ox
97.9 F 61 16 154/69 97
03/19/25 07:55 03/19/25 07:55 03/19/25 07:55 03/19/25 07:55 03/19/25 07:55
Cardiovascular:: Regular rate and rhythm
Respiratory:: Bilateral: CTA
Lung Excursion:: Normal
Abdomen:: Nontender and Soft
Bowel Sounds:: Normal
Extremity Edema:: None: Bilateral:
[2025-03-19 15:55] VITALS: BP 115/53
[2025-03-19 16:48] LABS: Glucose - Point of Care 187 mg/dl (70-99)
[2025-03-19] MEDS: SINGULAIR 10 MG PO (17:40)
[2025-03-19] MEDS: COUMADIN 2 MG PO (17:40)
[2025-03-19] MEDS: LIPITOR 80 MG PO (17:40)
[2025-03-19] MEDS: NOVOLOG FLEXPEN-LOW RESISTANCE 1 UNITS SC (17:41)
[2025-03-19 18:57] LABS: Glucose - Point of Care 158 mg/dl (70-99)
[2025-03-19] MEDS: TYLENOL 650 MG PO (19:55)
[2025-03-19] MEDS: ATIVAN 0.5 MG PO (19:55)
[2025-03-19 21:37] LABS: Glucose - Point of Care 286 mg/dl (70-99)
[2025-03-19] MEDS: LANTUS 0.1 UNITS SC (21:43)
[2025-03-19] MEDS: LIDOCAINE 4% PATCH TOPICAL (21:43)
[2025-03-19 22:43] VITALS: BP 132/50
[2025-03-20 06:00] VITALS: BMI 26.0
[2025-03-20 07:15] VITALS: BP 165/71
--- NOTE | 2025-03-20 07:54 | W.PN.HOSP.TC ---
Today's Communication/Plan
-
Daily INR
If within the goal range tomorrow remove permanent Tunelled CVC
Assessment / Plan
Assessment / Plan
Assessment:
84-year-old male with a past medical history of paroxysmal A-fib, hypertension, hyperlipidemia, ASCVD, chronic kidney disease 3, HFpEF, BPH, MDS, peripheral artery disease and diabetes mellitus type 2 came to the ED due to evaluation of general
myalgias. He was found to have possible pneumonia versus mass seen on chest x-ray and CT scan. His breathing worsened, and was found to be volume overloaded and started on diuretic therapy. However he developed worsening kidney function possibly
due to contrast nephropathy. Underwent 4 hemodialysis. He recovered from JULIAN/HD. His HD CVC will be removed by IR
Plan:
# Multifocal pneumonia
- Leukocytosis, chest x-ray showed consolidation, evidence of possible pneumonia versus mass
- CXR: Focal opacity in the posterior aspect of the right upper midlung. Cardiomegaly. Diffusely increased reticulonodular markings. Correlating with prior examinations, this could represent chronic changes of congestive heart failure.
- Chest CT w/o contrast: The right upper lobe airspace opacity is favored to represent lobar pneumonia. Imaging follow-up to resolution is recommended after treatment as an underlying pulmonary neoplasm would be difficult to completely exclude.
- Blood cx have showed no growth
- Discontinue Cefepime/ doxycycline
- For possible aspiration Pneumonia- start Cefdinir 300mg QD for 5days + Metronidazole 500mg PO Q8h for 7days -- completed course
- Wean off from Oxygen support-- comfortable on room air
- Trend CBC and temperature curve-- no fever, normal wbc
- Resolved
#JULIAN on chronic kidney disease III
- monitor BMP
- Suspect it might be due to contrast mediated nephropathy from CT scan of abdomen and pelvis with IV contrast from 03/04/2025
- nephrology on board, input appreciated
- Creatinine trending
- Right heart cath once kidneys are stable
- Follow UOP
- INR goal 2-3
- IR placed tunnelled CVC 03/14/2025
- Total #4 HD. He did not undergo HD yesterday for possible recovery?
- Holding HD - no acute need for dialysis from a volume electrolyte or uremic standpoint
- He recovered from JULIAN/HD
- IR consulted regarding permanent catheter removal
- INR is 3.1- check INR level tomorrow if within the goal range can proceed with removing catheter
# Acute hypoxemic respiratory failure due to decompensated HFpEF, type III cardiorenal state
- pBNP- 2580
- daily weights
- I/Os
- Consult Cardiology, input appreciated
- No RHC until he can lay flat
- Undergoing hemodialysis
- Primary photographic machine operator eval for- potential cardiac Amyloid?
#Hearing loss on right ear
-Sudden hearing difficulty started at 4 am, no pain
-Consult ENT, input appreciated
--serous otitis media-- Flonase spray was recommended but we dont have it at the hospital- has it at home will give him.
-Continue having hearing difficulty
#Abdominal Pain
-Pain with deep pressure on RLQ
-Does not want any work up regarding it
-He is not complaining about it anymore- improved
#Dyshagia
Difficulty with swallowing- improved
He is on Doxycycline 100mg PO Q12- pill induced esophagitis?-- discontinued
Consult ENT, input appreciated
---recs increasing oral fluids, including ice water
---Start Maalox 30ml Q12h- helps coating his throat and esophagus. Allows any mucosal injuries to heal.
Benzocaine 20% [place]
Speech and swallow eval
Start Saline [place] for nasal irritation
Swallows pills- resolved
# Altered mental status unable to determine
- could be from toxic metabolic encephalopathy or hospital acquired delirium
- conversation with patient's on 03/08/2025, regarding GOC- patient's baseline is usually much better, he is very different from what he usually is at at home
- Patient was started on Ativan as needed for his agitation
- Ax3 normal mental status
#paroxysmal atrial fibrillation
- Increase Coumadin to 2 mg
- Follow daily INR
- continue Cardizem for rate control
#MDS
- consulted oncology, input appreciated
- Leukocytosis, patient would follow-up with outpatient setting
- immunology work-up
#Constipation
- continue bowel regimen
- Improved
#hypertension
- Holding Lasix, blood pressure has been stable
- Hydralazine as needed
#hypokalemia
- Replete K prn
#hyperlipidemia
#ASCVD
- continue atorvastatin
- myalgia secondary to statin?--Creatinine kinase- 130 N--resolved
#DM - II
- AccuCheck AC & HS
- Insulin aspart per protocol
- Insulin aspart 5 U AC
- continue Insulin Glargine 10U SQ
#Pulmonary HTN
- Continue Coumadin 2 mg
- daily INR
#BPH
- continue tamsulosin
#Pressure injury
- stage 1
- new heel foams applied bl
#Hyponatremia
- likely from hypervolemia
#PAD
DVT prophylaxis: Warfarin
Full code
Anticipated Discharge: 24 - 48 hours
Subjective/Interval History
-
Date of Service: March 20, 2025
He is sitting on the chair drinking his meds. He still complaints about his right ear not being able to hear and it is the same not improving. He had 2 bms and urinated around 3 cups. He denies abdominal pain, SOB, no difficulty with swallowing.
Objective Data
-
Labs:
Laboratory Results
03/20/25
06:00
WBC Pending
Hgb Pending
Hct Pending
Plt Count Pending
PT Pending
INR Pending
Sodium Pending
Potassium Pending
Chloride Pending
Carbon Dioxide Pending
BUN Pending
Creatinine Pending
Glucose Pending
Calcium Pending
Vital Signs:
Vital Signs
Temp Pulse Resp BP Pulse Ox
97.5 F 94 16 132/50 96
03/19/25 22:43 03/19/25 22:43 03/19/25 22:43 03/19/25 22:43 03/19/25 22:43
I&O
03/19/25 03/20/25 03/21/25
06:59 06:59 06:59
Intake Total 940 / 940 960 / 960
Output Total 1670 / 1670 1100 / 1100
Balance -730 / -730 -140 / -140
Review of Systems
-
History Source: Patient
Constitutional: Reports No Symptoms
EENT: Reports Hearing Loss (right ear)
Respiratory: Reports No Symptoms
Cardiac: Reports No Symptoms
Abdomen/GI: Reports No Symptoms
Breast: Reports No Symptoms
Genitourinary: Reports No Symptoms
Musculoskeletal: Reports No Symptoms
Skin: Reports No Symptoms
Neuro: Reports No Symptoms
Endocrine: Reports No Symptoms
Physical Exam
-
General: Well Developed, Well Nourished, No Apparent Distress and Comfortable
HEENT: Normocephalic, Atraumatic and Hearing Impaired
Respiratory: Clear to Auscultation
Cardiac: Regular Rhythm and S1/S2
Breast: Deferred by me
GI: Soft, Nontender and Nondistended
Rectal: Deferred by Provider
Genito-urinary: Deferred by me
Musculoskeletal: No Clubbing, No Cyanosis and No Edema
Skin: Warm
Neuro: AO x 3, No Motor Deficits and No Sensory Deficits
Psych: Calm
[2025-03-20 07:56] LABS: Glucose - Point of Care 196 mg/dl (70-99)
[2025-03-20] MEDS: SYMBICORT 80/4.5 MCG INHALER 2 PUFF INH ×2 (08:08→19:52)
[2025-03-20] MEDS: SPIRIVA RESPIMAT 2.5 MCG 2 PUFF INH (08:08)
[2025-03-20] MEDS: MAALOX 30 ML PO ×2 (08:42→19:59)
[2025-03-20] MEDS: THERAGRAN 1 TABLET PO (08:42)
[2025-03-20] MEDS: APRESOLINE 25 MG PO ×2 (08:42→20:00)
[2025-03-20] MEDS: MIRALAX 17 GRAMS PO (08:42)
[2025-03-20] MEDS: FLOMAX 0.4 MG PO ×2 (08:43→19:59)
[2025-03-20] MEDS: PROSCAR 5 MG PO (08:43)
[2025-03-20] MEDS: COLACE 100 MG PO ×2 (08:43→19:59)
[2025-03-20] MEDS: PREVACID 30 MG PO (08:43)
[2025-03-20] MEDS: CARDIZEM CD 240 MG PO (08:43)
[2025-03-20] MEDS: NOVOLOG FLEXPEN-LOW RESISTANCE 1 UNITS SC (08:54)
[2025-03-20] MEDS: NOVOLOG FLEXPEN 5 UNITS SC ×3 (08:54→18:19)
[2025-03-20 09:00] LABS: Hematocrit 24.6 % (39.0-52.0); Hemoglobin 8.5 g/dL (13.0-18.0); Mean Corp Hgb Conc. 34.6 g/dL (33.0-37.0); Mean Corpuscular Volume 98.0 fL (80.0-94.0); Platelet Count 474 10^3/uL (130-400); Red Cell Dist. Width 16.9 % (11.5-14.5)
[2025-03-20 09:09] LABS: INR 3.13; PT 32.5 Sec (11.4-14.6)
[2025-03-20 09:31] LABS: Blood Urea Nitrogen 25 mg/dl (9-20); Calcium 9.2 mg/dl (8.4-10.2); Carbon Dioxide 27 mmol/L (22-30); Chloride 103 mmol/L (98-107); Estimated Creatinine Clearance 31 ml/min; Glucose 167 mg/dl (70-99); Potassium 4.5 mmol/L (3.5-5.1); Sodium 134 mmol/L (135-145); eGFR 45.91
--- NOTE | 2025-03-20 10:23 | W.PN.NEPH.PH ---
Today's Communication / Plan
-
CVC dc
Assessment/Plan
-
Impression:
PNA
Suspected CHF decompensation
Valvular heart disease with history of mechanical aortic valve replacement
History of coronary artery disease with CABG
Hypertension
Anemia with history of MDS
Secondary pulmonary hypertension
Peripheral vascular disease
COPD
Acute kidney injury (4.2)
CKD stage III (1.4)
History of congestive heart Failure
Diabetes
Plan:
recovered from JULIAN/HD
follow BMP
dc HD CVC once INR lower
Last dialysis treatment was Thursday 03/15
-
-
Date of Service: March 20, 2025
CC / HPI / ROS
-
Chief Complaint:
JULIAN with CKD
History of Present Illness:
JULIAN/cr down to 1.5
BP stable
Hgb low stable
Review of Systems:
no CP/SOB at rest
Labs
-
Labs:
WBC 8.7 10^3/uL (4.8-10.8) 03/20/25 08:01
RBC 2.51 10^6/uL (4.70-6.10) L 03/20/25 08:01
Hgb 8.5 g/dL (13.0-18.0) L 03/20/25 08:01
Hct 24.6 % (39.0-52.0) L 03/20/25 08:01
Plt Count 474 10^3/uL (130-400) H 03/20/25 08:01
Sodium 134 mmol/L (135-145) L 03/20/25 08:01
Potassium 4.5 mmol/L (3.5-5.1) 03/20/25 08:01
Chloride 103 mmol/L (98-107) 03/20/25 08:01
Carbon Dioxide 27 mmol/L (22-30) 03/20/25 08:01
BUN 25 mg/dl (9-20) H 03/20/25 08:01
Creatinine 1.5 mg/dL (0.7-1.3) H 03/20/25 08:01
eGFR 45.91 03/20/25 08:01
Glucose 167 mg/dl (70-99) H 03/20/25 08:01
Calcium 9.2 mg/dl (8.4-10.2) 03/20/25 08:01
Phosphorus 4.6 mg/dl (2.5-4.5) H 03/09/25 04:25
Pce-L-Rexslnxsyqg Pept 2580 pg/ml 03/04/25 12:19
Albumin 3.2 g/dl (3.5-5.0) L 03/18/25 07:01
Physical Exam
-
Vital Signs:
Vital Signs
Temp Pulse Resp BP Pulse Ox
98.1 F 59 16 165/71 96
03/20/25 07:15 03/20/25 08:10 03/20/25 08:10 03/20/25 07:15 03/20/25 08:10
Cardiovascular:: Regular rate and rhythm
Respiratory:: Bilateral: CTA
Lung Excursion:: Normal
Abdomen:: Nontender and Soft
Bowel Sounds:: Normal
Extremity Edema:: None: Bilateral:
--- NOTE | 2025-03-20 11:21 | CM ---
Chart reviewed and plan is to home with spouse and [facility] when stable.
Plan; Home with [facility]
[2025-03-20 11:45] LABS: Glucose - Point of Care 250 mg/dl (70-99)
[2025-03-20] MEDS: NOVOLOG FLEXPEN-LOW RESISTANCE 3 UNITS SC (13:16)
[2025-03-20 15:11] VITALS: BP 152/66
[2025-03-20 16:01] VITALS: BP 146/58; PULSE 58; O2SAT 98
[2025-03-20 17:13] LABS: Glucose - Point of Care 122 mg/dl (70-99)
[2025-03-20 17:17] LABS: Glucose - Point of Care 108 mg/dl (70-99)
[2025-03-20] MEDS: NOVOLOG FLEXPEN-LOW RESISTANCE SC (17:59)
[2025-03-20] MEDS: SINGULAIR 10 MG PO (18:19)
[2025-03-20] MEDS: LIPITOR 80 MG PO (18:19)
[2025-03-20] MEDS: TYLENOL 650 MG PO (19:59)
[2025-03-20] MEDS: ATIVAN 0.5 MG PO (19:59)
[2025-03-20 21:16] LABS: Glucose - Point of Care 228 mg/dl (70-99)
[2025-03-20] MEDS: LANTUS 0.1 UNITS SC (21:23)
[2025-03-20] MEDS: LIDOCAINE 4% PATCH TOPICAL (21:23)
[2025-03-20 23:00] VITALS: BP 140/60
--- NOTE | 2025-03-20 23:22 | W.PN.UPDATE ---
Update Note
Progress Note Update
pt seen this afternoon for reassessment. lying in bed, cranky, did not sleep too well, says room was too cold. upset about chair alarm, would like to be in chair more but finds alarm to sensitive 'if I move my ass a crack it goes off' does not want
to bother nursing staff. talked of desire to get home, misses 'she's in even worse shape, she's on oxygen' says he'd rather do rehab at home if he has to
[2025-03-21 06:00] VITALS: BMI 25.4
[2025-03-21] MEDS: SYMBICORT 80/4.5 MCG INHALER 2 PUFF INH (07:02)
[2025-03-21] MEDS: SPIRIVA RESPIMAT 2.5 MCG 2 PUFF INH (07:02)
[2025-03-21 07:20] LABS: Hematocrit 24.5 % (39.0-52.0); Hemoglobin 8.5 g/dL (13.0-18.0); Mean Corp Hgb Conc. 34.7 g/dL (33.0-37.0); Mean Corpuscular Volume 98.8 fL (80.0-94.0); Platelet Count 488 10^3/uL (130-400); Red Cell Dist. Width 17.0 % (11.5-14.5)
[2025-03-21 07:27] VITALS: BP 168/66
--- NOTE | 2025-03-21 07:28 | W.PN.HOSP.TC ---
Today's Communication/Plan
-
IR consulted regarding HD CVC removal
Discharge today
Assessment / Plan
Assessment / Plan
Assessment:
84-year-old male with a past medical history of paroxysmal A-fib, hypertension, hyperlipidemia, ASCVD, chronic kidney disease 3, HFpEF, BPH, MDS, peripheral artery disease and diabetes mellitus type 2 came to the ED due to evaluation of general
myalgias. He was found to have possible pneumonia versus mass seen on chest x-ray and CT scan. His breathing worsened, and was found to be volume overloaded and started on diuretic therapy. However he developed worsening kidney function possibly
due to contrast nephropathy. Underwent 4 hemodialysis. He recovered from JULIAN/HD. IR removed his HD CVC .
Plan:
#JULIAN on chronic kidney disease III
Suspect it might be due to contrast mediated nephropathy from CT scan of abdomen and pelvis with IV contrast from 03/04/2025. IR placed tunnelled CVC 03/14/2025. Holding HD - no acute need for dialysis from a volume electrolyte or uremic standpoint.
He recovered from JULIAN/HD. IR consulted regarding permanent catheter removal
- nephrology on board, input appreciated
- Follow UOP- today 325ml
- INR 2.82- IR removed HD CVC
# Multifocal pneumonia- resolved
Leukocytosis, chest x-ray showed consolidation, evidence of possible pneumonia versus mass
CXR: Focal opacity in the posterior aspect of the right upper midlung. Cardiomegaly. Diffusely increased reticulonodular markings. Correlating with prior examinations, this could represent chronic changes of congestive heart failure.
Chest CT w/o contrast: The right upper lobe airspace opacity is favored to represent lobar pneumonia. Imaging follow-up to resolution is recommended after treatment as an underlying pulmonary neoplasm would be difficult to completely exclude.
Blood cx have showed no growth
Discontinue Cefepime/ doxycycline
For possible aspiration Pneumonia- start Cefdinir 300mg QD for 5days + Metronidazole 500mg PO Q8h for 7days -- completed course
-No fever, normal WBC's
# Acute hypoxemic respiratory failure due to decompensated HFpEF, type III cardiorenal state
- pBNP- 2580
- daily weights
- I/Os
- Consult Cardiology, input appreciated
- No RHC until he can lay flat
- Primary school office manager eval for- potential cardiac Amyloid?
#Hearing loss on right ear
-Sudden hearing difficulty started at 4 am, no pain
-Consult ENT, input appreciated
--serous otitis media-- Flonase spray was recommended but we dont have it at the hospital- has it at home will give him.
-Continue having hearing difficulty
#Abdominal Pain- improved
-Pain with deep pressure on RLQ
-Does not want any work up regarding it
-He is not complaining about it anymore- improved
#Dyshagia- resolved
Difficulty with swallowing- improved
He is on Doxycycline 100mg PO Q12- pill induced esophagitis?-- discontinued
Consult ENT, input appreciated
---recs increasing oral fluids, including ice water
---Start Maalox 30ml Q12h- helps coating his throat and esophagus. Allows any mucosal injuries to heal
Speech and swallow eval
Start Saline [place] for nasal irritation
Swallows pills- resolved
# Altered mental status unable to determine- resolved
- could be from toxic metabolic encephalopathy or hospital acquired delirium
- conversation with patient's on 03/08/2025, regarding GOC- patient's baseline is usually much better, he is very different from what he usually is at at home
- Patient was started on Ativan as needed for his agitation
- Ax3 normal mental status
#paroxysmal atrial fibrillation
- Coumadin to 2 mg
- Follow daily INR
- continue Cardizem for rate control
#MDS
- consulted oncology, input appreciated
- Leukocytosis, patient would follow-up with outpatient setting
- immunology work-up
#Constipation
- continue bowel regimen
- Improved
#hypertension
- Holding Lasix, blood pressure has been stable
- Hydralazine 25mg BID
#hypokalemia
- Replete K prn
#hyperlipidemia
#ASCVD
- continue atorvastatin
- myalgia secondary to statin?--Creatinine kinase- 130 N--resolved
#DM - II
- AccuCheck AC & HS
- Insulin aspart per protocol
- Insulin aspart 5 U AC
- continue Insulin Glargine 10U SQ
#Pulmonary HTN
- Continue Coumadin 2 mg
- daily INR
#BPH
- continue tamsulosin
#Pressure injury
- stage 1
- new heel foams applied bl
#Hyponatremia
- likely from hypervolemia
#PAD
DVT prophylaxis: Warfarin
Full code
Anticipated Discharge: Today
Subjective/Interval History
-
Date of Service: March 21, 2025
He is comfortable and mentioning how great food tastes at this hospital. He had a good appetite. He has a good sleep, feels good overall. He denies SOB, difficulty swallowing, abdominal pain, constipation. He is excited to go home.
Objective Data
-
Labs:
Laboratory Results
03/21/25 03/21/25
06:48 07:07
WBC 6.7
Hgb 8.5 L
Hct 24.5 L
Plt Count 488 H
PT Pending
INR Pending
Sodium Pending
Potassium Pending
Chloride Pending
Carbon Dioxide Pending
BUN Pending
Creatinine Pending
Glucose Pending
Calcium Pending
Vital Signs:
Vital Signs
Temp Pulse Resp BP Pulse Ox
98 F 68 14 140/60 97
03/20/25 23:00 03/21/25 07:04 03/21/25 07:04 03/20/25 23:00 03/21/25 07:04
I&O
03/20/25 03/21/25 03/22/25
06:59 06:59 06:59
Intake Total 960 / 960 480 / 480
Output Total 1100 / 1100 325 / 325
Balance -140 / -140 155 / 155
Review of Systems
-
History Source: Patient
Constitutional: Reports No Symptoms
EENT: Reports Hearing Loss (right ear)
Respiratory: Reports No Symptoms
Cardiac: Reports No Symptoms
Abdomen/GI: Reports No Symptoms
Breast: Reports No Symptoms
Genitourinary: Reports No Symptoms
Musculoskeletal: Reports No Symptoms
Skin: Reports No Symptoms
Neuro: Reports No Symptoms
Endocrine: Reports No Symptoms
Physical Exam
-
General: Well Developed, Well Nourished, No Apparent Distress and Comfortable
HEENT: Normocephalic, Atraumatic and Hearing Impaired
Respiratory: Clear to Auscultation
Cardiac: Regular Rhythm and S1/S2
Breast: Deferred by me
GI: Soft, Nontender and Nondistended
Rectal: Deferred by Provider
Genito-urinary: Deferred by me
Musculoskeletal: No Clubbing, No Cyanosis and No Edema
Skin: Warm
Neuro: AO x 3, No Motor Deficits and No Sensory Deficits
Psych: Calm
[2025-03-21 07:31] LABS: INR 2.82; PT 30.0 Sec (11.4-14.6)
[2025-03-21 07:54] LABS: Glucose - Point of Care 187 mg/dl (70-99)
[2025-03-21 07:54] LABS: Blood Urea Nitrogen 22 mg/dl (9-20); Calcium 9.2 mg/dl (8.4-10.2); Carbon Dioxide 27 mmol/L (22-30); Chloride 106 mmol/L (98-107); Estimated Creatinine Clearance 33 ml/min; Glucose 129 mg/dl (70-99); Potassium 4.4 mmol/L (3.5-5.1); Sodium 136 mmol/L (135-145); eGFR 49.87
[2025-03-21 08:25] VITALS: BP 169/54; BP_SYST 60
[2025-03-21 08:45] VITALS: BP 161/59; BP_SYST 61
[2025-03-21 08:55] VITALS: BP 161/59
[2025-03-21] MEDS: NOVOLOG FLEXPEN 5 UNITS SC ×2 (09:20→12:00)
[2025-03-21] MEDS: CARDIZEM CD 240 MG PO (09:20)
[2025-03-21] MEDS: COLACE 100 MG PO (09:20)
[2025-03-21] MEDS: NOVOLOG FLEXPEN-LOW RESISTANCE 1 UNITS SC (09:20)
[2025-03-21] MEDS: THERAGRAN 1 TABLET PO (09:21)
[2025-03-21] MEDS: PREVACID 30 MG PO (09:21)
[2025-03-21] MEDS: PROSCAR 5 MG PO (09:21)
[2025-03-21] MEDS: MAALOX PO (09:22)
[2025-03-21] MEDS: FLOMAX 0.4 MG PO (09:22)
[2025-03-21] MEDS: MIRALAX 17 GRAMS PO (09:22)
[2025-03-21] MEDS: APRESOLINE PO (09:25)
--- NOTE | 2025-03-21 11:40 | CM ---
Chart reviewed and patient will not require HD, patient is ambulating 75 feet with supervision, plan is to home with [facility].
Plan; Home with [facility]
[2025-03-21 11:47] LABS: Glucose - Point of Care 298 mg/dl (70-99)
[2025-03-21] MEDS: NOVOLOG FLEXPEN-LOW RESISTANCE 3 UNITS SC (12:00)
--- NOTE | 2025-03-21 12:22 | W.DCSUMMARY ---
Documented by User: Yoshi Parrish MD, Resident 03/21/25 12:54
Discharge Summary
Discharge Data
Date of Admission: 03/04/25
Date of Discharge: 03/21/25
-
Pending Results: No
Hospital Course
Discharging Physician : Dr. Yoshi Parrish, Dr. Tomas Hussein
Disposition : Home
Primary care physician : Dr. Martine Gonzalez
Principal Discharge diagnosis : Community Aquired Pneumonia, Acute on chronic HFpEF
Chronic Discharge diagnosis :
Chronic HFpEF
CAD s/p CABG with DUNCAN to LAD in 2010
HTN
Moderate to severe concentric LVH by echo 02/17/25
Arrhythmias (Permanent atrial fibrillation, Asymptomatic PVCs)
Chronic Jantoven (brand name warfarin) OAC managed by [facility]
Anemia with h/o GI bleed in 2021.
Anemia and MDS
Secondary pulmonary hypertension.
Hyperlipidemia.
Diabetes mellitus type 2
Peripheral vascular disease, status post right posterior tibial angioplasty in 2019.
Asthma.
CKD 3b
Chronic obstructive pulmonary disease.
Nail-patella syndrome
Hospital Course :
84-year-old male with a pmh of paroxysmal A-fib, hypertension, hyperlipidemia, ASCVD, chronic kidney disease 3, HFpEF, BPH, MDS, peripheral artery disease and diabetes mellitus type 2 came to the ED due to evaluation of general myalgias. He was
found to have possible pneumonia versus mass seen on chest x-ray and CT scan. His breathing worsened, and was found to be volume overloaded and started on diuretic therapy. Cardiology was consulted for Right heart catheter placement but his
symptoms worsened and he could not lay flat. He developed worsening kidney function possibly due to contrast nephropathy from CT scan of abdomen and pelvis with IV contrast from 03/04/2025. He underwent multiple Hemodialysis. He started to have
improved urine output, JULIAN improved. He did not have acute need for dialysis from a volume electrolyte or uremic standpoint. He recovered from JULIAN/HD.
Imaging follow-up to resolution is recommended after treatment as an underlying pulmonary neoplasm would be difficult to completely exclude.
Ordered lab test for INR level check and BMP in 3 days. Follow up with your PCP for results.
Take Warfarin 2 mg today and tomorrow start taking 3mg once a day
Take Miralax as needed for constipation
Follow up with your PCP in a week
Follow up with hair designer in 1-2 weeks for your chronic kidney disease stage 3
Follow up with ENT outpatient for hearing impairment due to serous otitis media
Follow up with your damage cutter
Important imaging findings :
Chest Xray
Focal opacity in the posterior aspect of the right upper midlung, best seen on the lateral view.
Cardiomegaly. Diffusely increased reticulonodular markings. Correlating with prior examinations, this could represent chronic changes of congestive heart failure.
Abdomen/Pelvis CT
Colonic diverticula with no CT evidence for diverticulitis.
History of appendectomy. No evidence for bowel obstruction or free intraperitoneal air.
Moderate to severe vascular calcification. No evidence for abdominal aortic aneurysm.
Small umbilical hernia containing fat, with no evidence for significant inflammation.
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 Bony degenerative changes as described.
Chest CT
The right upper lobe airspace opacity is favored to represent lobar pneumonia.
Imaging follow-up to resolution is recommended after treatment as an underlying pulmonary neoplasm would be difficult to completely exclude.
Procedure findings :
1.Nontunneled right internal jugular hemodialysis catheter placement
2.Tunneled right internal jugular hemodialysis catheter placement
3.Removal of a right internal jugular tunneled central venous catheter
Discharge Plan
-
Patient Disposition: Home with Home Care
Discharge Diagnosis/Procedures: Pneumonia
Suspected CHF decompensation
Valvular heart disease with history of mechanical aortic valve replacement
History of coronary artery disease with CABG
Acute kidney injury
CKD stage III
Hypertension
Anemia with history of MDS
Secondary pulmonary hypertension
Peripheral vascular disease
COPD
History of congestive heart Failure
Diabetes
Condition: Good
Diet: Low Cholesterol and Low Sodium
Activity: No restrictions
Driving Restrictions: As prior to admission
Bathing Restrictions: None
Blood Work: INR level, BNP check
Other Services: VN
Specialty Instructions: Weigh Daily- Call MD for wt gain/loss 3 lbs overnight/5 lbs in 1 week
Referrals:
Huber Mario MD [Active, Nephrology] - in one to two weeks
Referral Note: Follow up with [facility]
Martine Duron DO [Family Provider, Family Practice]
Ervin Alexis MD [Active, Otology] - in one to two weeks
Referral Note: Follow up with ENT within 1-2 weeks for check on hearing and to remove wax from the left ear
Additional Discharge Medication Instructions: Ordered lab test for INR level check and BMP in 3 days. Follow up with your PCP for results.
Take Warfarin 2 mg today and tomorrow start taking 3mg once a day
Take Miralax as needed for constipation
Follow up with your PCP in a week
Follow up with hair designer in 1-2 weeks for your chronic kidney disease stage 3
Follow up with ENT outpatient for hearing impairment
Follow up with your damage cutter within 1-2 weeks
Prescriptions:
New
(DME) INR
See Rx Instructions .Route .MEDSUPPLY Qty: 1 0RF
Rx Instructions:
INR level check in 3 days. Send results to Dr. Martine Duron.
Dx: Warfarin use
(DME) BMP
See Rx Instructions .Route .MEDSUPPLY Qty: 1 0RF
Rx Instructions:
Check BMP in 3 days. Send results to Dr. Martine Duron
Dx:Chronic kidney disease
docusate sodium 100 mg Capsule
100 mg PO BID 10 Days Qty: 20 0RF
polyethylene glycol 3350 17 gram Powder In Packet
17 g PO DAILY Qty: 10 0RF
Continued
montelukast 10 MG tablet
10 mg PO QPM
cholecalciferol (vitamin D3) [Vitamin D3] 1,000 UNIT tablet
1,000 unit PO QPM
Patient Comments:
patient's called to review home meds. she stated that he's no longer taking vitamin D
wxdjlmol-qplwf-lpi 149-hyal ac 1 EACH tablet
1 ea PO BID
atorvastatin 80 MG tablet
80 mg PO QPM
finasteride 5 MG tablet
5 mg PO DAILY
tamsulosin 0.4 MG capsule
0.4 mg PO BID
eejjwgtv-ymx-teal fum-folic ac 1 EACH tablet
1 ea PO DAILY
insulin lispro [Humalog KwikPen Insulin] 100 unit/mL Insulin Pen
17 - 32 unit SC AC
omeprazole 40 mg Capsule,Delayed Release(Dr/Ec)
40 mg PO DAILY
Fasenra 30 mg/mL Syringe
30 mg SC Q8W
diltiazem HCl 240 mg capsule,extended release 24hr
240 mg PO DAILY
hydralazine 25 mg tablet
25 mg PO BID
levalbuterol tartrate 45 mcg/actuation HFA aerosol inhaler
2 puff INHALATION Q6HPRN PRN (Reason: sob)
Trelegy Ellipta 100-62.5-25 mcg blister with device
1 ea INHALATION DAILY
insulin glargine [Lantus U-100 Insulin] 100 UNIT/ML solution
0 - 11 unit SC HS
Jantoven
3 mg PO QPM
Patient Comments:
Patient's said med was started on this medication d/t Warfarin not working
latanoprost drops
0.005 RIGHT EYE QPM
Discontinued
furosemide 80 mg tablet
80 mg PO DAILY
furosemide 20 mg tablet
20 mg PO MOWEFR
Januvia 25 mg tablet
25 mg PO DAILY
Discharge Orders:
Discharge Patient (As Directed); Ordered 03/21/25
Ordered By: oYshi Parrish
Discharge Date and Time
Discharge Date/Time: 03/21/25 14:38
Print Language: [place]

Documented by User: Tomas Hussein DO 03/22/25 10:13
Discharge Summary
Discharge Data
Date of Admission: 03/04/25
Date of Discharge: 03/22/25
Total time spent discharging patient (in min): 35
Discharge Plan
-
Patient Disposition: Home with Home Care
Discharge Diagnosis/Procedures: Pneumonia
Suspected CHF decompensation
Valvular heart disease with history of mechanical aortic valve replacement
History of coronary artery disease with CABG
Acute kidney injury
CKD stage III
Hypertension
Anemia with history of MDS
Secondary pulmonary hypertension
Peripheral vascular disease
COPD
History of congestive heart Failure
Diabetes
Condition: Good
Diet: Low Cholesterol and Low Sodium
Activity: No restrictions
Driving Restrictions: As prior to admission
Bathing Restrictions: None
Blood Work: INR level, BNP check
Other Services: VN
Specialty Instructions: Weigh Daily- Call MD for wt gain/loss 3 lbs overnight/5 lbs in 1 week
Referrals:
Huber Mario MD [Active, Nephrology] - in one to two weeks
Referral Note: Follow up with [facility]
Martine Duron DO [Family Provider, Family Practice]
Ervin Alexis MD [Active, Otology] - in one to two weeks
Referral Note: Follow up with ENT within 1-2 weeks for check on hearing and to remove wax from the left ear
Additional Discharge Medication Instructions: Ordered lab test for INR level check and BMP in 3 days. Follow up with your PCP for results.
Take Warfarin 2 mg today and tomorrow start taking 3mg once a day
Take Miralax as needed for constipation
Follow up with your PCP in a week
Follow up with hair designer in 1-2 weeks for your chronic kidney disease stage 3
Follow up with ENT outpatient for hearing impairment
Follow up with your damage cutter within 1-2 weeks
Prescriptions:
New
(DME) INR
See Rx Instructions .Route .MEDSUPPLY Qty: 1 0RF
Rx Instructions:
INR level check in 3 days. Send results to Dr. Martine Duron.
Dx: Warfarin use
(DME) BMP
See Rx Instructions .Route .MEDSUPPLY Qty: 1 0RF
Rx Instructions:
Check BMP in 3 days. Send results to Dr. Martine Duron
Dx:Chronic kidney disease
docusate sodium 100 mg Capsule
100 mg PO BID 10 Days Qty: 20 0RF
polyethylene glycol 3350 17 gram Powder In Packet
17 g PO DAILY Qty: 10 0RF
Continued
montelukast 10 MG tablet
10 mg PO QPM
cholecalciferol (vitamin D3) [Vitamin D3] 1,000 UNIT tablet
1,000 unit PO QPM
Patient Comments:
patient's called to review home meds. she stated that he's no longer taking vitamin D
fbxionav-eunwh-euc 149-hyal ac 1 EACH tablet
1 ea PO BID
atorvastatin 80 MG tablet
80 mg PO QPM
finasteride 5 MG tablet
5 mg PO DAILY
tamsulosin 0.4 MG capsule
0.4 mg PO BID
czshrtgv-yin-cemp fum-folic ac 1 EACH tablet
1 ea PO DAILY
insulin lispro [Humalog KwikPen Insulin] 100 unit/mL Insulin Pen
17 - 32 unit SC AC
omeprazole 40 mg Capsule,Delayed Release(Dr/Ec)
40 mg PO DAILY
Fasenra 30 mg/mL Syringe
30 mg SC Q8W
diltiazem HCl 240 mg capsule,extended release 24hr
240 mg PO DAILY
hydralazine 25 mg tablet
25 mg PO BID
levalbuterol tartrate 45 mcg/actuation HFA aerosol inhaler
2 puff INHALATION Q6HPRN PRN (Reason: sob)
Trelegy Ellipta 100-62.5-25 mcg blister with device
1 ea INHALATION DAILY
insulin glargine [Lantus U-100 Insulin] 100 UNIT/ML solution
0 - 11 unit SC HS
Jantoven
3 mg PO QPM
Patient Comments:
Patient's said med was started on this medication d/t Warfarin not working
latanoprost drops
0.005 RIGHT EYE QPM
Discontinued
furosemide 80 mg tablet
80 mg PO DAILY
furosemide 20 mg tablet
20 mg PO MOWEFR
Januvia 25 mg tablet
25 mg PO DAILY
Discharge Orders:
Discharge Patient (As Directed); Ordered 03/21/25
Ordered By: Yoshi Parrish
Discharge Date and Time
Discharge Date/Time: 03/21/25 14:38
Print Language: [place]
--- NOTE | 2025-03-21 12:53 | PN.IRAD.UPD ---
Update Note - IRAD
- -
Right sided hemodialysis catheter removed. New dry clean dressing placed over site. Patient tolerated procedure well.
--- NOTE | 2025-03-21 13:39 | W.PN.UPDATE ---
Update Note
Progress Note Update
pt seen for assessment. states he is leaving today, going home, has visiting help. agrees he has made a lot of progress here but hopes to never come back. enjoys the food. upset that he lost hearing in right ear. plans to go see 's pcp on
discharge to have this checked out. mood good, not irritable, grateful for his care.
== END 2025-03-21 14:38 | disposition home health service (06) | DRG 193 ==
LOC: 4 WEST ACU 19:23
PROVIDERS: Internal Medicine; Nurse Practitioner Family; Physician Assistant; Physician Assistant Medical; Radiology Diagnostic Radiology; Radiology Vascular & Interventional Radiology; Specialist; ADMITTING PHYSICIAN Internal Medicine; ATTENDING PHYSICIAN Internal Medicine; CONSULT PHYSICIAN Otolaryngology; CONSULT PHYSICIAN Otolaryngology Facial Plastic Surgery; CONSULT PHYSICIAN Specialist; EMERGENCY PHYSICIAN Emergency Medicine; FAMILY PHYSICIAN Family Medicine; OTHER PHYSICIAN Internal Medicine Hematology & Oncology; OTHER PHYSICIAN Nuclear Medicine Nuclear Cardiology; OTHER PHYSICIAN Psychiatry & Neurology Psychiatry
PROC: 02H633Z Insertion of Infusion Device into Right Atrium, Percutaneous Approach (ICD-10-PCS; 2025-03-07)
PROC: 5A1D70Z Performance of Urinary Filtration, Intermittent, Less than 6 Hours Per Day (ICD-10-PCS; 2025-03-07)
PROC: 0JH63XZ Insertion of Tunneled Vascular Access Device into Chest Subcutaneous Tissue and Fascia, Percutaneous Approach (ICD-10-PCS; 2025-03-14)
PROC: 02PAX3Z Removal of Infusion Device from Heart, External Approach (ICD-10-PCS; 2025-03-14)
PROC: 02PA33Z Removal of Infusion Device from Heart, Percutaneous Approach (ICD-10-PCS; 2025-03-21)
PROC: 0JPT3XZ Removal of Tunneled Vascular Access Device from Trunk Subcutaneous Tissue and Fascia, Percutaneous Approach (ICD-10-PCS; 2025-03-21)
DX: J18.9 Pneumonia, unspecified organism (principal); G92.8 Other toxic encephalopathy; I50.33 Acute on chronic diastolic (congestive) heart failure; J96.01 Acute respiratory failure with hypoxia; I13.0 Hypertensive heart and chronic kidney disease with heart failure and stage 1 through stage 4 chronic kidney disease, or unspecified chronic kidney disease; E87.20 Acidosis, unspecified; J44.0 Chronic obstructive pulmonary disease with (acute) lower respiratory infection; I48.21 Permanent atrial fibrillation; E87.1 Hypo-osmolality and hyponatremia; F05 Delirium due to known physiological condition; N17.8 Other acute kidney failure; E11.22 Type 2 diabetes mellitus with diabetic chronic kidney disease; E78.00 Pure hypercholesterolemia, unspecified; I27.20 Pulmonary hypertension, unspecified; D63.1 Anemia in chronic kidney disease; E11.51 Type 2 diabetes mellitus with diabetic peripheral angiopathy without gangrene; I25.10 Atherosclerotic heart disease of native coronary artery without angina pectoris; N18.32 Chronic kidney disease, stage 3b; J45.50 Severe persistent asthma, uncomplicated; I25.2 Old myocardial infarction; D46.Z Other myelodysplastic syndromes; R13.10 Dysphagia, unspecified; H65.01 Acute serous otitis media, right ear; E11.65 Type 2 diabetes mellitus with hyperglycemia; L89.621 Pressure ulcer of left heel, stage 1; L89.611 Pressure ulcer of right heel, stage 1; K59.00 Constipation, unspecified; N40.0 Benign prostatic hyperplasia without lower urinary tract symptoms; T50.8X5A Adverse effect of diagnostic agents, initial encounter; E87.6 Hypokalemia; R10.31 Right lower quadrant pain; N14.11 Contrast-induced nephropathy; K21.9 Gastro-esophageal reflux disease without esophagitis; I49.3 Ventricular premature depolarization; Z95.2 Presence of prosthetic heart valve; Z95.1 Presence of aortocoronary bypass graft; Z88.5 Allergy status to narcotic agent; Z88.0 Allergy status to penicillin; Z87.891 Personal history of nicotine dependence; Z79.899 Other long term (current) drug therapy; Z95.0 Presence of cardiac pacemaker; Z79.01 Long term (current) use of anticoagulants; Z79.4 Long term (current) use of insulin; Z79.84 Long term (current) use of oral hypoglycemic drugs; Z79.82 Long term (current) use of aspirin; Z95.820 Peripheral vascular angioplasty status with implants and grafts; Z11.52 Encounter for screening for COVID-19; Z79.51 Long term (current) use of inhaled steroids
CPT/HCPCS: 36556; 36558; 36589; 51798; 71046; 71250; 74177; 76937; 77001; 80048; 80053; 81003; 81015; 82550; 82553; 82784; 82962; 83036; 83521; 83605; 83735; 83880; 84100; 84155; 84165; 85025; 85027; 85610; 86334; 86704; 86706; 86803; 87040; 87340; 87502; 87811; 92610; 94640; 96365; 96366; 96367; 96375; 96376; 97116; 97163; 97166; 97530; 97535; 99152; 99153; 99285; C1750; C1752; G0257; P9047; Q5106; Q9967

== ENCOUNTER → 2025-04-07 13:34 | Outpatient (REF) | payer OTHER, SELFPAY ==
[2025-04-07 15:58] LABS: INR 4.80; PT 44.3 Sec (11.4-14.6)
[2025-04-07 16:10] LABS: Blood Urea Nitrogen 35 mg/dl (9-20); Calcium 9.0 mg/dl (8.4-10.2); Carbon Dioxide 21 mmol/L (22-30); Chloride 107 mmol/L (98-107); Glucose 95 mg/dl (70-99); Potassium 4.5 mmol/L (3.5-5.1); Sodium 136 mmol/L (135-145); eGFR > 60.00
== END ==
LOC: HWLAB 13:34
PROVIDERS: ATTENDING PHYSICIAN Internal Medicine Cardiovascular Disease; FAMILY PHYSICIAN Family Medicine
DX: I10 Essential (primary) hypertension (principal); I48.0 Paroxysmal atrial fibrillation; Z79.01 Long term (current) use of anticoagulants
CPT/HCPCS: 36415; 80048; 83880; 85610

== ENCOUNTER 2025-04-21 21:22 | Inpatient (IN) | payer OTHER, SELFPAY ==
[2025-04-21 15:08] VITALS: BP 141/54
[2025-04-21 15:16] LABS: Glucose - Point of Care 118 mg/dl (70-99)
[2025-04-21 15:56] LABS: Hematocrit 26.0 % (39.0-52.0); Hemoglobin 8.2 g/dL (13.0-18.0); Mean Corp Hgb Conc. 31.5 g/dL (33.0-37.0); Mean Corpuscular Volume 104.0 fL (80.0-94.0); Nucleated Red Blood Cells % 0.3 % (-); Red Cell Dist. Width 17.7 % (11.5-14.5)
[2025-04-21 16:01] LABS: ALT (SGPT) 24 U/L (0-50); AST (SGOT) 34 U/L (17-59); Albumin 3.4 g/dl (3.5-5.0); Alkaline Phosphatase 82 U/L (38-126); Blood Urea Nitrogen 55 mg/dl (9-20); Calcium 8.9 mg/dl (8.4-10.2); Carbon Dioxide 22 mmol/L (22-30); Chloride 104 mmol/L (98-107); Glucose 107 mg/dl (70-99); Potassium 4.9 mmol/L (3.5-5.1); Sodium 134 mmol/L (135-145); Total Protein 6.5 g/dl (6.3-8.2); eGFR 45.91
[2025-04-21 16:53] LABS: Platelet Count 633 10^3/uL (130-400)
--- NOTE | 2025-04-21 19:21 | ED.GENMED ---
History of Present Illness
General
Chief Complaint: Swelling
Source: patient, records, spouse, family and previous hospital records
Exam Limitations: none
Time Seen by Provider: 04/21/25 18:43
Nursing documentation reviewed up to this point in time: agreed with
History of Present Illness
History of Present Illness:
84-year-old male heart failure, AF on Coumadin, admitted a month or so ago with pneumonia apparently had JULIAN, temporary dialysis recently restarted on his diuretic Lasix 80 and 40 every other day, the direction of his second time worker Patrice Bassett--has
had lower extremity edema decreased urination general fatigue no weight gain no fever breathing is okay apparently had low blood pressure for EMS and low blood sugar both of which have normalized denies any dark or bloody stools, patient concerned
he has really made a lot of urine with oral diuretic
Past History
Past History
ED Past Medical History: Arrthythmia (afib), COPD, HTN, Hypercholesterolemia, IDDM and Other (, BPH, renal stones)
ED Past Surgical History: Cardiac (AVR)
Social History
Tobacco: Former smoker
Alcohol: None
Drug: None
Personal:
Living: with family
Employment: Retired
Review of Systems
Review of Systems
All Other Systems: Not applicable
Constitutional: Reports fatigue; Denies fever
EENT: Reports no symptoms
Respiratory: Denies cough or trouble breathing
Cardiac: Reports no symptoms
ABD/GI: Reports no symptoms
: Reports difficulty voiding; Denies flank pain
Musculoskeletal: Reports edema
Skin: Reports no symptoms
Neurological: Reports weakness
Phy Exam
Physical Exam
Physical Exam:
Physical Exam
General: no apparent distress, not acutely ill
Neck: No jaw
Heart: s1/s2 regular rate and rhythm, no murmur. equal radial pulses.
Lungs: no acute respiratory distress. clear bilaterally
Abdomen nontender
Neuro: alert and oriented. no focal neurological deficits
Skin: no rash
Psychiatric: well kept. interactive and cooperative
Extremities: 2+ edema
Scores
Heart Failure Risk
Heart Failure Risk Score: Yes
History of Stroke or TIA: No
History of intubation for respiratory distress: No
Heart rate on ED arrival >/= 110: Yes
SaO2 <90% on arrival on room air: Yes
HR >/=110 during 3min walk test (or too ill to perform test): Yes
ECG has acute ischemic changes: No
Urea >/=12mmol/L (BUN 33.6mg/dL): Yes
Serum CO2>/=35mmol/L: No
Troponin I or T elevated to LA Level (0.4mg/dL): No
NT-proBNP >/=5,000ng/L (5,000pg/ml): No
HF Risk Score: 4
Admission Status: HIGH RISK 26.1% Consider SNF treatment or admission to hospital
Course
Orders/Labs/Results
Orders:
Orders
04/21/25 Dinner
Cholesterol Lowering
At Your Request: Non-Participating
Cholesterol Lowering: Sodium, 2 Gram
04/21/25 15:12
Electrocardiogram (*1) Urgent
Reason for Study: Chest Pain
EKG- Treatment ONCE
04/21/25 15:23
Complete Blood Count/With Diff Urgent
Comprehensive Metabolic Panel Urgent
NT-proBNP Urgent
04/21/25 18:31
CR Chest - 2 Views Urgent
Comment:
Reason For Exam: CHF pneumonia
04/21/25 20:24
Furosemide [Lasix] 80 mg IV NOW STA
04/21/25 20:45
Prothrombin Time Urgent
04/21/25 21:01
Admit/Transfer Patient As Directed
Co-Sign Provider:
Level of Care: Inpatient admission
Assign to:: Telemetry
Physician / Group: aline
Diagnosis: chf exacerbation
Reason for Telemetry: Pulmonary Edema
Date to Stop Telemetry: 04/24/25
Time to Stop Telemetry: 11:00
Reason for Hospitalization: chf exacerbation
Expected length of stay greater than two midnights?: Yes
ELOS- Estimated Length of Stay in days: 2
I certify the patient meets the requirements for IP care: Yes
PRN Pain Medication Management As Directed
May give lesser potent ordered pain med per pt: Yes
preference::
Protocol:: Medication orders for pain may be administered in a
manner that supports deferring to patient preference
when the pt is:
- Requesting an ordered lesser potent pain medication.
Least to most potent pain medications are defined
as: acetaminophen < NSAID < tramadol < opioids
(morphine, oxycodone, hydromorphone).
- Requesting a lesser dose of the same medication IF
ORDERED.
- Requesting a less intrusive route of administration
if both routes are prescribed by the provider (PO <
IV).
04/21/25 21:02
Code Status As Directed
Resuscitation Status: Full Code
04/21/25 23:31
Dextrose 50%-Water [Dextrose 50% Syringe] 12.5 grams IV [id number] PRN
Glucagon [GlucaGen] 1 mg IM PRN PRN
04/21/25 23:31
VTE Contraindication Routine
VTE Mechanical Device Contraindication: Medical Contraindication
Pharmocologic Contraindication: Medical Contraindication
Activity As Directed
Activity Level: As Tolerated
Bedside Glucose Monitoring As Directed
Frequency: AC&HS
Additional Instructions:: Change to q6h if pt on TPN, tube feeding or not eating
Bladder Scan As Directed
Follow Bladder Retention/Intermittent Cath Algorithm?: Yes
PRN if no void in __ hours: 6
Frequency: Per Retention Algorithm
If Bladder Scan Result >: 400
then:: Straight cath
I/O [Intake/ Output] As Directed
Frequency: q12h
Straight Cath As Directed
Frequency: Per Retention Algorithm
Additional Instructions: straight cath as needed per acute urinary retention algorithm for 24 hrs
Additional Instructions: for bladder scan greater than 400 mL
Vital Signs As Directed
Frequency: Per unit guidelines
Weight As Directed
Frequency: Daily
04/22/25 07:30
Insulin Aspart Corrective Low [Novolog Flexpen-Low Resistance] See Protocol SC AC
04/22/25 08:00
Furosemide [Lasix] 80 mg IV DAILY
04/22/25 08:14
Complete Blood Count/With Diff IN AM
Comprehensive Metabolic Panel IN AM
Glycohemoglobin (HgbA1c) IN AM
Prothrombin Time IN AM
04/24/25 11:00
DC Protocol for Telemetry ONCE
Abnormal Lab Results
04/21/25 04/21/25 04/21/25
15:14 15:23 20:45
WBC 12.6 H 10^3/uL
(4.8-10.8)
RBC 2.50 L 10^6/uL
(4.70-6.10)
Hgb 8.2 L g/dL
(13.0-18.0)
Hct 26.0 L %
(39.0-52.0)
MCV 104.0 H fL
(80.0-94.0)
MCH 32.8 H pg
(27.0-31.0)
MCHC 31.5 L g/dL
(33.0-37.0)
RDW 17.7 H %
(11.5-14.5)
Plt Count 633 H 10^3/uL
(130-400)
Abs Immat Gran (auto) 0.6 H 10^3/uL
(0-0.05)
Absolute Neuts (auto) 8.8 H 10^3/uL
(1.4-6.5)
Absolute Lymphs (auto) 1.1 L 10^3/uL
(1.2-3.4)
Absolute Monos (auto) 2.1 H 10^3/uL
(0.1-0.6)
Immature Gran % 4.7 H %
(0-0.5)
Lymphocytes % 8.8 L %
(20.5-51.1)
Monocytes % 16.5 H %
(1.7-9.3)
PT 25.2 H Sec
(11.4-14.6)
Sodium 134 L mmol/L
(135-145)
BUN 55 H mg/dl
(9-20)
Creatinine 1.5 H mg/dL
(0.7-1.3)
Glucose 107 H mg/dl
(70-99)
Albumin 3.4 L g/dl
(3.5-5.0)
POC Glucose 118 H mg/dl
(70-99)
04/21/25 15:23
04/21/25 15:23
Vital Signs
Initial and Last Documented VS:
Initial Vital Signs
Temp Pulse Resp BP Pulse Ox
98.4 F 70 20 141/54 97
04/21/25 15:08 04/21/25 15:08 04/21/25 15:08 04/21/25 15:08 04/21/25 15:08
Last Documented Vital Signs
Temp Pulse Resp BP Pulse Ox
98.5 F 63 16 91/65 96
04/23/25 03:24 04/23/25 03:24 04/23/25 03:24 04/23/25 03:24 04/23/25 03:24
MDM/Problems Addressed
Differential Diagnosis Includes:
CHF pneumonia renal failure
MDM/Problems Addressed:
Edema
Chronic conditions affecting care: DM, Cardiomyopathy and Arrhythmia
Acute Exacerbation and/or Progression of Chronic Illness: DM, Cardiomyopathy and Arrhythmia
*Radiology
Radiology exam reviewed: radiology read reviewed
*Pulse Oximetry
SaO2: 97
Oxygen Mode of Delivery: Room air
Patient hypoxic: no
*EKG
Interpreted by ED Provider?: Yes
Interpretation: abnormal
Comparison EKG: no comparison EKG present
Heart Rate: 74
Rate: normal
Rhythm: a-fib
Ischemia: non-specific ST changes
*Cattle Driver Interpretation
Rate: normal
Interpretation: normal
Heart Rate: 74
Rhythm: a-fib
*Critical Care Note
Total Time (30-74mins, 75-104mins- exclusive of procedures): Not Applicable
Data Reviewed
Review of Other/Old Records Reveals: Labs and Discharge Summary
Source: patient
Prescriptions/Medications Considered But Not Given:
Bumex
Further Testing Considered But Not Given:
CT chest
Update Note
Update Note:
Update labs noted prior records briefly reviewed briefly reviewed with the patient's outpatient second time worker okay with IV diuretic 80 mg twice daily also check bladder scan to make sure he does not show any retention
ED Attending Note
-
Portions of this chart may have been created with voice recognition software.� Occasional wrong word or��sound alike� substitutions may have occurred due to the inherent limitations of voice recognition software.
Discharge Plan
Departure
Patient Disposition: Admit
Date of Disposition: 04/21/25
Time of Disposition: 20:27
Presentation/result/management discussed w/ accepting MD/DO: Hospitalist
Patient with high blood pressure during this ER visit?: No
Condition: Fair
Discharge Problem:
Acute on chronic diastolic CHF (congestive heart failure), Hypertensive heart and chronic kidney disease with heart failure and stage 1 through stage 4 chronic kidney disease, or unspecified chronic kidney disease, Chronic kidney disease, stage 4
(severe), Permanent atrial fibrillation
Interventions
Interventions:
*Risk Screen - Suicide Last Done: 04/21/25 15:08
*General Assessment Last Done: 04/21/25 15:08
*Neglect/Abuse Screening Last Done: 04/21/25 15:08
*ED COVID-19 Vaccine History Last Done: 04/21/25 23:08
*Nursing Disposition Last Done: 04/21/25 22:28
ED- Cardiac Assessment Last Done: 04/21/25 19:16
ED- Pulmonary Assessment Last Done: 04/21/25 19:16
ED-Skin Assessment Last Done: 04/21/25 19:16
Discharge Date and Time
Discharge Date/Time: 04/21/25 22:28
[2025-04-21] MEDS: LASIX 80 MG IV (20:59)
--- NOTE | 2025-04-21 21:05 | HPS.HSE ---
Family Physician
-
Family Physician: Martine Duron
Chief Complaint
-
leg swelling
History of Present Illness
84-year-old male past medical history of chronic HFpEF, CAD status post CABG with DUNCAN to LAD in 2010, mechanical aortic valve replacement, moderate tricuspid regurgitation, pulmonary hypertension, hypertension, moderate to severe concentric LVH,
permanent atrial fibrillation on Coumadin, asymptomatic PVCs, anemia with history of GI bleeding 2021, MDS, hyperlipidemia, type 2 diabetes, peripheral vascular disease status post right posterior tibial angioplasty, asthma, CKD 3B, COPD,
nail-patella syndrome, presenting with increased lower extremity edema over the past few days and decreased urine output despite taking 120 mg of Lasix per day. He denies any weight gain or weight loss. He has chronic cough in the morning and when
he lies down flat which is unchanged. He denies any fevers or chills.
He reportedly had low blood pressure for EMS and low blood sugar to 75 without symptoms. He states that his blood sugar are usually in the 200s in the morning and sometimes go up to 300s but denies any low blood sugars.. Denies blood in the stool.
Patient was recently admitted from 03/04 to 03/21 for generalized myalgias. Patient was found to have possible pneumonia versus mass on CT scan. Patient was volume overloaded and diuresed. Patient was seen by cardiology for consideration of right
heart catheterization but he could not lay flat. He developed worsening kidney function possibly due to contrast nephropathy from CT abdomen pelvis. He required short-term hemodialysis with improvement in kidney function and urine output.
He denies smoking or alcohol use.
Medical History
Past Medical History
Past Medical History: Reports Other (chronic HFpEF, CAD status post CABG with DUNCAN to LAD in 2010, mechanical aortic valve replacement, moderate tricuspid regurgitation, pulmonary hypertension, hypertension, moderate to severe concentric LVH,
permanent atrial fibrillation on Coumadin, asymptomatic PVCs, anemia with history of GI bleedi)
Past Surgical History: Reports None
Social History
Tobacco: Non-smoker
Alcohol: None
Drug: None
Family History
Family History: Not pertinent
Allergies / Home Medications
Allergies reflects when Allergies were last updated in [facility].
Home Medications with original date entered in [facility]
Allergy/Medication List:
Allergies
Allergy/AdvReac Type Severity Reaction Status Date / Time
gabapentin Allergy hallucinati Verified 04/21/25 15:12
ons
Iodinated Contrast Media Allergy KIDNEY Verified 04/21/25 15:12
FAILURE
mold Allergy wheezing Verified 04/21/25 15:12
oxycodone Allergy hallucinati Verified 04/21/25 15:12
ons
pantoprazole Allergy itching Verified 04/21/25 15:12
but
patient
tolerates
omeprazole
Penicillins Allergy Hives Verified 04/21/25 15:12
Home Medications
cholecalciferol (vitamin D3) 25 mcg (1,000 unit) tablet (Vitamin D3) 1,000 unit PO QPM Supplement 02/23/11
rhzsbpffcju-jcavlroiv-vswy254-hyal 750 mg-100 mg-125 mg-1.65 mg tablet 1 ea PO BID Supplement 02/23/11
montelukast 10 mg tablet 10 mg PO QPM Allergies 02/23/11
atorvastatin 80 mg tablet 80 mg PO QPM High cholesterol 05/04/15
finasteride 5 mg tablet 5 mg PO DAILY Urinary issue 05/04/15
rpcxqbjrlgvh-ellsbldz-ncxp fumarate 7.5 mg-folic acid 400 mcg tablet 1 ea PO DAILY Supplement 06/05/15
tamsulosin 0.4 mg capsule 0.4 mg PO BID Urinary issue 06/05/15
insulin lispro 100 unit/mL subcutaneous pen (Humalog KwikPen (U-100) Insulin) 17 - 32 unit SC AC Diabetes 04/18/22
benralizumab 30 mg/mL subcutaneous syringe (Fasenra) 30 mg SC Q8W Lung/breathing issues 05/23/22
omeprazole 40 mg capsule,delayed release 40 mg PO DAILY Gastrointestinal issue 05/23/22
diltiazem HCl 240 mg capsule,extended release 24 hr 240 mg PO DAILY Blood Pressure 03/04/25
fluticasone fur. 100 mcg-umeclid 62.5 mcg-vilant 25 mcg inhalat.powder (Trelegy Ellipta) 1 ea inhalation DAILY Lung/Breathing Issues 03/04/25
hydralazine 25 mg tablet 25 mg PO BID Heart Disease/Condition 03/04/25
insulin glargine 100 unit/mL subcutaneous solution (Lantus U-100 Insulin) 0 - 11 unit SC HS Diabetes 03/04/25
levalbuterol tartrate 45 mcg/actuation aerosol inhaler 2 puff inhalation Q6HPRN PRN sob 03/04/25
Jantoven 3 mg PO QPM Blood Clot Prevention/Tx 03/05/25
latanoprost 0.005 RIGHT EYE QPM Eye Condition 03/05/25
BMP #1 ea 03/21/25
INR #1 ea 03/21/25
docusate sodium 100 mg capsule 100 mg PO BID Gastrointestinal issue 10 days #20 caps 03/21/25
polyethylene glycol 3350 17 gram oral powder packet 17 g PO DAILY Constipation #10 ea 03/21/25
Review of Systems
-
History Source: Patient
A 12 point ROS was completed and negative except as noted: Yes
Constitutional: Reports No Symptoms
EENT: Reports No Symptoms
Respiratory: Reports No Symptoms
Cardiac: Reports No Symptoms
Abdomen/GI: Reports No Symptoms
: Reports No Symptoms
Musculoskeletal: Reports No Symptoms
Skin: Reports No Symptoms
Neurological: Reports No Symptoms
Endocrine: Reports No Symptoms
Hematologic/Lymphatic: Reports No Symptoms
Psych: Reports No Symptoms
Physical Exam
Vital Signs
Vital Signs
Temp Pulse Resp BP Pulse Ox
98.4 F 70 20 141/54 97
04/21/25 15:08 04/21/25 15:08 04/21/25 15:08 04/21/25 15:08 10/20/25 19:21
Physical Exam
General: Well Developed, Well Nourished and No Apparent Distress
HEENT: NormoCephalic, Moist mucous membranes and Atraumatic
Respiratory: Clear
Cardiac: S1/S2, Regular Rhythm and Peripheral Edema; No Murmur or Rub
GI: Soft, Non Tender, Non Distended and Normal Bowel Sounds; No Organomegaly
Rectal: Deferred by Provider
Musculoskeletal: No Clubbing, No Cyanosis and No Edema
Skin: No Rash
Neuro: Nonfocal/grossly intact
Laboratory Results
-
04/21/25 15:23
04/21/25 15:23
Laboratory Results
Total Bilirubin 0.6 mg/dl (0.2-1.3) 04/21/25 15:23
AST 34 U/L (17-59) 04/21/25 15:23
ALT 24 U/L (0-50) 04/21/25 15:23
Alkaline Phosphatase 82 U/L (38-126) 04/21/25 15:23
Data Reviewed
-
Lab Data: Labs Reviewed by me
Old Records: Reviewed
Impression/Plan
-
IMPRESSION:
PLAN:
# Acute HFpEF exacerbation
- Chest x-ray shows mild to moderate interstitial cardiogenic pulmonary edema, mild alveolar pulmonary edema decreased since 03/04, moderate cardiomegaly, mildly decreased bilateral lung volumes, resolution of right upper lobe pneumonia,
-Cardiac BNP of 2800 from 2300
- 80 IV Lasix given, continue daily
-Check I's and O's, daily weights
- Cardiology consulted
CKD 3B
- Renal function close to baseline at 1.5
- Avoid IV contrast
CAD status post CABG with DUNCAN to LAD in 2010
Mechanical aortic valve replacement
- Continue Coumadin
- INR pending
Moderate tricuspid regurgitation
Pulmonary hypertension
Essential hypertension
- Continue hydralazine
Permanent atrial fibrillation
- Continue Coumadin
- Continue diltiazem
History of asymptomatic PVC
Chronic anemia
- Hemoglobin stable
History of GI bleeding 2021
Myelodysplastic syndrome
Hyperlipidemia
Type 2 diabetes
- Continue Lantus 11 units
- Insulin sliding scale
Peripheral vascular disease status post right posterior tibial angioplasty
Asthma
- Continue montelukast
COPD
- Continue Trelegy, Fasenra
Nail-patella syndrome
BPH
- Continue finasteride, tamsulosin
Full code
DVT prophylaxis-Coumadin
Cardiac diet
[2025-04-21 21:18] VITALS: BP 140/68
[2025-04-21 21:28] LABS: INR 2.28; PT 25.2 Sec (11.4-14.6)
[2025-04-21 23:24] VITALS: BP 149/62; BMI 26.1
[2025-04-21 23:30] VITALS: BMI 26.1
[2025-04-22] MEDS: TYLENOL 650 MG PO ×3 (00:18→20:37)
[2025-04-22] MEDS: ROBITUSSIN DM 5 ML PO (02:52)
[2025-04-22 03:34] VITALS: BP 143/56
[2025-04-22 06:00] VITALS: BMI 25.8
[2025-04-22 06:41] LABS: Glucose - Point of Care 248 mg/dl (70-99)
[2025-04-22 07:20] VITALS: BP 149/58
--- NOTE | 2025-04-22 07:21 | W.PN.HOSP.TC ---
Addendum entered and electronically signed by Nat Rosen MD 04/22/25 19:32:
I saw and evaluated the patient independently. I reviewed and discussed the resident�s note and agree with findings and plan as documented by Dr. Mckinney.
GENERAL: well developed, well nourished, male in no apparent distress
HEENT:NC/AT, +JVD
HEART: regular rate and rhythm, +S1, +S2
LUNGS :crackles bilaterally
ABDOM: soft, nontender, nondistended, + bowel sounds
EXT: no cyanosis, clubbing-- 4+ pitting edema bilaterally
NEUROLOGIC: grossly intact
Acute HFpEF exacerbation--likely due to diuretic adjustment from previous admission with JULIAN required short term HD--02/17/2025 echo: EF 60 to 65%--will not repeat at this time--CXR with pulm edema and pro BNP 2800--cont diuresis with 80 mg IV
BID--daily weights, I/Os--apprec cardiology
CKD 3B-- Renal function close to baseline at 1.5-- Avoid IV contrast�--apprec renal-- Continue IV Lasix 80 mg twice daily. Check bladder scan for possible urinary retention (performed in ED with 400 mL)
CAD status post CABG with DUNCAN to LAD in 2010 with Mechanical aortic valve replacement--INR subtherapeutic--on 3 mg coumadin nightly--will give extra 0.5 mg tonight--follow PT/INR--goal INR 2.5 to 3.5
Permanent atrial fibrillation-- Continue Coumadin-- Continue diltiazem
Type 2 diabetes- Continue Lantus 11 units- Insulin sliding scale
Essential hypertension- Continue hydralazine
BPH - Continue finasteride, tamsulosin
Asthma/COPD--no exacerbation - Continue montelukast, Trelegy, Fasenra
Hyperlipidemia - continue atorvastatin 80 mg qPM
Moderate tricuspid regurgitation
Pulmonary hypertension
Chronic anemia - Hemoglobin stable
History of GI bleed 2021
Myelodysplastic syndrome
Peripheral vascular disease status post right posterior tibial angioplasty
History of asymptomatic PVC
Nail-patella syndrome
code status--Full code
DVT proph--Coumadin
Original Note:
Today's Communication/Plan
-
Increased IV Lasix to from 80 mg daily to 80 mg twice daily.
Increased warfarin from 3 mg to 3.5 mg for target INR 2.5-3.
Assessment / Plan
Assessment / Plan
IMPRESSION:
84-year-old male past medical history of chronic HFpEF, CAD status post CABG with DUNCAN to LAD in 2010, permanent atrial fibrillation on Coumadin, mechanical aortic valve replacement, moderate tricuspid regurgitation, pulmonary hypertension,
hypertension, moderate to severe concentric LVH, asymptomatic PVCs, anemia with history of GI bleeding 2021, MDS, hyperlipidemia, type 2 diabetes, peripheral vascular disease status post right posterior tibial angioplasty, asthma, CKD 3B, COPD,
nail-patella syndrome, presenting with increased lower extremity edema over the past few days and decreased urine output despite taking 120 mg of Lasix per day.
He denies weight gain or weight loss. He has chronic cough in the morning and when he lies down flat which is unchanged. He denies any fevers or chills.
He reportedly had low blood pressure for EMS and low blood sugar to 75 without symptoms. He states that his blood sugars are usually in the 200s in the morning and sometimes go up to 300s but denies any low blood sugars. Denies blood in the stool.
Patient was recently admitted from 03/04 to 03/21 for generalized myalgias. Patient was found to have possible pneumonia versus mass on CT scan. Patient was volume overloaded and diuresed. Patient was seen by cardiology for consideration of right
heart catheterization but he could not lay flat. He developed worsening kidney function possibly due to contrast nephropathy from CT abdomen pelvis. He required short-term hemodialysis with improvement in kidney function and urine output.
ED Course:
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 Bladder scan with 400 ml (high), followed by straight cath.
VSS with BP 141/54.
WBC 12.6 high, Hb 8.2 low, Plt 633 high, Cr 1.5 (near baseline).
CXR:
IMPRESSION:
1. Mild to moderate interstitial cardiogenic pulmonary edema.
2. Mild alveolar pulmonary edema which has decreased since 03/04/2025.
3. Mildly decreased bilateral lung volumes.
4. Moderate cardiomegaly.
5. Previous CABG surgery and aortic valve replacement.
6. Severe calcific atherosclerotic plaque in the thoracic and abdominal aorta.
7. Interval resolution of right upper lobe pneumonia.
PLAN:
# Acute HFpEF exacerbation
02/17/2025 echo: EF 60 to 65%
Chest x-ray shows mild to moderate interstitial cardiogenic pulmonary edema, mild alveolar pulmonary edema decreased since 03/04, moderate cardiomegaly, mildly decreased bilateral lung volumes, resolution of right upper lobe pneumonia
Cardiac BNP of 2800 from 2300
- 80 mg IV Lasix twice daily
- Check I's and O's, daily weights
- Cardiology consulted
CKD 3B
- Renal function close to baseline at 1.5
- Avoid IV contrast
� Nephrology consulted: Continue IV Lasix 80 mg twice daily. Check bladder scan for possible urinary retention (performed in ED with 400 mL)
CAD status post CABG with DUNCAN to LAD in 2010
Mechanical aortic valve replacement
- INR 2.28 on 04/21/25.
� Therapeutic INR for mechanical valve is 2.5-3.5. Cardiology aiming for 2.5-3. Increase Coumadin to 3.5 mg every afternoon. Monitoring INR
Permanent atrial fibrillation
- Continue Coumadin
- Continue diltiazem
Type 2 diabetes
- Continue Lantus 11 units
- Insulin sliding scale
Essential hypertension
- Continue hydralazine
BPH - Continue finasteride, tamsulosin
Asthma - Continue montelukast
COPD - Continue Trelegy, Fasenra
Hyperlipidemia - continue atorvastatin 80 mg qPM
Moderate tricuspid regurgitation
Pulmonary hypertension
Chronic anemia - Hemoglobin stable
History of GI bleed 2021
Myelodysplastic syndrome
Peripheral vascular disease status post right posterior tibial angioplasty
History of asymptomatic PVC
Nail-patella syndrome
Full code
DVT prophylaxis-Coumadin
Cardiac diet
Anticipated Discharge: > 48 hours
Subjective/Interval History
-
Date of Service: April 22, 2025
No acute events overnight. Patient had no complaints other than mild pain on the dorsal surfaces of his bilateral feet, which he attributes to his edema. He also has a chronic cough.
Objective Data
-
Labs:
Laboratory Results
Hematology and Coagulation - Last 24 hours
04/21/25 04/21/25 04/22/25 Range/Units
15:23 20:45 08:14
WBC 12.6 H 9.3 (4.8-10.8) 10^3/uL
RBC 2.50 L 2.39 L (4.70-6.10) 10^6/uL
Hgb 8.2 L 7.7 L (13.0-18.0) g/dL
Hct 26.0 L 24.6 L (39.0-52.0) %
MCV 104.0 H 102.9 H (80.0-94.0) fL
MCH 32.8 H 32.2 H (27.0-31.0) pg
MCHC 31.5 L 31.3 L (33.0-37.0) g/dL
RDW 17.7 H 17.8 H (11.5-14.5) %
Plt Count 633 H 574 H (130-400) 10^3/uL
MPV 10.2 10.7 H (7.4-10.4) fL
Abs Immat Gran (auto) 0.6 H 0.3 H (0-0.05) 10^3/uL
Absolute Neuts (auto) 8.8 H 6.5 (1.4-6.5) 10^3/uL
Absolute Lymphs (auto) 1.1 L 0.8 L (1.2-3.4) 10^3/uL
Absolute Monos (auto) 2.1 H 1.6 H (0.1-0.6) 10^3/uL
Absolute Eos (auto) 0.0 0.0 (0-0.7) 10^3/uL
Absolute Basos (auto) 0.1 0.0 (0-0.2) 10^3/uL
CBC Comment
Immature Gran % 4.7 H 3.1 H (0-0.5) %
Neutrophils % 69.6 70.3 (42.2-75.2) %
Lymphocytes % 8.8 L 9.0 L (20.5-51.1) %
Monocytes % 16.5 H 17.2 H (1.7-9.3) %
Eosinophils % 0.0 0.0 (0-6) %
Basophils % 0.4 0.4 (0-2) %
Nucleated RBC % 0.3 0.3 (-) %
PT 25.2 H 25.7 H (11.4-14.6) Sec
INR 2.28 2.34
Blood Gas and Chemistry - Last 24 hours
04/21/25 04/22/25 Range/Units
15:23 08:14
Sodium 134 L 131 L (135-145) mmol/L
Potassium 4.9 4.8 (3.5-5.1) mmol/L
Chloride 104 106 (98-107) mmol/L
Carbon Dioxide 22 21 L (22-30) mmol/L
BUN 55 H 49 H (9-20) mg/dl
Creatinine 1.5 H 1.3 (0.7-1.3) mg/dL
Estimated Creat Clear 36 ml/min
eGFR 45.91 54.51
Glucose 107 H 213 H (70-99) mg/dl
Hemoglobin A1c 8.3 H (4.0-5.6) %
Calcium 8.9 8.5 (8.4-10.2) mg/dl
Total Bilirubin 0.6 0.8 (0.2-1.3) mg/dl
AST 34 29 (17-59) U/L
ALT 24 22 (0-50) U/L
Alkaline Phosphatase 82 84 (38-126) U/L
Vui-R-Gjcloontugq Pept 2830 pg/ml
Total Protein 6.5 6.1 L (6.3-8.2) g/dl
Albumin 3.4 L 3.1 L (3.5-5.0) g/dl
Miscellaneous Lab Results - Last 24 hours
04/21/25 04/22/25 04/22/25 Range/Units
15:14 06:33 07:32
POC Glucose 118 H 248 H 229 H (70-99) mg/dl
Labs
04/22/25 08:14
04/22/25 08:14
Vital Signs:
Vital Signs
Temp Pulse Resp BP Pulse Ox
97.9 F 65 19 143/56 97
04/22/25 03:34 04/22/25 03:34 04/22/25 03:34 04/22/25 03:34 04/22/25 03:34
I&O
04/21/25 04/22/25 04/23/25
06:59 06:59 06:59
Intake Total 480 / 480
Output Total 700 / 700
Balance -220 / -220
Review of Systems
-
All other systems: Reviewed and negative
Physical Exam
-
General: Well Developed, Well Nourished, No Apparent Distress, Comfortable and Conversant
HEENT: Normocephalic, Atraumatic, Anicteric, Nose Appears Normal and Ears Appear Normal; Negative Oxygen
Respiratory: Clear to Auscultation and Crackles
Cardiac: Regular Rhythm and S1/S2
GI: Soft, Nontender, Nondistended and Normal Bowel Sounds
Musculoskeletal: Edema, Right Lower Extrem (4+) and Edema, Left Lower Extrem (4+)
Skin: Warm
Neuro: Awake, Alert, Nonfocal/Grossly Intact and Central Nerve's Intact
Psych: Calm
[2025-04-22 07:33] LABS: Glucose - Point of Care 229 mg/dl (70-99)
[2025-04-22] MEDS: SPIRIVA RESPIMAT 2.5 MCG 2 PUFF INH (07:51)
[2025-04-22] MEDS: SYMBICORT 80/4.5 MCG INHALER 2 PUFF INH ×2 (07:51→19:46)
--- NOTE | 2025-04-22 07:58 | W.CON.NEPH ---
Consultation
-
Date/Time Consultation Requested: 04/22/2025 7:30 AM
Date/Time Consultation Performed: 04/22/2025 8:00 AM
Requesting Provider: Dr. Barlow
Performing Provider: Dr. Bassett
Reason for Consultation: Chronic kidney disease stage III
Medical History
-
Chief Complaint: Chronic kidney disease stage III
History of Present Illness:
Patient is an 84-year-old male with a past medical history of hypertension maintained on diltiazem and hydralazine. He has a history of diabetes and is maintained on insulin therapy. Per review of his records he has a history of chronic kidney
disease stage III contains a baseline creatinine of 1.4 he presented to the emergency room on 03/04/2025 with general myalgias. He had also reported some nausea. He was suspected to have acute on chronic congestive heart failure and/or pneumonia on
presentation to the emergency room and was diuresed. Over the course of his admission he developed acute renal failure with his creatinine rising from 1.4-4.2 and required temporary dialysis. His dialysis catheter was removed on 03/21/2025 when he
was discharged with a creatinine of 1.4. He did follow-up with myself in the nephrology office a few weeks prior and we had placed him back on an escalated Lasix dose to 120 mg. Over the past several days he had decreased urine output and
increasing edema. He reportedly had low blood pressure for EMS and a low blood sugar of 76. Nephrology was consulted in regards to his chronic kidney disease. Of note on presentation his creatinine is at its baseline at 1.5.
Past Medical History
paroxysmal atrial fibrillation
hypertension
hyperlipidemia
ASCVD
chronic kidney disease III (1.4)
HFpEF
BPH
MDS
PAD
DM - II
Past Surgical History: Reports Other
Additional Past Surgical History:
Aortic valve replacement with revision(x2)
Retinal Repair
R Knee Surgery
Deviated Septum Repair
Appendectomy
09/04/2017 right lower extremity arteriogram
03/23/2018 RLE arteriogram
LT LE arteriogram with third order catheterization (Dr Kaur) 10/22/2018
bone marrow biopsy 07/[address] Dickson Faye 2020
Social History
Tobacco: Non-Smoker
Alcohol: None
Drug: None
Family History
Family History: Not Pertinent
Allergies / Home Medications
Allergy/AdvReac Type Severity Reaction Status Date / Time
gabapentin Allergy hallucinati Verified 04/21/25 15:12
ons
Iodinated Contrast Media Allergy KIDNEY Verified 04/21/25 15:12
FAILURE
mold Allergy wheezing Verified 04/21/25 15:12
oxycodone Allergy hallucinati Verified 04/21/25 15:12
ons
pantoprazole Allergy itching Verified 04/21/25 15:12
but
patient
tolerates
omeprazole
Penicillins Allergy Hives Verified 04/21/25 15:12
�Medication �Instructions �Recorded �Confirmed �Type
cholecalciferol (vitamin D3) 25 1,000 unit PO QPM Supplement 02/23/11 03/04/25 History
mcg (1,000 unit) tablet (Vitamin
D3)
bwcobcfcufu-[id number]-hyal 1 ea PO BID Supplement 02/23/11 04/22/25 History
750 mg-100 mg-125 mg-1.65 mg tablet
montelukast 10 mg tablet 10 mg PO QPM Allergies 02/23/11 04/22/25 History
atorvastatin 80 mg tablet 80 mg PO QPM High cholesterol 05/04/15 04/22/25 History
finasteride 5 mg tablet 5 mg PO DAILY Urinary issue 05/04/15 04/22/25 History
jcsinkqlydsx-ogohccjd-uhjm 1 ea PO DAILY Supplement 06/05/15 04/22/25 History
fumarate 7.5 mg-folic acid 400 mcg
tablet
tamsulosin 0.4 mg capsule 0.4 mg PO BID Urinary issue 06/05/15 04/22/25 History
insulin lispro 100 unit/mL 17 - 32 unit SC AC Diabetes 04/18/22 04/22/25 History
subcutaneous pen (Humalog KwikPen
(U-100) Insulin)
benralizumab 30 mg/mL subcutaneous 30 mg SC Q8W Lung/breathing issues 05/23/22 04/22/25 History
syringe (Fasenra)
omeprazole 40 mg capsule,delayed 40 mg PO DAILY Gastrointestinal 05/23/22 04/22/25 History
release issue
diltiazem HCl 240 mg 240 mg PO DAILY Blood Pressure 03/04/25 04/22/25 History
capsule,extended release 24 hr
fluticasone fur. 100 mcg-umeclid 1 ea inhalation DAILY 03/04/25 04/22/25 History
62.5 mcg-vilant 25 mcg Lung/Breathing Issues
inhalat.powder (Trelegy Ellipta)
hydralazine 25 mg tablet 25 mg PO BID Heart 03/04/25 04/22/25 History
Disease/Condition
insulin glargine 100 unit/mL 0 - 11 unit SC HS Diabetes 03/04/25 04/22/25 History
subcutaneous solution (Lantus
U-100 Insulin)
levalbuterol tartrate 45 2 puff inhalation Q6HPRN PRN sob 03/04/25 04/22/25 History
mcg/actuation aerosol inhaler
Jantoven 3 mg PO QPM Blood Clot 03/05/25 04/22/25 History
Prevention/Tx
latanoprost 0.005 RIGHT EYE QPM Eye Condition 03/05/25 History
BMP #1 ea 03/21/25 04/22/25 Rx
INR #1 ea 03/21/25 04/22/25 Rx
docusate sodium 100 mg capsule 100 mg PO BID Gastrointestinal 03/21/25 04/22/25 Rx
issue 10 days #20 caps
polyethylene glycol 3350 17 gram 17 g PO DAILY Constipation #10 ea 03/21/25 04/22/25 Rx
oral powder packet
Review of Systems
-
History Source: Patient
All other systems: Negative unless noted
Respiratory: Cough
: Other (Decreased urine output)
Musculoskeletal: Edema
Physical Exam
Vital Signs
Vital Signs
Temp Pulse Resp BP Pulse Ox
98.0 F 65 16 149/58 96
04/22/25 07:20 04/22/25 07:20 04/22/25 07:20 04/22/25 07:20 04/22/25 07:20
Lab Results
BMP CBC
eGFR 45.91 04/21/25 15:23
Rzq-M-Mvkjbfceyrn Pept 2830 pg/ml 04/21/25 15:23
Physical Exam
General: AOx3, Nontoxic , NAD
HEENT: PERRL, EOMI, Anicteric, Conjunctivae Clear, Ear/Nose Intact, Hearing Normal, Oropharynx Clear/Moist, Dentition Intact, Facial Symmetry, Neck Supple, Neck: Trachea Midline, No JVD and No Thyromegaly, no Bruits
Respiratory: Crackles and wheezes noted bilaterally y with normal lung excursion
Cardiac: S1/S2 and irregular
Breast: Deferred by me
Abdomen: Soft, Nontender, Nondistended, Normal Bowel Sounds and No Hepatosplenomegaly
Rectal: Deferred by Provider
Genito-urinary: No Costovertebral Tenderness
Extremities: No Clubbing, No Cyanosis and Noted 1 plus pitting edema
Skin: No Rash or open lesions
Neuro: Nonfocal/Grossly Intact, CN II-XII (Intact) and Strength (Musculoskeletal exam 5 out of 5 both upper and lower extremities)
Hematologic/Lymphatic: No Cervical Lymphadenopathy, No Submandibular Lymphadenopathy and No Supraclavicular Lymphadenopathy
Psych: Mood/affect pleasant, Insight/judgement good and Appropriate
Vascular: plus 1 pedal and radial pulses
Data Reviewed
-
Radiology: Image Personally Visualized and interpreted (Reviewed chest x-ray which noted mild interstitial edema left anterior chest wall cardiac device CABG wires mechanical aortic valve)
Labs: Labs Reviewed by me (BMP CBC)
Old Records: Reviewed (Reviewed previous nephrology consult from March 2025 also reviewed 03/20/2025 creatinine of 1.5 in the electronic medical)
Assessment/Plan
-
Impression:
CKD stage III with baseline creatinine of 1.4-1.5
Recent hospitalization for PNA
Suspected CHF decompensation/edema
Valvular heart disease with history of mechanical aortic valve replacement
History of coronary artery disease with CABG
Hypertension
Anemia with history of MDS
Secondary pulmonary hypertension with moderate tricuspid regurg
Peripheral vascular disease
COPD
Acute kidney injury (4.2)
History of congestive heart Failure
Diabetes
Atrial fibrillation
Plan:
No need for acute dialysis
Hemodynamically stable
Creatinine stable at 1.5 baseline
Maintain IV diuresis at 80 mg IV twice daily, weight was only up 2 kg from discharge weight on 03/21/2025
Check bladder scan to assess for possible urinary retention
Last dialysis treatment was Thursday 03/15
[2025-04-22] MEDS: APRESOLINE 25 MG PO ×2 (08:42→20:38)
[2025-04-22] MEDS: PROSCAR 5 MG PO (08:43)
[2025-04-22] MEDS: CARDIZEM CD 240 MG PO (08:43)
[2025-04-22] MEDS: COLACE 100 MG PO ×2 (08:43→20:38)
[2025-04-22] MEDS: FLOMAX 0.4 MG PO ×2 (08:43→20:38)
[2025-04-22] MEDS: LASIX 80 MG IV ×2 (08:43→15:00)
[2025-04-22] MEDS: NOVOLOG FLEXPEN-LOW RESISTANCE 2 UNITS SC (08:45)
[2025-04-22] MEDS: MIRALAX 17 GRAMS PO (08:45)
[2025-04-22] MEDS: PREVACID 30 MG PO (08:51)
--- NOTE | 2025-04-22 08:51 | VNURNOTE ---
Chart reviewed. Patient is current with [facility]. Will continue to follow hospital course and DC plans.
[2025-04-22 09:09] LABS: Hematocrit 24.6 % (39.0-52.0); Hemoglobin 7.7 g/dL (13.0-18.0); Mean Corp Hgb Conc. 31.3 g/dL (33.0-37.0); Mean Corpuscular Volume 102.9 fL (80.0-94.0); Nucleated Red Blood Cells % 0.3 % (-); Platelet Count 574 10^3/uL (130-400); Red Cell Dist. Width 17.8 % (11.5-14.5)
[2025-04-22 09:15] LABS: INR 2.34; PT 25.7 Sec (11.4-14.6)
--- NOTE | 2025-04-22 09:45 | CON.CAR ---
Addendum entered and electronically signed by Sabra Black DO 04/22/25 22:32:
I saw and examined the patient.
The Early Childhood Teacher's note was reviewed and I agree with the note.
Comment: Patient was seen and examined. Obed is an 84-year-old male with past medical history significant for chronic HFpEF, CAD status post CABG with DUNCAN to LAD in 2010, mechanical aortic valve replacement, moderate tricuspid regurgitation,
pulmonary hypertension, hypertension, moderate to severe concentric LVH, permanent atrial fibrillation on Coumadin, asymptomatic PVCs, anemia with history of GI bleeding 2021, MDS, hyperlipidemia, type 2 diabetes, peripheral vascular disease status
post right posterior tibial angioplasty, asthma, CKD 3B, COPD, nail-patella syndrome, presenting to emergency department 04/21/2025 with cough, increased lower extremity edema over the past few days and decreased urine output. He was recently
admitted from 03/04 to 03/21 for generalized myalgias. Patient was found to have possible pneumonia versus mass on CT scan. Patient was volume overloaded and diuresed. Patient was seen by cardiology for consideration of right heart catheterization
but he could not lay flat. He developed worsening kidney function possibly due to contrast nephropathy from CT abdomen pelvis. He required short-term hemodialysis with improvement in kidney function and urine output. Creatinine improved to 1.4
upon discharge. Patient had been seen by nephrology 1 week ago with increase in diuretic due to concerns for heart failure. Unfortunately patient has had poor response now with worsening cough, decreased urine output and worsening edema. Cardiology
being asked to see patient for concerns of heart failure. EKG demonstrated atrial flutter with ventricular paced rhythm. Chest x-ray showed mild to moderate interstitial cardiogenic pulmonary edema, mild alveolar pulmonary edema decreased since
03/04, moderate cardiomegaly, mildly decreased bilateral lung volumes, resolution of right upper lobe pneumonia. proBNP higher than prior admission at 2830. Creatinine found to be 1.5 which is at baseline. Patient was provided 80 mg of IV Lasix in
emergency department.
General: No acute distress, AAOX3
LUNGS: Crackles at bilateral bases, coarse breath sounds bilaterally. No wheeze
CV: Irregularly, S1/S2, 2/6 sys murmur, audible click of mechanical valve
ABD: Obese but soft, BS+, NT/ND
EXT: +1 bilateral lower extremity edema, no clubbing or cyanosis
Plan:
Acute on chronic HFpEF, probnp 2830 which is higher than previous proBNP
-IV diuresis with Lasix 80 mg IV twice daily
-Nephrology following for history of CKD stage III and recent JULIAN requiring temporarily dialysis in March secondary to IV contrast exposure
-Monitor renal function and electrolytes closely. Baseline creatinine 1.4-1.5
- EF was 60 to 65% by echo 02/17/2025, no need to repeat.
-Not a good candidate for addition of DEREK/ARB/ARNI/aldosterone antagonist due to CKD 3B/JULIAN
-Not a good candidate foron SGLT2 inhibitor due to CKD, decreased GFR
s/p mechanical AVR in 2010 and then he had redo sternotomy with stitch repair in 2014 to help with paravalvular leak
-2D echocardiogram 02/17/2025 noted Transaortic peak/mean gradients 36/15 mmHg with mild perivalvular regurgitation
-INR therapeutic at 2.34.
-Patient was switched from generic warfarin to Jantoven in the last year and takes 3 mg daily as an outpatient.
Chronic anemia- Hemoglobin 7.2, continue to monitor closely with ongoing diuresis. Patient does have history of GI bleed in 2021 and MDS
History of permanent atrial fibrillation and flutter with pacemaker.
-Continue Cardizem for rate control for permanent atrial fibrillation.
- Remains on Jantoven for atrial flutter and mechanical valve.
Will follow with you
Original Note:
Consultation
Consultation Request
Date/Time Consultation Requested: 04/21/2025
Date/Time Consultation Performed: 04/22/2025
Requesting Provider: Dr. Barlow
Performing Provider: Rekha Gage PA-C for Dr. Black
Reason for Consultation: Heart failure
Medical History
-
History of Present Illness:
Patient is an 84-year-old male with past medical history significant for chronic HFpEF, CAD status post CABG with DUNCAN to LAD in 2010, mechanical aortic valve replacement, moderate tricuspid regurgitation, pulmonary hypertension, hypertension,
moderate to severe concentric LVH, permanent atrial fibrillation on Coumadin, asymptomatic PVCs, anemia with history of GI bleeding 2021, MDS, hyperlipidemia, type 2 diabetes, peripheral vascular disease status post right posterior tibial
angioplasty, asthma, CKD 3B, COPD, nail-patella syndrome, presenting to emergency department 04/21/2025 with cough, increased lower extremity edema over the past few days and decreased urine output.
Patient was recently admitted from 03/04 to 03/21 for generalized myalgias. Patient was found to have possible pneumonia versus mass on CT scan. Patient was volume overloaded and diuresed. Patient was seen by cardiology for consideration of right
heart catheterization but he could not lay flat. He developed worsening kidney function possibly due to contrast nephropathy from CT abdomen pelvis. He required short-term hemodialysis with improvement in kidney function and urine output.
Creatinine improved to 1.4 upon discharge.
Patient had been seen by nephrology 1 week ago with increase in diuretic due to concerns for heart failure. Unfortunately patient has had poor response now with worsening cough, decreased urine output and worsening edema.
Cardiology being asked to see patient for concerns of heart failure. EKG demonstrated atrial flutter with ventricular paced rhythm. Chest x-ray showed mild to moderate interstitial cardiogenic pulmonary edema, mild alveolar pulmonary edema
decreased since 03/04, moderate cardiomegaly, mildly decreased bilateral lung volumes, resolution of right upper lobe pneumonia. proBNP higher than prior admission at 2830. Creatinine found to be 1.5 which is at baseline. Patient was provided 80 mg
of IV Lasix in emergency department.
PMH:
Chronic HFpEF
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
MR, moderate to severe by TIAN 03/31/23, moderate by TTE 02/17/25
Mild MS with mean gradient 4 mmHg by TTE 02/17/25
Mechanical aortic valve replacement in 2010, followed by revision of pre-existing mechanical aortic valve for perivalvular leak 07/22/2014
LVOT gradient turbulence with mild paravalvular aortic leak by TIAN 03/31/2023 and mild paravalvular regurgitation by TIAN 02/17/25
CAD s/p CABG with DUNCAN to LAD in 2010
HTN
Moderate to severe concentric LVH by echo 02/17/25
Permanent atrial fibrillation
Chronic Jantoven (brand name warfarin) OAC managed by [facility]
Asymptomatic PVCs
Anemia with h/o GI bleed in 2021.
Anemia and MDS
Secondary pulmonary hypertension.
Hyperlipidemia.
Diabetes mellitus type 2
Peripheral vascular disease, status post right posterior tibial angioplasty in 2019.
Premature ventricular contractions.
Asthma.
CKD 3b
Chronic obstructive pulmonary disease.
Nail-patella syndrome
Past Medical History
Past Medical History: Arrhythmias (Permanent atrial fibrillation, asymptomatic PVCs), Asthma, CAD (Coronary artery bypass surgery), CHF (Heart failure with preserved ejection fraction), COPD, HTN, Hypercholesterolemia, NIDDM, Renal Failure (Renal
insufficiency), Valvular Disease (Mechanical aortic valve replacement and redo surgery for paravalvular leak ) and Other (Peripheral vascular disease status post intervention)
Past Surgical History: Appendectomy, Cardiac (CABG), Orthopedic (Right knee surgery) and Other (Retinal repair)
Social History
Tobacco: Non-Smoker
Alcohol: None
Personal:
Living: With Family
Family History
Family History: Other (Father with heart failure)
Allergies / Home Medications
Allergy/AdvReac Type Severity Reaction Status Date / Time
gabapentin Allergy hallucinati Verified 04/21/25 15:12
ons
Iodinated Contrast Media Allergy KIDNEY Verified 04/21/25 15:12
FAILURE
mold Allergy wheezing Verified 04/21/25 15:12
oxycodone Allergy hallucinati Verified 04/21/25 15:12
ons
pantoprazole Allergy itching Verified 04/21/25 15:12
but
patient
tolerates
omeprazole
Penicillins Allergy Hives Verified 04/21/25 15:12
�Medication �Instructions �Recorded �Confirmed �Type
cholecalciferol (vitamin D3) 25 1,000 unit PO QPM Supplement 02/23/11 03/04/25 History
mcg (1,000 unit) tablet (Vitamin
D3)
gixhaevgenw-fhelerjhz-bicr368-hyal 1 ea PO BID Supplement 02/23/11 04/22/25 History
750 mg-100 mg-125 mg-1.65 mg tablet
montelukast 10 mg tablet 10 mg PO QPM Allergies 02/23/11 04/22/25 History
atorvastatin 80 mg tablet 80 mg PO QPM High cholesterol 05/04/15 04/22/25 History
finasteride 5 mg tablet 5 mg PO DAILY Urinary issue 05/04/15 04/22/25 History
kqeineqdtuci-frlffwlc-uspt 1 ea PO DAILY Supplement 06/05/15 04/22/25 History
fumarate 7.5 mg-folic acid 400 mcg
tablet
tamsulosin 0.4 mg capsule 0.4 mg PO BID Urinary issue 06/05/15 04/22/25 History
insulin lispro 100 unit/mL 17 - 32 unit SC AC Diabetes 04/18/22 04/22/25 History
subcutaneous pen (Humalog KwikPen
(U-100) Insulin)
benralizumab 30 mg/mL subcutaneous 30 mg SC Q8W Lung/breathing issues 05/23/22 04/22/25 History
syringe (Fasenra)
omeprazole 40 mg capsule,delayed 40 mg PO DAILY Gastrointestinal 05/23/22 04/22/25 History
release issue
diltiazem HCl 240 mg 240 mg PO DAILY Blood Pressure 03/04/25 04/22/25 History
capsule,extended release 24 hr
fluticasone fur. 100 mcg-umeclid 1 ea inhalation DAILY 03/04/25 04/22/25 History
62.5 mcg-vilant 25 mcg Lung/Breathing Issues
inhalat.powder (Trelegy Ellipta)
hydralazine 25 mg tablet 25 mg PO BID Heart 03/04/25 04/22/25 History
Disease/Condition
insulin glargine 100 unit/mL 0 - 11 unit SC HS Diabetes 03/04/25 04/22/25 History
subcutaneous solution (Lantus
U-100 Insulin)
levalbuterol tartrate 45 2 puff inhalation Q6HPRN PRN sob 03/04/25 04/22/25 History
mcg/actuation aerosol inhaler
Jantoven 3 mg PO QPM Blood Clot 03/05/25 04/22/25 History
Prevention/Tx
latanoprost 0.005 RIGHT EYE QPM Eye Condition 03/05/25 History
BMP #1 ea 03/21/25 04/22/25 Rx
INR #1 ea 03/21/25 04/22/25 Rx
docusate sodium 100 mg capsule 100 mg PO BID Gastrointestinal 03/21/25 04/22/25 Rx
issue 10 days #20 caps
polyethylene glycol 3350 17 gram 17 g PO DAILY Constipation #10 ea 03/21/25 04/22/25 Rx
oral powder packet
Review of Systems
-
History Source: Patient
All other systems: Negative unless noted
Physical Exam
Vital Signs
Temp Pulse Resp BP Pulse Ox
98.0 F 67 16 149/58 97
04/22/25 07:20 04/22/25 08:42 04/22/25 08:01 04/22/25 08:42 04/22/25 08:01
GEN: No distress, awake, Ox3 lying in bed coughing
HEENT: supple, anicteric, mmm
LUNGS: Crackles at bilateral bases, coarse breath sounds bilaterally, coughs with inspiration, few faint wheezes
CV: Irregularly, S1/S2, 2/6 sys murmur, audible click of mechanical valve
ABD: Obese but soft, BS+, NT/ND
EXT: +1 bilateral lower extremity edema, no clubbing or cyanosis
NEURO: Gross non-focal
SKIN: No rash, warm, dry, pink
Lab Results
04/22/25 08:14
Rrn-K-Rjurskngfbq Pept 2830 pg/ml 04/21/25 15:23
Impression / Plan
-
.
PCP: Dr. Duron
School Janitor: Dr. Molly Faye
Impression:
Presented 04/21/2025 with decreased urine output, edema and shortness of breath
Acute on chronic HFpEF, probnp 2830
Recent admission with multifactorial SOB/pneumonia, JULIAN due to IV contrast requiring temporary dialysis 03/04/25
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
MR, moderate to severe by TIAN 03/31/23, moderate by TTE 02/17/25
Mechanical AVR in 2010, followed by revision of pre-existing mechanical aortic valve for perivalvular leak 07/22/2014
LVOT gradient turbulence with mild paravalvular aortic leak by TIAN 03/31/2023 and mild paravalvular regurgitation by TIAN 02/17/25
CAD s/p CABG with DUNCAN to LAD in 2010
HTN with Moderate to severe concentric LVH by echo 02/17/25
Permanent atrial fibrillation on chronic Jantoven (brand name warfarin) OAC managed by [facility] for CAF and mechanical AVR
Anemia with h/o GI bleed in 2021 and MDS
Secondary pulmonary hypertension.
Hyperlipidemia.
Diabetes mellitus type 2
Peripheral vascular disease, status post right posterior tibial angioplasty in 2019.
Chronic obstructive pulmonary disease/ asthma
Nail-patella syndrome
Echo 03/23/23: Moderate LVH. Normal LV size with EF 73%. Normal right ventricular size and function. Mild to moderate mitral stenosis with peak/mean gradients of 25/7 mmHg. Moderate to severe eccentric mitral regurgitation. #[address] [place] mechanical
aortic valve replacement with peak/mean gradients of 81/42 mmHg. Mild paravalvular aortic regurgitation. Moderate tricuspid regurgitation. Estimated PA pressure of 72 mmHg assuming a right atrial pressure of 15.
TIAN 03/31/23: Normal LV size and function with ejection fraction 65%. Moderate LVH. Blood pressure was 179/80. Normal right ventricle. Mild to moderate mitral stenosis with mean gradient 3 mmHg. Moderate to severe mitral regurgitation with 2 jets
noted. Mechanical [place] valve is in place. Leaflets appear to be opening appropriately with mild thickening. Turbulent flow going through the LVOT. Mild paravalvular leak.
Valve fluoroscopy 03/31/23: Study was not optimal for opening and closing angles however leaflets appear to be mobile and free of significant obstruction.
Echo 02/17/2025: EF 60 to 65%, moderate to severe concentric LVH, mechanical [place] AVR peak/mean 36/15 mmHg with mild perivalvular regurgitation, mild MS with mean gradient 4 mmHg, moderate MR, moderate TR with PAP 38 mmHg
Plan:
Presented 04/21/2025 with decreased urine output, edema and shortness of breath found to have acute heart failure both by proBNP and chest x-ray.
Acute on chronic HFpEF, probnp 2830 which is higher than previous proBNP
Weight on admission 5 pounds higher than prior discharge weight in March, diuresed 2 pounds overnight.
Ongoing IV diuresis with Lasix 80 mg IV twice daily
Nephrology following for history of CKD stage III and recent JULIAN requiring temporarily dialysis in March secondary to IV contrast exposure
Repeat creatinine pending. Monitor renal function and electrolytes closely. Baseline creatinine 1.4-1.5
EF was 60 to 65% by echo 02/17/2025, no need to repeat.
Patient is not chronically on BB, but instead is on Cardizem CD with history of atrial flutter
Patient is not chronically on DEREK/ARB/ARNI/aldosterone antagonist due to CKD 3B/JULIAN
Patient is not chronically on SGLT2 inhibitor due to CKD, decreased GFR
Continue nebulizer treatments/inhalers
History of mechanical aortic valve. On chronic anticoagulation with warfarin. INR therapeutic at 2.34. Continue Warfarin
INR goal is 2.5-3. INRs managed by [facility] office using home monitor. Patient was switched from generic warfarin to Jantoven in the last year and takes 3 mg daily as an outpatient.
Patient is s/p mechanical AVR in 2010 and then he had redo sternotomy with stitch repair in 2014 to help with paravalvular leak. By echo 03/23/23 he had mild paravalvular aortic regurgitation and then on TIAN 03/31/23 he had turbulent flow through the
LVOT and mild paravalvular leak. Then he had valve fluoroscopy 03/31/23 that was not optimal for opening and closing angles, but the leaflets appeared to be mobile and free of significant obstruction.
Hemoglobin 7.2, continue to monitor closely with ongoing diuresis. Patient does have history of GI bleed in 2021 and MDS
History of permanent atrial fibrillation and flutter with pacemaker. Continue Cardizem for rate control for permanent atrial fibrillation. Remains on Jantoven for atrial flutter and mechanical valve.
Known CAD s/p CABG with DUNCAN to LAD in 2010 and he had stable CAD by cath in 2014
HPI 04/22/2025:
Patient is an 84-year-old male with past medical history significant for chronic HFpEF, CAD status post CABG with DUNCAN to LAD in 2010, mechanical aortic valve replacement, moderate tricuspid regurgitation, pulmonary hypertension, hypertension,
moderate to severe concentric LVH, permanent atrial fibrillation on Coumadin, asymptomatic PVCs, anemia with history of GI bleeding 2021, MDS, hyperlipidemia, type 2 diabetes, peripheral vascular disease status post right posterior tibial
angioplasty, asthma, CKD 3B, COPD, nail-patella syndrome, presenting to emergency department 04/21/2025 with increased lower extremity edema over the past few days and decreased urine output.
Patient was recently admitted from 03/04 to 03/21 for generalized myalgias. Patient was found to have possible pneumonia versus mass on CT scan. Patient was volume overloaded and diuresed. Patient was seen by cardiology for consideration of right
heart catheterization but he could not lay flat. He developed worsening kidney function possibly due to contrast nephropathy from CT abdomen pelvis. He required short-term hemodialysis with improvement in kidney function and urine output.
Creatinine improved to 1.4 upon discharge.
Patient had been seen by nephrology 1 week ago with increase in diuretic due to concerns for heart failure. Unfortunately patient has had poor response now with decreased urine output and worsening edema.
Cardiology being asked to see patient for concerns of heart failure. EKG demonstrated atrial flutter with ventricular paced rhythm. Chest x-ray showed mild to moderate interstitial cardiogenic pulmonary edema, mild alveolar pulmonary edema
decreased since 03/04, moderate cardiomegaly, mildly decreased bilateral lung volumes, resolution of right upper lobe pneumonia. proBNP higher than prior admission at 2830. Creatinine found to be 1.5 which is at baseline. Patient was provided 80 mg
of IV Lasix in emergency department.
Data Reviewed
-
EKG: Report Reviewed by me, Discussed with Physician, Discussed with Nurse and Discussed with Patient
Radiology: Report Reviewed by me, Discussed with Physician, Discussed with Nurse and Discussed with Patient
Labs: Labs Reviewed by me, Discussed with Physician, Discussed with Nurse, Discussed with Patient and Discussed with Family
Old Records: Reviewed
[2025-04-22 10:21] LABS: Glycohemoglobin (HgbA1c) 8.3 % (4.0-5.6)
[2025-04-22 10:59] LABS: ALT (SGPT) 22 U/L (0-50); AST (SGOT) 29 U/L (17-59); Albumin 3.1 g/dl (3.5-5.0); Alkaline Phosphatase 84 U/L (38-126); Blood Urea Nitrogen 49 mg/dl (9-20); Calcium 8.5 mg/dl (8.4-10.2); Carbon Dioxide 21 mmol/L (22-30); Chloride 106 mmol/L (98-107); Estimated Creatinine Clearance 36 ml/min; Glucose 213 mg/dl (70-99); Potassium 4.8 mmol/L (3.5-5.1); Total Protein 6.1 g/dl (6.3-8.2); eGFR 54.51
[2025-04-22 11:06] LABS: Sodium 131 mmol/L (135-145)
[2025-04-22 11:10] VITALS: BP 147/58
[2025-04-22 13:09] LABS: Glucose - Point of Care 357 mg/dl (70-99)
--- NOTE | 2025-04-22 13:11 | CM ---
Addendum entered by Kristal Richmond RN 04/22/25 13:15:
Advance Directive packet provided to the patient.
Original Note:
Reviewed the chart notes and spoke with the patient at the bedside. The patient resides with his spouse in a one story home with 2-3 steps to enter. The patient has a rolling walker and tub slide bench. The patient is current with VN, but no
SNF. The patient confirmed his pharmacy of choice is [address] CM continues to be available to patient/family and is monitoring medical plan for needs at discharge.
Plan: Discharge to back to home with resumption of VN services.
[2025-04-22] MEDS: NOVOLOG FLEXPEN-LOW RESISTANCE 5 UNITS SC (13:25)
[2025-04-22 15:04] VITALS: BP 141/54
[2025-04-22 16:51] LABS: Glucose - Point of Care 310 mg/dl (70-99)
[2025-04-22] MEDS: NOVOLOG FLEXPEN-LOW RESISTANCE 4 UNITS SC (17:24)
[2025-04-22] MEDS: COUMADIN 3 MG PO (17:26)
[2025-04-22] MEDS: LIPITOR 80 MG PO (17:27)
[2025-04-22] MEDS: XALATAN OPHTHALMIC SOLUTION 1 DROP RIGHT EYE (17:28)
[2025-04-22] MEDS: SINGULAIR 10 MG PO (17:28)
[2025-04-22 19:00] VITALS: BP 142/56
[2025-04-22] MEDS: COUMADIN 0.5 MG PO (20:39)
[2025-04-22 21:31] LABS: Glucose - Point of Care 267 mg/dl (70-99)
[2025-04-22] MEDS: LANTUS 0.11 UNITS SC (22:08)
[2025-04-22 23:00] VITALS: BP 146/58
[2025-04-23] VITALS (7 sets, daily range): BP systolic 91–160; BP diastolic 51–65; BMI 25.8
--- NOTE | 2025-04-23 02:20 | DOWNTIME ---
There was a [employer] Client It Manager Downtime on 04/23/2025 from 0100 to 04/23/2025 at 0215. Downtime documentation of patient's care, including medication administrations, has been reconciled in the electronic record per guidelines. Refer to the
patient's paper chart under the miscellaneous tab to see printed paper medication records and downtime forms.
[2025-04-23] MEDS: SPIRIVA RESPIMAT 2.5 MCG 2 PUFF INH (07:41)
[2025-04-23] MEDS: SYMBICORT 80/4.5 MCG INHALER 2 PUFF INH ×2 (07:41→19:30)
[2025-04-23 07:53] LABS: Glucose - Point of Care 163 mg/dl (70-99)
[2025-04-23] MEDS: FLOMAX 0.4 MG PO ×2 (08:01→20:34)
[2025-04-23] MEDS: CARDIZEM CD 240 MG PO (08:01)
[2025-04-23] MEDS: PROSCAR 5 MG PO (08:01)
[2025-04-23] MEDS: APRESOLINE 25 MG PO ×2 (08:01→20:34)
[2025-04-23] MEDS: COLACE 100 MG PO ×2 (08:01→20:34)
[2025-04-23] MEDS: MIRALAX 17 GRAMS PO (08:02)
[2025-04-23] MEDS: PREVACID 30 MG PO (08:02)
[2025-04-23] MEDS: NOVOLOG FLEXPEN-LOW RESISTANCE 1 UNITS SC ×2 (08:02→17:16)
[2025-04-23] MEDS: LASIX 80 MG IV ×2 (08:04→16:21)
--- NOTE | 2025-04-23 08:11 | W.PN.HOSP.TC ---
Addendum entered and electronically signed by Nat Rosen MD 04/23/25 17:13:
I saw and evaluated the patient independently. I reviewed and discussed the resident�s note and agree with findings and plan as documented by Dr. Mckinney.
GENERAL: well developed, well nourished, male in no apparent distress
HEENT:NC/AT, +JVD, VERY hard of hearing
HEART: regular rate and rhythm, +S1, +S2
LUNGS :crackles bilaterally
ABDOM: soft, nontender, distended, + bowel sounds
EXT: no cyanosis, clubbing-- 4+ pitting edema bilaterally improving
NEUROLOGIC: grossly intact
04/21/25
23:24 04/23/25
05:25
Actual Weight 68.991 kg 68.175 kg
Acute HFpEF exacerbation--likely due to diuretic adjustment from previous admission with JULIAN required short term HD--02/17/2025 echo: EF 60 to 65%--will not repeat at this time--CXR with pulm edema and pro BNP 2800--cont diuresis with 80 mg IV
BID--daily weights, I/Os--apprec cardiology--weights not improving with diuresis, follow closely
CKD 3B-- Renal function at 1.3-- Avoid IV contrast�--apprec renal-- Continue IV Lasix 80 mg twice daily. Check bladder scan for possible urinary retention (performed in ED with 400 mL)
CAD status post CABG with DUNCAN to LAD in 2010 with Mechanical aortic valve replacement--INR subtherapeutic--on 3 mg Coumadin nightly--s/p extra 0.5 mg 04/23/25--follow PT/INR--goal INR 2.5 to 3.5
Permanent atrial fibrillation-- Continue Coumadin, follow INR-- Continue diltiazem
Type 2 diabetes- Continue Lantus 11 units- Insulin sliding scale
Essential hypertension- Continue hydralazine
BPH - Continue finasteride, tamsulosin
Asthma/COPD--no exacerbation - Continue montelukast, Trelegy, Fasenra
Hyperlipidemia - continue atorvastatin 80 mg qPM
Moderate tricuspid regurgitation
Pulmonary hypertension
Chronic anemia - Hemoglobin stable
History of GI bleed 2021
Myelodysplastic syndrome
Peripheral vascular disease status post right posterior tibial angioplasty
History of asymptomatic PVC
Nail-patella syndrome
code status--Full code
DVT proph--Coumadin
Original Note:
Today's Communication/Plan
-
INR 2.98 on warfarin increase to 3.5 mg. Monitor INR on warfarin 3 mg daily.
B/l pedal edema decreased on 80 mg IV furosemide BID. Cr 1.3, at baseline.
Bladder scan with 139 mL postvoid residual after patient voided 145 mL. Mild retention
Diabetes: Increased Lantus from 11 to 15 units. Switch to SSI from low resistance to moderate resistance.
Assessment / Plan
Assessment / Plan
IMPRESSION:
84-year-old male past medical history of chronic HFpEF, CAD status post CABG with DUNCAN to LAD in 2010, permanent atrial fibrillation on Coumadin, mechanical aortic valve replacement, moderate tricuspid regurgitation, pulmonary hypertension,
hypertension, moderate to severe concentric LVH, asymptomatic PVCs, anemia with history of GI bleeding 2021, MDS, hyperlipidemia, type 2 diabetes, peripheral vascular disease status post right posterior tibial angioplasty, asthma, CKD 3B, COPD,
nail-patella syndrome, presenting with increased lower extremity edema over the past few days and decreased urine output despite taking 120 mg of Lasix per day.
PLAN:
# Acute HFpEF exacerbation
02/17/2025 echo: EF 60 to 65%
Chest x-ray shows mild to moderate interstitial cardiogenic pulmonary edema, mild alveolar pulmonary edema decreased since 03/04, moderate cardiomegaly, mildly decreased bilateral lung volumes, resolution of right upper lobe pneumonia
Cardiac BNP of 2800, up from 2300
- 80 mg IV Lasix twice daily
- Check I's and O's, daily weights
- Cardiology consulted: continue current management
CKD 3B
- Renal function close to baseline at 1.5
- Avoid IV contrast
Nephrology consulted:
- Continue IV Lasix 80 mg twice daily.
- Mild retention on bladder scan with 139 mL post void after voiding 145 mL
CAD status post CABG with DUNCAN to LAD in 2010
Mechanical aortic valve replacement
- At home, on warfarin 3 mg.
- INR 2.28 on 04/21/25. Therapeutic INR for mechanical valve is 2.5-3.5. Cardiology aiming for 2.5-3.
- Increased warfarin to 3.5 mg 04/22/2025. INR 2.98. Monitor INR on warfarin 3.0 mg qPM
Permanent atrial fibrillation
- Continue Coumadin
- Continue diltiazem
Type 2 diabetes
- On Lantus 11 units at home. Given elevated related blood sugars at night and after most meals, increased Lantus to 15 units 04/23/2025
- Insulin sliding scale moderate resistance.
Essential hypertension
- Continue hydralazine
BPH - Continue finasteride, tamsulosin
Asthma - Continue montelukast
COPD - Continue Trelegy, Fasenra
Hyperlipidemia - continue atorvastatin 80 mg qPM
Moderate tricuspid regurgitation
Pulmonary hypertension
Chronic anemia - Hemoglobin stable
History of GI bleed 2021
Myelodysplastic syndrome
Peripheral vascular disease status post right posterior tibial angioplasty
History of asymptomatic PVC
Nail-patella syndrome
Full code
DVT prophylaxis-Coumadin
Cardiac diet
Anticipated Discharge: 24 - 48 hours
Subjective/Interval History
-
Date of Service: April 23, 2025
No acute events overnight. Patient said he feels well and left dorsal foot pain decreased.
Objective Data
-
Labs:
Laboratory Results
04/23/25 07:27
04/23/25 07:27
PT 31.3 Sec (11.4-14.6) H 04/23/25 07:27
INR 2.98 04/23/25 07:27
Magnesium 1.9 mg/dl (1.6-2.3) 04/23/25 07:27
AST 21 U/L (17-59) 04/23/25 07:27
ALT 21 U/L (0-50) 04/23/25 07:27
Msg-T-Xeymhrjqfzs Pept 2830 pg/ml 04/21/25 15:23
Vital Signs:
Vital Signs
Temp Pulse Resp BP Pulse Ox
98.5 F 76 16 91/65 96
04/23/25 03:24 04/23/25 07:47 04/23/25 07:47 04/23/25 03:24 04/23/25 07:47
I&O
04/22/25 04/23/25 04/24/25
06:59 06:59 06:59
Intake Total 480 / 480 900 / 900
Output Total 700 / 700 995 / 995
Balance -220 / -220 -95 / -95
Review of Systems
-
History Source: Patient
All other systems: Reviewed and negative
Physical Exam
-
General: Well Developed, Well Nourished, No Apparent Distress and Comfortable
HEENT: Normocephalic, Atraumatic, Nose Appears Normal and Ears Appear Normal
Respiratory: Clear to Auscultation and Other (cough)
Cardiac: Regular Rhythm and S1/S2 (mechanical click S2)
GI: Soft, Nontender, Nondistended and Normal Bowel Sounds
Musculoskeletal: No Clubbing, No Cyanosis, Edema, Right Lower Extrem and Edema, Left Lower Extrem (tenderness of touch of dorsal left foot)
Skin: Warm and Dry
Neuro: Awake and Alert
Psych: Calm
[2025-04-23 08:16] LABS: Hematocrit 23.9 % (39.0-52.0); Hemoglobin 7.9 g/dL (13.0-18.0); Mean Corp Hgb Conc. 33.1 g/dL (33.0-37.0); Mean Corpuscular Volume 102.6 fL (80.0-94.0); Nucleated Red Blood Cells % 0.3 % (-); Platelet Count 550 10^3/uL (130-400); Red Cell Dist. Width 17.8 % (11.5-14.5)
[2025-04-23 08:17] LABS: INR 2.98; PT 31.3 Sec (11.4-14.6)
--- NOTE | 2025-04-23 08:17 | W.PN.CARDCBS ---
Today's Communication / Plan
-
Cont IV lasix
Nephrology following
Monitor cr
Impression / Plan
-
.
PCP: Dr. Duron
Assorter: Dr. Molly Faye
Impression:
Presented 04/21/2025 with decreased urine output, edema and shortness of breath
Acute on chronic HFpEF, probnp 2830
Recent admission with multifactorial SOB/pneumonia, JULIAN due to IV contrast requiring temporary dialysis 03/04/25
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
MR, moderate to severe by TIAN 03/31/23, moderate by TTE 02/17/25
Mechanical AVR in 2010, followed by revision of pre-existing mechanical aortic valve for perivalvular leak 07/22/2014
LVOT gradient turbulence with mild paravalvular aortic leak by TIAN 03/31/2023 and mild paravalvular regurgitation by TIAN 02/17/25
CAD s/p CABG with DUNCAN to LAD in 2010
HTN with Moderate to severe concentric LVH by echo 02/17/25
Permanent atrial fibrillation on chronic Jantoven (brand name warfarin) OAC managed by [facility] for CAF and mechanical AVR
Anemia with h/o GI bleed in 2021 and MDS
Secondary pulmonary hypertension.
Hyperlipidemia.
Diabetes mellitus type 2
Peripheral vascular disease, status post right posterior tibial angioplasty in 2019.
Chronic obstructive pulmonary disease/ asthma
Nail-patella syndrome
Echo 03/23/23: Moderate LVH. Normal LV size with EF 73%. Normal right ventricular size and function. Mild to moderate mitral stenosis with peak/mean gradients of 25/7 mmHg. Moderate to severe eccentric mitral regurgitation. #[address] [facility] [facility] mechanical
aortic valve replacement with peak/mean gradients of 81/42 mmHg. Mild paravalvular aortic regurgitation. Moderate tricuspid regurgitation. Estimated PA pressure of 72 mmHg assuming a right atrial pressure of 15.
TIAN 03/31/23: Normal LV size and function with ejection fraction 65%. Moderate LVH. Blood pressure was 179/80. Normal right ventricle. Mild to moderate mitral stenosis with mean gradient 3 mmHg. Moderate to severe mitral regurgitation with 2 jets
noted. Mechanical [place] valve is in place. Leaflets appear to be opening appropriately with mild thickening. Turbulent flow going through the LVOT. Mild paravalvular leak.
Valve fluoroscopy 03/31/23: Study was not optimal for opening and closing angles however leaflets appear to be mobile and free of significant obstruction.
Echo 02/17/2025: EF 60 to 65%, moderate to severe concentric LVH, mechanical [facility] AVR peak/mean 36/15 mmHg with mild perivalvular regurgitation, mild MS with mean gradient 4 mmHg, moderate MR, moderate TR with PAP 38 mmHg
Plan:
Presented 04/21/2025 with decreased urine output, edema and shortness of breath found to have acute heart failure both by proBNP and chest x-ray.
Acute on chronic HFpEF, probnp 2830 which is higher than previous proBNP
Cont IV diuresis with Lasix 80 mg IV twice daily
Wt is flat and to monitor daily wts and Is and Os.
Nephrology following for history of CKD stage III and recent JULIAN requiring temporarily dialysis in March secondary to IV contrast exposure
Baseline creatinine 1.4-1.5
Recent echo with EF was 60 to 65% by echo 02/17/2025, no need to repeat.
Re: GDMT:
-Not a good candidate for addition of DEREK/ARB/ARNI/aldosterone antagonist due to CKD 3B/JULIAN
-Not a good candidate foron SGLT2 inhibitor due to CKD, decreased GFR
s/p mechanical AVR in 2010 and then he had redo sternotomy with stitch repair in 2014 to help with paravalvular leak
-INR therapeutic at 2.34.
Monitor H/H with chronic anemia and hx GI bleed, Hemoglobin 7.9 on 04/23.
Continue Cardizem for rate control for permanent atrial fibrillation.
Cont coumadin for prophylaxis
HPI 04/22/2025:
Patient is an 84-year-old male with past medical history significant for chronic HFpEF, CAD status post CABG with DUNCAN to LAD in 2010, mechanical aortic valve replacement, moderate tricuspid regurgitation, pulmonary hypertension, hypertension,
moderate to severe concentric LVH, permanent atrial fibrillation on Coumadin, asymptomatic PVCs, anemia with history of GI bleeding 2021, MDS, hyperlipidemia, type 2 diabetes, peripheral vascular disease status post right posterior tibial
angioplasty, asthma, CKD 3B, COPD, nail-patella syndrome, presenting to emergency department 04/21/2025 with increased lower extremity edema over the past few days and decreased urine output.
Patient was recently admitted from 03/04 to 03/21 for generalized myalgias. Patient was found to have possible pneumonia versus mass on CT scan. Patient was volume overloaded and diuresed. Patient was seen by cardiology for consideration of right
heart catheterization but he could not lay flat. He developed worsening kidney function possibly due to contrast nephropathy from CT abdomen pelvis. He required short-term hemodialysis with improvement in kidney function and urine output.
Creatinine improved to 1.4 upon discharge.
Patient had been seen by nephrology 1 week ago with increase in diuretic due to concerns for heart failure. Unfortunately patient has had poor response now with decreased urine output and worsening edema.
Cardiology being asked to see patient for concerns of heart failure. EKG demonstrated atrial flutter with ventricular paced rhythm. Chest x-ray showed mild to moderate interstitial cardiogenic pulmonary edema, mild alveolar pulmonary edema
decreased since 03/04, moderate cardiomegaly, mildly decreased bilateral lung volumes, resolution of right upper lobe pneumonia. proBNP higher than prior admission at 2830. Creatinine found to be 1.5 which is at baseline. Patient was provided 80 mg
of IV Lasix in emergency department.
Progress Note - Assorter
Subjective
Date of Service: April 23, 2025
Pt seen and examined. No complaints. No chest pain or shortness of breath.
Objective
Labs:
04/23/25 07:27
Labs
Hgb 7.9 g/dL (13.0-18.0) L 04/23/25 07:27
Hct 23.9 % (39.0-52.0) L 04/23/25 07:27
Plt Count 550 10^3/uL (130-400) H 04/23/25 07:27
PT 25.7 Sec (11.4-14.6) H 04/22/25 08:14
INR 2.34 04/22/25 08:14
Sodium 131 mmol/L (135-145) L 04/22/25 08:14
Potassium 4.8 mmol/L (3.5-5.1) 04/22/25 08:14
BUN 49 mg/dl (9-20) H 04/22/25 08:14
Creatinine 1.3 mg/dL (0.7-1.3) 04/22/25 08:14
Glucose 213 mg/dl (70-99) H 04/22/25 08:14
Vital Signs and I&O:
Vital Signs
Temp Pulse Resp BP Pulse Ox
98.5 F 61 16 150/59 96
04/23/25 03:24 04/23/25 08:04 04/23/25 07:47 04/23/25 08:04 04/23/25 07:47
Vital Signs
Temp Pulse Resp BP Pulse Ox
98.5 F 61 16 150/59 96
04/23/25 03:24 04/23/25 08:04 04/23/25 07:47 04/23/25 08:04 04/23/25 07:47
Intake & Output
04/21/25 04/22/25 04/23/25 04/24/25
06:59 06:59 06:59 06:59
Intake Total 480 / 480 900 / 900
Output Total 700 / 700 995 / 995
Balance -220 / -220 -95 / -95
Physical Exam
Physical Exam
General: No acute distress, AAOX3
Neck: Negative JVD
Heart: Irregularly irregular, Negative S3 positive S1/S2, Negative S4, No murmur
Lungs: CTA b/l, negative wheezes/rales/rhonchi
Abd: Positive BS, NT/ND, neg rebound/rigidity/guarding
Ext: Negative cyanosis/clubbing/edema
Neuro: nonfocal
[2025-04-23 09:19] LABS: ALT (SGPT) 21 U/L (0-50); AST (SGOT) 21 U/L (17-59); Albumin 3.1 g/dl (3.5-5.0); Alkaline Phosphatase 86 U/L (38-126); Blood Urea Nitrogen 42 mg/dl (9-20); Calcium 8.5 mg/dl (8.4-10.2); Carbon Dioxide 23 mmol/L (22-30); Chloride 106 mmol/L (98-107); Estimated Creatinine Clearance 36 ml/min; Glucose 147 mg/dl (70-99); Magnesium 1.9 mg/dl (1.6-2.3); Potassium 4.4 mmol/L (3.5-5.1); Sodium 137 mmol/L (135-145); Total Protein 6.0 g/dl (6.3-8.2); eGFR 54.51
[2025-04-23 12:11] LABS: Glucose - Point of Care 356 mg/dl (70-99)
[2025-04-23] MEDS: NOVOLOG FLEXPEN-LOW RESISTANCE 5 UNITS SC (12:19)
[2025-04-23 12:47] LABS: Uric Acid 12.8 mg/dl (3.5-8.5)
--- NOTE | 2025-04-23 14:19 | CM ---
Addendum entered by Cris Mercado 04/23/25 15:31:
Patient my need SNF pending therapy recommendations. CM will continue to follow for discharge planning needs.
Plan; return to home with [facility] vs SNF; pending medical treatment needs.
Original Note:
Patient seen at bedside on [facility] [address] with physicians. Patient indicated that his plan is to return home.
--- NOTE | 2025-04-23 15:13 | W.PN.NEPH.PH ---
Today's Communication / Plan
-
lasix
Assessment/Plan
-
Impression:
CKD stage III with baseline creatinine of 1.4-1.5
Recent hospitalization for PNA
Suspected CHF decompensation/edema
Valvular heart disease with history of mechanical aortic valve replacement
History of coronary artery disease with CABG
Hypertension
Anemia with history of MDS
Secondary pulmonary hypertension with moderate tricuspid regurg
Peripheral vascular disease
COPD
Acute kidney injury (4.2)
History of congestive heart Failure
Diabetes
Atrial fibrillation
Plan:
No need for acute dialysis
Hemodynamically stable
Creatinine stable at 1.5 baseline
Maintain IV diuresis at 80 mg IV twice daily, weight was only up 2 kg from discharge weight on 03/21/2025
no change in wt but feels better overall / edema down
cr 1.3
Last dialysis treatment was Thursday 03/15
-
-
Date of Service: April 23, 2025
CC / HPI / ROS
-
Chief Complaint:
chf
History of Present Illness:
rosita/ckd 1.5 > 1.4 IV diuretics
Review of Systems:
no sob or cp
Labs
-
Labs:
WBC 11.0 10^3/uL (4.8-10.8) H 04/23/25 07:27
RBC 2.33 10^6/uL (4.70-6.10) L 04/23/25 07:27
Hgb 7.9 g/dL (13.0-18.0) L 04/23/25 07:27
Hct 23.9 % (39.0-52.0) L 04/23/25 07:27
Plt Count 550 10^3/uL (130-400) H 04/23/25 07:27
Sodium 137 mmol/L (135-145) 04/23/25 07:27
Potassium 4.4 mmol/L (3.5-5.1) 04/23/25 07:27
Chloride 106 mmol/L (98-107) 04/23/25 07:27
Carbon Dioxide 23 mmol/L (22-30) 04/23/25 07:27
BUN 42 mg/dl (9-20) H 04/23/25 07:27
Creatinine 1.3 mg/dL (0.7-1.3) 04/23/25 07:27
eGFR 54.51 04/23/25 07:27
Glucose 147 mg/dl (70-99) H 04/23/25 07:27
Calcium 8.5 mg/dl (8.4-10.2) 04/23/25 07:27
Uuw-V-Onqfbhdkrfw Pept 2830 pg/ml 04/21/25 15:23
Albumin 3.1 g/dl (3.5-5.0) L 04/23/25 07:27
Physical Exam
-
Vital Signs:
Vital Signs
Temp Pulse Resp BP Pulse Ox
98.2 F 61 16 144/65 95
04/23/25 11:00 04/23/25 11:00 04/23/25 11:00 04/23/25 11:00 04/23/25 14:11
Cardiovascular:: Regular rate and rhythm
Respiratory:: Bilateral: CTA
Lung Excursion:: Normal
Abdomen:: Nontender and Soft
Bowel Sounds:: Normal
Extremity Edema:: None: Bilateral:
[2025-04-23] MEDS: COUMADIN 3 MG PO (17:11)
[2025-04-23] MEDS: LIPITOR 80 MG PO (17:11)
[2025-04-23] MEDS: SINGULAIR 10 MG PO (17:12)
[2025-04-23] MEDS: XALATAN OPHTHALMIC SOLUTION 1 DROP RIGHT EYE (17:12)
[2025-04-23 17:17] LABS: Glucose - Point of Care 197 mg/dl (70-99)
[2025-04-23 21:28] LABS: Glucose - Point of Care 268 mg/dl (70-99)
[2025-04-23] MEDS: LANTUS 0.15 UNITS SC (22:27)
[2025-04-24] VITALS (7 sets, daily range): BP systolic 129–156; BP diastolic 50–100; PULSE 57; O2SAT 97; BMI 25.3
[2025-04-24 00:26] LABS: Glucose - Point of Care 242 mg/dl (70-99)
[2025-04-24 05:05] LABS: Glucose - Point of Care 180 mg/dl (70-99)
[2025-04-24 07:22] LABS: INR 3.51; PT 34.9 Sec (11.4-14.6)
[2025-04-24 07:25] LABS: Glucose - Point of Care 163 mg/dl (70-99)
[2025-04-24 07:41] LABS: ALT (SGPT) 20 U/L (0-50); AST (SGOT) 21 U/L (17-59); Albumin 3.1 g/dl (3.5-5.0); Alkaline Phosphatase 92 U/L (38-126); Blood Urea Nitrogen 39 mg/dl (9-20); Calcium 8.4 mg/dl (8.4-10.2); Carbon Dioxide 24 mmol/L (22-30); Chloride 103 mmol/L (98-107); Estimated Creatinine Clearance 33 ml/min; Glucose 148 mg/dl (70-99); Magnesium 1.9 mg/dl (1.6-2.3); Potassium 4.1 mmol/L (3.5-5.1); Sodium 133 mmol/L (135-145); Total Protein 6.1 g/dl (6.3-8.2); eGFR 49.87
[2025-04-24] MEDS: SPIRIVA RESPIMAT 2.5 MCG 2 PUFF INH (07:54)
[2025-04-24] MEDS: SYMBICORT 80/4.5 MCG INHALER 2 PUFF INH ×2 (07:54→19:48)
--- NOTE | 2025-04-24 07:54 | W.PN.HOSP.TC ---
Addendum entered and electronically signed by Nat Rosen MD 04/24/25 19:14:
I saw and evaluated the patient independently. I reviewed and discussed the resident�s note and agree with findings and plan as documented by Dr. Mckinney.
GENERAL: well developed, well nourished, male in no apparent distress
HEENT:NC/AT, +JVD, VERY hard of hearing
HEART: regular rate and rhythm, +S1, +S2
LUNGS :crackles bilaterally
ABDOM: soft, nontender, distended, + bowel sounds
EXT: no cyanosis, clubbing-- 4+ pitting edema bilaterally improving
NEUROLOGIC: grossly intact
04/21/2523:24 04/24/2505:25
Actual Weight 68.991 kg 66.735 kg
Acute HFpEF exacerbation--likely due to diuretic adjustment from previous admission with JULIAN required short term HD last admission--02/17/2025 echo: EF 60 to 65%--will not repeat at this time--CXR with pulm edema and pro BNP 2800--change 80 mg IV BID
to PO 80 mg daily (likely new outpt dosing)--daily weights, I/Os--apprec cardiology--
CKD 3B-- Renal function at 1.3-- Avoid IV contrast�--apprec renal-- Lasix 80mg PO daily. Check bladder scan for possible urinary retention (performed in ED with 400 mL)
CAD status post CABG with DUNCAN to LAD in 2010 with Mechanical aortic valve replacement--INR subtherapeutic--on 3 mg Coumadin nightly--s/p extra 0.5 mg 04/23/25--follow PT/INR--goal INR 2.5 to 3.5 (hold coumadin tonight 04/24/25)
Permanent atrial fibrillation-- Continue Coumadin, follow INR-- Continue diltiazem
Type 2 diabetes- Continue Lantus 11 units- Insulin sliding scale
Essential hypertension- Continue hydralazine
BPH - Continue finasteride, tamsulosin
Asthma/COPD--no exacerbation - Continue montelukast, Trelegy, Fasenra
Hyperlipidemia - continue atorvastatin 80 mg qPM
Moderate tricuspid regurgitation
Pulmonary hypertension
Chronic anemia - Hemoglobin stable
History of GI bleed 2021
Myelodysplastic syndrome
Peripheral vascular disease status post right posterior tibial angioplasty
History of asymptomatic PVC
Nail-patella syndrome
code status--Full code
DVT proph--Coumadin
anticipate d/c tomorrow
Original Note:
Today's Communication/Plan
-
Given weight 66.7kg is below his dry weight 68 kg, HCO3 increasing, and resolution of bilateral pedal edema, switched from Lasix 80 mg IV twice daily to Lasix p.o. 80 mg daily. Pending cardiology recommendations
Assessment / Plan
Assessment / Plan
IMPRESSION:
84-year-old male past medical history of chronic HFpEF, CAD status post CABG with DUNCAN to LAD in 2010, permanent atrial fibrillation on Coumadin, mechanical aortic valve replacement, moderate tricuspid regurgitation, pulmonary hypertension,
hypertension, moderate to severe concentric LVH, asymptomatic PVCs, anemia with history of GI bleeding 2021, MDS, hyperlipidemia, type 2 diabetes, peripheral vascular disease status post right posterior tibial angioplasty, asthma, CKD 3B, COPD,
nail-patella syndrome, presenting with increased lower extremity edema over the past few days and decreased urine output despite taking 120 mg of Lasix per day.
PLAN:
# Acute HFpEF exacerbation
02/17/2025 echo: EF 60 to 65%
Chest x-ray shows mild to moderate interstitial cardiogenic pulmonary edema, mild alveolar pulmonary edema decreased since 03/04, moderate cardiomegaly, mildly decreased bilateral lung volumes, resolution of right upper lobe pneumonia
Cardiac BNP of 2800, up from 2300
- 80 mg IV Lasix twice daily. Switched to PO Lasix 80 mg daily 04/24/25, given weight 66-67kg (below his dry weight 68 kg), HCO3 increasing, and absence of edema
- Check I's and O's, daily weights
- Cardiology consulted
CKD 3B
- Renal function close to baseline at 1.5
- Avoid IV contrast
Nephrology consulted:
- Continue IV Lasix 80 mg twice daily.
- Mild retention on bladder scan with 139 mL post void after voiding 145 mL
CAD status post CABG with DUNCAN to LAD in 2010
Mechanical aortic valve replacement
- At home, on warfarin 3 mg.
- INR 2.28 on 04/21/25. Therapeutic INR for mechanical valve is 2.5-3.5. Cardiology aiming for 2.5-3.
- Increased warfarin to 3.5 mg 04/22/2025. INR 2.98. Monitor INR on warfarin 3.0 mg qPM
- INR 3.5 04/24/25. Hold today's evening warfarin dose. Resume tomorrow if INR within goal 2.5-3
Permanent atrial fibrillation
- Continue Coumadin
- Continue diltiazem
Type 2 diabetes
- On Lantus 11 units at home. Given elevated related blood sugars at night and after most meals, increased Lantus to 15 units 04/23/2025
- Insulin sliding scale moderate resistance.
- DM management consult
Essential hypertension
- Continue hydralazine
BPH - Continue finasteride, tamsulosin
Asthma - Continue montelukast
COPD - Continue Trelegy, Fasenra
Hyperlipidemia - continue atorvastatin 80 mg qPM
Moderate tricuspid regurgitation
Pulmonary hypertension
Chronic anemia - Hemoglobin stable
History of GI bleed 2021
Myelodysplastic syndrome
Peripheral vascular disease status post right posterior tibial angioplasty
History of asymptomatic PVC
Nail-patella syndrome
Full code
DVT prophylaxis-Coumadin
Cardiac diet
Anticipated Discharge: 24 - 48 hours
Subjective/Interval History
-
Date of Service: April 24, 2025
No acute events overnight. Patient was feeling better and decreased lower extremity pain. He feels no dorsal foot pain at rest, only with me squeezing his feet. Denies shortness of breath or chest pain
Objective Data
-
Labs:
Hematology and Coagulation - Last 24 hours
04/24/25 Range/Units
06:39
WBC 10.3 (4.8-10.8) 10^3/uL
RBC 2.41 L (4.70-6.10) 10^6/uL
Hgb 8.1 L (13.0-18.0) g/dL
Hct 24.0 L (39.0-52.0) %
MCV 99.6 H (80.0-94.0) fL
MCH 33.6 H (27.0-31.0) pg
MCHC 33.8 (33.0-37.0) g/dL
RDW 17.7 H (11.5-14.5) %
Plt Count 562 H (130-400) 10^3/uL
MPV 10.8 H (7.4-10.4) fL
Abs Immat Gran (auto) 0.4 H (0-0.05) 10^3/uL
Absolute Neuts (auto) 7.5 H (1.4-6.5) 10^3/uL
Absolute Lymphs (auto) 1.0 L (1.2-3.4) 10^3/uL
Absolute Monos (auto) 1.4 H (0.1-0.6) 10^3/uL
Absolute Eos (auto) 0.0 (0-0.7) 10^3/uL
Absolute Basos (auto) 0.1 (0-0.2) 10^3/uL
Immature Gran % 3.8 H (0-0.5) %
Neutrophils % 72.9 (42.2-75.2) %
Lymphocytes % 9.3 L (20.5-51.1) %
Monocytes % 13.5 H (1.7-9.3) %
Eosinophils % 0.0 (0-6) %
Basophils % 0.5 (0-2) %
Nucleated RBC % 0.3 (-) %
PT 34.9 H (11.4-14.6) Sec
INR 3.51
Blood Gas and Chemistry - Last 24 hours
04/23/25 04/24/25 Range/Units
07:27 06:39
Sodium 133 L (135-145) mmol/L
Potassium 4.1 (3.5-5.1) mmol/L
Chloride 103 (98-107) mmol/L
Carbon Dioxide 24 (22-30) mmol/L
BUN 39 H (9-20) mg/dl
Creatinine 1.4 H (0.7-1.3) mg/dL
Estimated Creat Clear 33 ml/min
eGFR 49.87
Glucose 148 H (70-99) mg/dl
Uric Acid 12.8 H (3.5-8.5) mg/dl
Calcium 8.4 (8.4-10.2) mg/dl
Magnesium 1.9 (1.6-2.3) mg/dl
Total Bilirubin 0.6 (0.2-1.3) mg/dl
AST 21 (17-59) U/L
ALT 20 (0-50) U/L
Alkaline Phosphatase 92 (38-126) U/L
Total Protein 6.1 L (6.3-8.2) g/dl
Albumin 3.1 L (3.5-5.0) g/dl
Miscellaneous Lab Results - Last 24 hours
04/23/25 04/23/25 04/23/25 Range/Units
12:09 17:15 21:27
POC Glucose 356 H 197 H 268 H (70-99) mg/dl
04/24/25 04/24/25 04/24/25 Range/Units
00:25 05:03 07:24
POC Glucose 242 H 180 H 163 H (70-99) mg/dl
04/24/25 Range/Units
11:22
POC Glucose 387 H (70-99) mg/dl
Vital Signs:
Vital Signs
Temp Pulse Resp BP Pulse Ox
98.3 F 65 18 138/57 94
04/24/25 03:09 04/24/25 03:09 04/24/25 03:09 04/24/25 03:09 04/24/25 04:30
I&O
04/23/25 04/24/25 04/25/25
06:59 06:59 06:59
Intake Total 900 / 900 1020 / 1020
Output Total 995 / 995 1200 / 1200
Balance -95 / -95 -180 / -180
Review of Systems
-
History Source: Patient
All other systems: Reviewed and negative
Physical Exam
-
General: Well Developed, Well Nourished, No Apparent Distress and Comfortable
HEENT: Normocephalic, Atraumatic, Anicteric, Nose Appears Normal and Ears Appear Normal
Respiratory: Wheezes (Diffuse loud wheezes)
Cardiac: Regular Rhythm and S1/S2 (Mechanical click S2)
GI: Soft, Nontender, Nondistended and Normal Bowel Sounds
Musculoskeletal: No Clubbing, No Cyanosis and No Edema
Skin: Warm and Dry
Neuro: Awake and Alert
Psych: Calm
[2025-04-24 09:06] LABS: Hematocrit 24.0 % (39.0-52.0); Hemoglobin 8.1 g/dL (13.0-18.0); Mean Corp Hgb Conc. 33.8 g/dL (33.0-37.0); Mean Corpuscular Volume 99.6 fL (80.0-94.0); Nucleated Red Blood Cells % 0.3 % (-); Platelet Count 562 10^3/uL (130-400); Red Cell Dist. Width 17.7 % (11.5-14.5)
[2025-04-24] MEDS: NOVOLOG FLEXPEN-LOW RESISTANCE 1 UNITS SC (09:33)
[2025-04-24] MEDS: LASIX 80 MG IV (09:34)
[2025-04-24] MEDS: PROSCAR 5 MG PO (09:35)
[2025-04-24] MEDS: CARDIZEM CD 240 MG PO (09:35)
[2025-04-24] MEDS: COLACE 100 MG PO ×2 (09:35→20:34)
[2025-04-24] MEDS: PREVACID 30 MG PO (09:35)
[2025-04-24] MEDS: FLOMAX 0.4 MG PO ×2 (09:35→20:34)
[2025-04-24] MEDS: MIRALAX PO (09:36)
[2025-04-24] MEDS: APRESOLINE 25 MG PO ×2 (09:36→20:34)
--- NOTE | 2025-04-24 10:05 | W.PN.CARDCBS ---
Today's Communication / Plan
-
Transition to oral oral lasix next 24 hrs, defer dosing to nephrology.
Wt appears to be at last d/c wt.
Monitor daily wts and Is and Os.
Nephrology following for history of CKD stage III and recent JULIAN requiring temporarily dialysis in March secondary to IV contrast exposure
Baseline creatinine 1.4-1.5
Will arrange outpatient cardiac follow-up.
Please recall if needed.
Impression / Plan
-
.
PCP: Dr. Duron
Web Content & Social Media Manager: Dr. Molly Faye
Impression:
Presented 04/21/2025 with decreased urine output, edema and shortness of breath
Acute on chronic HFpEF, probnp 2830
Recent admission with multifactorial SOB/pneumonia, JULIAN due to IV contrast requiring temporary dialysis 03/04/25
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
MR, moderate to severe by TIAN 03/31/23, moderate by TTE 02/17/25
Mechanical AVR in 2010, followed by revision of pre-existing mechanical aortic valve for perivalvular leak 07/22/2014
LVOT gradient turbulence with mild paravalvular aortic leak by TIAN 03/31/2023 and mild paravalvular regurgitation by TIAN 02/17/25
CAD s/p CABG with DUNCAN to LAD in 2010
HTN with Moderate to severe concentric LVH by echo 02/17/25
Permanent atrial fibrillation on chronic Jantoven (brand name warfarin) OAC managed by [facility] for CAF and mechanical AVR
Anemia with h/o GI bleed in 2021 and MDS
Secondary pulmonary hypertension.
Hyperlipidemia.
Diabetes mellitus type 2
Peripheral vascular disease, status post right posterior tibial angioplasty in 2019.
Chronic obstructive pulmonary disease/ asthma
Nail-patella syndrome
Echo 03/23/23: Moderate LVH. Normal LV size with EF 73%. Normal right ventricular size and function. Mild to moderate mitral stenosis with peak/mean gradients of 25/7 mmHg. Moderate to severe eccentric mitral regurgitation. #23 [facility] [facility]ao mechanical
aortic valve replacement with peak/mean gradients of 81/42 mmHg. Mild paravalvular aortic regurgitation. Moderate tricuspid regurgitation. Estimated PA pressure of 72 mmHg assuming a right atrial pressure of 15.
TIAN 03/31/23: Normal LV size and function with ejection fraction 65%. Moderate LVH. Blood pressure was 179/80. Normal right ventricle. Mild to moderate mitral stenosis with mean gradient 3 mmHg. Moderate to severe mitral regurgitation with 2 jets
noted. Mechanical [place] valve is in place. Leaflets appear to be opening appropriately with mild thickening. Turbulent flow going through the LVOT. Mild paravalvular leak.
Valve fluoroscopy 03/31/23: Study was not optimal for opening and closing angles however leaflets appear to be mobile and free of significant obstruction.
Echo 02/17/2025: EF 60 to 65%, moderate to severe concentric LVH, mechanical [facility] Yao AVR peak/mean 36/15 mmHg with mild perivalvular regurgitation, mild MS with mean gradient 4 mmHg, moderate MR, moderate TR with PAP 38 mmHg
Plan:
Presented 04/21/2025 with decreased urine output, edema and shortness of breath found to have acute heart failure both by proBNP and chest x-ray. Acute on chronic HFpEF, probnp 2830 which is higher than previous proBNP
Transition to oral oral lasix next 24 hrs, defer dosing to nephrology
Wt appears to be at last d/c wt.
Monitor daily wts and Is and Os.
Nephrology following for history of CKD stage III and recent JULIAN requiring temporarily dialysis in March secondary to IV contrast exposure
Baseline creatinine 1.4-1.5
Recent echo with EF was 60 to 65% by echo 02/17/2025, no need to repeat.
Re: GDMT:
-Not a good candidate for addition of DEREK/ARB/ARNI/aldosterone antagonist due to CKD 3B/JULIAN
-Not a good candidate foron SGLT2 inhibitor due to CKD, decreased GFR
s/p mechanical AVR in 2010 and then he had redo sternotomy with stitch repair in 2014 to help with paravalvular leak
-INR therapeutic
Monitor H/H with chronic anemia and hx GI bleed, Hemoglobin 7.9 on 04/23 and 8.1 on 04/24
Continue Cardizem for rate control for permanent atrial fibrillation.
Cont coumadin for prophylaxis
Will arrange oupt cardiac follow-up.
Please recall if needed.
HPI 04/22/2025:
Patient is an 84-year-old male with past medical history significant for chronic HFpEF, CAD status post CABG with DUNCAN to LAD in 2010, mechanical aortic valve replacement, moderate tricuspid regurgitation, pulmonary hypertension, hypertension,
moderate to severe concentric LVH, permanent atrial fibrillation on Coumadin, asymptomatic PVCs, anemia with history of GI bleeding 2021, MDS, hyperlipidemia, type 2 diabetes, peripheral vascular disease status post right posterior tibial
angioplasty, asthma, CKD 3B, COPD, nail-patella syndrome, presenting to emergency department 04/21/2025 with increased lower extremity edema over the past few days and decreased urine output.
Patient was recently admitted from 03/04 to 03/21 for generalized myalgias. Patient was found to have possible pneumonia versus mass on CT scan. Patient was volume overloaded and diuresed. Patient was seen by cardiology for consideration of right
heart catheterization but he could not lay flat. He developed worsening kidney function possibly due to contrast nephropathy from CT abdomen pelvis. He required short-term hemodialysis with improvement in kidney function and urine output.
Creatinine improved to 1.4 upon discharge.
Patient had been seen by nephrology 1 week ago with increase in diuretic due to concerns for heart failure. Unfortunately patient has had poor response now with decreased urine output and worsening edema.
Cardiology being asked to see patient for concerns of heart failure. EKG demonstrated atrial flutter with ventricular paced rhythm. Chest x-ray showed mild to moderate interstitial cardiogenic pulmonary edema, mild alveolar pulmonary edema
decreased since 03/04, moderate cardiomegaly, mildly decreased bilateral lung volumes, resolution of right upper lobe pneumonia. proBNP higher than prior admission at 2830. Creatinine found to be 1.5 which is at baseline. Patient was provided 80 mg
of IV Lasix in emergency department.
Progress Note - Web Content & Social Media Manager
Subjective
Date of Service: April 24, 2025
Pt seen and examined. No cp or dyspnea.
Objective
Labs:
04/24/25 06:39
04/24/25 06:39
Labs
Hgb 8.1 g/dL (13.0-18.0) L 04/24/25 06:39
Hct 24.0 % (39.0-52.0) L 04/24/25 06:39
Plt Count 562 10^3/uL (130-400) H 04/24/25 06:39
PT 34.9 Sec (11.4-14.6) H 04/24/25 06:39
INR 3.51 04/24/25 06:39
Sodium 133 mmol/L (135-145) L 04/24/25 06:39
Potassium 4.1 mmol/L (3.5-5.1) 04/24/25 06:39
BUN 39 mg/dl (9-20) H 04/24/25 06:39
Creatinine 1.4 mg/dL (0.7-1.3) H 04/24/25 06:39
Glucose 148 mg/dl (70-99) H 04/24/25 06:39
Vital Signs and I&O:
Vital Signs
Temp Pulse Resp BP Pulse Ox
97.8 F 61 16 152/61 98
04/24/25 07:25 04/24/25 09:34 04/24/25 07:25 04/24/25 09:34 04/24/25 07:25
Vital Signs
Temp Pulse Resp BP Pulse Ox
97.8 F 61 16 152/61 98
04/24/25 07:25 04/24/25 09:34 04/24/25 07:25 04/24/25 09:34 04/24/25 07:25
Intake & Output
04/22/25 04/23/25 04/24/25 04/25/25
06:59 06:59 06:59 06:59
Intake Total 480 / 480 900 / 900 1020 / 1020
Output Total 700 / 700 995 / 995 1200 / 1200
Balance -220 / -220 -95 / -95 -180 / -180
Physical Exam
Physical Exam
General: No acute distress, AAOX3
Neck: Negative JVD
Heart: Irregularly irregular, Negative S3 positive S1/S2, Negative S4, No murmur
Lungs: CTA b/l, negative wheezes/rales/rhonchi
Abd: Positive BS, NT/ND, neg rebound/rigidity/guarding
Ext: Negative cyanosis/clubbing/edema
Neuro: nonfocal
[2025-04-24 11:23] LABS: Glucose - Point of Care 387 mg/dl (70-99)
--- NOTE | 2025-04-24 12:29 | PN.DE.MGMTRT ---
Insulin Management
- -
04/24/2025 Diabetes Management Consult
Patient admitted 04/21 with c/o leg swelling, decreased urine output, generalized fatigue - Acute HFpEF with cardiogenic pulmonary edema. PMH CHF, CKD 3B, COPD, aortic valve repair, pulmonary HTN, BPH, CAD s/p CABG 2010, diabetes, HCL, HTN,
required short term HD last admission 03/04 to 03/21. 03/21 dialysis catheter removed. Prior to admission was taking 0 to 11 units lantus @ HS and humalog 17 to 32 units AC. A1C 8.3%, cr 1.4, eGFR 49.87.
Patient is awake alert and oriented, OOB in chair, able to discuss diabetes care. VERY hard of hearing. Patient states he uses [email or web address] 2 CGM at home for glucose monitoring.
Yesterday patient received 15 units lantus @ hs with corrective insulin, glucose range 163 to 356.
Fasting glucose today 148. Will continue lantus 15 units @ HS, will start 4 units novolog AC with low corrective insulin.
Discussed with nurse.
Will follow
Diabetes History
- -
Type of Diabetes: 2 requiring insulin
Pre-Admission Diabetes Regimen
04/24/25
06:39
Creatinine 1.4 H
Lab Results
Hemoglobin A1c 8.3 % (4.0-5.6) H 04/22/25 08:14
Insulin Pump Settings
IP Diabetes Regimen
04/23/25 04/23/25 04/24/25
17:15 21:27 00:25
Glucose
POC Glucose 197 H 268 H 242 H
04/24/25 04/24/25 04/24/25
05:03 06:39 07:24
Glucose 148 H
POC Glucose 180 H 163 H
04/24/25
11:22
Glucose
POC Glucose 387 H
Meal type: Breakfast
Meal type: Dinner
Meal type: Lunch
Meal type: Breakfast
Amount consumed: 100%
Amount consumed: 100%
Amount consumed: 100%
Amount consumed: 100%
Patient Education
[2025-04-24] MEDS: NOVOLOG FLEXPEN-LOW RESISTANCE 9 UNITS SC (12:42)
[2025-04-24] MEDS: NOVOLOG FLEXPEN 4 UNITS SC ×2 (12:42→18:11)
--- NOTE | 2025-04-24 13:54 | W.PN.NEPH.PH ---
Today's Communication / Plan
-
Lasix 80 p.o. daily
From renal standpoint okay for discharge
Assessment/Plan
-
Impression:
CKD stage III with baseline creatinine of 1.4-1.5
Recent hospitalization for PNA
Suspected CHF decompensation/edema
Valvular heart disease with history of mechanical aortic valve replacement
History of coronary artery disease with CABG
Hypertension
Anemia with history of MDS
Secondary pulmonary hypertension with moderate tricuspid regurg
Peripheral vascular disease
COPD
Acute kidney injury (4.2)
History of congestive heart Failure
Diabetes
Atrial fibrillation
Plan:
No need for acute dialysis
Hemodynamically stable
Creatinine stable at 1.5 baseline
P.o. Lasix 80, weight was only up 2 kg from discharge weight on 03/21/2025
no change in wt but feels better overall / edema down
cr 1.3
Patient clinically much improved.
From a renal standpoint will be okay for discharge
Last dialysis treatment was Thursday 03/15
-
-
Date of Service: April 24, 2025
CC / HPI / ROS
-
Chief Complaint:
chf
History of Present Illness:
rosita/ckd 1.5 > 1.4 now on p.o. diuretics
Review of Systems:
no sob or cp
Labs
-
Labs:
WBC 10.3 10^3/uL (4.8-10.8) 04/24/25 06:39
RBC 2.41 10^6/uL (4.70-6.10) L 04/24/25 06:39
Hgb 8.1 g/dL (13.0-18.0) L 04/24/25 06:39
Hct 24.0 % (39.0-52.0) L 04/24/25 06:39
Plt Count 562 10^3/uL (130-400) H 04/24/25 06:39
Sodium 133 mmol/L (135-145) L 04/24/25 06:39
Potassium 4.1 mmol/L (3.5-5.1) 04/24/25 06:39
Chloride 103 mmol/L (98-107) 04/24/25 06:39
Carbon Dioxide 24 mmol/L (22-30) 04/24/25 06:39
BUN 39 mg/dl (9-20) H 04/24/25 06:39
Creatinine 1.4 mg/dL (0.7-1.3) H 04/24/25 06:39
eGFR 49.87 04/24/25 06:39
Glucose 148 mg/dl (70-99) H 04/24/25 06:39
Calcium 8.4 mg/dl (8.4-10.2) 04/24/25 06:39
Tyr-L-Jutkkweyaez Pept 2830 pg/ml 04/21/25 15:23
Albumin 3.1 g/dl (3.5-5.0) L 04/24/25 06:39
Physical Exam
-
Vital Signs:
Vital Signs
Temp Pulse Resp BP Pulse Ox
98.2 F 62 18 147/57 96
04/24/25 11:10 04/24/25 11:10 04/24/25 11:10 04/24/25 11:10 04/24/25 11:10
Cardiovascular:: Regular rate and rhythm
Respiratory:: Bilateral: CTA
Lung Excursion:: Normal
Abdomen:: Nontender and Soft
Bowel Sounds:: Normal
Extremity Edema:: None: Bilateral:
--- NOTE | 2025-04-24 15:17 | CM ---
Patient seen at bedside on with physician. Patient for possible discharge home tomorrow with [facility] to follow. CM sent tt to liaison with [facility] and she will continue to follow for discharge home. IMM left in patient room for patient and to
review. CM will follow for discharge planning needs.
Plan; home with [facility] to follow
[2025-04-24 16:54] LABS: Glucose - Point of Care 117 mg/dl (70-99)
[2025-04-24] MEDS: NOVOLOG FLEXPEN-LOW RESISTANCE SC (17:35)
[2025-04-24] MEDS: SINGULAIR 10 MG PO (18:12)
[2025-04-24] MEDS: LIPITOR 80 MG PO (18:12)
[2025-04-24] MEDS: XALATAN OPHTHALMIC SOLUTION 1 DROP RIGHT EYE (18:12)
[2025-04-24] MEDS: LANTUS 0.15 UNITS SC (21:58)
[2025-04-24] MEDS: TYLENOL 650 MG PO (21:58)
[2025-04-24 22:03] LABS: Glucose - Point of Care 137 mg/dl (70-99)
[2025-04-25 03:29] VITALS: BP 131/63
[2025-04-25 05:08] VITALS: BMI 25.2
[2025-04-25 06:25] LABS: Hematocrit 24.9 % (39.0-52.0); Hemoglobin 8.7 g/dL (13.0-18.0); Mean Corp Hgb Conc. 34.9 g/dL (33.0-37.0); Mean Corpuscular Volume 98.0 fL (80.0-94.0); Nucleated Red Blood Cells % 0.3 % (-); Platelet Count 575 10^3/uL (130-400); Red Cell Dist. Width 17.4 % (11.5-14.5)
[2025-04-25 06:32] LABS: INR 3.20; PT 33.1 Sec (11.4-14.6)
[2025-04-25 06:54] LABS: ALT (SGPT) 19 U/L (0-50); AST (SGOT) 23 U/L (17-59); Albumin 3.1 g/dl (3.5-5.0); Alkaline Phosphatase 96 U/L (38-126); Blood Urea Nitrogen 35 mg/dl (9-20); Calcium 8.5 mg/dl (8.4-10.2); Carbon Dioxide 23 mmol/L (22-30); Chloride 103 mmol/L (98-107); Estimated Creatinine Clearance 33 ml/min; Glucose 131 mg/dl (70-99); Magnesium 2.0 mg/dl (1.6-2.3); Potassium 4.4 mmol/L (3.5-5.1); Sodium 133 mmol/L (135-145); Total Protein 6.2 g/dl (6.3-8.2); eGFR 49.87
[2025-04-25 07:00] VITALS: BP 146/68
--- NOTE | 2025-04-25 07:17 | PN.DE.MGMTRT ---
Insulin Management
- -
04/25/2025: Diabetes Management Followup
Patient admitted 04/21 with c/o leg swelling, decreased urine output, generalized fatigue -Acute HFpEF with cardiogenic pulmonary edema. PMH CHF, CKD 3B, COPD, aortic valve repair, pulmonary HTN, BPH, CAD s/p CABG 2010, diabetes, HCL, HTN, required
short term HD last admission 03/04 to 03/21. 03/21 dialysis catheter removed. Prior to admission was taking 0 to 11 units Lantus @ HS and Humalog 17 to 32 units AC. A1C 8.3%, cr 1.4, eGFR 49.87.
Patient awake, alert and oriented, OOB in chair, able to discuss diabetes care. Very [place]IN. Patient states he uses [employer] 2 CGM at home for glucose monitoring.
Yesterday patient was started on 4 units NovoLog AC, 1st dose was administered at lunch time for a glucose of 385 with improvement to glucose.
Received 15 units Lantus @ hs, fasting glucose is 131 V this AM.
Will make no changes to current regimen. Continue Lantus 15 units @ HS, NovoLog 4units AC with low corrective insulin.
Discussed with nurse. Will cont to follow
Diabetes History
- -
Type of Diabetes: 2 requiring insulin
Pre-Admission Diabetes Regimen
04/24/25 04/25/25
06:39 05:25
Creatinine 1.4 H 1.4 H
Lab Results
Hemoglobin A1c 8.3 % (4.0-5.6) H 04/22/25 08:14
Insulin Pump Settings
IP Diabetes Regimen
04/24/25 04/24/25 04/24/25
06:39 07:24 11:22
Glucose 148 H
POC Glucose 163 H 387 H
04/24/25 04/24/25 04/25/25
16:53 22:02 05:25
Glucose 131 H
POC Glucose 117 H 137 H
Meal type: Dinner
Meal type: Lunch
Meal type: Breakfast
Amount consumed: 100%
Amount consumed: 100%
Amount consumed: 100%
Patient Education
[2025-04-25] MEDS: SPIRIVA RESPIMAT 2.5 MCG 2 PUFF INH (07:26)
[2025-04-25] MEDS: SYMBICORT 80/4.5 MCG INHALER 2 PUFF INH (07:26)
--- NOTE | 2025-04-25 08:24 | W.PN.HOSP.TC ---
Addendum entered and electronically signed by Nat Rosen MD 04/25/25 16:38:
I saw and evaluated the patient independently. I reviewed and discussed the resident�s note and agree with findings and plan as documented by Dr. Mckinney.
GENERAL: well developed, well nourished, male in no apparent distress
HEENT:NC/AT, +JVD, VERY hard of hearing
HEART: regular rate and rhythm, +S1, +S2
LUNGS :crackles bilaterally
ABDOM: soft, nontender, distended and bloated, + bowel sounds
EXT: no cyanosis, clubbing-- 1+ pitting edema bilaterally
NEUROLOGIC: grossly intact
Acute HFpEF exacerbation--likely due to diuretic adjustment from previous admission with JULIAN required short term HD last admission--02/17/2025 echo: EF 60 to 65%--will not repeat at this time--CXR with pulm edema and pro BNP 2800--lasix PO 80 mg
daily (new outpt dosing)--daily weights, I/Os--apprec cardiology--
CKD 3B-- Renal function at 1.3-- Avoid IV contrast�--apprec renal-- Lasix 80mg PO daily. Check bladder scan for possible urinary retention (performed in ED with 400 mL)
CAD status post CABG with DUNCAN to LAD in 2010 with Mechanical aortic valve replacement--INR subtherapeutic--on 3 mg Coumadin nightly--s/p extra 0.5 mg 04/23/25--follow PT/INR--goal INR 2.5 to 3.5 (hold coumadin again tonight 04/25/25)
Permanent atrial fibrillation-- Continue Coumadin, follow INR-- Continue diltiazem
Type 2 diabetes- Continue Lantus 11 units- Insulin sliding scale
Essential hypertension- Continue hydralazine
BPH - Continue finasteride, tamsulosin
Asthma/COPD--no exacerbation - Continue montelukast, Trelegy, Fasenra
Hyperlipidemia - continue atorvastatin 80 mg qPM
Moderate tricuspid regurgitation
Pulmonary hypertension
Chronic anemia - Hemoglobin stable
History of GI bleed 2021
Myelodysplastic syndrome
Peripheral vascular disease status post right posterior tibial angioplasty
History of asymptomatic PVC
Nail-patella syndrome
code status--Full code
DVT proph--Coumadin
OK for d/c
Original Note:
Today's Communication/Plan
-
INR 3.2, above our/cardiology's target of 2.5-3. Advised patient to not take home warfarin 3 mg tonight, but to restart it tomorrow. Advised him to check his INR at home and call his Coumadin clinic with results and guidance if his INR is outside
target.
Spoke with prior to discharge and gave a summary of main updates, including warfarin, p.o. Lasix 80 mg daily, and follow-up labs.
Patient stable for discharge today.
Assessment / Plan
Assessment / Plan
IMPRESSION:
84-year-old male past medical history of chronic HFpEF, CAD status post CABG with DUNCAN to LAD in 2010, permanent atrial fibrillation on Coumadin, mechanical aortic valve replacement, moderate tricuspid regurgitation, pulmonary hypertension,
hypertension, moderate to severe concentric LVH, asymptomatic PVCs, anemia with history of GI bleeding 2021, MDS, hyperlipidemia, type 2 diabetes, peripheral vascular disease status post right posterior tibial angioplasty, asthma, CKD 3B, COPD,
nail-patella syndrome, presenting with increased lower extremity edema over the past few days and decreased urine output despite taking 120 mg of Lasix per day.
PLAN:
# Acute HFpEF exacerbation
02/17/2025 echo: EF 60 to 65%
Chest x-ray shows mild to moderate interstitial cardiogenic pulmonary edema, mild alveolar pulmonary edema decreased since 03/04, moderate cardiomegaly, mildly decreased bilateral lung volumes, resolution of right upper lobe pneumonia
Cardiac BNP of 2800, up from 2300
- Started 80 mg IV Lasix twice daily. (At home on Lasix 80 mg p.o. and alternated with Lasix 40 mg p.o. every other day)
- Switched to PO Lasix 80 mg daily 04/24/25, given weight 66-67kg (below his dry weight 68 kg), HCO3 increasing, and absence of edema
- Check I's and O's, daily weights
- Cardiology consulted
#Dorsal foot pain bilaterally
� Uric acid 12.8 high
Given patient's foot pain decreased to no pain at rest after diuresis resolved edema, holding off on starting acute therapy or urate lowering therapy. Instructed patient to get follow-up uric acid level along with CMP and INR in 1 week after
discharge and to follow-up with primary care provider and/or felt hooker regarding foot pain/edema if it returns.
CKD 3B
- Renal function close to baseline at 1.5
- Avoid IV contrast
Nephrology consulted:
- Continue IV Lasix 80 mg twice daily.
- Mild retention on bladder scan with 139 mL post void after voiding 145 mL
� Last dialysis treatment was started 03/15 for renal failure due to HF last hospitalization
CAD status post CABG with DUNCAN to LAD in 2010
Mechanical aortic valve replacement
- At home, on warfarin 3 mg.
- INR 2.28 on 04/21/25. Therapeutic INR for mechanical valve is 2.5-3.5. Cardiology aiming for 2.5-3.
- Increased warfarin to 3.5 mg 04/22/2025. INR 2.98. Monitor INR on warfarin 3.0 mg qPM
- INR 3.5 04/24/25. Hold today's evening warfarin dose. Resume tomorrow if INR within goal 2.5-3
� INR 3.2 04/25/2025. Holding warfarin for second day. Since patient is being discharged today 09/19/2024, advised patient to not take his home warfarin tonight, but to restart tomorrow
Permanent atrial fibrillation
- Continue Coumadin
- Continue diltiazem
Type 2 diabetes
- On Lantus 11 units at home and Humalog 17 to 31 units. Given elevated related blood sugars at night and after most meals, increased Lantus to 15 units 04/23/2025
- DM management consult: 4 units NovoLog AC
- Insulin sliding scale moderate resistance.
Essential hypertension
- Continue hydralazine
BPH - Continue finasteride, tamsulosin
Asthma - Continue montelukast
COPD - Continue Trelegy, Fasenra
Hyperlipidemia - continue atorvastatin 80 mg qPM
Moderate tricuspid regurgitation
Pulmonary hypertension
Chronic anemia - Hemoglobin stable
History of GI bleed 2021
Myelodysplastic syndrome
Peripheral vascular disease status post right posterior tibial angioplasty
History of asymptomatic PVC
Nail-patella syndrome
Full code
DVT prophylaxis-Coumadin
Cardiac diet
Anticipated Discharge: Today
Subjective/Interval History
-
Date of Service: April 25, 2025
No acute overnight events overnight. Patient had no complaints. Today, he states that his dorsal foot pain has improved such that he does not feel at rest, but only if I squeeze firmly on his feet. He denies shortness of breath and chest pain.
Objective Data
-
Labs:
Laboratory Results
04/25/25
05:25
WBC 9.4
Hgb 8.7 L
Hct 24.9 L
Plt Count 575 H
PT 33.1 H
INR 3.20
Sodium 133 L
Potassium 4.4
Chloride 103
Carbon Dioxide 23
BUN 35 H
Creatinine 1.4 H
Glucose 131 H
Calcium 8.5
Total Bilirubin 0.6
AST 23
ALT 19
Alkaline Phosphatase 96
Vital Signs:
Vital Signs
Temp Pulse Resp BP Pulse Ox
98.9 F 64 18 131/63 97
04/25/25 03:29 04/25/25 07:30 04/25/25 07:30 04/25/25 03:29 04/25/25 07:30
I&O
04/24/25 04/25/25 04/26/25
06:59 06:59 06:59
Intake Total 1020 / 1020 1560 / 1560
Output Total 1200 / 1200 800 / 800
Balance -180 / -180 760 / 760
Review of Systems
-
History Source: Patient
All other systems: Reviewed and negative
Physical Exam
-
General: Well Developed and Well Nourished
HEENT: Normocephalic and Atraumatic
Respiratory: Wheezes (Diffuse like yesterday; encourage patient to use his inhalers)
Cardiac: Regular Rhythm and S1/S2 (Mechanical S2)
GI: Soft, Nontender, Nondistended and Normal Bowel Sounds
Musculoskeletal: No Clubbing, No Cyanosis and No Edema
Skin: Warm and Dry
Neuro: Awake and Alert
Psych: Calm
[2025-04-25] MEDS: CARDIZEM CD 240 MG PO (08:26)
[2025-04-25] MEDS: MIRALAX 17 GRAMS PO (08:26)
[2025-04-25 08:27] LABS: Glucose - Point of Care 129 mg/dl (70-99)
[2025-04-25] MEDS: APRESOLINE 25 MG PO (08:27)
[2025-04-25] MEDS: COLACE 100 MG PO (08:27)
[2025-04-25] MEDS: PREVACID 30 MG PO (08:27)
[2025-04-25] MEDS: NOVOLOG FLEXPEN-LOW RESISTANCE SC (08:27)
[2025-04-25] MEDS: LASIX 80 MG PO (08:27)
[2025-04-25] MEDS: FLOMAX 0.4 MG PO (08:27)
[2025-04-25] MEDS: PROSCAR 5 MG PO (08:27)
[2025-04-25] MEDS: NOVOLOG FLEXPEN 4 UNITS SC ×2 (08:28→12:41)
--- NOTE | 2025-04-25 10:55 | W.PN.NEPH.PH ---
Today's Communication / Plan
-
Stable maintain current oral Lasix dosage
Assessment/Plan
-
Impression:
CKD stage III with baseline creatinine of 1.4-1.5
Recent hospitalization for PNA
Suspected CHF decompensation/edema
Valvular heart disease with history of mechanical aortic valve replacement
History of coronary artery disease with CABG
Hypertension
Anemia with history of MDS
Secondary pulmonary hypertension with moderate tricuspid regurg
Peripheral vascular disease
COPD
Acute kidney injury (4.2)
History of congestive heart Failure
Diabetes
Atrial fibrillation
Plan:
No need for acute dialysis
Hemodynamically stable
Creatinine stable at 1.4 baseline
P.o. Lasix 80, weight was only up 2 kg from discharge weight on 03/21/2025
no change in wt but feels better overall / edema down
cr 1.3
Patient clinically much improved.
From a renal standpoint will be okay for discharge
Can discharge on 80 mg of Lasix daily, if weights increase by 3 or more pounds and/or edema exacerbates we could go to a second dose of 40 mg in the afternoon
Last dialysis treatment was Thursday 03/15
-
-
Date of Service: April 25, 2025
CC / HPI / ROS
-
Chief Complaint:
chf
History of Present Illness:
rosita/ckd 1.5 > 1.4 now on p.o. diuretics
Hemodynamically stable
Review of Systems:
No fevers
Nonoliguric around 800 cc
no sob or cp
Labs
-
Labs:
WBC 9.4 10^3/uL (4.8-10.8) 04/25/25 05:25
RBC 2.54 10^6/uL (4.70-6.10) L 04/25/25 05:25
Hgb 8.7 g/dL (13.0-18.0) L 04/25/25 05:25
Hct 24.9 % (39.0-52.0) L 04/25/25 05:25
Plt Count 575 10^3/uL (130-400) H 04/25/25 05:25
Sodium 133 mmol/L (135-145) L 04/25/25 05:25
Potassium 4.4 mmol/L (3.5-5.1) 04/25/25 05:25
Chloride 103 mmol/L (98-107) 04/25/25 05:25
Carbon Dioxide 23 mmol/L (22-30) 04/25/25 05:25
BUN 35 mg/dl (9-20) H 04/25/25 05:25
Creatinine 1.4 mg/dL (0.7-1.3) H 04/25/25 05:25
eGFR 49.87 04/25/25 05:25
Glucose 131 mg/dl (70-99) H 04/25/25 05:25
Calcium 8.5 mg/dl (8.4-10.2) 04/25/25 05:25
Lyo-N-Rdycmriokrj Pept 2830 pg/ml 04/21/25 15:23
Albumin 3.1 g/dl (3.5-5.0) L 04/25/25 05:25
Physical Exam
-
Vital Signs:
Vital Signs
Temp Pulse Resp BP Pulse Ox
98 F 60 18 146/68 97
04/25/25 07:00 04/25/25 08:26 04/25/25 07:30 04/25/25 08:26 04/25/25 07:30
Cardiovascular:: Regular rate and rhythm
Respiratory:: Bilateral: CTA
Lung Excursion:: Normal
Abdomen:: Nontender and Soft
Bowel Sounds:: Normal
Extremity Edema:: None: Bilateral:
Little Catheter: No
[2025-04-25 11:00] VITALS: BP 143/55
[2025-04-25 12:21] LABS: Glucose - Point of Care 310 mg/dl (70-99)
[2025-04-25] MEDS: NOVOLOG FLEXPEN-LOW RESISTANCE 7 UNITS SC (12:42)
--- NOTE | 2025-04-25 14:57 | CM ---
Patient seen at bedside with physicians. Patient reviewed IMM again with CM and document completed as a verbal discussion as patient did not feel comfortable signing form without patient . Patient for discharge home with [facility] today. CM will
continue to follow for discharge planning needs.
PLan; home with [facility] to follow
[2025-04-25 15:00] VITALS: BP 136/65
--- NOTE | 2025-04-25 15:14 | W.DCSUMMARY ---
Addendum entered and electronically signed by Nat Rosen MD 04/25/25 18:46:
Read, reviewed, and agree. See same day progress note for additional details. Time spent coordinating care, DC planning, review of DC plan of care with resident, transition of care, review of records in EMR, med rec, consults, notes, d/w
consultants, nursing, family, and CM = 55 minutes
Original Note:
Discharge Summary
Discharge Data
Date of Admission: 04/21/25
Date of Discharge: 04/25/25
Total time spent discharging patient (in min): 55
-
Pending Results: No
Hospital Course
84-year-old male past medical history of chronic HFpEF, CAD status post CABG with DUNCAN to LAD in 2010, permanent atrial fibrillation on Coumadin, mechanical aortic valve replacement, moderate tricuspid regurgitation, pulmonary hypertension,
hypertension, moderate to severe concentric LVH, asymptomatic PVCs, anemia with history of GI bleeding 2021, MDS, hyperlipidemia, type 2 diabetes, peripheral vascular disease status post right posterior tibial angioplasty, asthma, CKD 3B, COPD,
nail-patella syndrome, presenting with increased lower extremity edema over the past few days and decreased urine output despite taking 120 mg of Lasix per day.
Patient reported that he was alternating Lasix p.o. 80 mg and 40 mg from 1 day to the next. Since the patient had bilateral edema and mild to moderate pulmonary edema, patient's diuresis was increased to Lasix 80 mg IV twice daily, which resolved
his edema and crackles. His bilateral dorsal foot pain also decreased to none at rest, only felt with someone squeezing his feet firmly. His weight decreased 2.5 kg from 69 kg to 66.6 kg. He stated his baseline weight is 1 to 50 pounds which is
68 kg. His creatinine remained near his baseline of 1.2.
He was transition to furosemide 80 mg p.o. daily and discharged on that increased dose from his prior home dose. The soil conservation technician advised that he could add 40 mg of furosemide if he was becoming more edematous or short of breath.
Since INR was slightly subtherapeutic at 2.28 for his mechanical aortic valve (goal 2.5-3 per cardiology), and extra 0.5 mg of warfarin was provided. His INR remained above goal at 3.5 and 3.2 for 2 days, so his warfarin 3 mg was held. He was
advised to skip his evening warfarin dose on the day of discharge and resume it the following day. He was advised to continue measuring his INR at home like he had before this admission and to follow-up with his Coumadin clinic if further distances
are needed.
CXR 04/21/2020
IMPRESSION:
1. Mild to moderate interstitial cardiogenic pulmonary edema.
2. Mild alveolar pulmonary edema which has decreased since 03/04/2025.
3. Mildly decreased bilateral lung volumes.
4. Moderate cardiomegaly.
5. Previous CABG surgery and aortic valve replacement.
6. Severe calcific atherosclerotic plaque in the thoracic and abdominal aorta.
7. Interval resolution of right upper lobe pneumonia.
Acute HFpEF exacerbation
02/17/2025 echo: EF 60 to 65%
Chest x-ray shows mild to moderate interstitial cardiogenic pulmonary edema, mild alveolar pulmonary edema decreased since 03/04, moderate cardiomegaly, mildly decreased bilateral lung volumes, resolution of right upper lobe pneumonia
Cardiac BNP of 2800, up from 2300
- Cardiology consulted
- Started 80 mg IV Lasix twice daily, which resolved the bilateral pedal edema as well as bilateral dorsal foot (At home on Lasix 80 mg p.o. and alternated with Lasix 40 mg p.o. every other day)
- Switched to PO Lasix 80 mg daily 04/24/25, given weight 66-67kg (below his dry weight 68 kg), HCO3 increasing, and disappearance of edema
- Checked I's and O's, daily weights
#Dorsal foot pain bilaterally
Likely due to pedal edema or arthritis
� Uric acid 12.8 high
Patient did not have classic gout symptoms
Given patient's foot pain decreased to no pain at rest after diuresis resolved edema and the patient denied ever having gout, held off on urate lowering therapy. Instructed patient to get follow-up uric acid level along with CMP in 1 week after
discharge and to follow-up with primary care provider and/or asic engineer regarding foot pain/edema if it returns.
CKD 3B
- Renal function close to baseline at 1.5
- Avoid IV contrast
Nephrology consulted:
- Mild retention on bladder scan with 139 mL post void after voiding 145 mL
� Last dialysis treatment was started 03/15 for renal failure due to HF last hospitalization
CAD status post CABG with [facility] to LAD in 2010
Mechanical aortic valve replacement
- At home, on warfarin 3 mg.
- INR 2.28 on 04/21/25. Therapeutic INR for mechanical valve is 2.5-3.5. Cardiology aiming for 2.5-3.
- Increased warfarin to 3.5 mg 04/22/2025. INR 2.98. Monitor INR on warfarin 3.0 mg qPM
- INR 3.5 04/24/25. Hold today's evening warfarin dose. Resume tomorrow if INR within goal 2.5-3
� INR 3.2 04/25/2025. Since patient is being discharged today 04/25/2025, advised patient to not take his home Jantoven 3 mg tonight, but to restart tomorrow, remeasure his INR's at home, and follow-up with his Coumadin clinic.
Permanent atrial fibrillation
- Continue Coumadin
- Continue diltiazem
Type 2 diabetes
- On Lantus 11 units at home and Humalog 17 to 31 units. Given elevated related blood sugars at night and after most meals, increased Lantus to 15 units 04/23/2025
- DM management consult: 4 units NovoLog AC. Insulin sliding scale low resistance
� Discharged on modified inpatient regimen: Lantus 15 units nightly and 4 units NovoLog AC
Essential hypertension- Continue hydralazine
BPH - Continue finasteride, tamsulosin
Asthma - Continue montelukast
COPD - Continue Trelegy, Fasenra
Hyperlipidemia - continue atorvastatin 80 mg qPM
Discharge Plan
-
Patient Disposition: Home with Home Care
Discharge Diagnosis/Procedures: B/l pedal edema
Foot pain
HFpEF exacerbation
HTN
CKD
CAD
Permanent afib
T2DM
BPH
Asthma
COPD
HLD
Condition: Good
Diet: 2 Gram Sodium and Restrict fluids to 64 oz
Activity: With assistance
Driving Restrictions: As prior to admission
Bathing Restrictions: None
Blood Work: Please get bloodwork in around a week: BMP, INR, uric acid.
Other Services: VN
Specialty Instructions: Weigh Daily- Call MD for wt gain/loss 3 lbs overnight/5 lbs in 1 week
Instructions: *DCA Heart Failure Instructions
Referrals:
Martine Duron DO [Family Provider, Family Practice]
Molly Faye MD [Active, Cardiology]
Referral Note: The office was working on an appointment for you to be seen in the next 1 to 2 weeks and we will call you with that appointment.
Additional Discharge Medication Instructions: Please take Lasix 80 mg oral daily for heart failure and to prevent fluid retention / leg swelling symptom.
Please get blood work in a week to follow-up on your INR (or use your home measurement tool), uric acid level, and basic metabolic panel.
Please follow up with your PCP for this hospital stay.
Please see a asic engineer to follow up on your heart failure management and leg swelling.
Please follow-up with your soil conservation technician for chronic kidney disease and dialysis.
Prescriptions:
New
(DME) Uric acid
See Rx Instructions .Route .MEDSUPPLY Qty: 1 0RF
Rx Instructions:
Please get bloodwork in a week
furosemide 80 mg Tablet
80 mg PO DAILY Qty: 30 0RF
insulin lispro [Humalog KwikPen Insulin] 100 unit/mL Insulin Pen
4 unit SC AC 30 Days Qty: 360 0RF
insulin glargine [Lantus Solostar U-100 Insulin] 100 unit/mL (3 mL) Insulin Pen
15 unit SC DAILY Qty: 5 0RF
Rx Instructions:
TAKE AT BEDTIME
(DME) pen needle, diabetic [Anna Pen Needle] 32 gauge x 5/32' Needle
Qty: 200 0RF
Rx Instructions:
1 box of 200 needles
refer to insulin instructions
Continued
montelukast 10 MG tablet
10 mg PO QPM
cholecalciferol (vitamin D3) [Vitamin D3] 1,000 UNIT tablet
1,000 unit PO QPM
Patient Comments:
patient's called to review home meds. she stated that he's no longer taking vitamin D
ifwoqncz-ugycs-guq 149-hyal ac 1 EACH tablet
1 ea PO BID
atorvastatin 80 MG tablet
80 mg PO QPM
finasteride 5 MG tablet
5 mg PO DAILY
tamsulosin 0.4 MG capsule
0.4 mg PO BID
xdrorfgn-bnr-ukfv fum-folic ac 1 EACH tablet
1 ea PO DAILY
insulin lispro [Humalog KwikPen Insulin] 100 unit/mL Insulin Pen
17 - 32 unit SC AC
omeprazole 40 mg Capsule,Delayed Release(Dr/Ec)
40 mg PO DAILY
Fasenra 30 mg/mL Syringe
30 mg SC Q8W
diltiazem HCl 240 mg capsule,extended release 24hr
240 mg PO DAILY
hydralazine 25 mg tablet
25 mg PO BID
levalbuterol tartrate 45 mcg/actuation HFA aerosol inhaler
2 puff INHALATION Q6HPRN PRN (Reason: sob)
Trelegy Ellipta 100-62.5-25 mcg blister with device
1 ea INHALATION DAILY
insulin glargine [Lantus U-100 Insulin] 100 UNIT/ML solution
0 - 11 unit SC HS
Jantoven
3 mg PO QPM
Patient Comments:
Patient's said med was started on this medication d/t Warfarin not working
latanoprost drops
0.005 RIGHT EYE QPM
docusate sodium 100 mg Capsule
100 mg PO BID 10 Days Qty: 20 0RF
polyethylene glycol 3350 17 gram Powder In Packet
17 g PO DAILY Qty: 10 0RF
(DME) BMP
See Rx Instructions .Route .MEDSUPPLY Qty: 1 0RF
Rx Instructions:
Check BMP in 3 days. Send results to Dr. Martine Duron
Dx:Chronic kidney disease
(DME) INR
See Rx Instructions .Route .MEDSUPPLY Qty: 1 0RF
Rx Instructions:
INR level check in 3 days. Send results to Dr. Martine Duron.
Dx: Warfarin use
Discharge Orders:
Discharge Patient (As Directed); Ordered 04/25/25
Ordered By: Dorita Mckinney
Discharge Date and Time
Print Language: TAJIK
== END 2025-04-25 16:17 | disposition home health service (06) | DRG 291 ==
LOC: 2 NORTH 21:22
PROVIDERS: Emergency Medicine; ADMITTING PHYSICIAN Hospitalist; ATTENDING PHYSICIAN Internal Medicine; CONSULT PHYSICIAN Internal Medicine Cardiovascular Disease; EMERGENCY PHYSICIAN Emergency Medicine; FAMILY PHYSICIAN Family Medicine; OTHER PHYSICIAN Specialist
DX: I13.0 Hypertensive heart and chronic kidney disease with heart failure and stage 1 through stage 4 chronic kidney disease, or unspecified chronic kidney disease (principal); I50.33 Acute on chronic diastolic (congestive) heart failure; I48.21 Permanent atrial fibrillation; I48.92 Unspecified atrial flutter; Q87.2 Congenital malformation syndromes predominantly involving limbs; N18.32 Chronic kidney disease, stage 3b; Z95.1 Presence of aortocoronary bypass graft; I25.10 Atherosclerotic heart disease of native coronary artery without angina pectoris; E11.22 Type 2 diabetes mellitus with diabetic chronic kidney disease; E11.51 Type 2 diabetes mellitus with diabetic peripheral angiopathy without gangrene; N40.0 Benign prostatic hyperplasia without lower urinary tract symptoms; I27.20 Pulmonary hypertension, unspecified; D46.9 Myelodysplastic syndrome, unspecified; I49.3 Ventricular premature depolarization; J44.89 Other specified chronic obstructive pulmonary disease; Z87.891 Personal history of nicotine dependence; Z88.5 Allergy status to narcotic agent; Z88.0 Allergy status to penicillin; Z91.041 Radiographic dye allergy status; E78.00 Pure hypercholesterolemia, unspecified; Z79.4 Long term (current) use of insulin; Z79.899 Other long term (current) drug therapy; Z79.01 Long term (current) use of anticoagulants; Z82.49 Family history of ischemic heart disease and other diseases of the circulatory system; Z95.2 Presence of prosthetic heart valve
CPT/HCPCS: 71046; 80053; 82962; 83036; 83735; 83880; 84550; 85025; 85610; 90662; 93005; 94640; 96374; 97162; 97166; 99285; G0008